=== PATIENT | male | born 1950 | race Caucasian/White ===

== ENCOUNTER → 2016-12-09 | Outpatient (CLI) | payer MEDICARE, BC ==
--- NOTE | 2016-12-09 12:37 | XR ---
EXAMINATION TYPE: XR chest 2V DATE OF EXAM: 12/09/2016 12:22 PM COMPARISON: Prior chest x-ray 29 October 2016 HISTORY: MRI clearance, epicardial lead wire check TECHNIQUE: Frontal and lateral views of the chest are obtained. FINDINGS: There is no focal air space opacity, pleural effusion, or pneumothorax seen. The cardiac silhouette size is within normal limits. Patient is post median sternotomy. Suspect coronary artery stents present. Surgical clips in the neck. Epicardial pacing leads are not evident. The osseous str uctures are intact. IMPRESSION: No acute cardiopulmonary process. There are coronary artery stents suspected. Additiona l post op changes above.
== END | disposition home or self-care (01) ==
LOC: RADXRMAIN 12:01
PROVIDERS: ATTEND Physical Medicine & Rehabilitation
DX: Z01.810 Encounter for preprocedural cardiovascular examination (principal); M54.2 Cervicalgia; G89.22 Chronic post-thoracotomy pain; M54.6 Pain in thoracic spine; M54.5 Low back pain; R07.9 Chest pain, unspecified; M62.830 Muscle spasm of back; M79.1 Myalgia; Z95.1 Presence of aortocoronary bypass graft
CPT/HCPCS: 71020

== ENCOUNTER → 2016-12-29 | Outpatient (CLI) | payer MEDICARE, BC ==
[2016-12-29 15:31] LABS: Blood Urea Nitrogen 16 mg/dL (9-20); Non-African American GFR(MDRD) >60 (>60 ml/min/1.73 sqM)
== END | disposition home or self-care (01) ==
LOC: LABWHC1 14:35
PROVIDERS: ATTEND Physical Medicine & Rehabilitation
DX: Z01.812 Encounter for preprocedural laboratory examination (principal); N28.9 Disorder of kidney and ureter, unspecified; M54.6 Pain in thoracic spine; M54.5 Low back pain; M47.812 Spondylosis without myelopathy or radiculopathy, cervical region; D48.0 Neoplasm of uncertain behavior of bone and articular cartilage; M47.816 Spondylosis without myelopathy or radiculopathy, lumbar region; G89.22 Chronic post-thoracotomy pain
CPT/HCPCS: 36415; 82565; 84520

== ENCOUNTER → 2017-02-14 | Outpatient (CLI) | payer MEDICARE, BC ==
--- NOTE | 2017-02-16 11:56 | PE ---
Nuclear medicine PET/CT HISTORY: Renal cell carcinoma Patient received 14 curies F-18 FDG intravenously delayed scanning performed from the skull base thro ugh the mid thighs. Localization and attenuation correction CT was also performed. Comparison to CT thoracic spine for radiation planning purposes December, thoracic MRI s ixth every 2016 Neck and chest: There is no evident adenopathy. No lung mass. Emphysematous changes are present withi n the lungs. Coronary artery calcifications are present, patient is post median sternotomy. Heart is enlarged. Abdomen pelvis: No definite renal mass evident on this noncontrast exam. No retroperitoneal adenopath y. Adrenal glands show normal appearance. Atheromatous changes present within the aorta and iliac vas culature. No evident liver mass. Osseous structures: Multiple thoracic vertebral bodies show hypermetabolic uptake, some show associat ed lytic abnormality to include approximately T3-T9 with associated postoperative changes present at T2-T6, SUV 4-5. Relative sclerotic focus also present at T4. Hypermetabolic uptake is also present wi thin the sternum at the lower aspect, anterior rib on the right of the third rib, T10 vertebral body, right ilium and sacrum, posterior acetabulum on the left and proximal left femur at the level of the lesser trochanter where SUV is 9.6 and L4 SUV 7.7, anterior mandible shows SUV 4.2 IMPRESSION: Osseous metastatic disease.
== END | disposition home or self-care (01) ==
LOC: RADPETMAIN 11:23
PROVIDERS: ATTEND Internal Medicine Hematology & Oncology
DX: C79.51 Secondary malignant neoplasm of bone (principal); C64.9 Malignant neoplasm of unspecified kidney, except renal pelvis
CPT/HCPCS: 78815; A9552

== ENCOUNTER 2017-02-19 11:27 | Emergency (ER) | payer MEDICARE, BC ==
[2017-02-19] MEDS ORDERED: SODIUM CHLORIDE 0.9% 1,000 ML IV STA ×2 (11:47)
[2017-02-19] MEDS ORDERED: SODIUM CHLORIDE 0.9% 500 ML IV STA (11:47)
--- NOTE | 2017-02-19 11:53 | ED ---
Arrhythmia/Palpitations HPI - General Chief Complaint: Arrhythmia/Palpitations Stated Complaint: Low blood Time Seen by Provider: 02/19/17 11:35 Source: patient, family, RN notes reviewed Mode of arrival: wheelchair Limitations: no limitations - History of Present Illness Initial Comments: This is a 66-year-old male with a history of suspected renal cell cancer who just had a resection done from his thorax to 3 weeks ago [facility] who is at a radiation oncology appointment today to get set up for radiation therapy was noted to be bradycardic and hypotensive. Patient denies any chest pain fevers chills nausea and sweats lightheadedness he states he has been eating and drinking recently has a large amount of weight loss. He was sent over for evaluation he was noted to be somewhat bradycardic upon arrival. He currently again denies any lightheadedness. - Related Data Home Medications Medication Instructions Recorded Confirmed Lisinopril 40 mg PO BID 10/08/14 02/19/17 Metoprolol Tartrate [Lopressor] 50 mg PO BID 10/08/14 02/19/17 Coconut Oil 1 tab PO DAILY 02/19/17 02/19/17 Dexamethasone 4 mg PO BID 02/19/17 02/19/17 Ferrous Sulfate [Feosol] 325 mg PO DAILY 02/19/17 02/19/17 HYDROcodone/APAP 7.5-325MG [[place] 1 tab PO Q4H PRN 02/19/17 02/19/17 7.5-325] Lyrica (Unk Dose) 1 cap PO HS PRN 02/19/17 02/19/17 Naproxen Sodium [Aleve] 440 mg PO BID 02/19/17 02/19/17 Polyethylene Glycol 3350 [Miralax] 17 gm PO DAILY PRN 02/19/17 02/19/17 Xanax (Unk Dose) 1 tab PO BID PRN 02/19/17 02/19/17 amLODIPine [Norvasc] 2.5 mg PO DAILY 02/19/17 02/19/17 Previous Rx's Medication Instructions Recorded Clopidogrel [Plavix] 75 mg PO DAILY #30 tab 03/05/16 Atorvastatin [Lipitor] 80 mg PO HS #30 tab 10/31/16 Docusate [Colace] 100 mg PO BID PRN #30 capsule 10/31/16 Nitroglycerin Sl Tabs [Nitrostat] 0.4 mg SUBLINGUAL Q5M PRN #50 tab 10/31/16 Allergies Allergy/AdvReac Type Severity Reaction Status Date / Time No Known Allergies Allergy Verified 02/19/17 12:15 Review of Systems ROS Statement: Those systems with pertinent positive or pertinent negative responses have been documented in the HPI. ROS Other: All systems not noted in ROS Statement are negative. Past Medical History Past Medical History: Coronary Artery Disease (CAD), Chest Pain / Angina, Hyperlipidemia, Hypertension, Myocardial Infarction ([place]), Myocardial Infarction (non Q-wave), Osteoarthritis (OA), Prostate Disorder Additional Past Medical History / Comment(s): TIFFANY KNEE ARTHRITIS. [place] 1994; NON- ST ELEV [place] 09/2014. STENTS 2012, 2013. NEUROPATHY, TRIGGER FINGER, LEFT ARM NERVE PAIN, NEUROPATHY Last Myocardial Infarction Date:: 09/2014 History of Any Multi-Drug Resistant Organisms: None Reported Past Surgical History: Coronary Bypass/CABG, Heart Catheterization With Stent, Prostate Surgery Additional Past Surgical History / Comment(s): TRIPLE CABG 1994. RT Carotid Endarectomy 2009 LT in 2014. TESTICLE SURG. AORTIC ARCH ARTERIOGRAM 02/16/15. LASER SX/ PROSTATE."I HAVE 6 OR 7 CARDIAC STENTS". Past Anesthesia/Blood Transfusion Reactions: No Reported Reaction Date of Last Stent Placement:: 2015 Past Psychological History: No Psychological Hx Reported Smoking Status: Former smoker Past Alcohol Use History: Occasional Additional Past Alcohol Use History / Comment(s): 6 DRINKS PER [place] AVG. PT STARTED SMOKING AGE 10, QUIT AT AGE 43 WAS SMOKING 1 PPD Past Drug Use History: None Reported - Past Family History Mother Additional Family Medical History / Comment(s): AT AGE 91-NATURAL [place] Father Family Medical History: Myocardial Infarction ([place]) Additional Family Medical History / Comment(s): AT AGE 64 General Exam - General Exam Comments Initial Comments: This is a well-developed well-nourished awake alert oriented 3 male Limitations: no limitations General appearance: alert, in no apparent distress Head exam: Present: atraumatic, normocephalic, normal inspection Eye exam: Present: normal appearance, PERRL, EOMI. Absent: scleral icterus, conjunctival injection, periorbital swelling ENT exam: Present: mucous membranes dry Neck exam: Present: normal inspection. Absent: tenderness, meningismus, lymphadenopathy Respiratory exam: Present: normal lung sounds bilaterally, decreased breath sounds (Well-healing scar in the upper thoracic back.). Absent: respiratory distress, wheezes, rales, rhonchi, stridor Cardiovascular Exam: Present: regular rate, normal rhythm, normal heart sounds. Absent: systolic murmur, diastolic murmur, rubs, gallop, clicks GI/Abdominal exam: Present: soft, normal bowel sounds. Absent: distended, tenderness, guarding, rebound, rigid Extremities exam: Present: normal inspection, full ROM, normal capillary refill. Absent: tenderness, pedal edema, joint swelling, calf tenderness Back exam: Present: normal inspection Neurological exam: Present: alert, oriented X3, CN II-XII intact Psychiatric exam: Present: normal affect, normal mood Skin exam: Present: warm, dry, intact, normal color. Absent: rash Course Vital Signs 02/19/17 02/19/17 02/19/17 11:30 11:41 12:20 Temperature 96.9 F L Pulse Rate 49 L 50 L Pulse Rate [ 52 L Radial] Respiratory 16 Rate Blood Pressure 81/50 91/50 O2 Sat by Pulse 99 Oximetry 02/19/17 02/19/17 13:02 13:22 Temperature Pulse Rate 53 L 51 L Pulse Rate [ Radial] Respiratory 20 20 Rate Blood Pressure 125/66 117/61 O2 Sat by Pulse Oximetry EKG Findings - EKG Results: EKG: interpreted by ANGELICA, sinus rhythm (Sinus rhythm a rate of 47 RI interval 128 QRS duration 90 QT/QTC of 420/378. Changes no acute ST-T wave changes) Medical Decision Making - Medical Decision Making Patient is feeling much improved at this time after IV hydration he will be discharged we did discuss the need to increase his oral fluid consumption. - Lab Data Result diagrams: 02/19/17 12:00 02/19/17 12:00 Lab Results 02/19/17 02/19/17 02/19/17 Range/Units 12:00 12:00 12:00 WBC 7.0 (3.8-10.6) k/uL RBC 3.89 L (4.30-5.90) m/uL Hgb 12.1 L (13.0-17.5) gm/dL Hct 36.5 L (39.0-53.0) % MCV 93.7 (80.0-100.0) fL MCH 31.2 (25.0-35.0) pg MCHC 33.3 (31.0-37.0) g/dL RDW 16.5 H (11.5-15.5) % Plt Count 164 (150-450) k/uL Neutrophils % 80 % Lymphocytes % 12 % Monocytes % 6 % Eosinophils % 1 % Basophils % 0 % Neutrophils # 5.6 (1.3-7.7) k/uL Lymphocytes # 0.8 L (1.0-4.8) k/uL Monocytes # 0.4 (0-1.0) k/uL Eosinophils # 0.0 (0-0.7) k/uL Basophils # 0.0 (0-0.2) k/uL Anisocytosis Slight PT (9.0-12.0) sec INR (<1.1) APTT (22.0-30.0) sec Sodium 139 (137-145) mmol/L Potassium 4.2 (3.5-5.1) mmol/L Chloride 105 (98-107) mmol/L Carbon Dioxide 25 (22-30) mmol/L Anion Gap 9 mmol/L BUN 28 H (9-20) mg/dL Creatinine 0.90 (0.66-1.25) mg/dL Est GFR (MDRD) Af Amer >60 (>60 ml/min/1.73 sqM) Est GFR (MDRD) Non-Af >60 (>60 ml/min/1.73 sqM) Glucose 100 H (74-99) mg/dL Calcium 8.8 (8.4-10.2) mg/dL Magnesium 1.8 (1.6-2.3) mg/dL Total Bilirubin 0.5 (0.2-1.3) mg/dL AST 15 L (17-59) U/L ALT 29 (21-72) U/L Alkaline Phosphatase 103 (38-126) U/L Total Creatine Kinase 24 L (55-170) U/L CK-MB (CK-2) 1.1 (0.0-2.4) ng/mL CK-MB (CK-2) Rel Index 4.6 Troponin I <0.012 (0.000-0.034) ng/mL Total Protein 5.4 L (6.3-8.2) g/dL Albumin 3.0 L (3.5-5.0) g/dL 02/19/17 Range/Units 12:00 WBC (3.8-10.6) k/uL RBC (4.30-5.90) m/uL Hgb (13.0-17.5) gm/dL Hct (39.0-53.0) % MCV (80.0-100.0) fL MCH (25.0-35.0) pg MCHC (31.0-37.0) g/dL RDW (11.5-15.5) % Plt Count (150-450) k/uL Neutrophils % % Lymphocytes % % Monocytes % % Eosinophils % % Basophils % % Neutrophils # (1.3-7.7) k/uL Lymphocytes # (1.0-4.8) k/uL Monocytes # (0-1.0) k/uL Eosinophils # (0-0.7) k/uL Basophils # (0-0.2) k/uL Anisocytosis PT 10.3 (9.0-12.0) sec INR 1.0 (<1.1) APTT 20.8 L (22.0-30.0) sec Sodium (137-145) mmol/L Potassium (3.5-5.1) mmol/L Chloride (98-107) mmol/L Carbon Dioxide (22-30) mmol/L Anion Gap mmol/L BUN (9-20) mg/dL Creatinine (0.66-1.25) mg/dL Est GFR (MDRD) Af Amer (>60 ml/min/1.73 sqM) Est GFR (MDRD) Non-Af (>60 ml/min/1.73 sqM) Glucose (74-99) mg/dL Calcium (8.4-10.2) mg/dL Magnesium (1.6-2.3) mg/dL Total Bilirubin (0.2-1.3) mg/dL AST (17-59) U/L ALT (21-72) U/L Alkaline Phosphatase (38-126) U/L Total Creatine Kinase (55-170) U/L CK-MB (CK-2) (0.0-2.4) ng/mL CK-MB (CK-2) Rel Index Troponin I (0.000-0.034) ng/mL Total Protein (6.3-8.2) g/dL Albumin (3.5-5.0) g/dL - Radiology Data Radiology results: report reviewed (X-rays were reviewed no acute findings), image reviewed Disposition Clinical Impression: Hypotension, Bradycardia, Dehydration Disposition: HOME SELF-CARE Condition: Good Instructions: Dehydration (ED), Hypotension (ED)
[2017-02-19 12:10] LABS: Anisocytosis Slight; Basophils % (A) 0 %; CH 31.6; CHCM 33.9; Eosinophils % (A) 1 %; HCT 36.5 % (39.0-53.0); HDW 2.91; HGB 12.1 gm/dL (13.0-17.5); Luc # (Auto) 0.13; Luc % (Auto) 2; Lymphocytes # (A) 0.8 k/uL (1.0-4.8); Lymphocytes % (A) 12 %; MCH 31.2 pg (25.0-35.0); MCHC 33.3 g/dL (31.0-37.0); MCV 93.7 fL (80.0-100.0); Mean Platelet Volume 6.8; Monocytes # (A) 0.4 k/uL (0-1.0); Monocytes % (A) 6 %; Neutrophils # (A) 5.6 k/uL (1.3-7.7); Neutrophils % (A) 80 %; RBC 3.89 m/uL (4.30-5.90); RDW 16.5 % (11.5-15.5); WBC (Perox) 7.52
[2017-02-19 12:18] LABS: Prothrombin Time 10.3 sec (9.0-12.0)
[2017-02-19 12:19] LABS: ALT 29 U/L (21-72); AST 15 U/L (17-59); Alkaline Phosphatase 103 U/L (38-126); Anion Gap 9 mmol/L; Blood Urea Nitrogen 28 mg/dL (9-20); Calcium 8.8 mg/dL (8.4-10.2); Carbon Dioxide 25 mmol/L (22-30); Chloride 105 mmol/L (98-107); Glucose 100 mg/dL (74-99); Magnesium 1.8 mg/dL (1.6-2.3); Non-African American GFR(MDRD) >60 (>60 ml/min/1.73 sqM); Potassium 4.2 mmol/L (3.5-5.1); Sodium 139 mmol/L (137-145); Total Bilirubin 0.5 mg/dL (0.2-1.3); Total Protein 5.4 g/dL (6.3-8.2)
[2017-02-19 12:29] LABS: Creatine Kinase 24 U/L (55-170)
[2017-02-19 12:32] LABS: Partial Thromboplastin Time 20.8 sec (22.0-30.0)
[2017-02-19 12:42] LABS: Creatine Kinase MB 1.1 ng/mL (0.0-2.4); Troponin I <0.012 ng/mL (0.000-0.034)
--- NOTE | 2017-02-19 13:08 | XR ---
EXAMINATION TYPE: XR chest 2V DATE OF EXAM: 02/19/2017 12:55 PM COMPARISON: 12/09/2016 TECHNIQUE: PA and lateral views submitted. HISTORY: Dysrhythmia FINDINGS: The lungs are clear and there is no pneumothorax, pleural effusion, or focal pneumonia. Heart is pr ominent in size and there is stopped change involving the sternum. Arthropathy of the AC joints noted . Hypertrophic change of the spine. IMPRESSION: 1. No acute process.
[2017-02-19 14:28] VITALS: BP 142/66; PULSE 56; RESP 18; TEMP 98
== END 2017-02-19 14:28 | disposition home or self-care (01) ==
LOC: EC 11:27
DX: I95.9 Hypotension, unspecified (principal); R00.1 Bradycardia, unspecified; E86.0 Dehydration; I10 Essential (primary) hypertension; I25.10 Atherosclerotic heart disease of native coronary artery without angina pectoris; I25.2 Old myocardial infarction; M17.0 Bilateral primary osteoarthritis of knee; Z95.1 Presence of aortocoronary bypass graft; Z95.5 Presence of coronary angioplasty implant and graft; Z87.891 Personal history of nicotine dependence; Z82.49 Family history of ischemic heart disease and other diseases of the circulatory system; Z79.899 Other long term (current) drug therapy
CPT/HCPCS: 36415; 71020; 80053; 82550; 82553; 83735; 84484; 85025; 85610; 85730; 93005; 96360; 96361; 99285

== ENCOUNTER → 2017-03-05 | Outpatient (CLI) | payer MEDICARE, BC ==
[2017-03-05 11:21] LABS: Anisocytosis Slight; CH 32.2; CHCM 32.9; HCT 34.5 % (39.0-53.0); HDW 3.01; MCH 31.4 pg (25.0-35.0); MCHC 31.8 g/dL (31.0-37.0); MCV 98.5 fL (80.0-100.0); Macrocytosis Slight; Mean Platelet Volume 7.9; RDW 18.3 % (11.5-15.5); WBC 6.2 k/uL (3.8-10.6)
[2017-03-05 11:44] LABS: ALT 52 U/L (21-72); AST 23 U/L (17-59); Alkaline Phosphatase 94 U/L (38-126); Anion Gap 7 mmol/L; Blood Urea Nitrogen 28 mg/dL (9-20); Calcium 8.6 mg/dL (8.4-10.2); Carbon Dioxide 30 mmol/L (22-30); Chloride 104 mmol/L (98-107); Glucose 123 mg/dL (74-99); Non-African American GFR(MDRD) >60 (>60 ml/min/1.73 sqM); Potassium 4.6 mmol/L (3.5-5.1); Sodium 141 mmol/L (137-145); Total Bilirubin 0.6 mg/dL (0.2-1.3); Total Protein 5.3 g/dL (6.3-8.2)
== END | disposition home or self-care (01) ==
LOC: LABWHC1 11:01
PROVIDERS: ATTEND Radiology Radiation Oncology
DX: C64.9 Malignant neoplasm of unspecified kidney, except renal pelvis (principal)
CPT/HCPCS: 36415; 80053; 85027

== ENCOUNTER → 2017-03-18 | Outpatient (CLI) | payer MEDICARE, BC ==
--- NOTE | 2017-03-18 14:03 | MR ---
EXAMINATION TYPE: MR brain wo/w con DATE OF EXAM: 03/18/2017 9:01 AM COMPARISON: 09/02/2010 HISTORY: 66-year-old male secondary malignant neoplasm of bone, mets. Patient with history of renal c ell carcinoma. TECHNIQUE: Multiplanar, multisequence images of the brain and brainstem were acquired before and aft er administration of 16 mL IV MultiHance. Diffusion weighted imaging is performed. FINDINGS: No evidence for acute infarction, hemorrhage, mass, mass effect, midline shift, herniation, effacemen t of basal cisterns, or extra-axial fluid collection. The ventricles and sulci are age-appropriate with mild generalized supratentorial volume loss. Major intracranial flow voids are intact. Dominant left vertebral artery is noted T2/FLAIR weighted sequences show only a few scattered bright signal foci such as in the right subinsu lar white matter (stable) and a couple within the left subcortical white matter anteriorly. Nonspecif ic and probably relating to chronic small vessel ischemic disease. Midline structures demonstrate normal morphology. The craniocervical junction is normal. Post contrast images demonstrate no evidence of pathologic enhancement. Dural venous sinuses are pat ent. Continued mucosal thickening within the frontal sinuses and ethmoid air cells. Mucosal thickening and retention cysts within the maxillary sinuses. The globes are intact. The calvarium appears intact. IMPRESSION: 1. Mild atrophy. No acute intracranial abnormality seen. 2. No findings to suggest brain metastases. 3. Mild chronic paranasal sinus disease.
== END ==
LOC: RADMRIMAIN 08:13
PROVIDERS: ATTEND Radiology Radiation Oncology
DX: G31.9 Degenerative disease of nervous system, unspecified (principal); J32.8 Other chronic sinusitis; Z85.528 Personal history of other malignant neoplasm of kidney; C79.51 Secondary malignant neoplasm of bone
CPT/HCPCS: 70553; A9577

== ENCOUNTER 2017-03-19 11:55 | Inpatient (IN) | payer MEDICARE, BC ==
[2017-03-19] MEDS ORDERED: SODIUM CHLORIDE 0.9% 1,000 ML IV STA (12:11)
[2017-03-19] MEDS ORDERED: SODIUM CHLORIDE 0.9% 500 ML IV STA (12:11)
[2017-03-19] MEDS ORDERED: ACETAMINOPHEN TAB 500 MG TAB PO STA (12:29)
[2017-03-19] MEDS ORDERED: IBUPROFEN 800 MG TAB PO STA (12:29)
--- NOTE | 2017-03-19 12:29 | ED ---
General Adult HPI - General Chief complaint: Altered Mental Status Stated complaint: confusion Time Seen by Provider: 03/19/17 12:06 Source: patient, RN notes reviewed, old records reviewed Mode of arrival: wheelchair Limitations: no limitations - History of Present Illness Initial comments: This is a 58-year-old male who is unable to give accurate history at this time, patient's coming in for evaluation regarding altered mental status, patient sent in from [facility], recently finished steroids, suffer some CA with metastases. Patient also noted the fever. Patient's himself again is a poor historian is unable to give history history obtained from chart and transfer paperwork - Related Data Home Medications Medication Instructions Recorded Confirmed Lisinopril 40 mg PO DAILY 10/08/14 03/19/17 Metoprolol Tartrate [Lopressor] 50 mg PO BID 10/08/14 03/19/17 ALPRAZolam [Xanax] 0.25 mg PO TID PRN 02/19/17 03/19/17 Coconut Oil 1 tab PO DAILY 02/19/17 02/19/17 Dexamethasone 4 mg PO BID 02/19/17 02/19/17 Ferrous Sulfate [Feosol] 325 mg PO DAILY 02/19/17 02/19/17 HYDROcodone/APAP 7.5-325MG [[place] 1 tab PO Q6H PRN 02/19/17 03/19/17 7.5-325] Naproxen Sodium [Aleve] 440 mg PO BID 02/19/17 02/19/17 Polyethylene Glycol 3350 [Miralax] 17 gm PO DAILY PRN 02/19/17 02/19/17 Pregabalin [Lyrica] 50 mg PO BID 02/19/17 02/19/17 amLODIPine [Norvasc] 2.5 mg PO DAILY 02/19/17 02/19/17 Aspirin 162 mg PO BID 03/19/17 03/19/17 Atorvastatin [Lipitor] 40 mg PO HS 03/19/17 03/19/17 Isosorbide Mononitrate ER [Imdur] 30 mg PO DAILY 03/19/17 03/19/17 Mirtazapine [Mirtazapine] 15 mg PO HS 03/19/17 03/19/17 Morphine Sulfate ER [Ms Contin 30 mg PO TID 03/19/17 03/19/17 30Mg] Pazopanib HCl [Votrient] 800 mg PO DAILY 03/19/17 03/19/17 Tamsulosin [Flomax] 0.4 mg PO DAILY 03/19/17 03/19/17 Previous Rx's Medication Instructions Recorded Clopidogrel [Plavix] 75 mg PO DAILY #30 tab 03/05/16 Docusate [Colace] 100 mg PO BID PRN #30 capsule 10/31/16 Nitroglycerin Sl Tabs [Nitrostat] 0.4 mg SUBLINGUAL Q5M PRN #50 tab 10/31/16 Allergies Allergy/AdvReac Type Severity Reaction Status Date / Time No Known Allergies Allergy Verified 03/19/17 12:03 Review of Systems ROS Statement: Those systems with pertinent positive or pertinent negative responses have been documented in the HPI. ROS Other: All systems not noted in ROS Statement are negative. Past Medical History Past Medical History: Coronary Artery Disease (CAD), Chest Pain / Angina, Hyperlipidemia, Hypertension, Myocardial Infarction ([place]), Myocardial Infarction (non Q-wave), Osteoarthritis (OA), Prostate Disorder Additional Past Medical History / Comment(s): TIFFANY KNEE ARTHRITIS. [place] 1994; NON- ST ELEV [place] 09/2014. STENTS 2012, 2013. NEUROPATHY, TRIGGER FINGER, LEFT ARM NERVE PAIN, NEUROPATHY Last Myocardial Infarction Date:: 09/2014 History of Any Multi-Drug Resistant Organisms: None Reported Past Surgical History: Coronary Bypass/CABG, Heart Catheterization With Stent, Prostate Surgery Additional Past Surgical History / Comment(s): TRIPLE CABG 1994. RT Carotid Endarectomy 2008 LT in 2014. TESTICLE SURG. AORTIC ARCH ARTERIOGRAM 02/16/15. LASER SX/ PROSTATE."I HAVE 6 OR 7 CARDIAC STENTS". Past Anesthesia/Blood Transfusion Reactions: No Reported Reaction Date of Last Stent Placement:: 2015 Past Psychological History: No Psychological Hx Reported Smoking Status: Former smoker Past Alcohol Use History: Occasional Additional Past Alcohol Use History / Comment(s): 6 DRINKS PER [place] AVG. PT STARTED SMOKING AGE 10, QUIT AT AGE 43 WAS SMOKING 1 PPD Past Drug Use History: None Reported - Past Family History Mother Additional Family Medical History / Comment(s): AT AGE 91-NATURAL [place] Father Family Medical History: Myocardial Infarction ([place]) Additional Family Medical History / Comment(s): AT AGE 64 General Exam Limitations: altered mental status General appearance: alert, in no apparent distress Head exam: Present: atraumatic, normocephalic, normal inspection Eye exam: Present: normal appearance, PERRL, EOMI. Absent: scleral icterus, conjunctival injection, periorbital swelling ENT exam: Present: mucous membranes dry Neck exam: Present: normal inspection. Absent: tenderness, meningismus, lymphadenopathy Respiratory exam: Present: normal lung sounds bilaterally. Absent: respiratory distress, wheezes, rales, rhonchi, stridor Cardiovascular Exam: Present: normal rhythm, tachycardia, normal heart sounds. Absent: systolic murmur, diastolic murmur, rubs, gallop, clicks GI/Abdominal exam: Present: soft, normal bowel sounds. Absent: distended, tenderness, guarding, rebound, rigid Extremities exam: Present: normal inspection, full ROM, normal capillary refill. Absent: tenderness, pedal edema, joint swelling, calf tenderness Back exam: Present: normal inspection Neurological exam: Present: alert, oriented X3, CN II-XII intact Psychiatric exam: Present: normal affect, normal mood Skin exam: Present: warm, dry, intact, normal color. Absent: rash Course Vital Signs 03/19/17 03/19/17 03/19/17 12:00 12:59 13:40 Temperature 101.8 F H 103.5 F H Pulse Rate 101 H 101 H 82 Respiratory 18 18 18 Rate Blood Pressure 73/47 98/54 109/56 O2 Sat by Pulse 96 98 88 L Oximetry 03/19/17 14:44 Temperature 100.5 F H Pulse Rate 75 Respiratory 18 Rate Blood Pressure 104/58 O2 Sat by Pulse 97 Oximetry - Reevaluation(s) Reevaluation #1: 03/19/17 15:24 Patient is showing mild improvement in mental status with fever control and IV hydration EKG Findings - EKG Comments: EKG Findings:: EKG shows sinus tach rate of 108, ID 140, QRS 90, QTC 544 Medical Decision Making - Medical Decision Making 66 [facility] ER for evaluation of altered mental status. Positive fever. Patient does have history of CA with metastasis. Depressed immune system and just finished steroids. Patient will be admitted for IV antibiotics, weight blood cultures, evaluation by infectious disease possibly, oncologist - Lab Data Result diagrams: 03/19/17 12:16 03/19/17 12:16 Lab Results 0403/19/17 03/19/17 Range/Units 12:16 12:16 12:16 WBC 2.7 L (3.8-10.6) k/uL RBC 2.95 L (4.30-5.90) m/uL Hgb 9.6 L (13.0-17.5) gm/dL Hct 28.2 L (39.0-53.0) % MCV 95.6 (80.0-100.0) fL MCH 32.5 (25.0-35.0) pg MCHC 34.0 (31.0-37.0) g/dL RDW 19.8 H (11.5-15.5) % Plt Count 115 L (150-450) k/uL Neutrophils % 72 % Lymphocytes % 18 % Monocytes % 4 % Eosinophils % 2 % Basophils % 0 % Neutrophils # 2.0 (1.3-7.7) k/uL Lymphocytes # 0.5 L (1.0-4.8) k/uL Monocytes # 0.1 (0-1.0) k/uL Eosinophils # 0.1 (0-0.7) k/uL Basophils # 0.0 (0-0.2) k/uL Poikilocytosis Slight Anisocytosis Slight Macrocytosis Slight PT (9.0-12.0) sec INR (<1.1) APTT (22.0-30.0) sec Sodium (137-145) mmol/L Potassium (3.5-5.1) mmol/L Chloride (98-107) mmol/L Carbon Dioxide (22-30) mmol/L Anion Gap mmol/L BUN (9-20) mg/dL Creatinine (0.66-1.25) mg/dL Est GFR (MDRD) Af Amer (>60 ml/min/1.73 sqM) Est GFR (MDRD) Non-Af (>60 ml/min/1.73 sqM) Glucose (74-99) mg/dL Calcium (8.4-10.2) mg/dL Phosphorus (2.5-4.5) mg/dL Magnesium (1.6-2.3) mg/dL Total Bilirubin (0.2-1.3) mg/dL AST (17-59) U/L ALT (21-72) U/L Alkaline Phosphatase (38-126) U/L Ammonia 16 (<30) umol/L Total Creatine Kinase 810 H (55-170) U/L CK-MB (CK-2) 1.6 (0.0-2.4) ng/mL CK-MB (CK-2) Rel Index 0.2 Troponin I 0.017 (0.000-0.034) ng/mL Total Protein (6.3-8.2) g/dL Albumin (3.5-5.0) g/dL Urine Color Urine Appearance (Clear) Urine pH (5.0-8.0) Ur Specific [place] (1.001-1.035) Urine Protein (Negative) Urine Glucose (UA) (Negative) Urine Ketones (Negative) Urine Blood (Negative) Urine Nitrite (Negative) Urine Bilirubin (Negative) Urine Urobilinogen (<2.0) mg/dL Ur Leukocyte Esterase (Negative) Urine RBC (0-5) /hpf Urine WBC (0-5) /hpf Ur Squamous Epith Cells (0-4) /hpf Amorphous Sediment (None) /hpf Hyaline Casts (0-2) /lpf Urine Mucus (None) /hpf 03/19/17 03/19/17 03/19/17 Range/Units 12:16 12:16 14:53 WBC (3.8-10.6) k/uL RBC (4.30-5.90) m/uL Hgb (13.0-17.5) gm/dL Hct (39.0-53.0) % MCV (80.0-100.0) fL MCH (25.0-35.0) pg MCHC (31.0-37.0) g/dL RDW (11.5-15.5) % Plt Count (150-450) k/uL Neutrophils % % Lymphocytes % % Monocytes % % Eosinophils % % Basophils % % Neutrophils # (1.3-7.7) k/uL Lymphocytes # (1.0-4.8) k/uL Monocytes # (0-1.0) k/uL Eosinophils # (0-0.7) k/uL Basophils # (0-0.2) k/uL Poikilocytosis Anisocytosis Macrocytosis PT 10.9 (9.0-12.0) sec INR 1.1 (<1.1) APTT 22.9 (22.0-30.0) sec Sodium 142 (137-145) mmol/L Potassium 4.3 (3.5-5.1) mmol/L Chloride 109 H (98-107) mmol/L Carbon Dioxide 24 (22-30) mmol/L Anion Gap 9 mmol/L BUN 28 H (9-20) mg/dL Creatinine 0.90 (0.66-1.25) mg/dL Est GFR (MDRD) Af Amer >60 (>60 ml/min/1.73 sqM) Est GFR (MDRD) Non-Af >60 (>60 ml/min/1.73 sqM) Glucose 112 H (74-99) mg/dL Calcium 8.5 (8.4-10.2) mg/dL Phosphorus 1.4 L (2.5-4.5) mg/dL Magnesium 1.6 (1.6-2.3) mg/dL Total Bilirubin 0.9 (0.2-1.3) mg/dL AST 58 (17-59) U/L ALT 35 (21-72) U/L Alkaline Phosphatase 76 (38-126) U/L Ammonia (<30) umol/L Total Creatine Kinase (55-170) U/L CK-MB (CK-2) (0.0-2.4) ng/mL CK-MB (CK-2) Rel Index Troponin I (0.000-0.034) ng/mL Total Protein 5.6 L (6.3-8.2) g/dL Albumin 3.1 L (3.5-5.0) g/dL Urine Color Yellow Urine Appearance Clear (Clear) Urine pH 5.5 (5.0-8.0) Ur Specific [place] 1.024 (1.001-1.035) Urine Protein 1+ H (Negative) Urine Glucose (UA) Negative (Negative) Urine Ketones Negative (Negative) Urine Blood Negative (Negative) Urine Nitrite Negative (Negative) Urine Bilirubin Negative (Negative) Urine Urobilinogen 4.0 (<2.0) mg/dL Ur Leukocyte Esterase Negative (Negative) Urine RBC <1 (0-5) /hpf Urine WBC 5 (0-5) /hpf Ur Squamous Epith Cells <1 (0-4) /hpf Amorphous Sediment Rare H (None) /hpf Hyaline Casts 26 H (0-2) /lpf Urine Mucus Moderate H (None) /hpf Disposition Clinical Impression: Altered mental status, Dehydration, Fever Disposition: ADMITTED IP TO THIS HOSP Condition: Fair Referrals: Luis Schwartz DO [Primary Care Provider] - 1-2 days
[2017-03-19 12:35] LABS: Anisocytosis Slight; Basophils % (A) 0 %; CH 32.7; CHCM 34.5; Eosinophils # (A) 0.1 k/uL (0-0.7); Eosinophils % (A) 2 %; HCT 28.2 % (39.0-53.0); HDW 3.61; HGB 9.6 gm/dL (13.0-17.5); Luc # (Auto) 0.08; Luc % (Auto) 3; Lymphocytes # (A) 0.5 k/uL (1.0-4.8); Lymphocytes % (A) 18 %; MCH 32.5 pg (25.0-35.0); MCV 95.6 fL (80.0-100.0); Macrocytosis Slight; Monocytes # (A) 0.1 k/uL (0-1.0); Monocytes % (A) 4 %; Neutrophils % (A) 72 %; Poikilocytosis Slight; RBC 2.95 m/uL (4.30-5.90); RDW 19.8 % (11.5-15.5); WBC 2.7 k/uL (3.8-10.6); WBC (Perox) 2.84
[2017-03-19 12:48] LABS: ALT 35 U/L (21-72); AST 58 U/L (17-59); Alkaline Phosphatase 76 U/L (38-126); Anion Gap 9 mmol/L; Blood Urea Nitrogen 28 mg/dL (9-20); Calcium 8.5 mg/dL (8.4-10.2); Carbon Dioxide 24 mmol/L (22-30); Chloride 109 mmol/L (98-107); Glucose 112 mg/dL (74-99); Magnesium 1.6 mg/dL (1.6-2.3); Non-African American GFR(MDRD) >60 (>60 ml/min/1.73 sqM); Phosphorous 1.4 mg/dL (2.5-4.5); Potassium 4.3 mmol/L (3.5-5.1); Sodium 142 mmol/L (137-145); Total Bilirubin 0.9 mg/dL (0.2-1.3); Total Protein 5.6 g/dL (6.3-8.2)
[2017-03-19 13:03] LABS: INR 1.1 (<1.1); Partial Thromboplastin Time 22.9 sec (22.0-30.0); Prothrombin Time 10.9 sec (9.0-12.0)
[2017-03-19 13:22] LABS: Creatine Kinase MB 1.6 ng/mL (0.0-2.4); Troponin I 0.017 ng/mL (0.000-0.034)
--- NOTE | 2017-03-19 13:24 | CT ---
EXAMINATION TYPE: CT brain wo con DATE OF EXAM: 03/19/2017 1:18 PM COMPARISON: 05/07/2010 INDICATION: altered mental status DLP: 1153 mGycm, Automated exposure control for dose reduction was used. CONTRAST: None CT of the brain is performed utilizing 3 mm thick sections through the posterior fossa and 3 mm thick sections through the remaining calvarium. Study is performed within 24 hours of arrival to the hosp ital. No abnormal hyperdensity is present to suggest an acute intracranial hemorrhage. No mass lesion is evident. No acute infarcts are evident. Ventricles and sulci are appropriate for the patient age. Mild mucosal thickening is within posterior ethmoid air cells within the sphenoid sinus. Remaining pa ranasal sinuses and mastoid air cells are clear where visualized. IMPRESSIONS: 1. Normal CT Brain 2. Mild mucosal thickening ethmoid and sphenoid sinuses.
--- NOTE | 2017-03-19 13:57 | XR ---
EXAMINATION TYPE: XR chest 2V DATE OF EXAM: 03/19/2017 1:17 PM COMPARISON: 02/19/2017 TECHNIQUE: PA and lateral views submitted. HISTORY: Weakness FINDINGS: The lungs are clear and there is no pneumothorax, pleural effusion, or focal pneumonia. Postsurgica l changes noted. Arthropathy of the shoulders. Mild cardiomegaly. IMPRESSION: 1. No acute process.
[2017-03-19 15:16] LABS: Amorphous Sediment,Urine Rare /hpf; Appearance,Urine Clear (Clear); Bilirubin,Urine Negative (Negative); Glucose,Urine (UA) Negative (Negative); Ketones,Urine Negative (Negative); Leukocyte Esterase,Urine Negative (Negative); Mucus,Urine Moderate /hpf; Nitrite,Urine Negative (Negative); PH, Urine 5.5 (5.0-8.0); Particle Count 7071; Protein,Urine 1+ (Negative); RBC,Urine <1 /hpf (0-5); Specific Gravity,Urine 1.024 (1.001-1.035); Squamous Epithelial Cell,Urine <1 /hpf (0-4); UA Billing (MACRO vs. MICRO) MICRO; WBC,Urine 5 /hpf (0-5)
[2017-03-19] MEDS ORDERED: SODIUM CHLORIDE 0.9% 1,000 ML IV ONE (15:25)
[2017-03-19] MEDS ORDERED: AMPICILLIN-SULBACTAM 3 GM in SODIUM CHLORIDE 0.9% 100 ML IVPB STA (15:25)
[2017-03-19 19:39] LABS: Glucose,Whole Blood 108 mg/dL (75-99)
[2017-03-19] MEDS: AMPICILLIN-SULBACTAM 3 GM in SODIUM CHLORIDE 0.9% 100 ML IVPB SCH (23:53)
[2017-03-20 00:18] LABS: Glucose,Whole Blood 73 mg/dL (75-99)
[2017-03-20] MEDS ORDERED: RX INFO: IV CONTRAST WAS GIVEN 1 EACH MISC MISCELLANE PRN (00:40)
[2017-03-20] MEDS ORDERED: DOCUSATE 100 MG CAP PO PRN (00:41)
[2017-03-20] MEDS ORDERED: METHOCARBAMOL 750 MG TAB PO PRN (00:41)
[2017-03-20] MEDS ORDERED: HYDROcodone/APAP 7.5-325MG 1 EACH TAB PO PRN ×2 (00:41)
[2017-03-20] MEDS ORDERED: NITROGLYCERIN SL TABS 0.4 MG TAB SUBLINGUAL PRN (00:41)
--- NOTE | 2017-03-20 00:45 | XR ---
INDICATION: Respiratory distress. COMPARISON: CXR 03/19/17 FINDINGS: Single portable AP view of the chest is provided. Again demonstrated are post sternotomy changes. There is stable borderline cardiomegaly. There is pulmonary vascular equalization. Increased bilateral groundglass attenuation of the lung teixeira may represent developing mild pulmonary edema. There is no pleural effusion or pneumothorax. There are no acute osseous findings. IMPRESSION: 1. Increased groundglass attenuation of the lungs, possibly representing developing pulmonary edema. Atypical pneumonia is in the differential diagnosis.
[2017-03-20 00:53] LABS: Appearance,Urine Clear (Clear); Bilirubin,Urine Negative (Negative); Glucose,Urine (UA) Negative (Negative); Ketones,Urine Negative (Negative); Leukocyte Esterase,Urine Negative (Negative); Nitrite,Urine Negative (Negative); PH, Urine 5.5 (5.0-8.0); Protein,Urine Trace (Negative); Specific Gravity,Urine 1.027 (1.001-1.035); UA Billing (MACRO vs. MICRO) CHEM
[2017-03-20 01:29] LABS: Glucose,Whole Blood 79 mg/dL (75-99)
[2017-03-20] MEDS ORDERED: LORazepam 2 MG/ML SYRINGE ONE (01:44)
[2017-03-20] MEDS ORDERED: MORPHINE SULFATE 2 MG/ML SYRINGE ONE (01:48)
--- NOTE | 2017-03-20 01:53 | CT ---
INDICATION: Chest pain, evaluate for pulmonary embolism; history of renal cell carcinoma with osseous metastases. TECHNIQUE: Volumetric CT acquisition was performed through the chest per institutional CT angiogram protocol following the administration of IV contrast. Coronal and sagittal reformatted images and coronal and sagittal MIP reconstructed images were provided. This CT exam was performed using one or more of the following dose reduction techniques: automated exposure control, adjustment of the mA and/or kV according to patient size, and/or use of iterative reconstruction technique. DOSIMETRY: CTDIvol 78.70 mGy; DLP 378 mGy-cm COMPARISON: CXR 03/20/17, PET/CT 02/14/17 FINDINGS: There are acute pulmonary emboli involving the segmental and subsegmental branch vessels of both lower lobes. There is no evidence of saddle embolus. There is no right heart strain. There is a pleural-based consolidation in the posterior aspect of the right lower lobe superior segment suggesting a pulmonary infarct. There is a smaller juxtapleural consolidation along the posterior aspect of the left lower lobe superior segment which may also represent a pulmonary infarct. There are dependent groundglass opacities with septal thickening likely reflecting gravitational distribution of pulmonary edema. There is no significant pleural effusion. There is no pneumothorax. Visualized upper abdomen is unremarkable. There are lytic and mixed lytic sclerotic lesions in the thoracic spine at T3, T5, T6, T7, T8, and T11 and in the lower sternum compatible with known osseous metastatic disease. There is no evidence of acute or pathologic fracture. There has been prior posterior decompression from T2-T6. Prior midline sternotomy and CABG with mild cardiomegaly. No significant pericardial effusion. Thoracic aortic atherosclerosis without aneurysm. No adenopathy by size criteria. IMPRESSION: 1. Acute bilateral segmental and subsegmental lower lobe pulmonary emboli. No right heart strain. 2. Small pulmonary infarcts in the superior segments of the right and left lower lobes. 3. Dependent groundglass opacity and septal thickening suggesting dependent distribution of pulmonary edema. 4. Osseous metastatic disease, as detailed above, similar to PET/CT dated 02/14/17. No acute or pathologic fracture identified. [employer] 03/20/17 01:57 Call Doctor Regarding Pulmonary Embolism, called Dr. Henderson on 03/20 01:56 (-04:00)
[2017-03-20] MEDS ORDERED: HEPARIN SODIUM,PORCINE 5,000 UNIT/ML 1 ML VIAL IV PRN (02:05)
[2017-03-20] MEDS ORDERED: HEPARIN SODIUM,PORCINE 10,000 UNIT/ML 1 ML VIAL IV ONE (02:05)
[2017-03-20] MEDS ORDERED: MORPHINE SULFATE 2 MG/ML SYRINGE IVP PRN (02:05)
[2017-03-20] MEDS ORDERED: IV VANCOMYCIN PER PHARMACY 1 EACH MISC MISCELLANE PRN (02:11)
[2017-03-20] MEDS: CEFEPIME 2 GM in SODIUM CHLORIDE 0.9% 50 ML IVPB SCH ×3 (02:14→17:25)
[2017-03-20] MEDS: HEPARIN SODIUM,PORCINE/D5W PMX 25,000 UNIT in DEXTROSE/WATER 1 500ML.BAG IV SCH ×3 (02:15→21:01)
[2017-03-20 02:17] LABS: Creatine Kinase MB 2.2 ng/mL (0.0-2.4); Troponin I <0.012 ng/mL (0.000-0.034)
[2017-03-20 02:18] LABS: Anisocytosis Slight; Basophils % (A) 0 %; CH 32.3; CHCM 33.7; Eosinophils # (A) 0.1 k/uL (0-0.7); Eosinophils % (A) 2 %; HCT 30.4 % (39.0-53.0); HDW 3.81; HGB 10.6 gm/dL (13.0-17.5); Luc # (Auto) 0.06; Luc % (Auto) 2; Lymphocytes # (A) 0.6 k/uL (1.0-4.8); Lymphocytes % (A) 23 %; MCH 33.7 pg (25.0-35.0); MCHC 34.7 g/dL (31.0-37.0); MCV 96.9 fL (80.0-100.0); Macrocytosis Slight; Mean Platelet Volume 7.7; Monocytes # (A) 0.1 k/uL (0-1.0); Monocytes % (A) 4 %; Neutrophils # (A) 1.9 k/uL (1.3-7.7); Neutrophils % (A) 69 %; Poikilocytosis Slight; RBC 3.13 m/uL (4.30-5.90); RDW 19.6 % (11.5-15.5); WBC 2.8 k/uL (3.8-10.6); WBC (Perox) 2.85
[2017-03-20] MEDS ORDERED: SODIUM CHLORIDE 0.9% 1,000 ML IV ONE (02:22)
[2017-03-20 02:26] LABS: INR 1.1 (<1.1); Partial Thromboplastin Time 23.7 sec (22.0-30.0); Prothrombin Time 10.9 sec (9.0-12.0)
[2017-03-20] MEDS ORDERED: VANCOMYCIN 1,500 MG in SODIUM CHLORIDE 0.9% 250 ML IVPB SCH (03:00)
[2017-03-20] MEDS: ALPRAZolam 0.25 MG TAB PO PRN (03:15)
[2017-03-20 03:59] LABS: ALT 42 U/L (21-72); AST 56 U/L (17-59); Alkaline Phosphatase 82 U/L (38-126); Anion Gap 11 mmol/L; Blood Urea Nitrogen 22 mg/dL (9-20); Carbon Dioxide 22 mmol/L (22-30); Chloride 111 mmol/L (98-107); Glucose 98 mg/dL (74-99); Magnesium 1.8 mg/dL (1.6-2.3); Non-African American GFR(MDRD) >60 (>60 ml/min/1.73 sqM); Phosphorous 2.7 mg/dL (2.5-4.5); Potassium 4.1 mmol/L (3.5-5.1); Sodium 144 mmol/L (137-145); Total Bilirubin 0.9 mg/dL (0.2-1.3); Total Protein 5.6 g/dL (6.3-8.2)
[2017-03-20 07:02] LABS: Anisocytosis Slight; CH 32.8; CHCM 34.6; HDW 3.81; MCH 33.1 pg (25.0-35.0); MCHC 34.6 g/dL (31.0-37.0); MCV 95.6 fL (80.0-100.0); Macrocytosis Slight; Mean Platelet Volume 8.7; Poikilocytosis Slight; RDW 19.9 % (11.5-15.5); WBC (Perox) 1.77
[2017-03-20 07:14] LABS: WBC 1.7 k/uL (3.8-10.6)
[2017-03-20 07:36] LABS: HGB 7.6 gm/dL (13.0-17.5)
[2017-03-20] MEDS: AMPICILLIN-SULBACTAM 3 GM in SODIUM CHLORIDE 0.9% 100 ML IVPB SCH (07:43)
[2017-03-20] MEDS ORDERED: Magnesium Replacement Protocol 1 EACH MISC MISCELLANE PRN (07:53)
[2017-03-20 08:00] LABS: Add Differential Manual Differential
[2017-03-20 08:06] LABS: Nucleated Red Blood Cells 0 /100 WBC (0-0); Total Cells Counted 100
[2017-03-20 08:09] LABS: Manual Review Performed; Polychromasia Present
[2017-03-20 08:22] LABS: Anion Gap 5 mmol/L; Blood Urea Nitrogen 18 mg/dL (9-20); Calcium 7.6 mg/dL (8.4-10.2); Carbon Dioxide 22 mmol/L (22-30); Chloride 116 mmol/L (98-107); Glucose 99 mg/dL (74-99); Magnesium 1.7 mg/dL (1.6-2.3); Non-African American GFR(MDRD) >60 (>60 ml/min/1.73 sqM); Phosphorous 2.5 mg/dL (2.5-4.5); Potassium 4.2 mmol/L (3.5-5.1); Sodium 143 mmol/L (137-145)
[2017-03-20] MEDS: MAGNESIUM SULFATE-D5W PMX 1 GM in DEXTROSE/WATER 1 100ML.BAG IVPB SCH ×2 (08:40→10:41)
[2017-03-20] MEDS ORDERED: ENOXAPARIN 40 MG/0.4 ML SYRINGE SQ SCH (09:00)
[2017-03-20] MEDS ORDERED: DEXAMETHASONE 4 MG TAB PO SCH (09:00)
[2017-03-20] MEDS: MORPHINE SULFATE ER 30 MG TABLET PO SCH ×3 (09:40→22:05)
[2017-03-20] MEDS: ASPIRIN 81 MG CHEW PO SCH ×2 (09:41→22:03)
[2017-03-20] MEDS: METOPROLOL TARTRATE 50 MG TAB PO SCH ×2 (09:41→22:03)
[2017-03-20] MEDS: CLOPIDOGREL 75 MG TAB PO SCH (09:41)
[2017-03-20] MEDS: ISOSORBIDE MONONITRATE ER 30 MG TAB.ER.24H PO SCH ×2 (09:41→12:53)
[2017-03-20] MEDS: LISINOPRIL 20 MG TAB PO SCH ×2 (09:41→12:55)
--- NOTE | 2017-03-20 09:49 | ECHOF ---
Referral Reason:pulmonary embolism MEASUREMENTS -------- HEIGHT: 175.3 cm WEIGHT: 91.2 kg BP: 109/63 RVIDd: 4.2 cm (< 3.3) IVSd: 1.9 cm (0.6 - 1.1) LVIDd: 3.3 cm (3.9 - 5.3) LVPWd: 1.5 cm (0.6 - 1.1) IVSs: 2.0 cm LVIDs: 2.6 cm LVPWs: 1.7 cm Ao Diam: 3.5 cm (2.0 - 3.7) AV Cusp: 2.2 cm (1.5 - 2.6) LA Diam: 2.5 cm (2.7 - 3.8) MV EXCURSION: 12.495 mm (> 18.000) MV EF SLOPE: 60 mm/s (70 - 150) EPSS: 0.8 cm MV E Attila: 0.90 m/s MV DecT: 222 ms MV A Attila: 0.77 m/s MV E/A Ratio: 1.16 RAP: 5.00 mmHg RVSP: 35.55 mmHg FINDINGS -------- Sinus rhythm. This was a technically good study. There is moderate concentric left ventricular hypertrophy. Overall left ventricular systolic function is mildly impaired with, an EF between 45 - 50 %. Basal inferolateral hypokinesis. The right ventricle is moderately enlarged. The left atrium is normal in size. The right atrium is normal in size. The aortic valve is trileaflet, and appears structurally normal. No aortic stenosis or regurgitation. The mitral valve leaflets are mildly thickened. Mild mitral regurgitation is present. Mild tricuspid regurgitation present. The right ventricular systolic pressure, as measured by Doppler, is 35.55mmHg. Pulmonic valve appears structurally normal. The aortic root size is normal. The pericardium is normal. CONCLUSIONS -------- 1. Sinus rhythm. 2. The mitral valve leaflets are mildly thickened. 3. Mild mitral regurgitation is present. 4. Mild tricuspid regurgitation present. 5. The right ventricular systolic pressure, as measured by Doppler, is 35.55mmHg. 6. Pulmonic valve appears structurally normal. 7. The aortic root size is normal. 8. The pericardium is normal. 9. This was a technically good study. 10. There is moderate concentric left ventricular hypertrophy. 11. Overall left ventricular systolic function is mildly impaired with, an EF between 45 - 50 %. 12. Basal inferolateral hypokinesis. 13. The right ventricle is moderately enlarged. 14. The left atrium is normal in size. 15. The right atrium is normal in size. 16. The aortic valve is trileaflet, and appears structurally normal. No aortic stenosis or regurgitation. SHIRT BANDER: Zoila Rizvi RDCS
--- NOTE | 2017-03-20 10:04 | US ---
EXAMINATION TYPE: US venous doppler duplex LE BI DATE OF EXAM: 03/20/2017 8:41 AM COMPARISON: NONE CLINICAL HISTORY: possible DVT. Exam done portable in ICU SIDE PERFORMED: Bilateral TECHNIQUE: The lower extremity deep venous system is examined utilizing real time linear array sonog reji with graded compression, doppler sonography and color-flow sonography. VESSELS IMAGED: External Iliac Vein (EIV) Common Femoral Vein Deep Femoral Vein Greater Saphenous Vein * Femoral Vein Popliteal Vein Small Saphenous Vein * Proximal Calf Veins (* superficial vessels) Right Leg: Appears negative for DVT Left Leg: Appears negative for DVT IMPRESSION: 1. No diagnostic evidence of DVT as visualized
--- NOTE | 2017-03-20 12:25 | P.CNPUL ---
History of Present Illness Consult date: 03/20/17 Reason for consult: dyspnea Chief complaint: Dyspnea, altered mental status History of present illness: 58-year-old male patient was hospitalized yesterday because of altered mental status and shortness of breath. 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 The patient had back pain for quite some time and further investigation including a laminectomy that was done on the lumbar spine establish the diagnosis. Laminectomy was done to for ongoing back pain and diagnostic purposes. Following that, the patient was sent to radiation oncology and the patient was receiving palliative radiation therapy to his back. He was also started on Votrient as systemic treatment for his renal cell carcinoma. He has already received his of radiation and he is also on systemic treatment. Over the past 2 weeks, the patient was on and off confused. He was having some changes in his personality. At times he was having aggressive behavior to his family members and his . No headache. No neck stiffness. No chills. No fever. Over the past 24 hours, the patient's condition got worse and he started having increased shortness of breath. I was asked to evaluate this patient last night around 2 or 3 AM. At that time the patient was quite hypoxic , tachycardic and he was in the 100% on a beta facemask saturating around 88-89% . He was hospitalized with a low white count of 1.7. He was also febrile and he presented with a temperature of 11.8 and he had a T-max of 103.5. . Based on this, the patient was immediately moved to the intensive care unit. A stat computed tomography scan of the chest was done and showed subsegmental pulmonary emboli in the lung bases bilaterally. The patient also had a lateral upper lobe pulmonary infiltrates typical of an underlying pneumonia. The patient was started on IV heparin. The patient was started on a combination of cefepime and vancomycin. He was also given a total of 3 days of IV fluid and currently is on a maintenance of 0.9 at the rate of 100 mL an hour. No headache. Neurologically he is lethargic yet arousable and awake. He is following simple commands. On and off still confused. Family is at the bedside. Follow-up hemoglobin today's at 7.6. Platelet have dropped also to 78 ,000. Lactic acid level was elevated at 4.5 and stone to 0.8 Review of Systems 12 point review of system was done and the positive finds almost above in history of present illness Past Medical History Past Medical History: Coronary Artery Disease (CAD), Cancer, Chest Pain / Angina , Hyperlipidemia, Hypertension, Myocardial Infarction ([place]), Myocardial Infarction (non Q-wave), Osteoarthritis (OA), Prostate Disorder Additional Past Medical History / Comment(s): Metastatic renal cell carcinoma, coronary artery disease with previous non-ST segment elevation myocardial infarction in September 2014 and the patient has had coronary stent inserted in 2012 and 2013, 2015 peripheral neuropathy, 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, BPH, hypertension, the patient also has severe peripheral vascular disease Last Myocardial Infarction Date:: 09/2014 History of Any Multi-Drug Resistant Organisms: None Reported Past Surgical History: Coronary Bypass/CABG, Heart Catheterization With Stent, Prostate Surgery Additional Past Surgical History / Comment(s): Coronary artery bypass surgery 1994, artery catheterization and multiple stent insertion, carotid endarterectomy bilateral in 2008 and 2014, testicular surgery, angiogram with arch study Alfonso prostate surgery, left shoulder surgery, laminectomy, bilateral knee surgeries and insertion of femoral stents for severe peripheral vascular disease Past Anesthesia/Blood Transfusion Reactions: No Reported Reaction Date of Last Stent Placement:: 2015 Past Psychological History: No Psychological Hx Reported Smoking Status: Former smoker Past Alcohol Use History: Occasional Additional Past Alcohol Use History / Comment(s): 6 DRINKS PER MO AVG. PT STARTED SMOKING AGE 10, QUIT AT AGE 43 WAS SMOKING 1 PPD Past Drug Use History: None Reported - Past Family History Mother Additional Family Medical History / Comment(s): AT AGE 91-NATURAL [place] Father Family Medical History: Myocardial Infarction ([place]) Additional Family Medical History / Comment(s): AT AGE 64 Medications and Allergies Home Medications Medication Instructions Recorded Confirmed Type Lisinopril 40 mg PO DAILY 10/08/14 03/19/17 History Metoprolol Tartrate [Lopressor] 50 mg PO BID 10/08/14 03/19/17 History ALPRAZolam [Xanax] 0.25 mg PO TID PRN 02/19/17 03/19/17 History Dexamethasone 4 mg PO Q12H 02/19/17 03/19/17 History HYDROcodone/APAP 7.5-325MG [[place] 1 tab PO Q6H PRN 02/19/17 03/19/17 History 7.5-325] Aspirin 162 mg PO BID 03/19/17 03/19/17 History Atorvastatin [Lipitor] 40 mg PO HS 03/19/17 03/19/17 History HYDROcodone/APAP 7.5-325MG [[place] 2 tab PO Q6HR PRN 03/19/17 03/19/17 History 7.5-325] Isosorbide Mononitrate ER [Imdur] 30 mg PO DAILY 03/19/17 03/19/17 History Methocarbamol [Robaxin-750] 750 mg PO Q8H PRN 03/19/17 03/19/17 History Mirtazapine [Mirtazapine] 15 mg PO HS 03/19/17 03/19/17 History Morphine Sulfate ER [Ms Contin 30 mg PO TID 03/19/17 03/19/17 History 30Mg] Pazopanib HCl [Votrient] 800 mg PO DAILY 03/19/17 03/19/17 History Tamsulosin [Flomax] 0.4 mg PO HS 03/19/17 03/19/17 History Allergies Allergy/AdvReac Type Severity Reaction Status Date / Time No Known Allergies Allergy Verified 03/19/17 12:03 Physical Exam Vitals: Vital Signs Temp Pulse Pulse Resp BP BP Pulse Ox 03/20/17 10:30 59 L 15 106/63 98 03/20/17 10:00 60 18 130/70 98 03/20/17 09:30 62 24 114/73 96 03/20/17 09:00 65 25 H 109/63 99 03/20/17 08:30 67 26 H 119/72 98 03/20/17 08:00 98.2 F 62 23 119/63 93 L 03/20/17 07:30 72 10 L 100/60 97 03/20/17 07:00 73 23 110/64 97 03/20/17 06:30 72 18 114/66 95 03/20/17 06:00 75 24 100/62 94 L 03/20/17 05:30 75 31 H 107/55 98 03/20/17 05:00 80 22 110/64 94 L 03/20/17 04:30 84 26 H 117/64 92 L 03/20/17 04:00 101.3 F H 87 30 H 120/65 94 L 03/20/17 03:30 101 H 14 146/61 92 L 03/20/17 03:00 104 H 17 106/62 95 03/20/17 02:30 104 H 36 H 124/64 92 L 03/20/17 02:05 140 H 26 H 03/20/17 02:00 100.3 F H 150 H 48 H 149/78 90 L 03/20/17 01:30 139 H 149/78 86 L 03/20/17 01:20 149/78 92 L 03/20/17 00:25 98.0 F 140 H 131/60 60 L 03/19/17 21:49 94.7 F L 53 L 16 120/62 95 03/19/17 19:25 97.2 F L 53 L 91/51 94 L 03/19/17 16:08 62 22 99/55 92 L Intake and Output 03/19/17 03/20/17 03/20/17 22:59 06:59 14:59 Intake Total 1590 1699 861.677 Output Total 630 385 Balance 1590 1069 476.677 Intake: Amount of Fluid Infused ( 1000 ml) Intake, IV Titration 1699 861.677 Amount Ampicillin-Sulbactam 3 gm 100 In Sodium Chloride 0.9% 100 ml @ 100 mls/hr IVPB ONCE STA Rx#:[id number] Cefepime 2 gm In Sodium 50 50 Chloride 0.9% 50 ml @ 100 mls/hr IVPB Q8H [facility] Rx#: [id number] Heparin Sodium,Porcine/ 99 211.677 D5w Pmx 25,000 unit In Dextrose/Water 1 500ml. bag @ 18 UNITS/KG/HR 30. 37 mls/hr IV .[id number] [facility] Rx#:[id number] Magnesium Sulfate-D5w Pmx 100 1 gm In Dextrose/Water 1 100ml.bag @ 100 mls/hr IVPB Q1H [facility] Rx#: [id number] Sodium Chloride 0.9% 1, 300 400 000 ml @ 100 mls/hr IV . Q10H [facility] Rx#:[id number] Sodium Chloride 0.9% 1, 1000 000 ml @ 999 mls/hr IV . Q1H1M [facility] Rx#:[id number] Vancomycin 1,500 mg In 250 Sodium Chloride 0.9% 250 ml @ 125 mls/hr IVPB Q12H [facility] Rx#:[id number] Oral 590 Output: Urine 630 385 Other: Voiding Method Urinal Indwelling Catheter Indwelling Catheter Weight 84.368 kg 91.6 kg Head exam was generally normal. There was no scleral icterus or corneal arcus. Mucous membranes were moist.Neck was supple and without jugular venous distension, thyromegaly, or carotid bruits. Carotids were easily palpable bilaterally. There was no adenopathy.Lungs were clear to auscultation and percussion, and with normal diaphragmatic excursion. No wheezes or rales were noted. Cardiac exam revealed the PMI to be normally situated and sized. The rhythm was regular and no extrasystoles were noted during several minutes of auscultation. The first and second heart sounds were normal and physiologic splitting of the second heart sound was noted. There were no murmurs, rubs, clicks, or gallops.Abdominal exam revealed normal bowel sounds. The abdomen was soft, non-tender, and without masses, organomegaly, or appreciable enlargement of the abdominal aorta.Examination of the extremities revealed easily palpable radial, femoral and pedal pulses. There was no cyanosis, clubbing or edema. Results - Laboratory Findings CBC and BMP: 03/20/17 06:42 03/20/17 06:42 PT/INR, D-dimer PT 10.9 sec (9.0-12.0) 03/20/17 00:31 INR 1.1 (<1.1) 03/20/17 00:31 Abnormal lab findings: Abnormal Labs 03/19/17 03/20/17 03/20/17 19:37 00:06 00:25 WBC RBC Hgb Hct RDW Plt Count Lymphocytes # Lymphocytes # (Manual) APTT Chloride BUN Creatinine POC Glucose (mg/dL) 108 H 73 L Plasma Lactic Acid John Calcium Total Protein Albumin Urine Protein Trace H 03/20/17 03/20/17 03/20/17 00:31 00:31 00:31 WBC 2.8 L RBC 3.13 L Hgb 10.6 L Hct 30.4 L RDW 19.6 H Plt Count 100 L Lymphocytes # 0.6 L Lymphocytes # (Manual) APTT Chloride 111 H BUN 22 H Creatinine POC Glucose (mg/dL) Plasma Lactic Acid John 4.5 H* Calcium 8.0 L Total Protein 5.6 L Albumin 3.1 L Urine Protein 03/20/17 03/20/17 03/20/17 06:42 06:42 06:42 WBC 1.7 L* RBC 2.30 L Hgb 7.6 L D Hct 22.0 L RDW 19.9 H Plt Count 78 L Lymphocytes # Lymphocytes # (Manual) 0.0 L APTT 141.0 H* Chloride 116 H BUN Creatinine 0.60 L POC Glucose (mg/dL) Plasma Lactic Acid John Calcium 7.6 L Total Protein Albumin Urine Protein - Diagnostic Findings Chest x-ray: image reviewed Assessment and Plan Plan: Assessment 1 acute hypoxic respiratory failure multifactorial, secondary to bilateral pneumonia and bilateral pulmonary embolism. Patient is on a combination of cefepime and vancomycin and the patient is on IV heparin at the time being. He is on 100% nonrebreather facemask. Breathing is improved 2 acute febrile neutropenia, afebrile for now 3 sepsis secondary to bilateral pneumonia, and leukopenia. The patient got resuscitated with a total of 3 L of IV fluids and the patient got treated with broad-spectrum antibiotics. Cultures of been sent and results are still pending for now 4 metastatic renal cell carcinoma with metastases to the back/skeletal system 5 Mental status change, a combination of sepsis, delirium that could've been secondary to systemic steroids on outpatient basis. MRI of the brain is negative. 6 Coronary artery disease with a previous carotid bypass surgery and multiple coronary stent insertion 7 bilateral carotid artery disease 8 peripheral vascular disease 9 hypertension 10 degenerative arthritis 11 prostate enlargement 12 peripheral neuropathy 13 pancytopenia Plan Continued IV fluids and the patient is currently on normal saline at the rate of 100 mL an hour. Continue cefepime and vancomycin and blood cultures of been sent and consult infectious disease. Wean down the FiO2 and switch this patient a high flow oxygen. Continued IV heparin. Monitor the white cell count and consult with oncology regarding the possibility of boosting the white blood count with some stimulating agent such as Neulasta. Monitor the hemoglobin transfused if hemoglobin drops less than 7. Doppler of the lower extremities. Echocardiogram. Monitor mental status. Keep the patient ICU for another 24 hours and will continue to follow.
[2017-03-20] MEDS: VANCOMYCIN 1,750 MG in SODIUM CHLORIDE 0.9% 250 ML IVPB SCH (13:20)
[2017-03-20] MEDS ORDERED: ACETAMINOPHEN IV (For NPO) 1,000 MG in EMPTY BAG 1 BAG IVPB STA (14:44)
--- NOTE | 2017-03-20 16:06 | P.HPIM ---
History of Present Illness H&P Date: 03/20/17 Chief Complaint: Dyspnea, altered mental status Patient is a 66-year-old male, patient of Dr. 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 Patient recently underwent laminectomy for diagnostic and palliative purposes followed by radiation and chemotherapy. Patient recently finished steroids. Per family, patient's personality has been altered over the last couple weeks becoming more aggressive. Yesterday, patient presented to the emergency department with complaints of altered mental status and dyspnea. Patient did have an elevated temperature of 103.5 in the emergency department associated with hypotension with blood pressure of 73/47. Admission lab work with evidence of pancytopenia and dehydration. Patient underwent a CAT scan of the brain that was unremarkable for any mass or lesions. CT angiogram with evidence of acute bilateral segmental and subsegmental lower lobe pulmonary emboli; small pulmonary infarcts in the superior segments of the right and left lower lobe; and pulmonary edema. Echocardiogram with Doppler with evidence of mildly impaired ventricular systolic function with an EF between 45-50%. Venous Doppler study of bilateral lower extremity negative for DVT. Patient was fluid resuscitated with 2 L of normal saline, started on IV antibiotics, IV heparin, and admitted to the intensive care unit with consult to for ICU management, Dr. Trimble for oncology service, and Dr. Leos for neutropenic sepsis. Patient is evaluated in the intensive care unit where he is currently lethargic but responds to minimal tactile stimuli. When asked if in pain, patient states no but otherwise drifts back to sleep when not stimulated. Antibiotics has been changed to cefepime and vancomycin. WBC decreased to 1.7 from 2.7 on admission. Hemoglobin decreased to 7.6 from 9.6 on admission. Platelet count decreased to 78 from 1:15 on admission. BUN has normalized to 18 from 28 on admission. Past Medical History Past Medical History: Coronary Artery Disease (CAD), Cancer, Chest Pain / Angina , Hyperlipidemia, Hypertension, Myocardial Infarction (HI), Myocardial Infarction (non Q-wave), Osteoarthritis (OA), Prostate Disorder Additional Past Medical History / Comment(s): Metastatic renal cell carcinoma, coronary artery disease with previous non-ST segment elevation myocardial infarction in September 2014 and the patient has had coronary stent inserted in 2012 and 2013, 2016 peripheral neuropathy, 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, BPH, hypertension, the patient also has severe peripheral vascular disease Last Myocardial Infarction Date:: 09/2014 History of Any Multi-Drug Resistant Organisms: None Reported Past Surgical History: Coronary Bypass/CABG, Heart Catheterization With Stent, Prostate Surgery Additional Past Surgical History / Comment(s): Coronary artery bypass surgery 1994, artery catheterization and multiple stent insertion, carotid endarterectomy bilateral in 2008 and 2014, testicular surgery, angiogram with arch study Alfonso prostate surgery, left shoulder surgery, laminectomy, bilateral knee surgeries and insertion of femoral stents for severe peripheral vascular disease Past Anesthesia/Blood Transfusion Reactions: No Reported Reaction Date of Last Stent Placement:: 2015 Past Psychological History: No Psychological Hx Reported Smoking Status: Former smoker Past Alcohol Use History: Occasional Additional Past Alcohol Use History / Comment(s): 6 DRINKS PER MO AVG. PT STARTED SMOKING AGE 10, QUIT AT AGE 43 WAS SMOKING 1 PPD Past Drug Use History: None Reported - Past Family History Mother Additional Family Medical History / Comment(s): AT AGE 91-NATURAL [place] Father Family Medical History: Myocardial Infarction (HI) Additional Family Medical History / Comment(s): AT AGE 64 Medications and Allergies Home Medications Medication Instructions Recorded Confirmed Type Lisinopril 40 mg PO DAILY 10/08/14 03/19/17 History Metoprolol Tartrate [Lopressor] 50 mg PO BID 10/08/14 03/19/17 History ALPRAZolam [Xanax] 0.25 mg PO TID PRN 02/19/17 03/19/17 History Dexamethasone 4 mg PO Q12H 02/19/17 03/19/17 History HYDROcodone/APAP 7.5-325MG [[place] 1 tab PO Q6H PRN 02/19/17 03/19/17 History 7.5-325] Aspirin 162 mg PO BID 03/19/17 03/19/17 History Atorvastatin [Lipitor] 40 mg PO HS 03/19/17 03/19/17 History HYDROcodone/APAP 7.5-325MG [[place]ley 2 tab PO Q6HR PRN 03/19/17 03/19/17 History 7.5-325] Isosorbide Mononitrate ER [Imdur] 30 mg PO DAILY 03/19/17 03/19/17 History Methocarbamol [Robaxin-750] 750 mg PO Q8H PRN 03/19/17 03/19/17 History Mirtazapine [Mirtazapine] 15 mg PO HS 03/19/17 03/19/17 History Morphine Sulfate ER [Ms Contin 30 mg PO TID 03/19/17 03/19/17 History 30Mg] Pazopanib HCl [Votrient] 800 mg PO DAILY 03/19/17 03/19/17 History Tamsulosin [Flomax] 0.4 mg PO HS 03/19/17 03/19/17 History Allergies Allergy/AdvReac Type Severity Reaction Status Date / Time No Known Allergies Allergy Verified 03/19/17 12:03 Physical Exam Vitals: Vital Signs Temp Pulse Pulse Resp BP BP Pulse Ox 03/20/17 15:00 103 H 36 H 152/72 91 L 03/20/17 14:30 101.5 F H 121 H 36 H 137/72 85 L 03/20/17 14:00 91 27 H 143/72 92 L 03/20/17 13:30 83 52 H 138/85 94 L 03/20/17 13:00 74 26 H 153/79 92 L 03/20/17 12:30 72 15 158/81 98 03/20/17 12:00 97.9 F 73 18 146/80 92 L 03/20/17 11:30 60 20 130/80 96 03/20/17 11:00 63 18 119/73 97 03/20/17 10:30 59 L 15 106/63 98 03/20/17 10:00 60 18 130/70 98 03/20/17 09:30 62 24 114/73 96 03/20/17 09:00 65 25 H 109/63 99 03/20/17 08:30 67 26 H 119/72 98 03/20/17 08:00 98.2 F 62 23 119/63 93 L 03/20/17 07:30 72 10 L 100/60 97 03/20/17 07:00 73 23 110/64 97 03/20/17 06:30 72 18 114/66 95 03/20/17 06:00 75 24 100/62 94 L 03/20/17 05:30 75 31 H 107/55 98 03/20/17 05:00 80 22 110/64 94 L 03/20/17 04:30 84 26 H 117/64 92 L 03/20/17 04:00 101.3 F H 87 30 H 120/65 94 L 03/20/17 03:30 101 H 14 146/61 92 L 03/20/17 03:00 104 H 17 106/62 95 03/20/17 02:30 104 H 36 H 124/64 92 L 03/20/17 02:05 140 H 26 H 03/20/17 02:00 100.3 F H 150 H 48 H 149/78 90 L 03/20/17 01:30 139 H 149/78 86 L 03/20/17 01:20 149/78 92 L 03/20/17 00:25 98.0 F 140 H 131/60 60 L 03/19/17 21:49 94.7 F L 53 L 16 120/62 95 03/19/17 19:25 97.2 F L 53 L 91/51 94 L 03/19/17 16:08 62 22 99/55 92 L Intake and Output 03/20/17 03/20/17 03/20/17 06:59 14:59 22:59 Intake Total 1699 1461.677 Output Total 630 700 Balance 1069 761.677 Intake: Intake, IV Titration 1699 1461.677 Amount Ampicillin-Sulbactam 3 gm 100 In Sodium Chloride 0.9% 100 ml @ 100 mls/hr IVPB ONCE [facility] Rx#:[id number] Cefepime 2 gm In Sodium 50 50 Chloride 0.9% 50 ml @ 100 mls/hr IVPB Q8H [facility] Rx#: [id number] Heparin Sodium,Porcine/ 99 211.677 D5w Pmx 25,000 unit In Dextrose/Water 1 500ml. bag @ 18 UNITS/KG/HR 30. 37 mls/hr IV .[id number] [facility] Rx#:[id number] Magnesium Sulfate-D5w Pmx 200 1 gm In Dextrose/Water 1 100ml.bag @ 100 mls/hr IVPB Q1H [facility] Rx#: [id number] Sodium Chloride 0.9% 1, 300 450 000 ml @ 100 mls/hr IV . Q10H [facility] Rx#:[id number] Sodium Chloride 0.9% 1, 200 000 ml @ 100 mls/hr IV . Q10H [facility] Rx#:[id number] Sodium Chloride 0.9% 1, 1000 000 ml @ 999 mls/hr IV . Q1H1M [facility] Rx#:[id number] Vancomycin 1,500 mg In 250 125 Sodium Chloride 0.9% 250 ml @ 125 mls/hr IVPB Q12H [facility] Rx#:[id number] Vancomycin 1,750 mg In 125 Sodium Chloride 0.9% 250 ml @ 125 mls/hr IVPB Q12H [facility] Rx#:[id number] Output: Urine 630 700 Other: Voiding Method Indwelling Catheter Indwelling Catheter Weight 91.6 kg GENERAL: Pt lethargic, lying in bed, currently on 100% nonrebreather mask, appears in no acute distress. HEAD: Atraumatic, normocephalic. EYES: Pupils equal, round, and reactive to light, sclera anicteric, conjunctiva are normal. ENT: Moist mucous membranes. NECK:Supple without lymphadenopathy or JVD. LUNGS: Breath sounds diminished to auscultation bilaterally. No wheezes, rales , or rhonchi. HEART: Heart S1, S2, no S3 or S4. Regular rate and rhythm. No murmurs, rubs or gallops. ABDOMEN: Soft, nontender, nondistended, normoactive bowel sounds. No guarding, no rebound. No masses or organomegaly appreciated. EXTREMITIES: Palpable peripheral pulses. No edema, clubbing or cyanosis. No calf tenderness. NEUROLOGICAL: Pt lethargic, opens eyes to tactile stimuli. Follows simple commands. SKIN: Warm, dry, intact. Normal turgor. Results CBC & Chem 7: 03/20/17 06:42 03/20/17 06:42 Labs: Abnormal Lab Results - Last 24 Hours (Table) 03/19/17 03/20/17 03/20/17 Range/Units 19:37 00:06 00:25 WBC (3.8-10.6) k/uL RBC (4.30-5.90) m/uL Hgb (13.0-17.5) gm/dL Hct (39.0-53.0) % RDW (11.5-15.5) % Plt Count (150-450) k/uL Lymphocytes # (1.0-4.8) k/uL Lymphocytes # (Manual) (1.0-4.8) k/uL APTT (22.0-30.0) sec Chloride (98-107) mmol/L BUN (9-20) mg/dL Creatinine (0.66-1.25) mg/dL POC Glucose (mg/dL) 108 H 73 L (75-99) mg/dL Plasma Lactic Acid John (0.7-2.0) mmol/L Calcium (8.4-10.2) mg/dL Total Protein (6.3-8.2) g/dL Albumin (3.5-5.0) g/dL Urine Protein Trace H (Negative) 03/20/17 03/20/17 03/20/17 Range/Units 00:31 00:31 00:31 WBC 2.8 L (3.8-10.6) k/uL RBC 3.13 L (4.30-5.90) m/uL Hgb 10.6 L (13.0-17.5) gm/dL Hct 30.4 L (39.0-53.0) % RDW 19.6 H (11.5-15.5) % Plt Count 100 L (150-450) k/uL Lymphocytes # 0.6 L (1.0-4.8) k/uL Lymphocytes # (Manual) (1.0-4.8) k/uL APTT (22.0-30.0) sec Chloride 111 H (98-107) mmol/L BUN 22 H (9-20) mg/dL Creatinine (0.66-1.25) mg/dL POC Glucose (mg/dL) (75-99) mg/dL Plasma Lactic Acid John 4.5 H* (0.7-2.0) mmol/L Calcium 8.0 L (8.4-10.2) mg/dL Total Protein 5.6 L (6.3-8.2) g/dL Albumin 3.1 L (3.5-5.0) g/dL Urine Protein (Negative) 03/20/17 03/20/17 03/20/17 Range/Units 06:42 06:42 06:42 WBC 1.7 L* (3.8-10.6) k/uL RBC 2.30 L (4.30-5.90) m/uL Hgb 7.6 L D (13.0-17.5) gm/dL Hct 22.0 L (39.0-53.0) % RDW 19.9 H (11.5-15.5) % Plt Count 78 L (150-450) k/uL Lymphocytes # (1.0-4.8) k/uL Lymphocytes # (Manual) 0.0 L (1.0-4.8) k/uL APTT 141.0 H* (22.0-30.0) sec Chloride 116 H (98-107) mmol/L BUN (9-20) mg/dL Creatinine 0.60 L (0.66-1.25) mg/dL POC Glucose (mg/dL) (75-99) mg/dL Plasma Lactic Acid John (0.7-2.0) mmol/L Calcium 7.6 L (8.4-10.2) mg/dL Total Protein (6.3-8.2) g/dL Albumin (3.5-5.0) g/dL Urine Protein (Negative) Microbiology - Last 24 Hours (Table) 03/20/17 00:25 Urine Culture - Preliminary Urine,Catheterized Chest x-ray: report reviewed CT scan - chest: report reviewed CT Scan - head: report reviewed Thrombosis Risk Factor Assmnt - DVT/VTE Prophylaxis DVT/VTE Prophylaxis: Pharmacologic Prophylaxis ordered - Choose All That Apply Any of the Below Risk Factors Present?: Yes Other Risk Factors: Yes Each Risk Factor Represents 2 Points: Age 61-74 years, Malignancy Other congenital or acquired thrombophilia - If yes, enter type in comment: No Thrombosis Risk Factor Assessment Total Risk Factor Score: 4 Thrombosis Risk Factor Assessment Level: Moderate Risk Assessment and Plan Plan: Impression and plan: 1. Acute hypoxic respiratory failure, multifactorial secondary to bilateral pneumonia and bilateral pulmonary embolism. Patient is maintained on since that time and vancomycin and IV heparin. Patient is currently on 100% nonrebreather mask. Pulmonary service and infectious disease service following , recommendations noted. 2. Neutropenic sepsis suspect secondary to bilateral pneumonia. Continue IV antibiotics per infectious disease service. Blood and urine cultures pending. 3. Dehydration, present on admission, resolved. BUN to creatinine ratio greater than 20. 4. Acute metabolic encephalopathy, suspect secondary to underlying infectious disease process. CT brain negative for mass or bleed. 5. Pancytopenia. 7. 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 8. Coronary artery disease with multiple stent placements and previous CABG. 9. Bilateral carotid artery disease. 10. Peripheral vascular disease. 11. Hypertension. 12. Degenerative disc disease. 13. BPH. 14. Peripheral neuropathy. Continue to monitor patient. Continue IV hydration. Continue IV antibiotics. Continue to follow blood and cultures. Continue to follow with funder, oncologist, infectious disease service. Continue supportive treatment and pain management. Continue GI and DVT prophylaxis. Repeat labs in a.m. The above impression and plan have been discussed and directed by Dr. Schwartz. Camron CALDERA acting as scribe for Dr. Schwartz.
[2017-03-20] MEDS ORDERED: ACETAMINOPHEN IV (For NPO) 1,000 MG in EMPTY BAG 1 BAG IVPB PRN (16:15)
[2017-03-20] MEDS ORDERED: IBUPROFEN IV 800 MG in SODIUM CHLORIDE 0.9% 250 ML IV ONE (16:30)
[2017-03-20 18:46] LABS: INR 1.3 (<1.1); Prothrombin Time 12.7 sec (9.0-12.0)
[2017-03-20] MEDS: FILGRASTIM-SNDZ 480 MCG/0.8 ML SYRINGE SQ SCH (19:00)
--- NOTE | 2017-03-20 19:17 | P.CONS ---
History of Present Illness - Reason for Consult Consult date: 03/20/17 metastatic Renal cell carcinoma Requesting physician: Jose Rao - Chief Complaint AMS, hypoxia - History of Present Illness Patient is a 66-year-old male patient of our practice who presented with progressive mid thoracic spine pain on July 2016. Patient had an MRI done on 12/29/2016 revealing diffuse osseous metastasis with epidural extension of his disease. MRI of the lumbar spine revealed osseous metastases more pronounced at L4. Patient's CBC at that time revealed mild anemia with a hemoglobin of 11.5, CMP was normal, PSA was normal at 0.79. CT of the chest abdomen and pelvis was performed on January 05, this was negative, bone scan revealed nonspecific uptake. He did end up having a biopsy of an iliac lesion, this was negative. He had a CT-guided biopsy of T7, pathology consistent with metastatic carcinoma, renal primary January 26 patient had decompression laminectomy and Mary [facility], pathology positive for metastatic carcinoma consistent with renal primary. Patient's staging PET on 02/14 revealed osseous metastases. Patient was placed on tapering steroids while he completed radiation to the spine. Patient was started pazopanib after completing radiation on 03/13/2017. He completed his prednisone taper on 03/18. Patient was seen in the office yesterday for follow up, his oxygen saturation was 81% on room air, his temperature was 99.4 F, blood pressure was 90/56. Patient was sent to the emergency department. Patient's temperature spiked at that time, he became hypotensive. He was admitted to the intensive care unit for close monitoring. CT of the chest revealed bilateral lower lobe pulmonary emboli, bilateral lower extremity Dopplers were negative for DVT, he was placed on heparin drip. CT of the head was negative for malignant process. Pancultures were completed and pending. Patient is on empiric antibiotics. When seen today the patient continues to be confused and agitated at he is actually more orientated and less agitated than yesterday, his blood pressure has improved, he continues to spike temperatures. Review of Systems ROS unobtainable: due to mental status All systems: negative Past Medical History Past Medical History: Coronary Artery Disease (CAD), Cancer, Chest Pain / Angina , Hyperlipidemia, Hypertension, Myocardial Infarction (RI), Myocardial Infarction (non Q-wave), Osteoarthritis (OA), Prostate Disorder Additional Past Medical History / Comment(s): Metastatic renal cell carcinoma, coronary artery disease with previous non-ST segment elevation myocardial infarction in September 2014 and the patient has had coronary stent inserted in 2012 and 2013, 2015 peripheral neuropathy, 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, BPH, hypertension, the patient also has severe peripheral vascular disease Last Myocardial Infarction Date:: 09/2014 History of Any Multi-Drug Resistant Organisms: None Reported Past Surgical History: Coronary Bypass/CABG, Heart Catheterization With Stent, Prostate Surgery Additional Past Surgical History / Comment(s): Coronary artery bypass surgery 1994, artery catheterization and multiple stent insertion, carotid endarterectomy bilateral in 2008 and 2014, testicular surgery, angiogram with arch study Alfonso prostate surgery, left shoulder surgery, laminectomy, bilateral knee surgeries and insertion of femoral stents for severe peripheral vascular disease Past Anesthesia/Blood Transfusion Reactions: No Reported Reaction Date of Last Stent Placement:: 2015 Past Psychological History: No Psychological Hx Reported Smoking Status: Former smoker Past Alcohol Use History: Occasional Additional Past Alcohol Use History / Comment(s): 6 DRINKS PER MO AVG. PT STARTED SMOKING AGE 10, QUIT AT AGE 43 WAS SMOKING 1 PPD Past Drug Use History: None Reported - Past Family History Mother Additional Family Medical History / Comment(s): AT AGE 91-NATURAL [place] Father Family Medical History: Myocardial Infarction (RI) Additional Family Medical History / Comment(s): AT AGE 64 Medications and Allergies Home Medications Medication Instructions Recorded Confirmed Type Lisinopril 20 mg PO BID 10/08/14 03/20/17 History Metoprolol Tartrate [Lopressor] 12.5 mg PO BID 10/08/14 03/20/17 History ALPRAZolam [Xanax] 0.25 mg PO TID PRN 02/19/17 03/19/17 History Dexamethasone 4 mg PO Q12H 02/19/17 03/19/17 History HYDROcodone/APAP 7.5-325MG [[place] 1 tab PO Q6H PRN 02/19/17 03/19/17 History 7.5-325] Aspirin 162 mg PO BID 03/19/17 03/19/17 History Atorvastatin [Lipitor] 80 mg PO HS 03/19/17 03/20/17 History HYDROcodone/APAP 7.5-325MG [[place] 2 tab PO Q6HR PRN 03/19/17 03/19/17 History 7.5-325] Isosorbide Mononitrate ER [Imdur] 30 mg PO DAILY 03/19/17 03/19/17 History Methocarbamol [Robaxin-750] 750 mg PO Q8H PRN 03/19/17 03/19/17 History Mirtazapine [Mirtazapine] 15 mg PO HS 03/19/17 03/19/17 History Morphine Sulfate ER [Ms Contin 30 mg PO TID 03/19/17 03/19/17 History 30Mg] Pazopanib HCl [Votrient] 800 mg PO DAILY 03/19/17 03/19/17 History Tamsulosin [Flomax] 0.4 mg PO HS 03/19/17 03/19/17 History amLODIPine [Norvasc] 10 mg PO DAILY 03/20/17 03/20/17 History Allergies Allergy/AdvReac Type Severity Reaction Status Date / Time No Known Allergies Allergy Verified 03/19/17 12:03 Physical Exam Vitals: Vital Signs Temp Pulse Pulse Resp BP BP Pulse Ox 03/20/17 18:00 99.4 F 79 21 108/58 92 L 03/20/17 17:30 75 25 H 97/60 98 03/20/17 17:00 100.3 F H 80 27 H 104/60 98 03/20/17 16:30 101.3 F H 84 17 97/57 98 03/20/17 16:00 90 28 H 104/60 97 03/20/17 15:30 85 32 H 114/60 96 03/20/17 15:00 103 H 36 H 152/72 91 L 03/20/17 14:30 101.5 F H 121 H 36 H 137/72 85 L 03/20/17 14:00 91 27 H 143/72 92 L 03/20/17 13:30 83 52 H 138/85 94 L 03/20/17 13:00 74 26 H 153/79 92 L 03/20/17 12:30 72 15 158/81 98 03/20/17 12:00 97.9 F 73 18 146/80 92 L 03/20/17 11:30 60 20 130/80 96 03/20/17 11:00 63 18 119/73 97 03/20/17 10:30 59 L 15 106/63 98 03/20/17 10:00 60 18 130/70 98 03/20/17 09:30 62 24 114/73 96 03/20/17 09:00 65 25 H 109/63 99 03/20/17 08:30 67 26 H 119/72 98 03/20/17 08:00 98.2 F 62 23 119/63 93 L 03/20/17 07:30 72 10 L 100/60 97 03/20/17 07:00 73 23 110/64 97 03/20/17 06:30 72 18 114/66 95 03/20/17 06:00 75 24 100/62 94 L 03/20/17 05:30 75 31 H 107/55 98 03/20/17 05:00 80 22 110/64 94 L 03/20/17 04:30 84 26 H 117/64 92 L 03/20/17 04:00 101.3 F H 87 30 H 120/65 94 L 03/20/17 03:30 101 H 14 146/61 92 L 03/20/17 03:00 104 H 17 106/62 95 03/20/17 02:30 104 H 36 H 124/64 92 L 03/20/17 02:05 140 H 26 H 03/20/17 02:00 100.3 F H 150 H 48 H 149/78 90 L 03/20/17 01:30 139 H 149/78 86 L 03/20/17 01:20 149/78 92 L 03/20/17 00:25 98.0 F 140 H 131/60 60 L 03/19/17 21:49 94.7 F L 53 L 16 120/62 95 03/19/17 19:25 97.2 F L 53 L 91/51 94 L Intake and Output 03/20/17 03/20/17 03/20/17 06:59 14:59 22:59 Intake Total 1699 1656.551 5600.852 Output Total 630 700 200 Balance 1069 761.677 882.852 Intake: Intake, IV Titration 1699 9214.549 8160.852 Amount ACETAMINOPHEN IV (For NPO 100 ) 1,000 mg In Empty Bag 1 bag @ 400 mls/hr IVPB ONCE STA Rx#:[id number] Ampicillin-Sulbactam 3 gm 100 In Sodium Chloride 0.9% 100 ml @ 100 mls/hr IVPB ONCE STA Rx#:[id number] Cefepime 2 gm In Sodium 50 50 100 Chloride 0.9% 50 ml @ 100 mls/hr IVPB Q8H [facility] Rx#: [id number] Heparin Sodium,Porcine/ 99 211.677 232.852 D5w Pmx 25,000 unit In Dextrose/Water 1 500ml. bag @ 18 UNITS/KG/HR 30. 37 mls/hr IV .[id number] [facility] Rx#:[id number] Ibuprofen IV 800 mg In 250 Sodium Chloride 0.9% 250 ml @ 500 mls/hr IV ONCE ONE Rx#:[id number] Ibuprofen IV 800 mg In 0 Sodium Chloride 0.9% 250 ml @ 500 mls/hr IV Q6HR PRN Rx#:[id number] Magnesium Sulfate-D5w Pmx 200 1 gm In Dextrose/Water 1 100ml.bag @ 100 mls/hr IVPB Q1H [facility] Rx#: [id number] Sodium Chloride 0.9% 1, 300 450 400 000 ml @ 100 mls/hr IV . Q10H ONE Rx#:[id number] Sodium Chloride 0.9% 1, 200 000 ml @ 100 mls/hr IV . Q10H [facility] Rx#:[id number] Sodium Chloride 0.9% 1, 1000 000 ml @ 999 mls/hr IV . Q1H1M ONE Rx#:[id number] Vancomycin 1,500 mg In 250 125 Sodium Chloride 0.9% 250 ml @ 125 mls/hr IVPB Q12H [facility] Rx#:[id number] Vancomycin 1,750 mg In 125 Sodium Chloride 0.9% 250 ml @ 125 mls/hr IVPB Q12H [facility] Rx#:[id number] Output: Urine 630 700 200 Other: Voiding Method Indwelling Catheter Indwelling Catheter Indwelling Catheter Weight 91.6 kg - Constitutional General appearance: cooperative, mild distress, obese - EENT Eyes: normal appearance - Neck Neck: no lymphadenopathy - Respiratory Respiratory: bilateral: diminished - Cardiovascular Rhythm: regular Heart sounds: normal: S1, S2 Abnormal Heart Sounds: systolic murmur leg Peripheral Edema: bilateral: Trace - Gastrointestinal General gastrointestinal: no absent bowel sounds, no decreased bowel sounds, no distended, no hepatomegaly, no hyperactive bowel sounds, normal bowel sounds, no organomegaly, no rigid, no scaphoid, soft, no splenomegaly, no tenderness, no umbilical hernia, no ventral hernia - Integumentary Integumentary: pale - Neurologic Neurologic: CNII-XII intact - Musculoskeletal Musculoskeletal: generalized weakness - Psychiatric Oriented to self Psychiatric: no appropriate affect, no intact judgment & insight Results CBC & Chem 7: 03/20/17 06:42 03/20/17 06:42 Labs: Abnormal Lab Results - Last 24 Hours (Table) 03/19/17 03/20/17 03/20/17 Range/Units 19:37 00:06 00:25 WBC (3.8-10.6) k/uL RBC (4.30-5.90) m/uL Hgb (13.0-17.5) gm/dL Hct (39.0-53.0) % RDW (11.5-15.5) % Plt Count (150-450) k/uL Lymphocytes # (1.0-4.8) k/uL Lymphocytes # (Manual) (1.0-4.8) k/uL PT (9.0-12.0) sec APTT (22.0-30.0) sec Chloride (98-107) mmol/L BUN (9-20) mg/dL Creatinine (0.66-1.25) mg/dL POC Glucose (mg/dL) 108 H 73 L (75-99) mg/dL Plasma Lactic Acid John (0.7-2.0) mmol/L Calcium (8.4-10.2) mg/dL Total Protein (6.3-8.2) g/dL Albumin (3.5-5.0) g/dL Urine Protein Trace H (Negative) 03/20/17 03/20/17 03/20/17 Range/Units 00:31 00:31 00:31 WBC 2.8 L (3.8-10.6) k/uL RBC 3.13 L (4.30-5.90) m/uL Hgb 10.6 L (13.0-17.5) gm/dL Hct 30.4 L (39.0-53.0) % RDW 19.6 H (11.5-15.5) % Plt Count 100 L (150-450) k/uL Lymphocytes # 0.6 L (1.0-4.8) k/uL Lymphocytes # (Manual) (1.0-4.8) k/uL PT (9.0-12.0) sec APTT (22.0-30.0) sec Chloride 111 H (98-107) mmol/L BUN 22 H (9-20) mg/dL Creatinine (0.66-1.25) mg/dL POC Glucose (mg/dL) (75-99) mg/dL Plasma Lactic Acid John 4.5 H* (0.7-2.0) mmol/L Calcium 8.0 L (8.4-10.2) mg/dL Total Protein 5.6 L (6.3-8.2) g/dL Albumin 3.1 L (3.5-5.0) g/dL Urine Protein (Negative) 03/20/17 03/20/17 03/20/17 Range/Units 06:42 06:42 06:42 WBC 1.7 L* (3.8-10.6) k/uL RBC 2.30 L (4.30-5.90) m/uL Hgb 7.6 L D (13.0-17.5) gm/dL Hct 22.0 L (39.0-53.0) % RDW 19.9 H (11.5-15.5) % Plt Count 78 L (150-450) k/uL Lymphocytes # (1.0-4.8) k/uL Lymphocytes # (Manual) 0.0 L (1.0-4.8) k/uL PT (9.0-12.0) sec APTT 141.0 H* (22.0-30.0) sec Chloride 116 H (98-107) mmol/L BUN (9-20) mg/dL Creatinine 0.60 L (0.66-1.25) mg/dL POC Glucose (mg/dL) (75-99) mg/dL Plasma Lactic Acid John (0.7-2.0) mmol/L Calcium 7.6 L (8.4-10.2) mg/dL Total Protein (6.3-8.2) g/dL Albumin (3.5-5.0) g/dL Urine Protein (Negative) 03/20/17 03/20/17 Range/Units 17:18 17:18 WBC (3.8-10.6) k/uL RBC (4.30-5.90) m/uL Hgb (13.0-17.5) gm/dL Hct (39.0-53.0) % RDW (11.5-15.5) % Plt Count (150-450) k/uL Lymphocytes # (1.0-4.8) k/uL Lymphocytes # (Manual) (1.0-4.8) k/uL PT 12.7 H (9.0-12.0) sec APTT 64.7 H (22.0-30.0) sec Chloride (98-107) mmol/L BUN (9-20) mg/dL Creatinine (0.66-1.25) mg/dL POC Glucose (mg/dL) (75-99) mg/dL Plasma Lactic Acid John (0.7-2.0) mmol/L Calcium (8.4-10.2) mg/dL Total Protein (6.3-8.2) g/dL Albumin (3.5-5.0) g/dL Urine Protein (Negative) Microbiology - Last 24 Hours (Table) 03/20/17 00:25 Urine Culture - Preliminary Urine,Catheterized Chest x-ray: report reviewed CT scan - chest: report reviewed CT Scan - head: report reviewed Venous US: report reviewed Assessment and Plan (1) Febrile neutropenia Narrative/Plan: Patient has been placed on GCSF. Empiric antibiotics are ordered. Escobar cultures are pending. Infectious disease consult already placed. Status: Acute (2) Renal cell carcinoma Narrative/Plan: Patient has completed radiation to spinal metastases. Patient was on pazopanib for about 6 days. A rare but potential side effect of pazopanib is DVT/PE. Patient will be discontinued off this medication. Further options in regards to treatment for his metastatic renal cell carcinoma be discussed with his primary oncologist once his current condition has been treated and his mental status improved. Status: Acute (3) Pancytopenia due to antineoplastic chemotherapy Narrative/Plan: As stated above patient is on G-CSF for neutropenia. Hemoglobin of 7, no transfusion at this time. Platelet count of 70,000, adequate for anticoagulation. CBC daily with close monitoring. Close monitoring for bleeding. Hemolysis labs as well as DIC labs have been ordered for evaluation. Status: Acute
--- NOTE | 2017-03-20 21:19 | P.CONS ---
History of Present Illness - Reason for Consult Consult date: 03/20/17 - Chief Complaint Fever - History of Present Illness 66-year-old male with a known history of progressive back pain. Follow 2016. MRI revealed evidence of what appeared to be metastasis. He was taken the operating room and had stabilization and biopsy. Without evidence of metastatic carcinoma of renal primary. PET scan revealed evidence of the osseous metastasis. He's been treated with high doses of steroids which have caused some difficulties with his mentation. He is now completed his course of radiation therapy and is receiving pazopanib therapy for his metastatic renal cell carcinoma. Patient presents the emergency center with altered mental status. Fever, hypotension and shortness of breath. Evaluation revealed evidence of bilateral pulmonary emboli which is now being treated. Cultures are in process because of his fever and the infectious diseases consultation was requested. The patient is now much improved from prior. As his fever improved his mentation improves. Review of Systems View of systems is a bit limited due to his mental status with the family present HEENT:Denies headache or acute visual change. Denies sinus or mouth discomforts. Denies neck stiffness or pain. Denies significant oral cavity pain. Denies difficulty on swallowing. Lungs: Severe shortness of breath without hemoptysis before admission Cardiovascular: Was having shortness of breath and some indistinct chest discomforts before admission No orthopnea or syncope Gastrointestinal:Denies nausea, vomiting, diarrhea, constipation, hematemesis, melena, hematochezia. No no significant change of bowel habit noticed. Musculoskeletal: denies significant myalgias or arthralgias. No new joint swelling. Denies new back pain. Skin: Denies new rash or lesions. No new ulcers or wounds are related.. Neuro: Denies headache or visual change. Denies any new onset weakness or difficulty with ambulation. Denies falls or seizures. 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 with steroid therapy and his illness is very difficult for his family to deal with his behavior Endocrine: Significant fatigue and weight loss have occurred Past Medical History Past Medical History: Coronary Artery Disease (CAD), Cancer, Chest Pain / Angina , Hyperlipidemia, Hypertension, Myocardial Infarction (NC), Myocardial Infarction (non Q-wave), Osteoarthritis (OA), Prostate Disorder Additional Past Medical History / Comment(s): Metastatic renal cell carcinoma, coronary artery disease with previous non-ST segment elevation myocardial infarction in September 2014 and the patient has had coronary stent inserted in 2012 and 2013, 2016 peripheral neuropathy, 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, BPH, hypertension, the patient also has severe peripheral vascular disease Last Myocardial Infarction Date:: 09/2014 History of Any Multi-Drug Resistant Organisms: None Reported Past Surgical History: Coronary Bypass/CABG, Heart Catheterization With Stent, Prostate Surgery Additional Past Surgical History / Comment(s): Coronary artery bypass surgery 1994, artery catheterization and multiple stent insertion, carotid endarterectomy bilateral in 2008 and 2014, testicular surgery, angiogram with arch study Alfonso prostate surgery, left shoulder surgery, laminectomy, bilateral knee surgeries and insertion of femoral stents for severe peripheral vascular disease Past Anesthesia/Blood Transfusion Reactions: No Reported Reaction Date of Last Stent Placement:: 2015 Past Psychological History: No Psychological Hx Reported Smoking Status: Former smoker Past Alcohol Use History: Occasional Additional Past Alcohol Use History / Comment(s): 6 DRINKS PER MO AVG. PT STARTED SMOKING AGE 10, QUIT AT AGE 43 WAS SMOKING 1 PPD Past Drug Use History: None Reported - Past Family History Mother Additional Family Medical History / Comment(s): AT AGE 91-NATURAL [place]US[place] Father Family Medical History: Myocardial Infarction (NC) Additional Family Medical History / Comment(s): AT AGE 64 Medications and Allergies Home Medications and Allergies Comment(s): Current Medications Hydrocodone Bitart/Acetaminophen ([place] 7.5-325) 1 each PO Q6H PRN PRN Reason: Moderate Pain Hydrocodone Bitart/Acetaminophen ([place] 7.5-325) 2 each PO Q6HR PRN PRN Reason: Severe Pain Last Admin: 03/20/17 02:23 Dose: 2 each Alprazolam (Xanax) 0.5 mg PO TID PRN PRN Reason: Anxiety Last Admin: 03/20/17 03:15 Dose: 0.5 mg Aspirin (Aspirin) 162 mg PO BID [facility] Last Admin: 03/20/17 09:41 Dose: Not Given Atorvastatin Calcium (Lipitor) 40 mg PO HS [facility] Clopidogrel Bisulfate (Plavix) 75 mg PO DAILY [facility] Last Admin: 03/20/17 09:41 Dose: Not Given Docusate Sodium (Colace) 100 mg PO BID PRN PRN Reason: Constipation Filgrastim (Zarxio) 480 mcg SQ Q24H [facility] Last Admin: 03/20/17 19:00 Dose: 480 mcg Heparin Sodium (Porcine) (Heparin) 0 unit IV PER PROTOCOL PRN; Protocol PRN Reason: Low PTT Cefepime HCl 2 gm/ Sodium (Chloride) 50 mls @ 100 mls/hr IVPB Q8H [facility] Last Admin: 03/20/17 17:25 Dose: 100 mls/hr Heparin Sodium/Dextrose 25,000 (unit/ IV Solution) 500 mls @ 30.37 mls/hr IV .[id number] [facility]; 18 UNITS/KG/HR PRN Reason: Protocol Last Admin: 03/20/17 21:01 Dose: 15 units/kg/hr, 25.31 mls/hr Vancomycin HCl 1,750 mg/ (Sodium Chloride) 250 mls @ 125 mls/hr IVPB Q12H [facility] Last Admin: 03/20/17 13:20 Dose: 125 mls/hr Acetaminophen 1,000 mg/ IV (Solution) 100 mls @ 400 mls/hr IVPB Q6HR PRN PRN Reason: Fever Stop: 03/21/17 16:16 Ibuprofen 800 mg/ Sodium (Chloride) 258 mls @ 500 mls/hr IV Q6HR PRN PRN Reason: Fever>101 Isosorbide Mononitrate (Imdur) 30 mg PO DAILY [facility] Last Admin: 03/20/17 12:53 Dose: 30 mg Lisinopril (Zestril) 40 mg PO DAILY [facility] Last Admin: 03/20/17 12:55 Dose: 40 mg Methocarbamol (Robaxin) 750 mg PO Q8H PRN PRN Reason: Muscle Spasm Metoprolol Tartrate (Lopressor) 50 mg PO BID [facility] Last Admin: 03/20/17 09:41 Dose: Not Given Mirtazapine (Remeron) 15 mg PO [facility] Miscellaneous Information (Rx Info: Iv Contrast Was Given) 1 each MISCELLANE DAILY PRN PRN Reason: Per Protocol Stop: 03/22/17 00:40 Miscellaneous Information (Magnesium Per Protocol) 1 each MISCELLANE DAILY PRN ; Protocol PRN Reason: Per Protocol Morphine Sulfate (Ms Contin) 30 mg PO TID [facility] Last Admin: 03/20/17 16:15 Dose: Not Given Morphine Sulfate (Morphine Sulfate (Inj)) 2 mg IVP Q4H PRN PRN Reason: Pain/Discomfort Last Admin: 03/20/17 14:45 Dose: 2 mg Nitroglycerin (Nitrostat) 0.4 mg SUBLINGUAL Q5M PRN PRN Reason: Chest Pain Tamsulosin HCl (Flomax) 0.4 mg PO HS [facility] Home Medications Medication Instructions Recorded Confirmed Type Lisinopril 20 mg PO BID 10/08/14 03/20/17 History Metoprolol Tartrate [Lopressor] 12.5 mg PO BID 10/08/14 03/20/17 History ALPRAZolam [Xanax] 0.25 mg PO TID PRN 02/19/17 03/19/17 History Dexamethasone 4 mg PO Q12H 02/19/17 03/19/17 History HYDROcodone/APAP 7.5-325MG [[place] 1 tab PO Q6H PRN 02/19/17 03/19/17 History 7.5-325] Aspirin 162 mg PO BID 03/19/17 03/19/17 History Atorvastatin [Lipitor] 80 mg PO HS 03/19/17 03/20/17 History HYDROcodone/APAP 7.5-325MG [[place] 2 tab PO Q6HR PRN 03/19/17 03/19/17 History 7.5-325] Isosorbide Mononitrate ER [Imdur] 30 mg PO DAILY 03/19/17 03/19/17 History Methocarbamol [Robaxin-750] 750 mg PO Q8H PRN 03/19/17 03/19/17 History Mirtazapine [Mirtazapine] 15 mg PO HS 03/19/17 03/19/17 History Morphine Sulfate ER [Ms Contin 30 mg PO TID 03/19/17 03/19/17 History 30Mg] Pazopanib HCl [Votrient] 800 mg PO DAILY 03/19/17 03/19/17 History Tamsulosin [Flomax] 0.4 mg PO HS 03/19/17 03/19/17 History amLODIPine [Norvasc] 10 mg PO DAILY 03/20/17 03/20/17 History Allergies Allergy/AdvReac Type Severity Reaction Status Date / Time No Known Allergies Allergy Verified 03/19/17 12:03 Physical Exam Vitals: Vital Signs Temp Pulse Pulse Resp BP BP Pulse Ox 03/20/17 19:00 97.5 F L 77 31 H 110/59 93 L 03/20/17 18:30 76 19 113/61 92 L 03/20/17 18:00 99.4 F 79 21 108/58 92 L 03/20/17 17:30 75 25 H 97/60 98 03/20/17 17:00 100.3 F H 80 27 H 104/60 98 03/20/17 16:30 101.3 F H 84 17 97/57 98 03/20/17 16:00 90 28 H 104/60 97 03/20/17 15:30 85 32 H 114/60 96 03/20/17 15:00 103 H 36 H 152/72 91 L 03/20/17 14:30 101.5 F H 121 H 36 H 137/72 85 L 03/20/17 14:00 91 27 H 143/72 92 L 03/20/17 13:30 83 52 H 138/85 94 L 03/20/17 13:00 74 26 H 153/79 92 L 03/20/17 12:30 72 15 158/81 98 03/20/17 12:00 97.9 F 73 18 146/80 92 L 03/20/17 11:30 60 20 130/80 96 03/20/17 11:00 63 18 119/73 97 03/20/17 10:30 59 L 15 106/63 98 03/20/17 10:00 60 18 130/70 98 03/20/17 09:30 62 24 114/73 96 03/20/17 09:00 65 25 H 109/63 99 03/20/17 08:30 67 26 H 119/72 98 03/20/17 08:00 98.2 F 62 23 119/63 93 L 03/20/17 07:30 72 10 L 100/60 97 03/20/17 07:00 73 23 110/64 97 03/20/17 06:30 72 18 114/66 95 03/20/17 06:00 75 24 100/62 94 L 03/20/17 05:30 75 31 H 107/55 98 03/20/17 05:00 80 22 110/64 94 L 03/20/17 04:30 84 26 H 117/64 92 L 03/20/17 04:00 101.3 F H 87 30 H 120/65 94 L 03/20/17 03:30 101 H 14 146/61 92 L 03/20/17 03:00 104 H 17 106/62 95 03/20/17 02:30 104 H 36 H 124/64 92 L 03/20/17 02:05 140 H 26 H 03/20/17 02:00 100.3 F H 150 H 48 H 149/78 90 L 03/20/17 01:30 139 H 149/78 86 L 03/20/17 01:20 149/78 92 L 03/20/17 00:25 98.0 F 140 H 131/60 60 L 03/19/17 21:49 94.7 F L 53 L 16 120/62 95 Intake and Output 03/20/17 03/20/17 03/20/17 06:59 14:59 22:59 Intake Total 1699 2790.559 1804.204 Output Total 630 700 240 Balance 1069 761.677 919.204 Intake: Intake, IV Titration 1699 7461.868 5580.204 Amount ACETAMINOPHEN IV (For NPO 100 ) 1,000 mg In Empty Bag 1 bag @ 400 mls/hr IVPB ONCE STA Rx#:[id number] Ampicillin-Sulbactam 3 gm 100 In Sodium Chloride 0.9% 100 ml @ 100 mls/hr IVPB ONCE STA Rx#:[id number] Cefepime 2 gm In Sodium 50 50 100 Chloride 0.9% 50 ml @ 100 mls/hr IVPB Q8H [facility] Rx#: [id number] Heparin Sodium,Porcine/ 99 211.677 309.204 D5w Pmx 25,000 unit In Dextrose/Water 1 500ml. bag @ 18 UNITS/KG/HR 30. 37 mls/hr IV .[id number] [facility] Rx#:[id number] Ibuprofen IV 800 mg In 250 Sodium Chloride 0.9% 250 ml @ 500 mls/hr IV ONCE ONE Rx#:[id number] Ibuprofen IV 800 mg In 0 Sodium Chloride 0.9% 250 ml @ 500 mls/hr IV Q6HR PRN Rx#:[id number] Magnesium Sulfate-D5w Pmx 200 1 gm In Dextrose/Water 1 100ml.bag @ 100 mls/hr IVPB Q1H [facility] Rx#: [id number] Sodium Chloride 0.9% 1, 300 450 400 000 ml @ 100 mls/hr IV . Q10H ONE Rx#:[id number] Sodium Chloride 0.9% 1, 200 000 ml @ 100 mls/hr IV . Q10H [facility] Rx#:[id number] Sodium Chloride 0.9% 1, 1000 000 ml @ 999 mls/hr IV . Q1H1M ONE Rx#:[id number] Vancomycin 1,500 mg In 250 125 Sodium Chloride 0.9% 250 ml @ 125 mls/hr IVPB Q12H [facility] Rx#:[id number] Vancomycin 1,750 mg In 125 Sodium Chloride 0.9% 250 ml @ 125 mls/hr IVPB Q12H [facility] Rx#:[id number] Output: Urine 630 700 240 Other: Voiding Method Indwelling Catheter Indwelling Catheter Indwelling Catheter Weight 91.6 kg Currently pleasant 58-year-old woman who does have pallor. Is cooperative and pleasant but a poor historian HEENT: Anicteric conjunctiva are pink and moist nasal mucosa grossly intact without significant lesions, there is no thrush. Oral lesions Neck: The neck is supple without significant lymphadenopathy or thyromegaly. Lungs: Symmetrical air entry is noted. Few basilar crackles are heard. No bronchial sounds. Heart: Irregular with an audible S1 and S2 no S3 soft S4 no murmur click or rub Abdomen: Positive bowel sounds soft and nontender without palpable masses or organomegaly. There was no guarding or rebound. Extremities: Extremity have minimal edema but no steady and lesions Neuro: Patient is arousable seems to be appropriate this time. Is a poor historian though. Follows simple commands without difficulty. Results CBC & Chem 7: 03/20/17 06:42 03/20/17 06:42 Labs: Abnormal Lab Results - Last 24 Hours (Table) 03/20/17 03/20/17 03/20/17 Range/Units 00:06 00:25 00:31 WBC (3.8-10.6) k/uL RBC (4.30-5.90) m/uL Hgb (13.0-17.5) gm/dL Hct (39.0-53.0) % RDW (11.5-15.5) % Plt Count (150-450) k/uL Lymphocytes # (1.0-4.8) k/uL Lymphocytes # (Manual) (1.0-4.8) k/uL PT (9.0-12.0) sec APTT (22.0-30.0) sec Chloride (98-107) mmol/L BUN (9-20) mg/dL Creatinine (0.66-1.25) mg/dL POC Glucose (mg/dL) 73 L (75-99) mg/dL Plasma Lactic Acid John 4.5 H* (0.7-2.0) mmol/L Calcium (8.4-10.2) mg/dL Lactate Dehydrogenase (313-618) U/L Total Protein (6.3-8.2) g/dL Albumin (3.5-5.0) g/dL Urine Protein Trace H (Negative) 03/20/17 03/20/17 03/20/17 Range/Units 00:31 00:31 06:42 WBC 2.8 L 1.7 L* (3.8-10.6) k/uL RBC 3.13 L 2.30 L (4.30-5.90) m/uL Hgb 10.6 L 7.6 L D (13.0-17.5) gm/dL Hct 30.4 L 22.0 L (39.0-53.0) % RDW 19.6 H 19.9 H (11.5-15.5) % Plt Count 100 L 78 L (150-450) k/uL Lymphocytes # 0.6 L (1.0-4.8) k/uL Lymphocytes # (Manual) 0.0 L (1.0-4.8) k/uL PT (9.0-12.0) sec APTT (22.0-30.0) sec Chloride 111 H (98-107) mmol/L BUN 22 H (9-20) mg/dL Creatinine (0.66-1.25) mg/dL POC Glucose (mg/dL) (75-99) mg/dL Plasma Lactic Acid John (0.7-2.0) mmol/L Calcium 8.0 L (8.4-10.2) mg/dL Lactate Dehydrogenase (313-618) U/L Total Protein 5.6 L (6.3-8.2) g/dL Albumin 3.1 L (3.5-5.0) g/dL Urine Protein (Negative) 03/20/17 03/20/17 03/20/17 Range/Units 06:42 06:42 06:42 WBC (3.8-10.6) k/uL RBC (4.30-5.90) m/uL Hgb (13.0-17.5) gm/dL Hct (39.0-53.0) % RDW (11.5-15.5) % Plt Count (150-450) k/uL Lymphocytes # (1.0-4.8) k/uL Lymphocytes # (Manual) (1.0-4.8) k/uL PT (9.0-12.0) sec APTT 141.0 H* (22.0-30.0) sec Chloride 116 H (98-107) mmol/L BUN (9-20) mg/dL Creatinine 0.60 L (0.66-1.25) mg/dL POC Glucose (mg/dL) (75-99) mg/dL Plasma Lactic Acid John (0.7-2.0) mmol/L Calcium 7.6 L (8.4-10.2) mg/dL Lactate Dehydrogenase 1143 H (313-618) U/L Total Protein (6.3-8.2) g/dL Albumin (3.5-5.0) g/dL Urine Protein (Negative) 03/20/17 03/20/17 Range/Units 17:18 17:18 WBC (3.8-10.6) k/uL RBC (4.30-5.90) m/uL Hgb (13.0-17.5) gm/dL Hct (39.0-53.0) % RDW (11.5-15.5) % Plt Count (150-450) k/uL Lymphocytes # (1.0-4.8) k/uL Lymphocytes # (Manual) (1.0-4.8) k/uL PT 12.7 H (9.0-12.0) sec APTT 64.7 H (22.0-30.0) sec Chloride (98-107) mmol/L BUN (9-20) mg/dL Creatinine (0.66-1.25) mg/dL POC Glucose (mg/dL) (75-99) mg/dL Plasma Lactic Acid John (0.7-2.0) mmol/L Calcium (8.4-10.2) mg/dL Lactate Dehydrogenase (313-618) U/L Total Protein (6.3-8.2) g/dL Albumin (3.5-5.0) g/dL Urine Protein (Negative) Microbiology - Last 24 Hours (Table) 03/20/17 00:25 Urine Culture - Preliminary Urine,Catheterized Laboratory Results WBC 1.7 k/uL (3.8-10.6) L* 03/20/17 06:42 RBC 2.30 m/uL (4.30-5.90) L 03/20/17 06:42 Hgb 7.6 gm/dL (13.0-17.5) L D 03/20/17 06:42 Hct 22.0 % (39.0-53.0) L 03/20/17 06:42 MCV 95.6 fL (80.0-100.0) 03/20/17 06:42 MCH 33.1 pg (25.0-35.0) 03/20/17 06:42 MCHC 34.6 g/dL (31.0-37.0) 03/20/17 06:42 RDW 19.9 % (11.5-15.5) H 03/20/17 06:42 Plt Count 78 k/uL (150-450) L 03/20/17 06:42 Neutrophils % MOLD PRESS OPERATOR 03/20/17 06:42 Neutrophils % (Manual) 86.0 % 03/20/17 06:42 Band Neutrophils % 6.0 % 03/20/17 06:42 Lymphocytes % MOLD PRESS OPERATOR 03/20/17 06:42 Lymphocytes % (Manual) 2.0 % 03/20/17 06:42 Monocytes % MOLD PRESS OPERATOR 03/20/17 06:42 Monocytes % (Manual) 4.0 % 03/20/17 06:42 Eosinophils % MOLD PRESS OPERATOR 03/20/17 06:42 Eosinophils % (Manual) 2.0 % 03/20/17 06:42 Basophils % MOLD PRESS OPERATOR 03/20/17 06:42 Neutrophils # MOLD PRESS OPERATOR 03/20/17 06:42 Neutrophils # (Manual) 1.6 k/uL (1.3-7.7) 03/20/17 06:42 Lymphocytes # MOLD PRESS OPERATOR 03/20/17 06:42 Lymphocytes # (Manual) 0.0 k/uL (1.0-4.8) L 03/20/17 06:42 Monocytes # MOLD PRESS OPERATOR 03/20/17 06:42 Monocytes # (Manual) 0.1 k/uL (0-1.0) 03/20/17 06:42 Eosinophils # MOLD PRESS OPERATOR 03/20/17 06:42 Eosinophils # (Manual) 0.0 k/uL (0-0.7) 03/20/17 06:42 Basophils # MOLD PRESS OPERATOR 03/20/17 06:42 Nucleated RBCs 0 /100 WBC (0-0) 03/20/17 06:42 Manual Slide Review Performed 03/20/17 06:42 Polychromasia Present 03/20/17 06:42 Poikilocytosis Slight 03/20/17 06:42 Anisocytosis Slight 03/20/17 06:42 Macrocytosis Slight 03/20/17 06:42 PT 12.7 sec (9.0-12.0) H 03/20/17 17:18 INR 1.3 (<1.1) 03/20/17 17:18 APTT 64.7 sec (22.0-30.0) H 03/20/17 17:18 Fibrinogen 460 mg/dL (200-500) 03/20/17 17:18 Sodium 143 mmol/L (137-145) 03/20/17 06:42 Potassium 4.2 mmol/L (3.5-5.1) 03/20/17 06:42 Chloride 116 mmol/L (98-107) H 03/20/17 06:42 Carbon Dioxide 22 mmol/L (22-30) 03/20/17 06:42 Anion Gap 5 mmol/L 03/20/17 06:42 BUN 18 mg/dL (9-20) 03/20/17 06:42 Creatinine 0.60 mg/dL (0.66-1.25) L 03/20/17 06:42 Est GFR (MDRD) Af Amer >60 (>60 ml/min/1.73 sqM) 03/20/17 06:42 Est GFR (MDRD) Non-Af >60 (>60 ml/min/1.73 sqM) 03/20/17 06:42 Glucose 99 mg/dL (74-99) 03/20/17 06:42 POC Glucose (mg/dL) 79 mg/dL (75-99) 03/20/17 01:27 POC Glu [employer] Jia Escoto 03/20/17 01:27 Plasma Lactic Acid John 0.8 mmol/L (0.7-2.0) 03/20/17 06:42 Calcium 7.6 mg/dL (8.4-10.2) L 03/20/17 06:42 Phosphorus 2.5 mg/dL (2.5-4.5) 03/20/17 06:42 Magnesium 1.7 mg/dL (1.6-2.3) 03/20/17 06:42 Total Bilirubin 0.9 mg/dL (0.2-1.3) 03/20/17 00:31 AST 56 U/L (17-59) 03/20/17 00:31 ALT 42 U/L (21-72) 03/20/17 00:31 Alkaline Phosphatase 82 U/L (38-126) 03/20/17 00:31 Ammonia 16 umol/L (<30) 03/19/17 12:16 Lactate Dehydrogenase 1143 U/L (313-618) H 03/20/17 06:42 Total Creatine Kinase 810 U/L (55-170) H 03/19/17 12:16 CK-MB (CK-2) 2.2 ng/mL (0.0-2.4) 03/20/17 00:31 CK-MB (CK-2) Rel Index 0.2 03/19/17 12:16 Troponin I <0.012 ng/mL (0.000-0.034) 03/20/17 00:31 Total Protein 5.6 g/dL (6.3-8.2) L 03/20/17 00:31 Albumin 3.1 g/dL (3.5-5.0) L 03/20/17 00:31 Urine Color Yellow 03/20/17 00:25 Urine Appearance Clear (Clear) 03/20/17 00:25 Urine pH 5.5 (5.0-8.0) 03/20/17 00:25 Ur Specific [place] 1.027 (1.001-1.035) 03/20/17 00:25 Urine Protein Trace (Negative) H 03/20/17 00:25 Urine Glucose (UA) Negative (Negative) 03/20/17 00:25 Urine Ketones Negative (Negative) 03/20/17 00:25 Urine Blood Negative (Negative) 03/20/17 00:25 Urine Nitrite Negative (Negative) 03/20/17 00:25 Urine Bilirubin Negative (Negative) 03/20/17 00:25 Urine Urobilinogen 2.0 mg/dL (<2.0) 03/20/17 00:25 Ur Leukocyte Esterase Negative (Negative) 03/20/17 00:25 Urine RBC <1 /hpf (0-5) 03/19/17 14:53 Urine WBC 5 /hpf (0-5) 03/19/17 14:53 Ur Squamous Epith Cells <1 /hpf (0-4) 03/19/17 14:53 Amorphous Sediment Rare /hpf (None) H 03/19/17 14:53 Hyaline Casts 26 /lpf (0-2) H 03/19/17 14:53 Urine Mucus Moderate /hpf (None) H 03/19/17 14:53 Microbiology 03/19/17 14:53 Urine,Catheterized Urine Culture - Final 03/20/17 00:25 Urine,Catheterized Urine Culture - Preliminary CT scan - chest: report reviewed (Bilateral PE possible pneumonia) Assessment and Plan (1) Pancytopenia due to antineoplastic chemotherapy Narrative/Plan: 66-year-old male who had the sudden onset of back pain that worsened rapidly. Prior to this he was a very active gentleman. 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 He is now status post his radiation therapy and initiation of chemotherapy. He now is presenting with significant fever shortness of breath and altered mental status. His mental status has been quite difficult while he has been on high- dose steroid therapy. The patient presented with some shortness of breath and computed tomography scan did reveal evidence of bilateral pulmonary emboli. Consequently the pulmonary emboli, the febrile neutropenia and the recent chemotherapy are all significant reasons for his current fever. He is requiring several modalities to control his fever. As his PE is treated and underlying febrile neutropenia is treated with expectant his fevers to also improve. Multiple cultures are in process. If he is febrile again blood culture should be repeated. He is developing hematology oncology and growth factors have been started to improve his significant leukopenia. Ongoing supportive care. Pain management appears to be adequate With the febrile neutropenia being treated with cefepime and vancomycin which are adequate choices at this point in time. Especially the cultures are pending. Status: Acute (2) Renal cell carcinoma Status: Acute (3) Fever Status: Acute
[2017-03-20] MEDS: MIRTAZAPINE 15 MG TAB PO SCH (22:03)
[2017-03-20] MEDS: TAMSULOSIN 0.4 MG CAP.ER.24H PO SCH (22:03)
[2017-03-20] MEDS: ATORVASTATIN 40 MG TAB PO SCH (22:03)
[2017-03-21] MEDS: VANCOMYCIN 1,750 MG in SODIUM CHLORIDE 0.9% 250 ML IVPB SCH ×3 (00:12→23:29)
[2017-03-21] MEDS: IPRATROPIUM-ALBUTEROL 3 ML NEB INHALATION PRN ×3 (01:30→19:39)
[2017-03-21] MEDS: CEFEPIME 2 GM in SODIUM CHLORIDE 0.9% 50 ML IVPB SCH ×3 (02:15→17:22)
[2017-03-21 05:38] LABS: Anisocytosis Slight; Basophils % (A) 0 %; CH 32.4; CHCM 34.1; Eosinophils % (A) 1 %; HCT 21.4 % (39.0-53.0); HDW 3.69; HGB 7.1 gm/dL (13.0-17.5); Luc # (Auto) 0.03; Luc % (Auto) 2; Lymphocytes # (A) 0.2 k/uL (1.0-4.8); Lymphocytes % (A) 9 %; MCH 32.1 pg (25.0-35.0); MCHC 33.4 g/dL (31.0-37.0); MCV 95.9 fL (80.0-100.0); Macrocytosis Slight; Mean Platelet Volume 7.5; Monocytes # (A) 0.1 k/uL (0-1.0); Monocytes % (A) 3 %; Neutrophils # (A) 1.6 k/uL (1.3-7.7); Neutrophils % (A) 85 %; Poikilocytosis Slight; RBC 2.23 m/uL (4.30-5.90); RDW 19.9 % (11.5-15.5); WBC (Perox) 2.03
[2017-03-21 05:46] LABS: WBC 1.9 k/uL (3.8-10.6)
[2017-03-21 06:23] LABS: Anion Gap 3 mmol/L; Blood Urea Nitrogen 13 mg/dL (9-20); Calcium 7.1 mg/dL (8.4-10.2); Carbon Dioxide 22 mmol/L (22-30); Chloride 114 mmol/L (98-107); Glucose 95 mg/dL (74-99); Magnesium 1.9 mg/dL (1.6-2.3); Non-African American GFR(MDRD) >60 (>60 ml/min/1.73 sqM); Phosphorous 2.3 mg/dL (2.5-4.5); Potassium 3.4 mmol/L (3.5-5.1); Sodium 139 mmol/L (137-145)
[2017-03-21] MEDS ORDERED: SODIUM PHOSPHATE 10 MMOL in SODIUM CHLORIDE 0.9% 250 ML IVPB ONE (06:40)
[2017-03-21] MEDS: MAGNESIUM SULFATE-D5W PMX 1 GM in DEXTROSE/WATER 1 100ML.BAG IVPB SCH ×2 (08:40→09:57)
[2017-03-21] MEDS: CLOPIDOGREL 75 MG TAB PO SCH (08:41)
[2017-03-21] MEDS: METOPROLOL TARTRATE 50 MG TAB PO SCH ×2 (08:41→22:14)
[2017-03-21] MEDS: ASPIRIN 81 MG CHEW PO SCH ×2 (08:41→22:13)
[2017-03-21] MEDS: POTASSIUM CHLORIDE ER 20 MEQ TAB.ER PO SCH ×2 (08:41→09:57)
[2017-03-21] MEDS: ISOSORBIDE MONONITRATE ER 30 MG TAB.ER.24H PO SCH (08:42)
[2017-03-21] MEDS: MORPHINE SULFATE ER 30 MG TABLET PO SCH ×4 (08:46→22:43)
--- NOTE | 2017-03-21 10:11 | P.PN ---
Subjective The patient continues to be somewhat short of breath on high flow oxygen. He states however that he feels reasonably comfortable subjectively at this time. Per the patient, pain is controlled Objective - Vital Signs Vital signs: Vital Signs Temp 98.7 F 03/21/17 05:00 Pulse 71 03/21/17 06:00 Resp 25 H 03/21/17 06:00 BP 105/63 03/21/17 06:00 Pulse Ox 98 03/21/17 06:00 Intake & Output 03/20/17 03/21/17 03/21/17 18:59 06:59 18:59 Intake Total 2544.529 1696.352 Output Total 940 671 Balance 2951.630 7725.352 Weight 93.3 kg Intake: IV 1500 ACETAMINOPHEN IV (For NPO 100 ) 1,000 mg In Empty Bag 1 bag @ 400 mls/hr IVPB Q6HR PRN Rx#:[id number] Cefepime 2 gm In Sodium 100 Chloride 0.9% 50 ml @ 100 mls/hr IVPB Q8H [facility] Rx#: [id number] NS 500 Sodium Chloride 0.9% 1, 350 000 ml @ 100 mls/hr IV . Q10H [facility] Rx#:[id number] Sodium Chloride 0.9% 1, 200 000 ml @ 100 mls/hr IV . Q10H [facility] Rx#:[id number] Vancomycin 1,750 mg In 250 Sodium Chloride 0.9% 250 ml @ 125 mls/hr IVPB Q12H [facility] Rx#:[id number] Intake, IV Titration 2544.529 76.352 Amount ACETAMINOPHEN IV (For NPO 100 ) 1,000 mg In Empty Bag 1 bag @ 400 mls/hr IVPB ONCE [facility] Rx#:[id number] Ampicillin-Sulbactam 3 gm 100 In Sodium Chloride 0.9% 100 ml @ 100 mls/hr IVPB ONCE [facility] Rx#:[id number] Cefepime 2 gm In Sodium 150 Chloride 0.9% 50 ml @ 100 mls/hr IVPB Q8H [facility] Rx#: [id number] Heparin Sodium,Porcine/ 444.529 76.352 D5w Pmx 25,000 unit In Dextrose/Water 1 500ml. bag @ 18 UNITS/KG/HR 30. 37 mls/hr IV .[id number] [facility] Rx#:[id number] Ibuprofen IV 800 mg In 250 Sodium Chloride 0.9% 250 ml @ 500 mls/hr IV ONCE [facility] Rx#:[id number] Ibuprofen IV 800 mg In 0 Sodium Chloride 0.9% 250 ml @ 500 mls/hr IV Q6HR PRN Rx#:[id number] Magnesium Sulfate-D5w Pmx 200 1 gm In Dextrose/Water 1 100ml.bag @ 100 mls/hr IVPB Q1H COUNT INCLUDES THE [facility] Rx#: [id number] Sodium Chloride 0.9% 1, 850 000 ml @ 100 mls/hr IV . Q10H [facility] Rx#:[id number] Sodium Chloride 0.9% 1, 200 000 ml @ 100 mls/hr IV . Q10H [facility] Rx#:[id number] Vancomycin 1,500 mg In 125 Sodium Chloride 0.9% 250 ml @ 125 mls/hr IVPB Q12H COUNT INCLUDES THE [facility] Rx#:[id number] Vancomycin 1,750 mg In 125 Sodium Chloride 0.9% 250 ml @ 125 mls/hr IVPB Q12H COUNT INCLUDES THE [facility] Rx#:[id number] Oral 60 Other 60 Output: Urine 940 671 Other: Voiding Method Indwelling Catheter Indwelling Catheter - Constitutional General appearance: Present: mild distress - EENT Eyes: Present: EOMI, PERRLA ENT: Present: hearing grossly normal, normal oropharynx - Respiratory Respiratory: bilateral: CTA - Cardiovascular Rhythm: regular Heart sounds: normal: S1, S2 - Gastrointestinal General gastrointestinal: Present: normal bowel sounds, soft - Integumentary Integumentary: Present: normal - Neurologic Neurologic: Present: CNII-XII intact - Musculoskeletal Musculoskeletal: Present: generalized weakness, strength equal bilaterally - Psychiatric Psychiatric Comment(s): Intermittent, mild confusion - Labs CBC & Chem 7: 03/21/17 04:56 03/21/17 04:56 Labs: Abnormal Lab Results - Last 24 Hours (Table) 03/20/17 03/20/17 03/20/17 Range/Units 06:42 17:18 17:18 WBC (3.8-10.6) k/uL RBC (4.30-5.90) m/uL Hgb (13.0-17.5) gm/dL Hct (39.0-53.0) % RDW (11.5-15.5) % Plt Count (150-450) k/uL Lymphocytes # (1.0-4.8) k/uL PT 12.7 H (9.0-12.0) sec APTT 64.7 H (22.0-30.0) sec Potassium (3.5-5.1) mmol/L Chloride (98-107) mmol/L Creatinine (0.66-1.25) mg/dL Calcium (8.4-10.2) mg/dL Phosphorus (2.5-4.5) mg/dL Lactate Dehydrogenase 1143 H (313-618) U/L 03/21/17 03/21/17 03/21/17 Range/Units 04:56 04:56 04:56 WBC 1.9 L* (3.8-10.6) k/uL RBC 2.23 L (4.30-5.90) m/uL Hgb 7.1 L (13.0-17.5) gm/dL Hct 21.4 L (39.0-53.0) % RDW 19.9 H (11.5-15.5) % Plt Count 80 L (150-450) k/uL Lymphocytes # 0.2 L (1.0-4.8) k/uL PT (9.0-12.0) sec APTT 71.2 H (22.0-30.0) sec Potassium 3.4 L (3.5-5.1) mmol/L Chloride 114 H (98-107) mmol/L Creatinine 0.51 L (0.66-1.25) mg/dL Calcium 7.1 L (8.4-10.2) mg/dL Phosphorus 2.3 L (2.5-4.5) mg/dL Lactate Dehydrogenase (313-618) U/L Microbiology - Last 24 Hours (Table) 03/20/17 00:31 Blood Culture - Preliminary Blood No Growth after 24 hours 03/20/17 00:25 Urine Culture - Preliminary Urine,Catheterized Assessment and Plan (1) Pulmonary embolism Narrative/Plan: The patient's hypoxia is somewhat improved. Heart rate is mostly in the normal range. He is continuing on IV heparin. There was some concern yesterday , as his PTT had increased markedly after initiation of heparin. Baseline coags were normal. Workup for DIC is negative. Therefore it was recommended that heparin be continued, but dose adjustment per protocol. More recent PTTs have been in the therapeutic range Status: Acute (2) Febrile neutropenia Narrative/Plan: The patient's fever pattern, and hemodynamics are improved. Cultures are negative so far. He is being covered with antibiotics and ID is following. It is possible, as noted by ID, that his presenting symptoms could be due to the venous thrombus embolism. Though the patient's white count is reduced, he does not have absolute neutropenia, with the ANC persistently greater than 1000 Status: Acute (3) Pancytopenia due to antineoplastic chemotherapy Narrative/Plan: The patient's current regimen is not chemotherapy. He is actually on our targeted kinase inhibitor. This can cause cytopenias, though that is not very common. A platelet counts are stable in a safe range, at above 50,000. WBC is reduced, but ANC has been greater than 1000, which is also safe period. Did drop by about 2 g, without any evidence of bleeding. The patient did receive a significant amount of fluids at the time of admission. Hemolysis workup was ordered to rule that out, and is pending. Hemoglobin is stable in the 7-8 range. Continue to monitor, and transfuse if it drops below 7, or if the patient develops any signs of bleeding. Status: Acute
--- NOTE | 2017-03-21 10:29 | P.PN ---
Subjective 58-year-old male patient was hospitalized yesterday because of altered mental status and shortness of breath. 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 The patient had back pain for quite some time and further investigation including a laminectomy that was done on the lumbar spine establish the diagnosis. Laminectomy was done to for ongoing back pain and diagnostic purposes. Following that, the patient was sent to radiation oncology and the patient was receiving palliative radiation therapy to his back. He was also started on Votrient as systemic treatment for his renal cell carcinoma. He has already received his of radiation and he is also on systemic treatment. Over the past 2 weeks, the patient was on and off confused. He was having some changes in his personality. At times he was having aggressive behavior to his family members and his . No headache. No neck stiffness. No chills. No fever. Over the past 24 hours, the patient's condition got worse and he started having increased shortness of breath. I was asked to evaluate this patient last night around 2 or 3 AM. At that time the patient was quite hypoxic , tachycardic and he was in the 100% on a beta facemask saturating around 88-89% . He was hospitalized with a low white count of 1.7. He was also febrile and he presented with a temperature of 11.8 and he had a T-max of 103.5. . Based on this, the patient was immediately moved to the intensive care unit. A stat computed tomography scan of the chest was done and showed subsegmental pulmonary emboli in the lung bases bilaterally. The patient also had a lateral upper lobe pulmonary infiltrates typical of an underlying pneumonia. The patient was started on IV heparin. The patient was started on a combination of cefepime and vancomycin. He was also given a total of 3 days of IV fluid and currently is on a maintenance of 0.9 at the rate of 100 mL an hour. No headache. Neurologically he is lethargic yet arousable and awake. He is following simple commands. On and off still confused. Family is at the bedside. Follow-up hemoglobin today's at 7.6. Platelet have dropped also to 78 ,000. Lactic acid level was elevated at 4.5 and stone to 0.8 On 03/21/2017 the patient is being seen in follow-up. Still on 100% nonrebreather facemask. On IV heparin regarding pulmonary embolism. Still on broad-spectrum antibiotics regarding pneumonia and neutropenic fever/sepsis. The patient is more comfortable compared to yesterday. He is less short of breath. He remains leukopenic and he was given Zarxio in that regard. Oncology is on the case. He is hemodynamically stable. ID evaluated the patient. No further adjustment of antibiotic coverage for now. All of the cultures of been negative. The hemoglobin is also low at 7.1 he had stable compared to yesterday. No signs of any GI bleeding. Platelet counts while on IV heparin is at 80. No signs of DIC at this point. Objective - Vital Signs Vital signs: Vital Signs Temp 98.7 F 03/21/17 05:00 Pulse 71 03/21/17 06:00 Resp 25 H 03/21/17 06:00 BP 105/63 03/21/17 06:00 Pulse Ox 97 03/21/17 10:07 Intake & Output 03/20/17 03/21/17 03/21/17 18:59 06:59 18:59 Intake Total 2544.529 1696.352 Output Total 940 671 Balance 5773.254 5553.352 Weight 93.3 kg Intake: IV 1500 ACETAMINOPHEN IV (For NPO 100 ) 1,000 mg In Empty Bag 1 bag @ 400 mls/hr IVPB Q6HR PRN Rx#:[id number] Cefepime 2 gm In Sodium 100 Chloride 0.9% 50 ml @ 100 mls/hr IVPB Q8H [facility] Rx#: [id number] NS 500 Sodium Chloride 0.9% 1, 350 000 ml @ 100 mls/hr IV . Q10H [facility] Rx#:[id number] Sodium Chloride 0.9% 1, 200 000 ml @ 100 mls/hr IV . Q10H [facility] Rx#:[id number] Vancomycin 1,750 mg In 250 Sodium Chloride 0.9% 250 ml @ 125 mls/hr IVPB Q12H [facility] Rx#:[id number] Intake, IV Titration 2544.529 76.352 Amount ACETAMINOPHEN IV (For NPO 100 ) 1,000 mg In Empty Bag 1 bag @ 400 mls/hr IVPB ONCE [facility] Rx#:[id number] Ampicillin-Sulbactam 3 gm 100 In Sodium Chloride 0.9% 100 ml @ 100 mls/hr IVPB ONCE [facility] Rx#:[id number] Cefepime 2 gm In Sodium 150 Chloride 0.9% 50 ml @ 100 mls/hr IVPB Q8H [facility] Rx#: [id number] Heparin Sodium,Porcine/ 444.529 76.352 D5w Pmx 25,000 unit In Dextrose/Water 1 500ml. bag @ 18 UNITS/KG/HR 30. 37 mls/hr IV .[id number] [facility] Rx#:[id number] Ibuprofen IV 800 mg In 250 Sodium Chloride 0.9% 250 ml @ 500 mls/hr IV ONCE [facility] Rx#:[id number] Ibuprofen IV 800 mg In 0 Sodium Chloride 0.9% 250 ml @ 500 mls/hr IV Q6HR PRN Rx#:[id number] Magnesium Sulfate-D5w Pmx 200 1 gm In Dextrose/Water 1 100ml.bag @ 100 mls/hr IVPB Q1H [facility] Rx#: [id number] Sodium Chloride 0.9% 1, 850 000 ml @ 100 mls/hr IV . Q10H [facility] Rx#:[id number] Sodium Chloride 0.9% 1, 200 000 ml @ 100 mls/hr IV . Q10H [facility] Rx#:[id number] Vancomycin 1,500 mg In 125 Sodium Chloride 0.9% 250 ml @ 125 mls/hr IVPB Q12H [facility] Rx#:[id number] Vancomycin 1,750 mg In 125 Sodium Chloride 0.9% 250 ml @ 125 mls/hr IVPB Q12H [facility] Rx#:[id number] Oral 60 Other 60 Output: Urine 940 671 Other: Voiding Method Indwelling Catheter Indwelling Catheter - Exam Head exam was generally normal. There was no scleral icterus or corneal arcus. Mucous membranes were moist.Neck was supple and without jugular venous distension, thyromegaly, or carotid bruits. Carotids were easily palpable bilaterally. There was no adenopathy.Lungs were clear to auscultation and percussion, and with normal diaphragmatic excursion. No wheezes or rales were noted. Cardiac exam revealed the PMI to be normally situated and sized. The rhythm was regular and no extrasystoles were noted during several minutes of auscultation. The first and second heart sounds were normal and physiologic splitting of the second heart sound was noted. There were no murmurs, rubs, clicks, or gallops.Abdominal exam revealed normal bowel sounds. The abdomen was soft, non-tender, and without masses, organomegaly, or appreciable enlargement of the abdominal aorta.Examination of the extremities revealed easily palpable radial, femoral and pedal pulses. There was no cyanosis, clubbing or edema. - Labs CBC & Chem 7: 03/21/17 04:56 03/21/17 04:56 Labs: Abnormal Lab Results - Last 24 Hours (Table) 03/20/17 03/20/17 03/20/17 Range/Units 06:42 17:18 17:18 WBC (3.8-10.6) k/uL RBC (4.30-5.90) m/uL Hgb (13.0-17.5) gm/dL Hct (39.0-53.0) % RDW (11.5-15.5) % Plt Count (150-450) k/uL Lymphocytes # (1.0-4.8) k/uL PT 12.7 H (9.0-12.0) sec APTT 64.7 H (22.0-30.0) sec Potassium (3.5-5.1) mmol/L Chloride (98-107) mmol/L Creatinine (0.66-1.25) mg/dL Calcium (8.4-10.2) mg/dL Phosphorus (2.5-4.5) mg/dL Lactate Dehydrogenase 1143 H (313-618) U/L 03/21/17 03/21/17 03/21/17 Range/Units 04:56 04:56 04:56 WBC 1.9 L* (3.8-10.6) k/uL RBC 2.23 L (4.30-5.90) m/uL Hgb 7.1 L (13.0-17.5) gm/dL Hct 21.4 L (39.0-53.0) % RDW 19.9 H (11.5-15.5) % Plt Count 80 L (150-450) k/uL Lymphocytes # 0.2 L (1.0-4.8) k/uL PT (9.0-12.0) sec APTT 71.2 H (22.0-30.0) sec Potassium 3.4 L (3.5-5.1) mmol/L Chloride 114 H (98-107) mmol/L Creatinine 0.51 L (0.66-1.25) mg/dL Calcium 7.1 L (8.4-10.2) mg/dL Phosphorus 2.3 L (2.5-4.5) mg/dL Lactate Dehydrogenase (313-618) U/L Microbiology - Last 24 Hours (Table) 03/20/17 00:31 Blood Culture - Preliminary Blood No Growth after 24 hours 03/20/17 00:25 Urine Culture - Preliminary Urine,Catheterized Assessment and Plan Plan: Assessment 1 acute hypoxic respiratory failure multifactorial, secondary to bilateral pneumonia and bilateral pulmonary embolism. Patient is on a combination of cefepime and vancomycin and the patient is on IV heparin at the time being. He is on 100% nonrebreather facemask. Breathing is improved On , the patient remains in 100% on a beta facemask and I think should be able to gradually wean him down on his FiO2 if his saturation remains above 90%. He remains on the same antibiotic coverage. He remains on IV heparin regarding the pulmonary embolism. Cultures are being monitored. PTT is being monitored while on IV heparin. No chest pain. 2 acute febrile neutropenia, afebrile for now 3 sepsis secondary to bilateral pneumonia, and leukopenia. The cultures remain negative and the patient was started on Zarxio 4 metastatic renal cell carcinoma with metastases to the back/skeletal system 5 Mental status change, a combination of sepsis, delirium that could've been secondary to systemic steroids on outpatient basis. MRI of the brain is negative. 6 Coronary artery disease with a previous carotid bypass surgery and multiple coronary stent insertion 7 bilateral carotid artery disease 8 peripheral vascular disease 9 hypertension 10 degenerative arthritis 11 prostate enlargement 12 peripheral neuropathy 13 pancytopenia Plan Continue with IV fluids. Continue the same antibiotic coverage. Monitor the white cell count. Monitor the hemoglobin. Wean off FiO2. Chest x-ray is stable for now. Keep the patient ICU for now. We'll continue to follow.
--- NOTE | 2017-03-21 10:58 | XR ---
EXAMINATION TYPE: XR chest 1V DATE OF EXAM: 03/21/2017 10:31 AM CLINICAL HISTORY: Difficulty breathing and pneumonia progress study. TECHNIQUE: Single AP portable upright view of the chest is obtained. COMPARISON: Chest x-ray and CTA chest from one day earlier FINDINGS: Sternal wires are redemonstrated. There is increasing central vascular congestion and matthew hilar opacities felt present. There is slightly more prominent cardiomegaly. No large pleural effusio n or pneumothorax is seen. Osseous structures are intact. IMPRESSION: Suspect CHF exacerbation as there is increasing cardiomegaly as well as central vascular congestion and developing perihilar edema felt present. Clinical correlation advised.
[2017-03-21] MEDS: HEPARIN SODIUM,PORCINE/D5W PMX 25,000 UNIT in DEXTROSE/WATER 1 500ML.BAG IV SCH (17:22)
[2017-03-21] MEDS: LISINOPRIL 20 MG TAB PO SCH (17:23)
[2017-03-21] MEDS: FILGRASTIM-SNDZ 480 MCG/0.8 ML SYRINGE SQ SCH (17:43)
[2017-03-21] MEDS: POTASSIUM CHLORIDE 10 MEQ, LIDOCAINE 2% INJ 10 MG in SODIUM CHLORIDE 0.9% 100 ML IV SCH ×2 (17:43→19:58)
[2017-03-21 20:23] LABS: Reticulocyte % 3.2 % (0.5-2.0)
--- NOTE | 2017-03-21 21:26 | PN ---
SUBJECTIVE DATA/INTERVAL HISTORY: This is a 66-year-old that was admitted to the hospital with change in mental status. Patient was recently diagnosed with metastatic renal cell cancer. Patient underwent a laminectomy and radiation therapy to the spine which was the area of the metastases due to severe pain. The patient was brought into the hospital with change in mental status appeared to have sepsis initially with a temperature of 103.5 and leukopenia. This was after patient received chemotherapy. Patient also underwent a CT angiogram, which showed bilateral subsegmental pulmonary embolism. The patient was started on empiric antibiotic therapy, was appropriately managed in regards to fluids. Patient was seen in cross coverage to Dr. Schwartz. Patient was started on ( ) for the bicytopenia. Today patient is awake, Currently on ( ) liters supplemental oxygen. Denies having any headaches, blurry vision. Answers questions appropriately and is having chest pain, nausea, vomiting, diarrhea. PHYSICAL EXAM: VITALS: Temperature is 98.7, heart rate 71, respiratory rate 25, blood pressure 105/63, saturating 97% on ( ) liters supplemental oxygen. GENERAL APPEARANCE: Alert, oriented x3 in no distress is atraumatic, normocephalic pupils, normocephalic. Pupils are round, and react to light and accommodation. Extraocular movements intact. Neck is supple. LUNGS: Good air movement. Clear to auscultation bilaterally. No significant rhonchi, wheezing. No crackles appreciated. HEART: S1, S2 are regular rate and no murmurs appreciated. ABDOMEN: Soft, nontender, no organomegaly. NEUROLOGIC EXAM: No focal motor or sensory deficits noted. LOWER EXTREMITIES: No significant edema appreciated. LABORATORY DATA: Values include hemoglobin 12.1, hematocrit 21.4, white count 1.9, platelets of 80, sodium 139, potassium 3.4, chloride 114, bicarb 22. BUN 13, creatinine 0.51. ASSESSMENT AND PLAN: 1. Acute hypoxic respiratory failure saccular secondary to suspected pneumonic infiltrate and pulmonary embolism. 2. Neutropenic fever neutropenia-induced with chemotherapy. 3. Metastatic renal cell cancer currently on ( ). 4. Sepsis secondary to bilateral pneumonia. 5. Acute metabolic encephalopathy. 6. Peripheral arterial disease. 7. Hypertension. 8. Benign prostate hyperplasia. 9. Peripheral neuropathy. 10. Chemotherapy-induced pancytopenia. PLAN: Continue Zaroxolyn. Continue empiric antibiotic therapy. Patient is currently on 100% FiO2. We will need to be titrated as tolerated. The patient's mental status appears to be improved from the previous documentation. Continue flow ICU support. Dr. Hoskins's recommendation were reviewed. Will follow.
[2017-03-21] MEDS: IBUPROFEN IV 800 MG in SODIUM CHLORIDE 0.9% 250 ML IV PRN (22:13)
[2017-03-21] MEDS: TAMSULOSIN 0.4 MG CAP.ER.24H PO SCH (22:14)
[2017-03-21] MEDS: ATORVASTATIN 40 MG TAB PO SCH (22:14)
[2017-03-21] MEDS: MIRTAZAPINE 15 MG TAB PO SCH (22:14)
[2017-03-21] MEDS ORDERED: VANCOMYCIN TROUGH DUE 1 EACH MISC MISCELLANE ONE (23:00)
[2017-03-22] MEDS: IPRATROPIUM-ALBUTEROL 3 ML NEB INHALATION PRN ×4 (01:07→19:47)
[2017-03-22] MEDS: CEFEPIME 2 GM in SODIUM CHLORIDE 0.9% 50 ML IVPB SCH ×3 (02:35→19:06)
[2017-03-22 04:54] LABS: Anisocytosis Moderate; Basophils % (A) 0 %; CH 32.6; CHCM 33.9; Eosinophils % (A) 1 %; HCT 21.4 % (39.0-53.0); HDW 3.81; HGB 7.4 gm/dL (13.0-17.5); Luc # (Auto) 0.05; Luc % (Auto) 2; Lymphocytes # (A) 0.2 k/uL (1.0-4.8); Lymphocytes % (A) 11 %; MCH 33.5 pg (25.0-35.0); MCHC 34.5 g/dL (31.0-37.0); MCV 97.2 fL (80.0-100.0); Macrocytosis Slight; Mean Platelet Volume 7.5; Monocytes # (A) 0.1 k/uL (0-1.0); Monocytes % (A) 3 %; Neutrophils # (A) 1.6 k/uL (1.3-7.7); Neutrophils % (A) 82 %; Poikilocytosis Slight; WBC (Perox) 2.06
[2017-03-22 05:38] LABS: Anion Gap 4 mmol/L; Blood Urea Nitrogen 14 mg/dL (9-20); Calcium 7.5 mg/dL (8.4-10.2); Carbon Dioxide 23 mmol/L (22-30); Chloride 115 mmol/L (98-107); Glucose 97 mg/dL (74-99); Non-African American GFR(MDRD) >60 (>60 ml/min/1.73 sqM); Potassium 3.9 mmol/L (3.5-5.1); Sodium 142 mmol/L (137-145)
[2017-03-22] MEDS: POTASSIUM CHLORIDE 10 MEQ, LIDOCAINE 2% INJ 10 MG in SODIUM CHLORIDE 0.9% 100 ML IV SCH ×2 (07:07→08:36)
[2017-03-22] MEDS: ISOSORBIDE MONONITRATE ER 30 MG TAB.ER.24H PO SCH (08:01)
[2017-03-22] MEDS: ASPIRIN 81 MG CHEW PO SCH ×2 (08:01→21:43)
[2017-03-22] MEDS: CLOPIDOGREL 75 MG TAB PO SCH (08:01)
[2017-03-22] MEDS: METOPROLOL TARTRATE 50 MG TAB PO SCH ×2 (08:01→21:44)
[2017-03-22] MEDS: MORPHINE SULFATE ER 30 MG TABLET PO SCH ×3 (09:18→21:43)
[2017-03-22] MEDS ORDERED: FUROSEMIDE 10 MG/ML 4 ML VIAL IV STA (09:55)
--- NOTE | 2017-03-22 10:00 | P.PN ---
Subjective 58-year-old male patient was hospitalized yesterday because of altered mental status and shortness of breath. 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 The patient had back pain for quite some time and further investigation including a laminectomy that was done on the lumbar spine establish the diagnosis. Laminectomy was done to for ongoing back pain and diagnostic purposes. Following that, the patient was sent to radiation oncology and the patient was receiving palliative radiation therapy to his back. He was also started on Votrient as systemic treatment for his renal cell carcinoma. He has already received his of radiation and he is also on systemic treatment. Over the past 2 weeks, the patient was on and off confused. He was having some changes in his personality. At times he was having aggressive behavior to his family members and his . No headache. No neck stiffness. No chills. No fever. Over the past 24 hours, the patient's condition got worse and he started having increased shortness of breath. I was asked to evaluate this patient last night around 2 or 3 AM. At that time the patient was quite hypoxic , tachycardic and he was in the 100% on a beta facemask saturating around 88-89% . He was hospitalized with a low white count of 1.7. He was also febrile and he presented with a temperature of 11.8 and he had a T-max of 103.5. . Based on this, the patient was immediately moved to the intensive care unit. A stat computed tomography scan of the chest was done and showed subsegmental pulmonary emboli in the lung bases bilaterally. The patient also had a lateral upper lobe pulmonary infiltrates typical of an underlying pneumonia. The patient was started on IV heparin. The patient was started on a combination of cefepime and vancomycin. He was also given a total of 3 days of IV fluid and currently is on a maintenance of 0.9 at the rate of 100 mL an hour. No headache. Neurologically he is lethargic yet arousable and awake. He is following simple commands. On and off still confused. Family is at the bedside. Follow-up hemoglobin today's at 7.6. Platelet have dropped also to 78 ,000. Lactic acid level was elevated at 4.5 and stone to 0.8 On 03/21/2017 the patient is being seen in follow-up. Still on 100% nonrebreather facemask. On IV heparin regarding pulmonary embolism. Still on broad-spectrum antibiotics regarding pneumonia and neutropenic fever/sepsis. The patient is more comfortable compared to yesterday. He is less short of breath. He remains leukopenic and he was given Zarxio in that regard. Oncology is on the case. He is hemodynamically stable. ID evaluated the patient. No further adjustment of antibiotic coverage for now. All of the cultures of been negative. The hemoglobin is also low at 7.1 he had stable compared to yesterday. No signs of any GI bleeding. Platelet counts while on IV heparin is at 80. No signs of DIC at this point. On 03/22/2017 I'm seeing this patient in follow-up. Clinically is improved. Oxygenation is still an issue as the patient is still desaturating once taken off the 100% nonrebreather facemask. I think there may be a component of fluid overload as the patient was aggressively resuscitated IV fluids. White cell count remains low at 2.0. The patient remains on IV heparin. The patient is on broad-spectrum antibiotics and he is currently on a combination of cefepime and vancomycin. The patient is afebrile. The patient is hemodynamically stable. The patient is tolerating diet and had breakfast this morning. No change in mental status. He seems to be much more pleasant at this point. Family is at the bedside. Objective - Vital Signs Vital signs: Vital Signs Temp 97.8 F 03/22/17 08:00 Pulse 69 03/22/17 09:30 Resp 17 03/22/17 09:30 BP 133/56 03/22/17 09:30 Pulse Ox 96 03/22/17 09:30 Intake & Output 03/21/17 03/22/17 03/22/17 18:59 06:59 18:59 Intake Total 2550 1887.072 600 Output Total 830 975 390 Balance 1720 912.072 210 Weight 92.9 kg Intake: IV 1500 1700 600 Cefepime 2 gm In Sodium 50 50 Chloride 0.9% 50 ml @ 100 mls/hr IVPB Q8H [facility] Rx#: [id number] Ibuprofen IV 800 mg In 250 Sodium Chloride 0.9% 250 ml @ 500 mls/hr IV Q6HR PRN Rx#:[id number] NS 1200 1050 400 Potassium Chloride 10 meq 100 Lidocaine 2% Inj 10 mg In Sodium Chloride 0.9% 100 ml @ 100 mls/hr IV Q1HR [facility] Rx#:[id number] Potassium Chloride 10 meq 200 Lidocaine 2% Inj 10 mg In Sodium Chloride 0.9% 100 ml @ 100 mls/hr IV Q1HR [facility] Rx#:[id number] Vancomycin 1,750 mg In 250 250 Sodium Chloride 0.9% 250 ml @ 125 mls/hr IVPB Q12H [facility] Rx#:[id number] Intake, IV Titration 1050 67.072 Amount Heparin Sodium,Porcine/ 500 67.072 D5w Pmx 25,000 unit In Dextrose/Water 1 500ml. bag @ 18 UNITS/KG/HR 30. 37 mls/hr IV .[id number] [facility] Rx#:[id number] Magnesium Sulfate-D5w Pmx 200 1 gm In Dextrose/Water 1 100ml.bag @ 100 mls/hr IVPB Q1H [facility] Rx#: [id number] Potassium Chloride 10 meq 100 Lidocaine 2% Inj 10 mg In Sodium Chloride 0.9% 100 ml @ 100 mls/hr IV Q1HR [facility] Rx#:[id number] Sodium Phosphate 10 mmol 250 In Sodium Chloride 0.9% 250 ml @ 125 mls/hr IVPB ONCE [facility] Rx#:[id number] Oral 120 Output: Urine 830 975 390 Other: Voiding Method Indwelling Catheter Indwelling Catheter - Exam Head exam was generally normal. There was no scleral icterus or corneal arcus. Mucous membranes were moist.Neck was supple and without jugular venous distension, thyromegaly, or carotid bruits. Carotids were easily palpable bilaterally. There was no adenopathy.Lungs diminished and shows crackles at lung bases bilaterally. No wheezes. No rhonchi.. Cardiac exam revealed the PMI to be normally situated and sized. The rhythm was regular and no extrasystoles were noted during several minutes of auscultation. The first and second heart sounds were normal and physiologic splitting of the second heart sound was noted. There were no murmurs, rubs, clicks, or gallops.Abdominal exam revealed normal bowel sounds. The abdomen was soft, non-tender, and without masses, organomegaly, or appreciable enlargement of the abdominal aorta.Examination of the extremities revealed easily palpable radial, femoral and pedal pulses. There was no cyanosis, clubbing or edema. - Labs CBC & Chem 7: 03/22/17 04:16 03/22/17 04:16 Labs: Abnormal Lab Results - Last 24 Hours (Table) 03/21/17 03/22/17 03/22/17 Range/Units 04:56 04:16 04:16 WBC 2.0 L* (3.8-10.6) k/uL RBC 2.20 L (4.30-5.90) m/uL Hgb 7.4 L (13.0-17.5) gm/dL Hct 21.4 L (39.0-53.0) % RDW 20.0 H (11.5-15.5) % Plt Count 98 L (150-450) k/uL Lymphocytes # 0.2 L (1.0-4.8) k/uL Retic Count 3.2 H (0.5-2.0) % APTT (22.0-30.0) sec Chloride 115 H (98-107) mmol/L Calcium 7.5 L (8.4-10.2) mg/dL 03/22/17 Range/Units 04:16 WBC (3.8-10.6) k/uL RBC (4.30-5.90) m/uL Hgb (13.0-17.5) gm/dL Hct (39.0-53.0) % RDW (11.5-15.5) % Plt Count (150-450) k/uL Lymphocytes # (1.0-4.8) k/uL Retic Count (0.5-2.0) % APTT 65.0 H (22.0-30.0) sec Chloride (98-107) mmol/L Calcium (8.4-10.2) mg/dL Microbiology - Last 24 Hours (Table) 03/20/17 00:31 Blood Culture - Preliminary Blood No Growth after 48 hours 03/20/17 00:25 Urine Culture - Final Urine,Catheterized Assessment and Plan Plan: Assessment 1 acute hypoxic respiratory failure multifactorial, secondary to bilateral pneumonia and bilateral pulmonary embolism. Patient is on a combination of cefepime and vancomycin and the patient is on IV heparin at the time being. He is on 100% nonrebreather facemask. Breathing is improved On , the patient remains in 100% on a beta facemask and I think should be able to gradually wean him down on his FiO2 if his saturation remains above 90%. He remains on the same antibiotic coverage. He remains on IV heparin regarding the pulmonary embolism. Cultures are being monitored. PTT is being monitored while on IV heparin. No chest pain. On 03/22/2017 the patient is still having difficulties with oxygenation. Clinically however is improved. We'll going to try high flow oxygen discontinued the 100% nonrebreather facemask. We will also going to start some gentle diuresis on this patient cut down his IV fluids. 2 acute febrile neutropenia, afebrile for now, white cell count is still low at 2.0 3 sepsis secondary to bilateral pneumonia, and leukopenia. The cultures remain negative and the patient was started on Zarxio 4 metastatic renal cell carcinoma with metastases to the back/skeletal system 5 Mental status change, a combination of sepsis, delirium that could've been secondary to systemic steroids on outpatient basis. MRI of the brain is negative. 6 Coronary artery disease with a previous carotid bypass surgery and multiple coronary stent insertion 7 bilateral carotid artery disease 8 peripheral vascular disease 9 hypertension 10 degenerative arthritis 11 prostate enlargement 12 peripheral neuropathy 13 pancytopenia Plan Down the IV fluids to 20 mL an hour. Give 40 mg IV Lasix. May repeat the Lasix in the evening of the patient shows adequate diuresis. Continue the antibiotics. Continued IV heparin. Change this patient to high flow oxygen. Discontinue the 100% nonrebreather facemask. We'll keep the patient here in ICU for further monitoring. Monitor the hematologic profile. We'll follow.
[2017-03-22] MEDS: LISINOPRIL 20 MG TAB PO SCH (12:33)
[2017-03-22] MEDS: VANCOMYCIN 2,000 MG in SODIUM CHLORIDE 0.9% 500 ML IVPB SCH ×2 (12:34→21:50)
[2017-03-22] MEDS: IBUPROFEN IV 800 MG in SODIUM CHLORIDE 0.9% 250 ML IV PRN (13:10)
--- NOTE | 2017-03-22 13:16 | XR ---
EXAMINATION TYPE: XR chest 1V portable DATE OF EXAM: 03/22/2017 1:00 PM Comparison: 03/21/2017 Clinical History: 66-year-old male with pneumonia Findings: Median sternotomy wires are present. Heart is mildly enlarged. Increasing perihilar and interstitial and patchy airspace opacities, left greater than right. No significant pleural effusion. Impression: Increasing interstitial and patchy airspace opacities. Correlate for developing pulmonary edema or wo rsening multifocal pneumonia.
[2017-03-22] MEDS ORDERED: FLUCONAZOLE IN NACL,ISO-OSM 400 MG in SALINE 1 200ML.BAG IVPB SCH (16:00)
[2017-03-22] MEDS: HEPARIN SODIUM,PORCINE/D5W PMX 25,000 UNIT in DEXTROSE/WATER 1 500ML.BAG IV SCH (17:48)
[2017-03-22] MEDS: MICAFUNGIN 150 MG in SODIUM CHLORIDE 0.9% 100 ML IVPB SCH (17:48)
[2017-03-22] MEDS: FILGRASTIM-SNDZ 480 MCG/0.8 ML SYRINGE SQ SCH (19:06)
--- NOTE | 2017-03-22 20:04 | PN ---
SUBJECTIVE DATA/INTERVAL HISTORY: This is a 66-year-old gentleman that is admitted to the hospital with change in mental status. Patient received chemotherapy for metastatic renal cell cancer on renal cell cancer found on his spine. Patient underwent a laminectomy and radiation therapy thereafter. The patient was admitted to the hospital with change in mental status and was noted to be in sepsis with a fever of 103.5. Patient was started on appropriate antibiotic therapy to cover for Pseudomonas and MRSA with cefepime and vancomycin in light of the neutropenic fever. Patient was also started on ( ). The patient today was evaluated at bedside. Was currently on 50% of FiO2 on BiPAP. Patient received a dose of Lasix this morning and diuresed well, appears to be doing well, states that he significantly improved since his admission to the hospital. However, patient did have a fever of 102.8 earlier today on cefepime and vancomycin. PHYSICAL EXAMINATION: VITAL SIGNS: Saturating greater than 90% on 50% FiO2, blood pressure appears to be 107/52. Respiratory rate 18 to 27 and heart rate 88. GENERAL: Appears alert, oriented x3. Does not appear to be in significant respiratory distress. NECK: Supple. No JVD. Oral cavity no thrush appreciated. LUNGS: Good air movement. Trace crackles at the bases. No significant rhonchi appreciated. ABDOMEN: Soft, nontender, no organomegaly. LOWER EXTREMITIES: Previous surgical scar is noted. No significant edema appreciated. Laboratory data includes: White count of 2, hemoglobin 7.4, hematocrit 21.4, platelets of 98. Sodium 142, potassium 3.9, chloride 115, bicarb 20, BUN 14, creatinine 0.70. Chest x-ray was reviewed and does show some significant interstitial edema. ASSESSMENT AND PLAN: 1. Acute hypoxic respiratory failure is multifactorial secondary to bilateral pulmonary embolism and bilateral healthcare acquired pneumonia as well. 2. Neutropenic fever. 3. Metastatic renal cell cancer. 4. Sepsis in a patient with neutropenia secondary to health care acquired pneumonia. 5. Acute metabolic encephalopathy, which is improved. 6. Peripheral arterial disease. 7. Hypertension. 8. Benign prostatic hypertrophy. 9. Peripheral neuropathy. 10. Pancytopenia, which is chemotherapy induced. PLAN: Continue titrating down oxygen. Dose of diuretic was given today. Likely benefit from follow up doses depending on the chest x-ray in the a.m. Patient will be started on Micafungin as patient spiked a fever on empiric therapy covering for Pseudomonas and MRSA to cover for alia as well in a patient with neutropenic fever. Continue ICU supportive care. Currently on BiPAP. Will defer management to pulmonology. Patient's care will be taken over by Dr. Luis Schwartz tomorrow in the a.m.
[2017-03-22] MEDS ORDERED: FUROSEMIDE 10 MG/ML 2 ML VIAL IV ONE (21:00)
[2017-03-22] MEDS ORDERED: FLUCONAZOLE IN NACL,ISO-OSM 200 MG in SALINE 1 100ML.BAG IVPB SCH (21:00)
[2017-03-22] MEDS: MIRTAZAPINE 15 MG TAB PO SCH (21:44)
[2017-03-22] MEDS: ATORVASTATIN 40 MG TAB PO SCH (21:44)
[2017-03-22] MEDS: TAMSULOSIN 0.4 MG CAP.ER.24H PO SCH (21:44)
[2017-03-22] MEDS: ALPRAZolam 0.25 MG TAB PO PRN (21:50)
[2017-03-23] MEDS: CEFEPIME 2 GM in SODIUM CHLORIDE 0.9% 50 ML IVPB SCH ×3 (02:26→17:55)
[2017-03-23 05:26] LABS: Anisocytosis Moderate; Basophils % (A) 0 %; CH 32.5; Eosinophils % (A) 2 %; HCT 21.5 % (39.0-53.0); HDW 3.71; Hypochromasia Slight; Luc # (Auto) 0.04; Luc % (Auto) 2; Lymphocytes # (A) 0.3 k/uL (1.0-4.8); Lymphocytes % (A) 15 %; MCH 32.3 pg (25.0-35.0); MCHC 32.4 g/dL (31.0-37.0); MCV 99.6 fL (80.0-100.0); Macrocytosis Moderate; Mean Platelet Volume 8.6; Monocytes # (A) 0.1 k/uL (0-1.0); Monocytes % (A) 7 %; Neutrophils # (A) 1.4 k/uL (1.3-7.7); Neutrophils % (A) 74 %; Poikilocytosis Slight; RBC 2.15 m/uL (4.30-5.90); RDW 20.3 % (11.5-15.5); WBC (Perox) 1.89
[2017-03-23 05:33] LABS: WBC 1.9 k/uL (3.8-10.6)
[2017-03-23 06:11] LABS: Anion Gap 5 mmol/L; Blood Urea Nitrogen 15 mg/dL (9-20); Calcium 7.9 mg/dL (8.4-10.2); Carbon Dioxide 24 mmol/L (22-30); Chloride 115 mmol/L (98-107); Glucose 92 mg/dL (74-99); Non-African American GFR(MDRD) >60 (>60 ml/min/1.73 sqM); Potassium 3.9 mmol/L (3.5-5.1); Sodium 144 mmol/L (137-145)
[2017-03-23] MEDS: HEPARIN SODIUM,PORCINE/D5W PMX 25,000 UNIT in DEXTROSE/WATER 1 500ML.BAG IV SCH (06:40)
[2017-03-23] MEDS: IPRATROPIUM-ALBUTEROL 3 ML NEB INHALATION PRN ×2 (07:56→20:12)
[2017-03-23] MEDS: ASPIRIN 81 MG CHEW PO SCH ×2 (08:07→20:32)
[2017-03-23] MEDS: CLOPIDOGREL 75 MG TAB PO SCH (08:07)
[2017-03-23] MEDS: ISOSORBIDE MONONITRATE ER 30 MG TAB.ER.24H PO SCH (08:07)
[2017-03-23] MEDS: METOPROLOL TARTRATE 50 MG TAB PO SCH ×2 (08:07→20:32)
[2017-03-23] MEDS: POTASSIUM CHLORIDE 10 MEQ, LIDOCAINE 2% INJ 10 MG in SODIUM CHLORIDE 0.9% 100 ML IV SCH ×2 (08:07→10:30)
[2017-03-23] MEDS: MORPHINE SULFATE ER 30 MG TABLET PO SCH ×3 (08:08→22:48)
--- NOTE | 2017-03-23 08:09 | XR ---
EXAMINATION TYPE: XR chest 1V portable DATE OF EXAM: 03/23/2017 7:34 AM CLINICAL HISTORY: Difficulty breathing and pneumonia progress study. TECHNIQUE: Single AP portable upright view of the chest is obtained. COMPARISON: Chest x-ray from one day earlier and older studies. FINDINGS: Sternal wires are redemonstrated. Heart remains mildly enlarged. Persistent central perihi lar interstitial and patchy airspace opacities, left greater than right. Suspect small right pleural effusion. No pneumothorax is evident. Underlying emphysematous change is not excluded. Osseous struc tures are intact. Surgical clips right neck are redemonstrated. IMPRESSION: Favor CHF exacerbation as there is mild cardiomegaly with central alveolar and interstiti al edema felt present, underlying infiltrates are not excluded. Suspect small right pleural effusion. No significant change from one day earlier. Significant interval progression from March 19 noted.
[2017-03-23] MEDS: VANCOMYCIN 2,000 MG in SODIUM CHLORIDE 0.9% 500 ML IVPB SCH ×2 (09:10→20:56)
[2017-03-23] MEDS ORDERED: FUROSEMIDE 10 MG/ML 4 ML VIAL IV STA (09:57)
--- NOTE | 2017-03-23 14:56 | P.PN ---
Subjective Patient is a 66-year-old male, patient of Dr. 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 Patient presented to the emergency department with complaints of altered mental status and dyspnea. Patient was found to have evidence of neutropenic sepsis and acute bilateral pulmonary emboli, acute hypoxic respiratory failure, and pneumonia, health care acquired. Patient is currently being followed by infectious disease service, oncology service, and pulmonary service. Upon examination, patient states he is breathing a little better. Patient is currently on 15 L high flow nasal cannula with oxygen saturation around 93%. Denies chills, fevers, nausea, vomiting, chest pain, or abdominal pain. Patient hasn't been out of bed yet. Patient reports he ate about 75% of his breakfast. Patient did have a temperature of 102.3 at 1 PM yesterday. Patient continues on IV antibiotics in the form of cephapirin, vancomycin, and micafungin. Urine output adequate. Patient is a possible transfer out of the intensive care unit this afternoon. Objective - Vital Signs Vital signs: Vital Signs Temp 98.9 F 03/23/17 05:00 Pulse 66 03/23/17 11:30 Resp 27 H 03/23/17 11:30 BP 126/66 03/23/17 11:30 Pulse Ox 94 L 03/23/17 11:30 Intake & Output 03/22/17 03/23/17 03/23/17 18:59 06:59 18:59 Intake Total 1692.928 895.656 100 Output Total 1590 1390 935 Balance 102.928 -494.344 -835 Weight 95.1 kg Intake: IV 1260 540 100 Cefepime 2 gm In Sodium 50 Chloride 0.9% 50 ml @ 100 mls/hr IVPB Q8H [facility] Rx#: [id number] NS 560 240 100 Potassium Chloride 10 meq 200 Lidocaine 2% Inj 10 mg In Sodium Chloride 0.9% 100 ml @ 100 mls/hr IV Q1HR [facility] Rx#:[id number] Vancomycin 1,750 mg In 500 250 Sodium Chloride 0.9% 250 ml @ 125 mls/hr IVPB Q12H [facility] Rx#:[id number] Intake, IV Titration 432.928 325.656 Amount Heparin Sodium,Porcine/ 432.928 325.656 D5w Pmx 25,000 unit In Dextrose/Water 1 500ml. bag @ 18 UNITS/KG/HR 30. 37 mls/hr IV .[id number] [facility] Rx#:[id number] Oral 30 Output: Urine 1590 1390 935 Other: Voiding Method Indwelling Catheter Indwelling Catheter Indwelling Catheter - Exam GENERAL: Pt awake and alert, appears in no acute distress. HEAD: Atraumatic, normocephalic. EYES: Pupils equal, round, and reactive to light, sclera anicteric, conjunctiva are normal. ENT: Moist mucous membranes. NECK:Supple without lymphadenopathy or JVD. LUNGS: Breath sounds diminished to auscultation bilaterally. No wheezes, rales , or rhonchi. HEART: Heart S1, S2, no S3 or S4. Regular rate and rhythm. No murmurs, rubs or gallops. ABDOMEN: Soft, nontender, nondistended, normoactive bowel sounds. No guarding, no rebound. No masses or organomegaly appreciated. EXTREMITIES: Palpable peripheral pulses. No edema. No calf tenderness. NEUROLOGICAL: Pt alert and oriented 3. Speech is coherent. Follows commands. SKIN: Warm, dry, intact. Normal turgor. - Labs CBC & Chem 7: 03/23/17 04:55 03/23/17 04:55 Labs: Abnormal Lab Results - Last 24 Hours (Table) 03/20/17 03/23/17 03/23/17 Range/Units 06:42 04:55 04:55 WBC 1.9 L* (3.8-10.6) k/uL RBC 2.15 L (4.30-5.90) m/uL Hgb 7.0 L* (13.0-17.5) gm/dL Hct 21.5 L (39.0-53.0) % RDW 20.3 H (11.5-15.5) % Plt Count 111 L (150-450) k/uL Lymphocytes # 0.3 L (1.0-4.8) k/uL Haptoglobin 254.0 H (31.2-198.0) mg/dL APTT (22.0-30.0) sec Chloride 115 H (98-107) mmol/L Calcium 7.9 L (8.4-10.2) mg/dL 03/23/17 Range/Units 04:55 WBC (3.8-10.6) k/uL RBC (4.30-5.90) m/uL Hgb (13.0-17.5) gm/dL Hct (39.0-53.0) % RDW (11.5-15.5) % Plt Count (150-450) k/uL Lymphocytes # (1.0-4.8) k/uL Haptoglobin (31.2-198.0) mg/dL APTT 53.6 H (22.0-30.0) sec Chloride (98-107) mmol/L Calcium (8.4-10.2) mg/dL Microbiology - Last 24 Hours (Table) 03/20/17 00:31 Blood Culture - Preliminary Blood No Growth after 72 hours Assessment and Plan Plan: Impression and plan: 1. Acute hypoxic respiratory failure, multifactorial secondary to bilateral pneumonia, health care acquired and bilateral pulmonary embolism. Continue titrating down oxygen. Continue IV antibiotics in the form of vancomycin, cephapirin, and micafungin to cover for Pseudomonas, MRSA, and Mandi inpatient with neutropenic fever. Pulmonary service and infectious disease service following, recommendations noted. 2. Neutropenic sepsis suspect secondary to bilateral pneumonia. Continue IV antibiotics per infectious disease service. 3. Acute metabolic encephalopathy, suspect secondary to underlying infectious disease process, improved. 5. Pancytopenia, which is chemotherapy induced. 7. 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 8. Coronary artery disease with multiple stent placements and previous CABG. 9. Bilateral carotid artery disease. 10. Peripheral arterial disease. 11. Hypertension. 12. Degenerative disc disease. 13. BPH. 14. Peripheral neuropathy. Continue to monitor patient. Continue IV antibiotics. Continue to follow with consultants. Continue supportive treatment and pain management. Continue GI and DVT prophylaxis. We'll consult PT OT. Consider transfer out of the unit this afternoon. Repeat labs in a.m. The above impression and plan have been discussed and directed by Dr. Schwartz. Camron CALEDRA acting as scribe for Dr. Schwartz.
[2017-03-23] MEDS: LISINOPRIL 20 MG TAB PO SCH (15:54)
[2017-03-23] MEDS: MICAFUNGIN 150 MG in SODIUM CHLORIDE 0.9% 100 ML IVPB SCH (16:03)
--- NOTE | 2017-03-23 16:06 | P.PN ---
Subjective Principal diagnosis: Acute hypoxic respiratory failure secondary to bilateral pneumonia and pulmonary embolism 58-year-old male patient was hospitalized yesterday because of altered mental status and shortness of breath. 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 The patient had back pain for quite some time and further investigation including a laminectomy that was done on the lumbar spine establish the diagnosis. Laminectomy was done to for ongoing back pain and diagnostic purposes. Following that, the patient was sent to radiation oncology and the patient was receiving palliative radiation therapy to his back. He was also started on Votrient as systemic treatment for his renal cell carcinoma. He has already received his of radiation and he is also on systemic treatment. Over the past 2 weeks, the patient was on and off confused. He was having some changes in his personality. At times he was having aggressive behavior to his family members and his . No headache. No neck stiffness. No chills. No fever. Over the past 24 hours, the patient's condition got worse and he started having increased shortness of breath. I was asked to evaluate this patient last night around 2 or 3 AM. At that time the patient was quite hypoxic , tachycardic and he was in the 100% on a beta facemask saturating around 88-89% . He was hospitalized with a low white count of 1.7. He was also febrile and he presented with a temperature of 11.8 and he had a T-max of 103.5. . Based on this, the patient was immediately moved to the intensive care unit. A stat computed tomography scan of the chest was done and showed subsegmental pulmonary emboli in the lung bases bilaterally. The patient also had a lateral upper lobe pulmonary infiltrates typical of an underlying pneumonia. The patient was started on IV heparin. The patient was started on a combination of cefepime and vancomycin. He was also given a total of 3 days of IV fluid and currently is on a maintenance of 0.9 at the rate of 100 mL an hour. No headache. Neurologically he is lethargic yet arousable and awake. He is following simple commands. On and off still confused. Family is at the bedside. Follow-up hemoglobin today's at 7.6. Platelet have dropped also to 78 ,000. Lactic acid level was elevated at 4.5 and stone to 0.8 On 03/21/2017 the patient is being seen in follow-up. Still on 100% nonrebreather facemask. On IV heparin regarding pulmonary embolism. Still on broad-spectrum antibiotics regarding pneumonia and neutropenic fever/sepsis. The patient is more comfortable compared to yesterday. He is less short of breath. He remains leukopenic and he was given Zarxio in that regard. Oncology is on the case. He is hemodynamically stable. ID evaluated the patient. No further adjustment of antibiotic coverage for now. All of the cultures of been negative. The hemoglobin is also low at 7.1 he had stable compared to yesterday. No signs of any GI bleeding. Platelet counts while on IV heparin is at 80. No signs of DIC at this point. On 03/22/2017 I'm seeing this patient in follow-up. Clinically is improved. Oxygenation is still an issue as the patient is still desaturating once taken off the 100% nonrebreather facemask. I think there may be a component of fluid overload as the patient was aggressively resuscitated IV fluids. White cell count remains low at 2.0. The patient remains on IV heparin. The patient is on broad-spectrum antibiotics and he is currently on a combination of cefepime and vancomycin. The patient is afebrile. The patient is hemodynamically stable. The patient is tolerating diet and had breakfast this morning. No change in mental status. He seems to be much more pleasant at this point. Family is at the bedside. On 03/23/2017, patient seems to be doing a bit better, breathing easier, saturating well on a high flow nasal cannula, patient will receive more Lasix a day because the chest x-ray is still suggestive of fluid overload and pulmonary edema. Labs continued to show pancytopenia with low WBC count, low hemoglobin of 7.0, and platelets are also low. PTT is 53.6. Basic metabolic profile is normal. I reviewed the chest x-ray, and I felt the patient will likely benefit from more diuretics, and Lasix 40 mg IV push was ordered. Objective - Vital Signs Vital signs: Vital Signs Temp 100 F H 03/23/17 12:00 Pulse 74 03/23/17 15:30 Resp 30 H 03/23/17 15:30 BP 125/57 03/23/17 15:30 Pulse Ox 93 L 03/23/17 15:30 Intake & Output 03/22/17 03/23/17 03/23/17 18:59 06:59 18:59 Intake Total 1692.928 895.656 180 Output Total 1590 1390 1235 Balance 102.928 -494.344 -1055 Weight 95.1 kg Intake: IV 1260 540 180 Cefepime 2 gm In Sodium 50 Chloride 0.9% 50 ml @ 100 mls/hr IVPB Q8H [facility] Rx#: [id number] NS 560 240 180 Potassium Chloride 10 meq 200 Lidocaine 2% Inj 10 mg In Sodium Chloride 0.9% 100 ml @ 100 mls/hr IV Q1HR [facility] Rx#:[id number] Vancomycin 1,750 mg In 500 250 Sodium Chloride 0.9% 250 ml @ 125 mls/hr IVPB Q12H [facility] Rx#:[id number] Intake, IV Titration 432.928 325.656 Amount Heparin Sodium,Porcine/ 432.928 325.656 D5w Pmx 25,000 unit In Dextrose/Water 1 500ml. bag @ 18 UNITS/KG/HR 30. 37 mls/hr IV .[id number] [facility] Rx#:[id number] Oral 30 Output: Urine 1590 1390 1235 Other: Voiding Method Indwelling Catheter Indwelling Catheter Indwelling Catheter # Voids 200 - Exam Head exam was generally normal. There was no scleral icterus or corneal arcus. Mucous membranes were moist.Neck was supple and without jugular venous distension, thyromegaly, or carotid bruits. Carotids were easily palpable bilaterally. There was no adenopathy.Lungs diminished and shows crackles at lung bases bilaterally. No wheezes. No rhonchi.. Cardiac exam revealed the PMI to be normally situated and sized. The rhythm was regular and no extrasystoles were noted during several minutes of auscultation. The first and second heart sounds were normal and physiologic splitting of the second heart sound was noted. There were no murmurs, rubs, clicks, or gallops.Abdominal exam revealed normal bowel sounds. The abdomen was soft, non-tender, and without masses, organomegaly, or appreciable enlargement of the abdominal aorta.Examination of the extremities revealed easily palpable radial, femoral and pedal pulses. There was no cyanosis, clubbing or edema. - Labs CBC & Chem 7: 03/23/17 04:55 03/23/17 14:23 Labs: Abnormal Lab Results - Last 24 Hours (Table) 03/20/17 03/23/17 03/23/17 Range/Units 06:42 04:55 04:55 WBC 1.9 L* (3.8-10.6) k/uL RBC 2.15 L (4.30-5.90) m/uL Hgb 7.0 L* (13.0-17.5) gm/dL Hct 21.5 L (39.0-53.0) % RDW 20.3 H (11.5-15.5) % Plt Count 111 L (150-450) k/uL Lymphocytes # 0.3 L (1.0-4.8) k/uL Haptoglobin 254.0 H (31.2-198.0) mg/dL APTT (22.0-30.0) sec Chloride 115 H (98-107) mmol/L Calcium 7.9 L (8.4-10.2) mg/dL 03/23/17 Range/Units 04:55 WBC (3.8-10.6) k/uL RBC (4.30-5.90) m/uL Hgb (13.0-17.5) gm/dL Hct (39.0-53.0) % RDW (11.5-15.5) % Plt Count (150-450) k/uL Lymphocytes # (1.0-4.8) k/uL Haptoglobin (31.2-198.0) mg/dL APTT 53.6 H (22.0-30.0) sec Chloride (98-107) mmol/L Calcium (8.4-10.2) mg/dL Microbiology - Last 24 Hours (Table) 03/22/17 13:05 Blood Culture - Preliminary Blood No Growth after 24 hours 03/20/17 00:31 Blood Culture - Preliminary Blood No Growth after 72 hours Assessment and Plan Plan: 1 acute hypoxic respiratory failure multifactorial, secondary to bilateral pneumonia and bilateral pulmonary embolism. Patient is on a combination of cefepime and vancomycin and the patient is on IV heparin at the time being. He is on nasal cannula, breathing is improved. On , the patient remains on high flow nasal cannula and I think should be able to gradually wean him down on his FiO2 if his saturation remains above 90%. He remains on the same antibiotic coverage. He remains on IV heparin regarding the pulmonary embolism. Cultures are being monitored. PTT is being monitored while on IV heparin. No chest pain. On 03/22/2017 the patient is still having difficulties with oxygenation. Clinically however is improved. We'll going to try high flow oxygen discontinued the 100% nonrebreather facemask. We will also going to start some gentle diuresis on this patient cut down his IV fluids. On 03/23/2017, patient is marginal, but seems to be improved compared to the last few days, hence I will plan to transfer the patient to a monitored bed on selective today. 2 acute febrile neutropenia, afebrile for now, white cell count is still low at 2.0 3 sepsis secondary to bilateral pneumonia, and leukopenia. The cultures remain negative and the patient was started on Zarxio 4 metastatic renal cell carcinoma with metastases to the back/skeletal system 5 Mental status change, a combination of sepsis, delirium that could've been secondary to systemic steroids on outpatient basis. MRI of the brain is negative. 6 Coronary artery disease with a previous carotid bypass surgery and multiple coronary stent insertion 7 bilateral carotid artery disease 8 peripheral vascular disease 9 hypertension 10 degenerative arthritis 11 prostate enlargement 12 peripheral neuropathy 13 pancytopenia Recommendation: Continue antibiotics, diuretics, bronchodilators, oxygen, close monitoring, but the patient could be transferred out of the ICU to a monitored bed on selective. We'll continue to follow. Time with Patient: Less than 30
[2017-03-23] MEDS ORDERED: Potassium Replacement Protocol 1 EACH MISC MISCELLANE PRN (16:14)
[2017-03-23] MEDS ORDERED: POTASSIUM CHLORIDE ER 20 MEQ TAB.ER PO SCH (17:00)
[2017-03-23] MEDS ORDERED: ACETAMINOPHEN IV (For NPO) 1,000 MG in EMPTY BAG 1 BAG IVPB PRN (17:18)
[2017-03-23] MEDS: FILGRASTIM-SNDZ 480 MCG/0.8 ML SYRINGE SQ SCH (18:36)
--- NOTE | 2017-03-23 20:20 | P.PN ---
Subjective Principal diagnosis: Fever 66-year-old male with a known history of progressive back pain. Follow 2016. MRI revealed evidence of what appeared to be metastasis. He was taken the operating room and had stabilization and biopsy. Without evidence of metastatic carcinoma of renal primary. PET scan revealed evidence of the osseous metastasis. He's been treated with high doses of steroids which have caused some difficulties with his mentation. He is now completed his course of radiation therapy and is receiving pazopanib therapy for his metastatic renal cell carcinoma. Patient presents the emergency center with altered mental status. Fever, hypotension and shortness of breath. Evaluation revealed evidence of bilateral pulmonary emboli which is now being treated. Cultures are in process because of his fever and the infectious diseases consultation was requested. The patient is now much improved from prior. As his fever improved his mentation improves. Temperature 100.1 today. Overall improved. Objective - Vital Signs Vital signs: Vital Signs Temp 100.4 F H 03/23/17 19:00 Pulse 93 03/23/17 20:12 Resp 33 H 03/23/17 19:00 BP 129/65 03/23/17 19:00 Pulse Ox 94 L 03/23/17 19:00 Intake & Output 03/23/17 03/23/17 03/24/17 06:59 18:59 06:59 Intake Total 895.656 290 20 Output Total 1390 1455 Balance -494.344 -1165 20 Weight 95.1 kg Intake: IV 540 290 20 Cefepime 2 gm In Sodium 50 50 Chloride 0.9% 50 ml @ 100 mls/hr IVPB Q8H [facility] Rx#: [id number] NS 240 240 20 Vancomycin 1,750 mg In 250 Sodium Chloride 0.9% 250 ml @ 125 mls/hr IVPB Q12H [facility] Rx#:[id number] Intake, IV Titration 325.656 Amount Heparin Sodium,Porcine/ 325.656 D5w Pmx 25,000 unit In Dextrose/Water 1 500ml. bag @ 18 UNITS/KG/HR 30. 37 mls/hr IV .[id number] [facility] Rx#:[id number] Oral 30 Output: Urine 1390 1455 Other: Voiding Method Indwelling Catheter Indwelling Catheter # Voids 200 - Exam 66-year-old male who does have pallor. Is cooperative and pleasant but a poor historian HEENT: Anicteric conjunctiva are pink and moist nasal mucosa grossly intact without significant lesions, there is no thrush. Oral lesions Neck: The neck is supple without significant lymphadenopathy or thyromegaly. Lungs: Symmetrical air entry is noted. Few basilar crackles are heard. No bronchial sounds. Heart: Irregular with an audible S1 and S2 no S3 soft S4 no murmur click or rub Abdomen: Positive bowel sounds soft and nontender without palpable masses or organomegaly. There was no guarding or rebound. Extremities: Extremity have minimal edema but no steady and lesions Neuro: Patient is arousable seems to be appropriate this time. Is a poor historian though. Follows simple commands without difficulty. - Labs CBC & Chem 7: 03/23/17 04:55 03/23/17 14:23 Labs: Abnormal Lab Results - Last 24 Hours (Table) 03/23/17 03/23/17 03/23/17 Range/Units 04:55 04:55 04:55 WBC 1.9 L* (3.8-10.6) k/uL RBC 2.15 L (4.30-5.90) m/uL Hgb 7.0 L* (13.0-17.5) gm/dL Hct 21.5 L (39.0-53.0) % RDW 20.3 H (11.5-15.5) % Plt Count 111 L (150-450) k/uL Lymphocytes # 0.3 L (1.0-4.8) k/uL APTT 53.6 H (22.0-30.0) sec Chloride 115 H (98-107) mmol/L Calcium 7.9 L (8.4-10.2) mg/dL Microbiology - Last 24 Hours (Table) 03/22/17 13:05 Blood Culture - Preliminary Blood No Growth after 24 hours 03/20/17 00:31 Blood Culture - Preliminary Blood No Growth after 72 hours Laboratory Results WBC 1.9 k/uL (3.8-10.6) L* 03/23/17 04:55 RBC 2.15 m/uL (4.30-5.90) L 03/23/17 04:55 Hgb 7.0 gm/dL (13.0-17.5) L* 03/23/17 04:55 Hct 21.5 % (39.0-53.0) L 03/23/17 04:55 MCV 99.6 fL (80.0-100.0) 03/23/17 04:55 MCH 32.3 pg (25.0-35.0) 03/23/17 04:55 MCHC 32.4 g/dL (31.0-37.0) 03/23/17 04:55 RDW 20.3 % (11.5-15.5) H 03/23/17 04:55 Plt Count 111 k/uL (150-450) L 03/23/17 04:55 Neutrophils % 74 % 03/23/17 04:55 Neutrophils % (Manual) 86.0 % 03/20/17 06:42 Band Neutrophils % 6.0 % 03/20/17 06:42 Lymphocytes % 15 % 03/23/17 04:55 Lymphocytes % (Manual) 2.0 % 03/20/17 06:42 Monocytes % 7 % 03/23/17 04:55 Monocytes % (Manual) 4.0 % 03/20/17 06:42 Eosinophils % 2 % 03/23/17 04:55 Eosinophils % (Manual) 2.0 % 03/20/17 06:42 Basophils % 0 % 03/23/17 04:55 Neutrophils # 1.4 k/uL (1.3-7.7) 03/23/17 04:55 Neutrophils # (Manual) 1.6 k/uL (1.3-7.7) 03/20/17 06:42 Lymphocytes # 0.3 k/uL (1.0-4.8) L 03/23/17 04:55 Lymphocytes # (Manual) 0.0 k/uL (1.0-4.8) L 03/20/17 06:42 Monocytes # 0.1 k/uL (0-1.0) 03/23/17 04:55 Monocytes # (Manual) 0.1 k/uL (0-1.0) 03/20/17 06:42 Eosinophils # 0.0 k/uL (0-0.7) 03/23/17 04:55 Eosinophils # (Manual) 0.0 k/uL (0-0.7) 03/20/17 06:42 Basophils # 0.0 k/uL (0-0.2) 03/23/17 04:55 Nucleated RBCs 0 /100 WBC (0-0) 03/20/17 06:42 Manual Slide Review Performed 03/20/17 06:42 Polychromasia Present 03/20/17 06:42 Hypochromasia Slight 03/23/17 04:55 Poikilocytosis Slight 03/23/17 04:55 Anisocytosis Moderate 03/23/17 04:55 Macrocytosis Moderate 03/23/17 04:55 Retic Count 3.2 % (0.5-2.0) H 03/21/17 04:56 Haptoglobin 254.0 mg/dL (31.2-198.0) H 03/20/17 06:42 PT 12.7 sec (9.0-12.0) H 03/20/17 17:18 INR 1.3 (<1.1) 03/20/17 17:18 APTT 53.6 sec (22.0-30.0) H 03/23/17 04:55 Fibrinogen 460 mg/dL (200-500) 03/20/17 17:18 Sodium 144 mmol/L (137-145) 03/23/17 04:55 Potassium 3.9 mmol/L (3.5-5.1) 03/23/17 14:23 Chloride 115 mmol/L (98-107) H 03/23/17 04:55 Carbon Dioxide 24 mmol/L (22-30) 03/23/17 04:55 Anion Gap 5 mmol/L 03/23/17 04:55 BUN 15 mg/dL (9-20) 03/23/17 04:55 Creatinine 0.75 mg/dL (0.66-1.25) 03/23/17 04:55 Est GFR (MDRD) Af Amer >60 (>60 ml/min/1.73 sqM) 03/23/17 04:55 Est GFR (MDRD) Non-Af >60 (>60 ml/min/1.73 sqM) 03/23/17 04:55 Glucose 92 mg/dL (74-99) 03/23/17 04:55 POC Glucose (mg/dL) 79 mg/dL (75-99) 03/20/17 01:27 POC Glu Structural Ironworker Jia Escoto 03/20/17 01:27 Plasma Lactic Acid John 0.8 mmol/L (0.7-2.0) 03/20/17 06:42 Calcium 7.9 mg/dL (8.4-10.2) L 03/23/17 04:55 Phosphorus 3.0 mg/dL (2.5-4.5) 03/23/17 04:55 Magnesium 2.0 mg/dL (1.6-2.3) 03/22/17 04:16 Total Bilirubin 0.9 mg/dL (0.2-1.3) 03/20/17 00:31 AST 56 U/L (17-59) 03/20/17 00:31 ALT 42 U/L (21-72) 03/20/17 00:31 Alkaline Phosphatase 82 U/L (38-126) 03/20/17 00:31 Ammonia 16 umol/L (<30) 03/19/17 12:16 Lactate Dehydrogenase 1143 U/L (313-618) H 03/20/17 06:42 Total Creatine Kinase 810 U/L (55-170) H 03/19/17 12:16 CK-MB (CK-2) 2.2 ng/mL (0.0-2.4) 03/20/17 00:31 CK-MB (CK-2) Rel Index 0.2 03/19/17 12:16 Troponin I <0.012 ng/mL (0.000-0.034) 03/20/17 00:31 Total Protein 5.6 g/dL (6.3-8.2) L 03/20/17 00:31 Albumin 3.1 g/dL (3.5-5.0) L 03/20/17 00:31 Urine Color Yellow 03/20/17 00:25 Urine Appearance Clear (Clear) 03/20/17 00:25 Urine pH 5.5 (5.0-8.0) 03/20/17 00:25 Ur Specific [place] 1.027 (1.001-1.035) 03/20/17 00:25 Urine Protein Trace (Negative) H 03/20/17 00:25 Urine Glucose (UA) Negative (Negative) 03/20/17 00:25 Urine Ketones Negative (Negative) 03/20/17 00:25 Urine Blood Negative (Negative) 03/20/17 00:25 Urine Nitrite Negative (Negative) 03/20/17 00:25 Urine Bilirubin Negative (Negative) 03/20/17 00:25 Urine Urobilinogen 2.0 mg/dL (<2.0) 03/20/17 00:25 Ur Leukocyte Esterase Negative (Negative) 03/20/17 00:25 Urine RBC <1 /hpf (0-5) 03/19/17 14:53 Urine WBC 5 /hpf (0-5) 03/19/17 14:53 Ur Squamous Epith Cells <1 /hpf (0-4) 03/19/17 14:53 Amorphous Sediment Rare /hpf (None) H 03/19/17 14:53 Hyaline Casts 26 /lpf (0-2) H 03/19/17 14:53 Urine Mucus Moderate /hpf (None) H 03/19/17 14:53 Vancomycin Trough 11.5 ug/mL 03/21/17 23:20 Blood Type O Negative 03/23/17 14:23 Blood Type Recheck No 03/23/17 14:23 Antibody Screen NEGATIVE 03/23/17 14:23 Spec Expiration Date 03/26/2017 - 2323 03/23/17 14:23 Microbiology 03/22/17 13:05 Blood Blood Culture - Preliminary No Growth after 24 hours 03/20/17 00:31 Blood Blood Culture - Preliminary No Growth after 72 hours 03/20/17 00:25 Urine,Catheterized Urine Culture - Final 03/19/17 14:53 Urine,Catheterized Urine Culture - Final Assessment and Plan (1) Pancytopenia due to antineoplastic chemotherapy Narrative/Plan: 66-year-old male who had the sudden onset of back pain that worsened rapidly. Prior to this he was a very active gentleman. 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 He is now status post his radiation therapy and initiation of chemotherapy. He now is presenting with significant fever shortness of breath and altered mental status. His mental status has been quite difficult while he has been on high- dose steroid therapy. The patient presented with some shortness of breath and computed tomography scan did reveal evidence of bilateral pulmonary emboli. Consequently the pulmonary emboli, the febrile neutropenia and the recent chemotherapy are all significant reasons for his current fever. He is requiring several modalities to control his fever. As his PE is treated and underlying febrile neutropenia is treated with expectant his fevers to also improve. Multiple cultures are in process. If he is febrile again blood culture should be repeated. He is developing hematology oncology and growth factors have been started to improve his significant leukopenia. Ongoing supportive care. Pain management appears to be adequate With the febrile neutropenia being treated with cefepime and vancomycin which are adequate choices at this point in time. Cultures do remain negative but continues some low-grade fevers constantly continue antibiotic therapy Status: Acute (2) Renal cell carcinoma Status: Acute (3) Fever Status: Acute
[2017-03-23] MEDS: TAMSULOSIN 0.4 MG CAP.ER.24H PO SCH (20:32)
[2017-03-23] MEDS: MIRTAZAPINE 15 MG TAB PO SCH (20:32)
[2017-03-23] MEDS: ATORVASTATIN 40 MG TAB PO SCH (20:32)
[2017-03-24] MEDS: CEFEPIME 2 GM in SODIUM CHLORIDE 0.9% 50 ML IVPB SCH ×3 (01:48→18:06)
[2017-03-24] MEDS: ALPRAZolam 0.25 MG TAB PO PRN (03:50)
[2017-03-24] MEDS ORDERED: VANCOMYCIN TROUGH DUE 1 EACH MISC MISCELLANE ONE (08:00)
[2017-03-24] MEDS: HEPARIN SODIUM,PORCINE/D5W PMX 25,000 UNIT in DEXTROSE/WATER 1 500ML.BAG IV SCH ×2 (08:28→22:29)
[2017-03-24 08:29] LABS: Anisocytosis Slight; Basophils % (A) 0 %; CH 32.2; CHCM 33.9; Eosinophils % (A) 2 %; HCT 23.7 % (39.0-53.0); HGB 7.9 gm/dL (13.0-17.5); Luc # (Auto) 0.06; Luc % (Auto) 3; Lymphocytes # (A) 0.3 k/uL (1.0-4.8); Lymphocytes % (A) 14 %; MCH 31.9 pg (25.0-35.0); MCHC 33.2 g/dL (31.0-37.0); Macrocytosis Slight; Mean Platelet Volume 8.5; Monocytes # (A) 0.2 k/uL (0-1.0); Monocytes % (A) 7 %; Neutrophils # (A) 1.6 k/uL (1.3-7.7); Neutrophils % (A) 74 %; Poikilocytosis Slight; RBC 2.47 m/uL (4.30-5.90); RDW 19.7 % (11.5-15.5); WBC 2.2 k/uL (3.8-10.6); WBC (Perox) 2.29
[2017-03-24] MEDS: ISOSORBIDE MONONITRATE ER 30 MG TAB.ER.24H PO SCH (09:05)
[2017-03-24] MEDS: LISINOPRIL 20 MG TAB PO SCH (09:05)
[2017-03-24] MEDS: ASPIRIN 81 MG CHEW PO SCH ×2 (09:05→21:30)
[2017-03-24] MEDS: CLOPIDOGREL 75 MG TAB PO SCH (09:06)
[2017-03-24] MEDS: METOPROLOL TARTRATE 50 MG TAB PO SCH ×2 (09:06→21:31)
[2017-03-24] MEDS: MORPHINE SULFATE ER 30 MG TABLET PO SCH ×3 (09:07→16:13)
[2017-03-24] MEDS: VANCOMYCIN 2,000 MG in SODIUM CHLORIDE 0.9% 500 ML IVPB SCH ×2 (09:12→21:40)
[2017-03-24 09:22] LABS: Anion Gap 5 mmol/L; Blood Urea Nitrogen 11 mg/dL (9-20); Calcium 8.2 mg/dL (8.4-10.2); Carbon Dioxide 23 mmol/L (22-30); Chloride 115 mmol/L (98-107); Glucose 95 mg/dL (74-99); Non-African American GFR(MDRD) >60 (>60 ml/min/1.73 sqM); Potassium 3.7 mmol/L (3.5-5.1); Sodium 143 mmol/L (137-145)
--- NOTE | 2017-03-24 14:59 | P.PN ---
Subjective Principal diagnosis: Acute hypoxic respiratory failure secondary to bilateral pneumonia and pulmonary embolism 58-year-old male patient was hospitalized yesterday because of altered mental status and shortness of breath. 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 The patient had back pain for quite some time and further investigation including a laminectomy that was done on the lumbar spine establish the diagnosis. Laminectomy was done to for ongoing back pain and diagnostic purposes. Following that, the patient was sent to radiation oncology and the patient was receiving palliative radiation therapy to his back. He was also started on Votrient as systemic treatment for his renal cell carcinoma. He has already received his of radiation and he is also on systemic treatment. Over the past 2 weeks, the patient was on and off confused. He was having some changes in his personality. At times he was having aggressive behavior to his family members and his . No headache. No neck stiffness. No chills. No fever. Over the past 24 hours, the patient's condition got worse and he started having increased shortness of breath. I was asked to evaluate this patient last night around 2 or 3 AM. At that time the patient was quite hypoxic , tachycardic and he was in the 100% on a beta facemask saturating around 88-89% . He was hospitalized with a low white count of 1.7. He was also febrile and he presented with a temperature of 11.8 and he had a T-max of 103.5. . Based on this, the patient was immediately moved to the intensive care unit. A stat computed tomography scan of the chest was done and showed subsegmental pulmonary emboli in the lung bases bilaterally. The patient also had a lateral upper lobe pulmonary infiltrates typical of an underlying pneumonia. The patient was started on IV heparin. The patient was started on a combination of cefepime and vancomycin. He was also given a total of 3 days of IV fluid and currently is on a maintenance of 0.9 at the rate of 100 mL an hour. No headache. Neurologically he is lethargic yet arousable and awake. He is following simple commands. On and off still confused. Family is at the bedside. Follow-up hemoglobin today's at 7.6. Platelet have dropped also to 78 ,000. Lactic acid level was elevated at 4.5 and stone to 0.8 On 03/21/2017 the patient is being seen in follow-up. Still on 100% nonrebreather facemask. On IV heparin regarding pulmonary embolism. Still on broad-spectrum antibiotics regarding pneumonia and neutropenic fever/sepsis. The patient is more comfortable compared to yesterday. He is less short of breath. He remains leukopenic and he was given Zarxio in that regard. Oncology is on the case. He is hemodynamically stable. ID evaluated the patient. No further adjustment of antibiotic coverage for now. All of the cultures of been negative. The hemoglobin is also low at 7.1 he had stable compared to yesterday. No signs of any GI bleeding. Platelet counts while on IV heparin is at 80. No signs of DIC at this point. On 03/22/2017 I'm seeing this patient in follow-up. Clinically is improved. Oxygenation is still an issue as the patient is still desaturating once taken off the 100% nonrebreather facemask. I think there may be a component of fluid overload as the patient was aggressively resuscitated IV fluids. White cell count remains low at 2.0. The patient remains on IV heparin. The patient is on broad-spectrum antibiotics and he is currently on a combination of cefepime and vancomycin. The patient is afebrile. The patient is hemodynamically stable. The patient is tolerating diet and had breakfast this morning. No change in mental status. He seems to be much more pleasant at this point. Family is at the bedside. On 03/23/2017, patient seems to be doing a bit better, breathing easier, saturating well on a high flow nasal cannula, patient will receive more Lasix a day because the chest x-ray is still suggestive of fluid overload and pulmonary edema. Labs continued to show pancytopenia with low WBC count, low hemoglobin of 7.0, and platelets are also low. PTT is 53.6. Basic metabolic profile is normal. I reviewed the chest x-ray, and I felt the patient will likely benefit from more diuretics, and Lasix 40 mg IV push was ordered. On 03/24/2017, patient continues to do relatively well. Remains on antegrade ablation therapy for his pulmonary embolism. WBC count is up to 2.2 today, hemoglobin is up to 7.9. PTT is therapeutic at 46. Basic metabolic profile is relatively normal renal profile is normal. Patient is sleepy, apparently did not get much sleep last night. Remains on diuretics for presumptive some component of fluid overload and pulmonary edema. Objective - Vital Signs Vital signs: Vital Signs Temp 98 F 03/24/17 08:00 Pulse 80 03/24/17 11:45 Resp 24 03/24/17 11:45 BP 144/69 03/24/17 11:45 Pulse Ox 100 03/24/17 11:45 Intake & Output 03/23/17 03/24/17 03/24/17 18:59 06:59 18:59 Intake Total 290 880 16.452 Output Total 1455 400 950 Balance -1165 480 -933.548 Weight 95.1 kg 89.5 kg Intake: IV 290 40 Cefepime 2 gm In Sodium 50 Chloride 0.9% 50 ml @ 100 mls/hr IVPB Q8H [facility] Rx#: [id number] NS 240 40 Intake, IV Titration 500 16.452 Amount Heparin Sodium,Porcine/ 500 16.452 D5w Pmx 25,000 unit In Dextrose/Water 1 500ml. bag @ 18 UNITS/KG/HR 30. 37 mls/hr IV .[id number] [facility] Rx#:[id number] Oral 30 Blood Product 310 Rc As-1 Unit 310 [id number] Output: Urine 1455 400 950 Other: Voiding Method Indwelling Catheter Urinal Urinal Incontinent Incontinent # Voids 200 200 # Bowel Movements 0 - Exam Head exam was generally normal. There was no scleral icterus or corneal arcus. Mucous membranes were moist.Neck was supple and without jugular venous distension, thyromegaly, or carotid bruits. Carotids were easily palpable bilaterally. There was no adenopathy.Lungs diminished and shows crackles at lung bases bilaterally. No wheezes. No rhonchi.. Cardiac exam revealed the PMI to be normally situated and sized. The rhythm was regular and no extrasystoles were noted during several minutes of auscultation. The first and second heart sounds were normal and physiologic splitting of the second heart sound was noted. There were no murmurs, rubs, clicks, or gallops.Abdominal exam revealed normal bowel sounds. The abdomen was soft, non-tender, and without masses, organomegaly, or appreciable enlargement of the abdominal aorta.Examination of the extremities revealed easily palpable radial, femoral and pedal pulses. There was no cyanosis, clubbing or edema. - Labs CBC & Chem 7: 03/24/17 08:08 03/24/17 08:08 Labs: Abnormal Lab Results - Last 24 Hours (Table) 03/23/17 03/24/17 03/24/17 Range/Units 14:23 08:08 08:08 WBC 2.2 L (3.8-10.6) k/uL RBC 2.47 L (4.30-5.90) m/uL Hgb 7.9 L (13.0-17.5) gm/dL Hct 23.7 L (39.0-53.0) % RDW 19.7 H (11.5-15.5) % Plt Count 123 L (150-450) k/uL Lymphocytes # 0.3 L (1.0-4.8) k/uL APTT (22.0-30.0) sec Chloride 115 H (98-107) mmol/L Calcium 8.2 L (8.4-10.2) mg/dL Crossmatch See Detail 03/24/17 Range/Units 08:08 WBC (3.8-10.6) k/uL RBC (4.30-5.90) m/uL Hgb (13.0-17.5) gm/dL Hct (39.0-53.0) % RDW (11.5-15.5) % Plt Count (150-450) k/uL Lymphocytes # (1.0-4.8) k/uL APTT 46.1 H (22.0-30.0) sec Chloride (98-107) mmol/L Calcium (8.4-10.2) mg/dL Crossmatch Microbiology - Last 24 Hours (Table) 03/20/17 00:31 Blood Culture - Preliminary Blood No Growth after 96 hours 03/22/17 13:05 Blood Culture - Preliminary Blood No Growth after 24 hours Assessment and Plan Plan: 1 acute hypoxic respiratory failure multifactorial, secondary to bilateral pneumonia and bilateral pulmonary embolism. Patient is on a combination of cefepime and vancomycin and the patient is on IV heparin at the time being. He is on nasal cannula, breathing is improved. On , the patient remains on high flow nasal cannula and I think should be able to gradually wean him down on his FiO2 if his saturation remains above 90%. He remains on the same antibiotic coverage. He remains on IV heparin regarding the pulmonary embolism. Cultures are being monitored. PTT is being monitored while on IV heparin. No chest pain. On 03/22/2017 the patient is still having difficulties with oxygenation. Clinically however is improved. We'll going to try high flow oxygen discontinued the 100% nonrebreather facemask. We will also going to start some gentle diuresis on this patient cut down his IV fluids. On 03/23/2017, patient is marginal, but seems to be improved compared to the last few days, hence I will plan to transfer the patient to a monitored bed on selective today. On 03/24/2017, patient is improving but slowly. His pancytopenia seems to be a bit better. 2 acute febrile neutropenia, afebrile for now, white cell count is still low at 2.2 3 sepsis secondary to bilateral pneumonia, and leukopenia. The cultures remain negative and the patient was started on Zarxio 4 metastatic renal cell carcinoma with metastases to the back/skeletal system 5 Mental status change, a combination of sepsis, delirium that could've been secondary to systemic steroids on outpatient basis. MRI of the brain is negative. 6 Coronary artery disease with a previous carotid bypass surgery and multiple coronary stent insertion 7 bilateral carotid artery disease 8 peripheral vascular disease 9 hypertension 10 degenerative arthritis 11 prostate enlargement 12 peripheral neuropathy 13 pancytopenia Recommendation: Continue antibiotics, diuretics, bronchodilators, oxygen, close monitoring, consider discharge planning in the next few days. Time with Patient: Less than 30
[2017-03-24] MEDS: MICAFUNGIN 150 MG in SODIUM CHLORIDE 0.9% 100 ML IVPB SCH (15:23)
--- NOTE | 2017-03-24 15:29 | P.PN ---
Subjective Patient is a 66-year-old male, patient of Dr. 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 Patient presented to the emergency department with complaints of altered mental status and dyspnea. Patient was found to have evidence of neutropenic sepsis and acute bilateral pulmonary emboli, acute hypoxic respiratory failure, and pneumonia, health care acquired. Patient is currently being followed by infectious disease service, oncology service, and pulmonary service. Patient is evaluated on selective care unit with family at bedside. Upon examination, patient states he is breathing a little better. Patient remains on 15 L high flow nasal cannula with oxygen saturation of 99%. Denies chills, fevers, nausea, vomiting, chest pain, or abdominal pain. Patient states he didn 't sleep well last night and is requesting a sleep aid. Patient did have a temperature of 100.4 at 7 PM last night. Patient continues on IV antibiotics in the form of cefepime, vancomycin, and micafungin. Patient remains on IV heparin for pulmonary embolism. Patient remains on Lasix for fluid overload. Urine output adequate. Patient was able to stand at bedside with physical therapy. Objective - Vital Signs Vital signs: Vital Signs Temp 98 F 03/24/17 08:00 Pulse 80 03/24/17 11:45 Resp 24 03/24/17 11:45 BP 144/69 03/24/17 11:45 Pulse Ox 100 03/24/17 11:45 Intake & Output 03/23/17 03/24/17 03/24/17 18:59 06:59 18:59 Intake Total 290 880 16.452 Output Total 1455 400 950 Balance -1165 480 -933.548 Weight 95.1 kg 89.5 kg Intake: IV 290 40 Cefepime 2 gm In Sodium 50 Chloride 0.9% 50 ml @ 100 mls/hr IVPB Q8H [facility] Rx#: [id number] NS 240 40 Intake, IV Titration 500 16.452 Amount Heparin Sodium,Porcine/ 500 16.452 D5w Pmx 25,000 unit In Dextrose/Water 1 500ml. bag @ 18 UNITS/KG/HR 30. 37 mls/hr IV .[id number] [facility] Rx#:[id number] Oral 30 Blood Product 310 Rc As-1 Unit 310 [id number] Output: Urine 1455 400 950 Other: Voiding Method Indwelling Catheter Urinal Urinal Incontinent Incontinent # Voids 200 200 # Bowel Movements 0 - Exam GENERAL: Pt awake and alert, appears in no acute distress. HEAD: Atraumatic, normocephalic. EYES: Pupils equal, round, and reactive to light, sclera anicteric, conjunctiva are normal. ENT: Moist mucous membranes. NECK:Supple without lymphadenopathy or JVD. LUNGS: Breath sounds diminished to auscultation bilaterally. No wheezes, rales , or rhonchi. HEART: Heart S1, S2, no S3 or S4. Regular rate and rhythm. No murmurs, rubs or gallops. ABDOMEN: Soft, nontender, nondistended, normoactive bowel sounds. No guarding, no rebound. No masses or organomegaly appreciated. EXTREMITIES: Palpable peripheral pulses. No edema. No calf tenderness. NEUROLOGICAL: Pt alert and oriented 3. Speech is coherent. Follows commands. SKIN: Warm, dry, intact. Normal turgor. - Labs CBC & Chem 7: 03/24/17 08:08 03/24/17 08:08 Labs: Abnormal Lab Results - Last 24 Hours (Table) 03/23/17 03/24/17 03/24/17 Range/Units 14:23 08:08 08:08 WBC 2.2 L (3.8-10.6) k/uL RBC 2.47 L (4.30-5.90) m/uL Hgb 7.9 L (13.0-17.5) gm/dL Hct 23.7 L (39.0-53.0) % RDW 19.7 H (11.5-15.5) % Plt Count 123 L (150-450) k/uL Lymphocytes # 0.3 L (1.0-4.8) k/uL APTT (22.0-30.0) sec Chloride 115 H (98-107) mmol/L Calcium 8.2 L (8.4-10.2) mg/dL Crossmatch See Detail 03/24/17 Range/Units 08:08 WBC (3.8-10.6) k/uL RBC (4.30-5.90) m/uL Hgb (13.0-17.5) gm/dL Hct (39.0-53.0) % RDW (11.5-15.5) % Plt Count (150-450) k/uL Lymphocytes # (1.0-4.8) k/uL APTT 46.1 H (22.0-30.0) sec Chloride (98-107) mmol/L Calcium (8.4-10.2) mg/dL Crossmatch Microbiology - Last 24 Hours (Table) 03/22/17 13:05 Blood Culture - Preliminary Blood No Growth after 48 hours 03/20/17 00:31 Blood Culture - Preliminary Blood No Growth after 96 hours Assessment and Plan Plan: Impression and plan: 1. Acute hypoxic respiratory failure, multifactorial secondary to bilateral pneumonia, health care acquired and bilateral pulmonary embolism, improving. Continue titrating down oxygen. Continue IV antibiotics in the form of vancomycin, cephapirin, and micafungin to cover for Pseudomonas, MRSA, and Mandi inpatient with neutropenic fever. Pulmonary service and infectious disease service following, recommendations noted. 2. Neutropenic sepsis suspect secondary to bilateral pneumonia. Continue IV antibiotics per infectious disease service. Preliminary blood cultures negative. 3. Acute metabolic encephalopathy, suspect secondary to underlying infectious disease process, improved. 5. Pancytopenia, which is chemotherapy induced. 7. 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 8. Coronary artery disease with multiple stent placements and previous CABG. 9. Bilateral carotid artery disease. 10. Peripheral arterial disease. 11. Hypertension. 12. Degenerative disc disease. 13. BPH. 14. Peripheral neuropathy. Continue to monitor patient. Continue IV antibiotics. Continue current medications. Continue to follow with consultants. Continue supportive treatment and pain management. Continue GI and DVT prophylaxis. Continue physical therapy. Repeat labs in a.m. The above impression and plan have been discussed and directed by Dr. Schwartz. Camron CALDERA acting as scribe for Dr. Schwartz.
--- NOTE | 2017-03-24 20:56 | P.PN ---
Subjective Principal diagnosis: Fever 66-year-old male with a known history of progressive back pain. Follow 2016. MRI revealed evidence of what appeared to be metastasis. He was taken the operating room and had stabilization and biopsy. Without evidence of metastatic carcinoma of renal primary. PET scan revealed evidence of the osseous metastasis. He's been treated with high doses of steroids which have caused some difficulties with his mentation. He is now completed his course of radiation therapy and is receiving pazopanib therapy for his metastatic renal cell carcinoma. Patient presents the emergency center with altered mental status. Fever, hypotension and shortness of breath. Evaluation revealed evidence of bilateral pulmonary emboli which is now being treated. Cultures are in process because of his fever and the infectious diseases consultation was requested. The patient is now much improved from prior. As his fever improved his mentation improves. Temperature 98 today. Overall improved. Mentation is improved. Objective - Vital Signs Vital signs: Vital Signs Temp 98 F 03/24/17 15:47 Pulse 80 03/24/17 15:47 Resp 24 03/24/17 15:47 BP 158/74 03/24/17 15:47 Pulse Ox 96 03/24/17 15:47 Intake & Output 03/24/17 03/24/17 03/25/17 06:59 18:59 06:59 Intake Total 880 746.452 Output Total 400 1350 Balance 480 -603.548 Weight 89.5 kg Intake: IV 40 130 Cefepime 2 gm In Sodium 50 Chloride 0.9% 50 ml @ 100 mls/hr IVPB Q8H [facility] Rx#: [id number] NS 40 80 Intake, IV Titration 500 616.452 Amount Heparin Sodium,Porcine/ 500 16.452 D5w Pmx 25,000 unit In Dextrose/Water 1 500ml. bag @ 18 UNITS/KG/HR 30. 37 mls/hr IV .[id number] [facility] Rx#:[id number] Micafungin 150 mg In 100 Sodium Chloride 0.9% 100 ml @ 100 mls/hr IVPB DAILY@1600 [facility] Rx#: [id number] Vancomycin 2,000 mg In 500 Sodium Chloride 0.9% 500 ml @ 167 mls/hr IVPB BID [facility] Rx#:[id number] Oral 30 0 Blood Product 310 Rc As-1 Unit 310 [id number] Output: Urine 400 1350 Other: Voiding Method Urinal Urinal Incontinent Incontinent # Voids 200 # Bowel Movements 0 - Exam 66-year-old male who does have pallor. Is cooperative and pleasant but a poor historian HEENT: Anicteric conjunctiva are pink and moist nasal mucosa grossly intact without significant lesions, there is no thrush. Oral lesions Neck: The neck is supple without significant lymphadenopathy or thyromegaly. Lungs: Symmetrical air entry is noted. Few basilar crackles are heard. No bronchial sounds. Heart: Irregular with an audible S1 and S2 no S3 soft S4 no murmur click or rub Abdomen: Positive bowel sounds soft and nontender without palpable masses or organomegaly. There was no guarding or rebound. Extremities: Extremity have minimal edema but no steady and lesions Neuro: Patient is arousable seems to be appropriate this time. Is a poor historian though. Follows simple commands without difficulty. No gross focal sensory motor deficits are noted - Labs CBC & Chem 7: 03/24/17 08:08 03/24/17 08:08 Labs: Abnormal Lab Results - Last 24 Hours (Table) 03/23/17 03/24/17 03/24/17 Range/Units 14:23 08:08 08:08 WBC 2.2 L (3.8-10.6) k/uL RBC 2.47 L (4.30-5.90) m/uL Hgb 7.9 L (13.0-17.5) gm/dL Hct 23.7 L (39.0-53.0) % RDW 19.7 H (11.5-15.5) % Plt Count 123 L (150-450) k/uL Lymphocytes # 0.3 L (1.0-4.8) k/uL APTT (22.0-30.0) sec Chloride 115 H (98-107) mmol/L Calcium 8.2 L (8.4-10.2) mg/dL Crossmatch See Detail 03/24/17 03/24/17 Range/Units 08:08 15:44 WBC (3.8-10.6) k/uL RBC (4.30-5.90) m/uL Hgb (13.0-17.5) gm/dL Hct (39.0-53.0) % RDW (11.5-15.5) % Plt Count (150-450) k/uL Lymphocytes # (1.0-4.8) k/uL APTT 46.1 H 46.5 H (22.0-30.0) sec Chloride (98-107) mmol/L Calcium (8.4-10.2) mg/dL Crossmatch Microbiology - Last 24 Hours (Table) 03/22/17 13:05 Blood Culture - Preliminary Blood No Growth after 48 hours 03/20/17 00:31 Blood Culture - Preliminary Blood No Growth after 96 hours Laboratory Results WBC 2.2 k/uL (3.8-10.6) L 03/24/17 08:08 RBC 2.47 m/uL (4.30-5.90) L 03/24/17 08:08 Hgb 7.9 gm/dL (13.0-17.5) L 03/24/17 08:08 Hct 23.7 % (39.0-53.0) L 03/24/17 08:08 MCV 96.0 fL (80.0-100.0) 03/24/17 08:08 MCH 31.9 pg (25.0-35.0) 03/24/17 08:08 MCHC 33.2 g/dL (31.0-37.0) 03/24/17 08:08 RDW 19.7 % (11.5-15.5) H 03/24/17 08:08 Plt Count 123 k/uL (150-450) L 03/24/17 08:08 Neutrophils % 74 % 03/24/17 08:08 Neutrophils % (Manual) 86.0 % 03/20/17 06:42 Band Neutrophils % 6.0 % 03/20/17 06:42 Lymphocytes % 14 % 03/24/17 08:08 Lymphocytes % (Manual) 2.0 % 03/20/17 06:42 Monocytes % 7 % 03/24/17 08:08 Monocytes % (Manual) 4.0 % 03/20/17 06:42 Eosinophils % 2 % 03/24/17 08:08 Eosinophils % (Manual) 2.0 % 03/20/17 06:42 Basophils % 0 % 03/24/17 08:08 Neutrophils # 1.6 k/uL (1.3-7.7) 03/24/17 08:08 Neutrophils # (Manual) 1.6 k/uL (1.3-7.7) 03/20/17 06:42 Lymphocytes # 0.3 k/uL (1.0-4.8) L 03/24/17 08:08 Lymphocytes # (Manual) 0.0 k/uL (1.0-4.8) L 03/20/17 06:42 Monocytes # 0.2 k/uL (0-1.0) 03/24/17 08:08 Monocytes # (Manual) 0.1 k/uL (0-1.0) 03/20/17 06:42 Eosinophils # 0.0 k/uL (0-0.7) 03/24/17 08:08 Eosinophils # (Manual) 0.0 k/uL (0-0.7) 03/20/17 06:42 Basophils # 0.0 k/uL (0-0.2) 03/24/17 08:08 Nucleated RBCs 0 /100 WBC (0-0) 03/20/17 06:42 Manual Slide Review Performed 03/20/17 06:42 Polychromasia Present 03/20/17 06:42 Hypochromasia Slight 03/23/17 04:55 Poikilocytosis Slight 03/24/17 08:08 Anisocytosis Slight 03/24/17 08:08 Macrocytosis Slight 03/24/17 08:08 Retic Count 3.2 % (0.5-2.0) H 03/21/17 04:56 Haptoglobin 254.0 mg/dL (31.2-198.0) H 03/20/17 06:42 PT 12.7 sec (9.0-12.0) H 03/20/17 17:18 INR 1.3 (<1.1) 03/20/17 17:18 APTT 46.5 sec (22.0-30.0) H 03/24/17 15:44 Fibrinogen 460 mg/dL (200-500) 03/20/17 17:18 Sodium 143 mmol/L (137-145) 03/24/17 08:08 Potassium 3.7 mmol/L (3.5-5.1) 03/24/17 08:08 Chloride 115 mmol/L (98-107) H 03/24/17 08:08 Carbon Dioxide 23 mmol/L (22-30) 03/24/17 08:08 Anion Gap 5 mmol/L 03/24/17 08:08 BUN 11 mg/dL (9-20) 03/24/17 08:08 Creatinine 0.76 mg/dL (0.66-1.25) 03/24/17 08:08 Est GFR (MDRD) Af Amer >60 (>60 ml/min/1.73 sqM) 03/24/17 08:08 Est GFR (MDRD) Non-Af >60 (>60 ml/min/1.73 sqM) 03/24/17 08:08 Glucose 95 mg/dL (74-99) 03/24/17 08:08 POC Glucose (mg/dL) 79 mg/dL (75-99) 03/20/17 01:27 POC Glu [employer] Child[employer] Education Instructor Jia Escoto 03/20/17 01:27 Plasma Lactic Acid John 0.8 mmol/L (0.7-2.0) 03/20/17 06:42 Calcium 8.2 mg/dL (8.4-10.2) L 03/24/17 08:08 Phosphorus 3.0 mg/dL (2.5-4.5) 03/23/17 04:55 Magnesium 2.0 mg/dL (1.6-2.3) 03/22/17 04:16 Total Bilirubin 0.9 mg/dL (0.2-1.3) 03/20/17 00:31 AST 56 U/L (17-59) 03/20/17 00:31 ALT 42 U/L (21-72) 03/20/17 00:31 Alkaline Phosphatase 82 U/L (38-126) 03/20/17 00:31 Ammonia 16 umol/L (<30) 03/19/17 12:16 Lactate Dehydrogenase 1143 U/L (313-618) H 03/20/17 06:42 Total Creatine Kinase 810 U/L (55-170) H 03/19/17 12:16 CK-MB (CK-2) 2.2 ng/mL (0.0-2.4) 03/20/17 00:31 CK-MB (CK-2) Rel Index 0.2 03/19/17 12:16 Troponin I <0.012 ng/mL (0.000-0.034) 03/20/17 00:31 Total Protein 5.6 g/dL (6.3-8.2) L 03/20/17 00:31 Albumin 3.1 g/dL (3.5-5.0) L 03/20/17 00:31 Urine Color Yellow 03/20/17 00:25 Urine Appearance Clear (Clear) 03/20/17 00:25 Urine pH 5.5 (5.0-8.0) 03/20/17 00:25 Ur Specific [place] 1.027 (1.001-1.035) 03/20/17 00:25 Urine Protein Trace (Negative) H 03/20/17 00:25 Urine Glucose (UA) Negative (Negative) 03/20/17 00:25 Urine Ketones Negative (Negative) 03/20/17 00:25 Urine Blood Negative (Negative) 03/20/17 00:25 Urine Nitrite Negative (Negative) 03/20/17 00:25 Urine Bilirubin Negative (Negative) 03/20/17 00:25 Urine Urobilinogen 2.0 mg/dL (<2.0) 03/20/17 00:25 Ur Leukocyte Esterase Negative (Negative) 03/20/17 00:25 Urine RBC <1 /hpf (0-5) 03/19/17 14:53 Urine WBC 5 /hpf (0-5) 03/19/17 14:53 Ur Squamous Epith Cells <1 /hpf (0-4) 03/19/17 14:53 Amorphous Sediment Rare /hpf (None) H 03/19/17 14:53 Hyaline Casts 26 /lpf (0-2) H 03/19/17 14:53 Urine Mucus Moderate /hpf (None) H 03/19/17 14:53 Vancomycin Trough 20.2 ug/mL 03/24/17 08:08 Blood Type O Negative 03/23/17 14:23 Blood Type Recheck No 03/23/17 14:23 Antibody Screen NEGATIVE 03/23/17 14:23 Crossmatch See Detail 03/23/17 14:23 Spec Expiration Date 03/26/2017232203/23/17 14:23 Microbiology 03/22/17 13:05 Blood Blood Culture - Preliminary No Growth after 48 hours 03/20/17 00:31 Blood Blood Culture - Preliminary No Growth after 96 hours 03/20/17 00:25 Urine,Catheterized Urine Culture - Final 03/19/17 14:53 Urine,Catheterized Urine Culture - Final Assessment and Plan (1) Pancytopenia due to antineoplastic chemotherapy Narrative/Plan: 66-year-old male who had the sudden onset of back pain that worsened rapidly. Prior to this he was a very active gentleman. 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 He is now status post his radiation therapy and initiation of chemotherapy. He now is presenting with significant fever shortness of breath and altered mental status. His mental status has been quite difficult while he has been on high- dose steroid therapy. The patient presented with some shortness of breath and computed tomography scan did reveal evidence of bilateral pulmonary emboli. Consequently the pulmonary emboli, the febrile neutropenia and the recent chemotherapy are all significant reasons for his current fever. He is requiring several modalities to control his fever. As his PE is treated and underlying febrile neutropenia is treated with expectant his fevers to also improve. Multiple cultures are in process. If he is febrile again blood culture should be repeated. He is developing hematology oncology and growth factors have been started to improve his significant leukopenia. Ongoing supportive care. Pain management appears to be adequate With the febrile neutropenia being treated with cefepime and vancomycin which are adequate choices at this point in time. To WBC count is increased to 2.2. Hemoglobin and platelets are also improving. Likely showing some bone marrow recovery. Cultures do remain negative but continues some low-grade fevers constantly continue antibiotic therapy Status: Acute (2) Renal cell carcinoma Status: Acute (3) Fever Status: Acute
[2017-03-24] MEDS: TAMSULOSIN 0.4 MG CAP.ER.24H PO SCH (21:31)
[2017-03-24] MEDS: MIRTAZAPINE 15 MG TAB PO SCH (21:31)
[2017-03-24] MEDS: ATORVASTATIN 40 MG TAB PO SCH (21:31)
[2017-03-24] MEDS: FILGRASTIM-SNDZ 480 MCG/0.8 ML SYRINGE SQ SCH (22:29)
[2017-03-25] MEDS: MORPHINE SULFATE ER 30 MG TABLET PO SCH ×3 (01:36→16:53)
[2017-03-25] MEDS: CEFEPIME 2 GM in SODIUM CHLORIDE 0.9% 50 ML IVPB SCH ×3 (02:49→18:26)
[2017-03-25 06:54] LABS: Anisocytosis Slight; Basophils % (A) 0 %; Eosinophils # (A) 0.1 k/uL (0-0.7); Eosinophils % (A) 2 %; HDW 3.68; HGB 7.6 gm/dL (13.0-17.5); Hypochromasia Slight; Luc # (Auto) 0.05; Luc % (Auto) 2; Lymphocytes # (A) 0.3 k/uL (1.0-4.8); Lymphocytes % (A) 11 %; MCH 31.2 pg (25.0-35.0); MCHC 31.9 g/dL (31.0-37.0); MCV 97.8 fL (80.0-100.0); Macrocytosis Slight; Mean Platelet Volume 7.8; Monocytes # (A) 0.2 k/uL (0-1.0); Monocytes % (A) 7 %; Neutrophils # (A) 2.3 k/uL (1.3-7.7); Neutrophils % (A) 79 %; Poikilocytosis Slight; RBC 2.45 m/uL (4.30-5.90); RDW 19.6 % (11.5-15.5); WBC 2.9 k/uL (3.8-10.6); WBC (Perox) 3.11
[2017-03-25 07:21] LABS: Blood Urea Nitrogen 10 mg/dL (9-20); Carbon Dioxide 27 mmol/L (22-30); Chloride 113 mmol/L (98-107); Non-African American GFR(MDRD) >60 (>60 ml/min/1.73 sqM)
[2017-03-25 07:50] LABS: Anion Gap 3 mmol/L; Calcium 8.1 mg/dL (8.4-10.2); Glucose 83 mg/dL (74-99); Potassium 3.7 mmol/L (3.5-5.1); Sodium 143 mmol/L (137-145)
[2017-03-25] MEDS: VANCOMYCIN 2,000 MG in SODIUM CHLORIDE 0.9% 500 ML IVPB SCH ×2 (08:18→19:56)
[2017-03-25] MEDS: ASPIRIN 81 MG CHEW PO SCH ×2 (08:19→19:57)
[2017-03-25] MEDS: METOPROLOL TARTRATE 50 MG TAB PO SCH ×2 (08:19→19:57)
[2017-03-25] MEDS: CLOPIDOGREL 75 MG TAB PO SCH (08:19)
[2017-03-25] MEDS: LISINOPRIL 20 MG TAB PO SCH (08:20)
[2017-03-25] MEDS: ISOSORBIDE MONONITRATE ER 30 MG TAB.ER.24H PO SCH (08:20)
[2017-03-25] MEDS ORDERED: Potassium Replacement Protocol 1 EACH MISC MISCELLANE PRN (08:56)
[2017-03-25] MEDS ORDERED: POTASSIUM CHLORIDE ER 20 MEQ TAB.ER PO SCH (09:30)
[2017-03-25] MEDS: HEPARIN SODIUM,PORCINE/D5W PMX 25,000 UNIT in DEXTROSE/WATER 1 500ML.BAG IV SCH (11:07)
--- NOTE | 2017-03-25 12:45 | P.PN ---
Subjective Principal diagnosis: Acute hypoxic respiratory failure secondary to bilateral pneumonia and pulmonary embolism 58-year-old male patient was hospitalized yesterday because of altered mental status and shortness of breath. 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 The patient had back pain for quite some time and further investigation including a laminectomy that was done on the lumbar spine establish the diagnosis. Laminectomy was done to for ongoing back pain and diagnostic purposes. Following that, the patient was sent to radiation oncology and the patient was receiving palliative radiation therapy to his back. He was also started on Votrient as systemic treatment for his renal cell carcinoma. He has already received his of radiation and he is also on systemic treatment. Over the past 2 weeks, the patient was on and off confused. He was having some changes in his personality. At times he was having aggressive behavior to his family members and his . No headache. No neck stiffness. No chills. No fever. Over the past 24 hours, the patient's condition got worse and he started having increased shortness of breath. I was asked to evaluate this patient last night around 2 or 3 AM. At that time the patient was quite hypoxic , tachycardic and he was in the 100% on a beta facemask saturating around 88-89% . He was hospitalized with a low white count of 1.7. He was also febrile and he presented with a temperature of 11.8 and he had a T-max of 103.5. . Based on this, the patient was immediately moved to the intensive care unit. A stat computed tomography scan of the chest was done and showed subsegmental pulmonary emboli in the lung bases bilaterally. The patient also had a lateral upper lobe pulmonary infiltrates typical of an underlying pneumonia. The patient was started on IV heparin. The patient was started on a combination of cefepime and vancomycin. He was also given a total of 3 days of IV fluid and currently is on a maintenance of 0.9 at the rate of 100 mL an hour. No headache. Neurologically he is lethargic yet arousable and awake. He is following simple commands. On and off still confused. Family is at the bedside. Follow-up hemoglobin today's at 7.6. Platelet have dropped also to 78 ,000. Lactic acid level was elevated at 4.5 and stone to 0.8 On 03/21/2017 the patient is being seen in follow-up. Still on 100% nonrebreather facemask. On IV heparin regarding pulmonary embolism. Still on broad-spectrum antibiotics regarding pneumonia and neutropenic fever/sepsis. The patient is more comfortable compared to yesterday. He is less short of breath. He remains leukopenic and he was given Zarxio in that regard. Oncology is on the case. He is hemodynamically stable. ID evaluated the patient. No further adjustment of antibiotic coverage for now. All of the cultures of been negative. The hemoglobin is also low at 7.1 he had stable compared to yesterday. No signs of any GI bleeding. Platelet counts while on IV heparin is at 80. No signs of DIC at this point. On 03/22/2017 I'm seeing this patient in follow-up. Clinically is improved. Oxygenation is still an issue as the patient is still desaturating once taken off the 100% nonrebreather facemask. I think there may be a component of fluid overload as the patient was aggressively resuscitated IV fluids. White cell count remains low at 2.0. The patient remains on IV heparin. The patient is on broad-spectrum antibiotics and he is currently on a combination of cefepime and vancomycin. The patient is afebrile. The patient is hemodynamically stable. The patient is tolerating diet and had breakfast this morning. No change in mental status. He seems to be much more pleasant at this point. Family is at the bedside. On 03/23/2017, patient seems to be doing a bit better, breathing easier, saturating well on a high flow nasal cannula, patient will receive more Lasix a day because the chest x-ray is still suggestive of fluid overload and pulmonary edema. Labs continued to show pancytopenia with low WBC count, low hemoglobin of 7.0, and platelets are also low. PTT is 53.6. Basic metabolic profile is normal. I reviewed the chest x-ray, and I felt the patient will likely benefit from more diuretics, and Lasix 40 mg IV push was ordered. On 03/24/2017, patient continues to do relatively well. Remains on heparin therapy for his pulmonary embolism. WBC count is up to 2.2 today, hemoglobin is up to 7.9. PTT is therapeutic at 46. Basic metabolic profile is relatively normal renal profile is normal. Patient is sleepy, apparently did not get much sleep last night. Remains on diuretics for presumptive some component of fluid overload and pulmonary edema. On 04/21/2017, patient is feeling better, breathing a lot easier. remains on heparin , hemoglobin is 7.6, WBC count is up to 2.9 PTT is therapeutic at 49.3 basic metabolic profile is relatively normal. renal profile is normal. Objective - Vital Signs Vital signs: Vital Signs Temp 97.0 F L 03/25/17 08:00 Pulse 80 03/25/17 11:58 Resp 18 03/25/17 11:58 BP 167/78 03/25/17 08:00 Pulse Ox 91 L 03/25/17 08:00 Intake & Output 03/24/17 03/25/17 03/25/17 18:59 06:59 18:59 Intake Total 746.452 953.356 362.324 Output Total 1350 300 Balance -603.548 653.356 362.324 Weight 89 kg Intake: IV 130 70 Cefepime 2 gm In Sodium 50 Chloride 0.9% 50 ml @ 100 mls/hr IVPB Q8H [facility] Rx#: [id number] NS 80 70 Intake, IV Titration 616.452 883.356 362.324 Amount Heparin Sodium,Porcine/ 16.452 383.356 362.324 D5w Pmx 25,000 unit In Dextrose/Water 1 500ml. bag @ 18 UNITS/KG/HR 30. 37 mls/hr IV .[id number] [facility] Rx#:[id number] Micafungin 150 mg In 100 Sodium Chloride 0.9% 100 ml @ 100 mls/hr IVPB DAILY@1600 [facility] Rx#: [id number] Vancomycin 2,000 mg In 500 500 Sodium Chloride 0.9% 500 ml @ 167 mls/hr IVPB BID [facility] Rx#:[id number] Oral 0 Output: Urine 1350 300 Other: Voiding Method Urinal Urinal Urinal Incontinent Incontinent Incontinent # Voids 1 # Bowel Movements 0 - Exam Head exam was generally normal. There was no scleral icterus or corneal arcus. Mucous membranes were moist.Neck was supple and without jugular venous distension, thyromegaly, or carotid bruits. Carotids were easily palpable bilaterally. There was no adenopathy.Lungs diminished and shows crackles at lung bases bilaterally. No wheezes. No rhonchi.. Cardiac exam revealed the PMI to be normally situated and sized. The rhythm was regular and no extrasystoles were noted during several minutes of auscultation. The first and second heart sounds were normal and physiologic splitting of the second heart sound was noted. There were no murmurs, rubs, clicks, or gallops.Abdominal exam revealed normal bowel sounds. The abdomen was soft, non-tender, and without masses, organomegaly, or appreciable enlargement of the abdominal aorta.Examination of the extremities revealed easily palpable radial, femoral and pedal pulses. There was no cyanosis, clubbing or edema. - Labs CBC & Chem 7: 03/25/17 06:03 03/25/17 06:03 Labs: Abnormal Lab Results - Last 24 Hours (Table) 03/24/17 03/25/17 03/25/17 Range/Units 15:44 06:03 06:03 WBC 2.9 L (3.8-10.6) k/uL RBC 2.45 L (4.30-5.90) m/uL Hgb 7.6 L (13.0-17.5) gm/dL Hct 24.0 L (39.0-53.0) % RDW 19.6 H (11.5-15.5) % Plt Count 133 L (150-450) k/uL Lymphocytes # 0.3 L (1.0-4.8) k/uL APTT 46.5 H (22.0-30.0) sec Chloride 113 H (98-107) mmol/L Calcium 8.1 L (8.4-10.2) mg/dL 03/25/17 Range/Units 09:32 WBC (3.8-10.6) k/uL RBC (4.30-5.90) m/uL Hgb (13.0-17.5) gm/dL Hct (39.0-53.0) % RDW (11.5-15.5) % Plt Count (150-450) k/uL Lymphocytes # (1.0-4.8) k/uL APTT 49.3 H (22.0-30.0) sec Chloride (98-107) mmol/L Calcium (8.4-10.2) mg/dL Microbiology - Last 24 Hours (Table) 03/20/17 00:31 Blood Culture - Preliminary Blood No Growth after 120 hours 03/22/17 13:05 Blood Culture - Preliminary Blood No Growth after 48 hours Assessment and Plan Plan: 1 acute hypoxic respiratory failure multifactorial, secondary to bilateral pneumonia and bilateral pulmonary embolism. Patient is on a combination of cefepime and vancomycin , micafungin,and the patient is on IV heparin at the time being. He is on nasal cannula, breathing is improved. On , the patient remains on high flow nasal cannula and I think should be able to gradually wean him down on his FiO2 if his saturation remains above 90%. He remains on the same antibiotic coverage. He remains on IV heparin regarding the pulmonary embolism. Cultures are being monitored. PTT is being monitored while on IV heparin. No chest pain. On 03/22/2017 the patient is still having difficulties with oxygenation. Clinically however is improved. We'll going to try high flow oxygen discontinued the 100% nonrebreather facemask. We will also going to start some gentle diuresis on this patient cut down his IV fluids. On 03/23/2017, patient is marginal, but seems to be improved compared to the last few days, hence I will plan to transfer the patient to a monitored bed on selective today. On 03/24/2017, patient is improving but slowly. His pancytopenia seems to be a bit better. 2 acute febrile neutropenia, afebrile for now, white cell count is still low at 2.2 3 sepsis secondary to bilateral pneumonia, and leukopenia. The cultures remain negative and the patient was started on Zarxio 4 metastatic renal cell carcinoma with metastases to the back/skeletal system 5 Mental status change, a combination of sepsis, delirium that could've been secondary to systemic steroids on outpatient basis. MRI of the brain is negative. 6 Coronary artery disease with a previous carotid bypass surgery and multiple coronary stent insertion 7 bilateral carotid artery disease 8 peripheral vascular disease 9 hypertension 10 degenerative arthritis 11 prostate enlargement 12 peripheral neuropathy 13 pancytopenia , improving Recommendation: Continue antibiotics, diuretics, bronchodilators, oxygen, close monitoring, suggest discharging the patient home on subcu Lovenox. consider discharge planning in the next few days. Time with Patient: Less than 30
--- NOTE | 2017-03-25 16:00 | P.PN ---
Subjective Patient is a 66-year-old male, patient of Dr. 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 Patient presented to the emergency department with complaints of altered mental status and dyspnea. Patient was found to have evidence of neutropenic sepsis and acute bilateral pulmonary emboli, acute hypoxic respiratory failure, and pneumonia, health care acquired. Patient is currently being followed by infectious disease service, oncology service, and pulmonary service. Patient is evaluated on selective care unit with family at bedside. Upon examination, patient is sitting up in a chair. Patient states he feel much better than yesterday. Patient complains of mild back pain but states it's tolerable. Patient is currently on 10 L high flow nasal cannula with oxygen saturation of 96 %. Denies chills, fevers, nausea, vomiting, chest pain, or abdominal pain. Afebrile. Patient continues on IV antibiotics in the form of cefepime, vancomycin, and micafungin. Preliminary blood cultures with no growth. Patient remains on IV heparin for bilateral pulmonary embolism. WBC improved to 2.9. Hemoglobin decreased to 7.6. Objective - Vital Signs Vital signs: Vital Signs Temp 97.0 F L 03/25/17 12:00 Pulse 82 03/25/17 12:00 Resp 16 03/25/17 12:00 BP 109/58 03/25/17 12:00 Pulse Ox 96 03/25/17 12:00 Intake & Output 03/24/17 03/25/17 03/25/17 18:59 06:59 18:59 Intake Total 746.452 953.356 362.324 Output Total 1350 300 200 Balance -603.548 653.356 162.324 Weight 89 kg Intake: IV 130 70 Cefepime 2 gm In Sodium 50 Chloride 0.9% 50 ml @ 100 mls/hr IVPB Q8H [facility] Rx#: [id number] NS 80 70 Intake, IV Titration 616.452 883.356 362.324 Amount Heparin Sodium,Porcine/ 16.452 383.356 362.324 D5w Pmx 25,000 unit In Dextrose/Water 1 500ml. bag @ 18 UNITS/KG/HR 30. 37 mls/hr IV .[id number] [facility] Rx#:[id number] Micafungin 150 mg In 100 Sodium Chloride 0.9% 100 ml @ 100 mls/hr IVPB DAILY@1600 [facility] Rx#: [id number] Vancomycin 2,000 mg In 500 500 Sodium Chloride 0.9% 500 ml @ 167 mls/hr IVPB BID [facility] Rx#:[id number] Oral 0 Output: Urine 1350 300 200 Other: Voiding Method Urinal Urinal Urinal Incontinent Incontinent Incontinent # Voids 1 # Bowel Movements 0 - Exam GENERAL: Pt awake and alert, sitting up in a chair, appears in no acute distress. HEAD: Atraumatic, normocephalic. EYES: Pupils equal, round, and reactive to light, sclera anicteric, conjunctiva are normal. ENT: Moist mucous membranes. NECK:Supple without lymphadenopathy or JVD. LUNGS: Breath sounds diminished to auscultation bilaterally. No wheezes, rales , or rhonchi. HEART: Heart S1, S2, no S3 or S4. Regular rate and rhythm. No murmurs, rubs or gallops. ABDOMEN: Soft, nontender, nondistended, normoactive bowel sounds. No guarding, no rebound. No masses or organomegaly appreciated. EXTREMITIES: Palpable peripheral pulses. No edema. No calf tenderness. NEUROLOGICAL: Pt alert and oriented 3. Speech is coherent. Follows commands. SKIN: Warm, dry, intact. Normal turgor. - Labs CBC & Chem 7: 03/25/17 06:03 03/25/17 06:03 Labs: Abnormal Lab Results - Last 24 Hours (Table) 03/24/17 03/25/17 03/25/17 Range/Units 15:44 06:03 06:03 WBC 2.9 L (3.8-10.6) k/uL RBC 2.45 L (4.30-5.90) m/uL Hgb 7.6 L (13.0-17.5) gm/dL Hct 24.0 L (39.0-53.0) % RDW 19.6 H (11.5-15.5) % Plt Count 133 L (150-450) k/uL Lymphocytes # 0.3 L (1.0-4.8) k/uL APTT 46.5 H (22.0-30.0) sec Chloride 113 H (98-107) mmol/L Calcium 8.1 L (8.4-10.2) mg/dL 03/25/17 Range/Units 09:32 WBC (3.8-10.6) k/uL RBC (4.30-5.90) m/uL Hgb (13.0-17.5) gm/dL Hct (39.0-53.0) % RDW (11.5-15.5) % Plt Count (150-450) k/uL Lymphocytes # (1.0-4.8) k/uL APTT 49.3 H (22.0-30.0) sec Chloride (98-107) mmol/L Calcium (8.4-10.2) mg/dL Microbiology - Last 24 Hours (Table) 03/22/17 13:05 Blood Culture - Preliminary Blood No Growth after 72 hours 03/20/17 00:31 Blood Culture - Preliminary Blood No Growth after 120 hours Assessment and Plan Plan: Impression and plan: 1. Acute hypoxic respiratory failure, multifactorial secondary to bilateral pneumonia, health care acquired and bilateral pulmonary embolism, improving. Continue titrating down oxygen. Continue IV antibiotics in the form of vancomycin, cephapirin, and micafungin to cover for Pseudomonas, MRSA, and Mandi in a patient with neutropenic fever. Pulmonary service and infectious disease service following, recommendations noted. 2. Neutropenic sepsis suspect secondary to bilateral pneumonia, improved. Continue IV antibiotics per infectious disease service. Preliminary blood cultures negative. 3. Acute metabolic encephalopathy, suspect secondary to underlying infectious disease process, improved. 5. Pancytopenia, which is chemotherapy induced. 7. 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 8. Coronary artery disease with multiple stent placements and previous CABG. 9. Bilateral carotid artery disease. 10. Peripheral arterial disease. 11. Hypertension. 12. Degenerative disc disease. 13. BPH. 14. Peripheral neuropathy. Continue to monitor patient. Continue IV antibiotics. Continue current medications. Continue to follow with consultants. Continue supportive treatment and pain management. Continue GI and DVT prophylaxis. Continue physical therapy. Repeat labs in a.m. The above impression and plan have been discussed and directed by Dr. Schwartz. Camron CALDERA acting as scribe for Dr. Schwartz.
[2017-03-25] MEDS: MICAFUNGIN 150 MG in SODIUM CHLORIDE 0.9% 100 ML IVPB SCH (16:54)
[2017-03-25] MEDS: FILGRASTIM-SNDZ 480 MCG/0.8 ML SYRINGE SQ SCH (18:26)
[2017-03-25] MEDS: TAMSULOSIN 0.4 MG CAP.ER.24H PO SCH (19:57)
[2017-03-25] MEDS: MIRTAZAPINE 15 MG TAB PO SCH (19:57)
[2017-03-25] MEDS: ATORVASTATIN 40 MG TAB PO SCH (19:57)
--- NOTE | 2017-03-25 20:38 | P.PN ---
Subjective Principal diagnosis: Fever 66-year-old male with a known history of progressive back pain. Follow 2016. MRI revealed evidence of what appeared to be metastasis. He was taken the operating room and had stabilization and biopsy. Without evidence of metastatic carcinoma of renal primary. PET scan revealed evidence of the osseous metastasis. He's been treated with high doses of steroids which have caused some difficulties with his mentation. He is now completed his course of radiation therapy and is receiving pazopanib therapy for his metastatic renal cell carcinoma. Patient presents the emergency center with altered mental status. Fever, hypotension and shortness of breath. Evaluation revealed evidence of bilateral pulmonary emboli which is now being treated. Cultures are in process because of his fever and the infectious diseases consultation was requested. The patient is now much improved from prior. As his fever improved his mentation improves. Temperature 98 today. Overall improved. Mentation is improved. Objective - Vital Signs Vital signs: Vital Signs Temp 99.0 F 03/25/17 20:03 Pulse 72 03/25/17 20:03 Resp 20 03/25/17 20:03 BP 149/71 03/25/17 20:03 Pulse Ox 95 03/25/17 20:03 Intake & Output 03/25/17 03/25/17 03/26/17 06:59 18:59 06:59 Intake Total 050.272 5371.324 Output Total 300 200 Balance 903.966 0821.324 Weight 89 kg Intake: IV 70 NS 70 Intake, IV Titration 883.356 962.324 Amount Cefepime 2 gm In Sodium 100 Chloride 0.9% 50 ml @ 100 mls/hr IVPB Q8H [facility] Rx#: [id number] Heparin Sodium,Porcine/ 383.356 362.324 D5w Pmx 25,000 unit In Dextrose/Water 1 500ml. bag @ 18 UNITS/KG/HR 30. 37 mls/hr IV .[id number] [facility] Rx#:[id number] Vancomycin 2,000 mg In 500 500 Sodium Chloride 0.9% 500 ml @ 167 mls/hr IVPB BID [facility] Rx#:[id number] Oral 680 Output: Urine 300 200 Other: Voiding Method Urinal Urinal Incontinent Incontinent # Voids 1 1 - Exam 66-year-old male who does have pallor. Is cooperative and pleasant but a poor historian HEENT: Anicteric conjunctiva are pink and moist nasal mucosa grossly intact without significant lesions, there is no thrush. Oral lesions Neck: The neck is supple without significant lymphadenopathy or thyromegaly. Lungs: Symmetrical air entry is noted. Few basilar crackles are heard. No bronchial sounds. Heart: Irregular with an audible S1 and S2 no S3 soft S4 no murmur click or rub Abdomen: Positive bowel sounds soft and nontender without palpable masses or organomegaly. There was no guarding or rebound. Extremities: Extremity have minimal edema but no steady and lesions Neuro: Patient is arousable seems to be appropriate this time. Is a poor historian though. Follows simple commands without difficulty. No gross focal sensory motor deficits are noted - Labs CBC & Chem 7: 03/25/17 06:03 03/25/17 06:03 Labs: Abnormal Lab Results - Last 24 Hours (Table) 03/25/17 03/25/17 03/25/17 Range/Units 06: 06:03 09:32 WBC 2.9 L (3.8-10.6) k/uL RBC 2.45 L (4.30-5.90) m/uL Hgb 7.6 L (13.0-17.5) gm/dL Hct 24.0 L (39.0-53.0) % RDW 19.6 H (11.5-15.5) % Plt Count 133 L (150-450) k/uL Lymphocytes # 0.3 L (1.0-4.8) k/uL APTT 49.3 H (22.0-30.0) sec Chloride 113 H (98-107) mmol/L Calcium 8.1 L (8.4-10.2) mg/dL Microbiology - Last 24 Hours (Table) 03/22/17 13:05 Blood Culture - Preliminary Blood No Growth after 72 hours 03/20/17 00:31 Blood Culture - Preliminary Blood No Growth after 120 hours Laboratory Results WBC 2.9 k/uL (3.8-10.6) L 03/25/17 06:03 RBC 2.45 m/uL (4.30-5.90) L 03/25/17 06:03 Hgb 7.6 gm/dL (13.0-17.5) L 03/25/17 06:03 Hct 24.0 % (39.0-53.0) L 03/25/17 06:03 MCV 97.8 fL (80.0-100.0) 03/25/17 06:03 MCH 31.2 pg (25.0-35.0) 03/25/17 06:03 MCHC 31.9 g/dL (31.0-37.0) 03/25/17 06:03 RDW 19.6 % (11.5-15.5) H 03/25/17 06:03 Plt Count 133 k/uL (150-450) L 03/25/17 06:03 Neutrophils % 79 % 03/25/17 06:03 Neutrophils % (Manual) 86.0 % 03/20/17 06:42 Band Neutrophils % 6.0 % 03/20/17 06:42 Lymphocytes % 11 % 03/25/17 06:03 Lymphocytes % (Manual) 2.0 % 03/20/17 06:42 Monocytes % 7 % 03/25/17 06:03 Monocytes % (Manual) 4.0 % 03/20/17 06:42 Eosinophils % 2 % 03/25/17 06:03 Eosinophils % (Manual) 2.0 % 03/20/17 06:42 Basophils % 0 % 03/25/17 06:03 Neutrophils # 2.3 k/uL (1.3-7.7) 03/25/17 06:03 Neutrophils # (Manual) 1.6 k/uL (1.3-7.7) 03/20/17 06:42 Lymphocytes # 0.3 k/uL (1.0-4.8) L 03/25/17 06:03 Lymphocytes # (Manual) 0.0 k/uL (1.0-4.8) L 03/20/17 06:42 Monocytes # 0.2 k/uL (0-1.0) 03/25/17 06:03 Monocytes # (Manual) 0.1 k/uL (0-1.0) 03/20/17 06:42 Eosinophils # 0.1 k/uL (0-0.7) 03/25/17 06:03 Eosinophils # (Manual) 0.0 k/uL (0-0.7) 03/20/17 06:42 Basophils # 0.0 k/uL (0-0.2) 03/25/17 06:03 Nucleated RBCs 0 /100 WBC (0-0) 03/20/17 06:42 Manual Slide Review Performed 03/20/17 06:42 Polychromasia Present 03/20/17 06:42 Hypochromasia Slight 03/25/17 06:03 Poikilocytosis Slight 03/25/17 06:03 Anisocytosis Slight 03/25/17 06:03 Macrocytosis Slight 03/25/17 06:03 Retic Count 3.2 % (0.5-2.0) H 03/21/17 04:56 Haptoglobin 254.0 mg/dL (31.2-198.0) H 03/20/17 06:42 PT 12.7 sec (9.0-12.0) H 03/20/17 17:18 INR 1.3 (<1.1) 03/20/17 17:18 APTT 49.3 sec (22.0-30.0) H 03/25/17 09:32 Fibrinogen 460 mg/dL (200-500) 03/20/17 17:18 Sodium 143 mmol/L (137-145) 03/25/17 06:03 Potassium 3.7 mmol/L (3.5-5.1) 03/25/17 06:03 Chloride 113 mmol/L (98-107) H 03/25/17 06:03 Carbon Dioxide 27 mmol/L (22-30) 03/25/17 06:03 Anion Gap 3 mmol/L 03/25/17 06:03 BUN 10 mg/dL (9-20) 03/25/17 06:03 Creatinine 0.75 mg/dL (0.66-1.25) 03/25/17 06:03 Est GFR (MDRD) Af Amer >60 (>60 ml/min/1.73 sqM) 03/25/17 06:03 Est GFR (MDRD) Non-Af >60 (>60 ml/min/1.73 sqM) 03/25/17 06:03 Glucose 83 mg/dL (74-99) 03/25/17 06:03 POC Glucose (mg/dL) 79 mg/dL (75-99) 03/20/17 01:27 POC Glu Passenger Agent ID Jia Chavarria 03/20/17 01:27 Plasma Lactic Acid John 0.8 mmol/L (0.7-2.0) 03/20/17 06:42 Calcium 8.1 mg/dL (8.4-10.2) L 03/25/17 06:03 Phosphorus 3.0 mg/dL (2.5-4.5) 03/23/17 04:55 Magnesium 2.0 mg/dL (1.6-2.3) 03/22/17 04:16 Total Bilirubin 0.9 mg/dL (0.2-1.3) 03/20/17 00:31 AST 56 U/L (17-59) 03/20/17 00:31 ALT 42 U/L (21-72) 03/20/17 00:31 Alkaline Phosphatase 82 U/L (38-126) 03/20/17 00:31 Ammonia 16 umol/L (<30) 03/19/17 12:16 Lactate Dehydrogenase 1143 U/L (313-618) H 03/20/17 06:42 Total Creatine Kinase 810 U/L (55-170) H 03/19/17 12:16 CK-MB (CK-2) 2.2 ng/mL (0.0-2.4) 03/20/17 00:31 CK-MB (CK-2) Rel Index 0.2 03/19/17 12:16 Troponin I <0.012 ng/mL (0.000-0.034) 03/20/17 00:31 Total Protein 5.6 g/dL (6.3-8.2) L 03/20/17 00:31 Albumin 3.1 g/dL (3.5-5.0) L 03/20/17 00:31 Urine Color Yellow 03/20/17 00:25 Urine Appearance Clear (Clear) 03/20/17 00:25 Urine pH 5.5 (5.0-8.0) 03/20/17 00:25 Ur Specific [place] 1.027 (1.001-1.035) 03/20/17 00:25 Urine Protein Trace (Negative) H 03/20/17 00:25 Urine Glucose (UA) Negative (Negative) 03/20/17 00:25 Urine Ketones Negative (Negative) 03/20/17 00:25 Urine Blood Negative (Negative) 03/20/17 00:25 Urine Nitrite Negative (Negative) 03/20/17 00:25 Urine Bilirubin Negative (Negative) 03/20/17 00:25 Urine Urobilinogen 2.0 mg/dL (<2.0) 03/20/17 00:25 Ur Leukocyte Esterase Negative (Negative) 03/20/17 00:25 Urine RBC <1 /hpf (0-5) 03/19/17 14:53 Urine WBC 5 /hpf (0-5) 03/19/17 14:53 Ur Squamous Epith Cells <1 /hpf (0-4) 03/19/17 14:53 Amorphous Sediment Rare /hpf (None) H 03/19/17 14:53 Hyaline Casts 26 /lpf (0-2) H 03/19/17 14:53 Urine Mucus Moderate /hpf (None) H 03/19/17 14:53 Vancomycin Trough 20.2 ug/mL 03/24/17 08:08 Blood Type O Negative 03/23/17 14:23 Blood Type Recheck No 03/23/17 14:23 Antibody Screen NEGATIVE 03/23/17 14:23 Crossmatch See Detail 03/23/17 14:23 Spec Expiration Date 03/26/2017 - 3 03/23/17 14:23 Microbiology 03/22/17 13:05 Blood Blood Culture - Preliminary No Growth after 72 hours 03/20/17 00:31 Blood Blood Culture - Preliminary No Growth after 120 hours 03/20/17 00:25 Urine,Catheterized Urine Culture - Final 03/19/17 14:53 Urine,Catheterized Urine Culture - Final Assessment and Plan (1) Pancytopenia due to antineoplastic chemotherapy Narrative/Plan: 66-year-old male who had the sudden onset of back pain that worsened rapidly. Prior to this he was a very active gentleman. 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 He is now status post his radiation therapy and initiation of chemotherapy. He now is presenting with significant fever shortness of breath and altered mental status. His mental status has been quite difficult while he has been on high- dose steroid therapy. The patient presented with some shortness of breath and computed tomography scan did reveal evidence of bilateral pulmonary emboli. Consequently the pulmonary emboli, the febrile neutropenia and the recent chemotherapy are all significant reasons for his current fever. He is requiring several modalities to control his fever. As his PE is treated and underlying febrile neutropenia is treated with expectant his fevers to also improve. Multiple cultures are in process. If he is febrile again blood culture should be repeated. He is developing hematology oncology and growth factors have been started to improve his significant leukopenia. Ongoing supportive care. Pain management appears to be adequate With the febrile neutropenia being treated with cefepime and vancomycin which are adequate choices at this point in time. To WBC count is increased to 2.9 Hemoglobin and platelets are also improving. Likely showing some bone marrow recovery. Cultures do remain negative fevers have resolved. Appears to be showing some ongoing improvement. Vancomycin is discontinued. Likely will transition to oral antibiotic therapy Levaquin and fluconazole for 7 days. Status: Acute (2) Renal cell carcinoma Status: Acute (3) Fever Status: Acute
[2017-03-26] MEDS: MORPHINE SULFATE ER 30 MG TABLET PO SCH ×4 (00:24→20:38)
[2017-03-26] MEDS: CEFEPIME 2 GM in SODIUM CHLORIDE 0.9% 50 ML IVPB SCH ×3 (01:43→16:20)
[2017-03-26 08:04] LABS: Anisocytosis Slight; Basophils % (A) 0 %; CH 32.2; CHCM 34.4; Eosinophils # (A) 0.1 k/uL (0-0.7); Eosinophils % (A) 2 %; HDW 3.94; HGB 7.7 gm/dL (13.0-17.5); Luc # (Auto) 0.08; Luc % (Auto) 2; Lymphocytes # (A) 0.4 k/uL (1.0-4.8); Lymphocytes % (A) 9 %; MCH 31.7 pg (25.0-35.0); MCHC 33.5 g/dL (31.0-37.0); MCV 94.4 fL (80.0-100.0); Macrocytosis Slight; Mean Platelet Volume 7.4; Monocytes # (A) 0.2 k/uL (0-1.0); Monocytes % (A) 5 %; Neutrophils # (A) 3.7 k/uL (1.3-7.7); Neutrophils % (A) 83 %; Poikilocytosis Slight; RBC 2.43 m/uL (4.30-5.90); RDW 19.5 % (11.5-15.5); WBC 4.4 k/uL (3.8-10.6); WBC (Perox) 4.63
[2017-03-26] MEDS: ASPIRIN 81 MG CHEW PO SCH ×2 (08:06→20:38)
[2017-03-26] MEDS: METOPROLOL TARTRATE 50 MG TAB PO SCH ×2 (08:06→20:38)
[2017-03-26] MEDS: LISINOPRIL 20 MG TAB PO SCH (08:06)
[2017-03-26] MEDS: ISOSORBIDE MONONITRATE ER 30 MG TAB.ER.24H PO SCH (08:07)
[2017-03-26] MEDS: CLOPIDOGREL 75 MG TAB PO SCH (08:07)
[2017-03-26] MEDS: HEPARIN SODIUM,PORCINE/D5W PMX 25,000 UNIT in DEXTROSE/WATER 1 500ML.BAG IV SCH (08:08)
[2017-03-26 08:45] LABS: Anion Gap 6 mmol/L; Blood Urea Nitrogen 13 mg/dL (9-20); Carbon Dioxide 25 mmol/L (22-30); Chloride 111 mmol/L (98-107); Glucose 89 mg/dL (74-99); Non-African American GFR(MDRD) >60 (>60 ml/min/1.73 sqM); Potassium 3.9 mmol/L (3.5-5.1); Sodium 142 mmol/L (137-145)
[2017-03-26 10:02] VITALS: BMI 29.4
--- NOTE | 2017-03-26 11:57 | P.PN ---
Subjective Principal diagnosis: Acute hypoxic respiratory failure secondary to bilateral pneumonia and pulmonary embolism 58-year-old male patient was hospitalized yesterday because of altered mental status and shortness of breath. 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 The patient had back pain for quite some time and further investigation including a laminectomy that was done on the lumbar spine establish the diagnosis. Laminectomy was done to for ongoing back pain and diagnostic purposes. Following that, the patient was sent to radiation oncology and the patient was receiving palliative radiation therapy to his back. He was also started on Votrient as systemic treatment for his renal cell carcinoma. He has already received his of radiation and he is also on systemic treatment. Over the past 2 weeks, the patient was on and off confused. He was having some changes in his personality. At times he was having aggressive behavior to his family members and his . No headache. No neck stiffness. No chills. No fever. Over the past 24 hours, the patient's condition got worse and he started having increased shortness of breath. I was asked to evaluate this patient last night around 2 or 3 AM. At that time the patient was quite hypoxic , tachycardic and he was in the 100% on a beta facemask saturating around 88-89% . He was hospitalized with a low white count of 1.7. He was also febrile and he presented with a temperature of 11.8 and he had a T-max of 103.5. . Based on this, the patient was immediately moved to the intensive care unit. A stat computed tomography scan of the chest was done and showed subsegmental pulmonary emboli in the lung bases bilaterally. The patient also had a lateral upper lobe pulmonary infiltrates typical of an underlying pneumonia. The patient was started on IV heparin. The patient was started on a combination of cefepime and vancomycin. He was also given a total of 3 days of IV fluid and currently is on a maintenance of 0.9 at the rate of 100 mL an hour. No headache. Neurologically he is lethargic yet arousable and awake. He is following simple commands. On and off still confused. Family is at the bedside. Follow-up hemoglobin today's at 7.6. Platelet have dropped also to 78 ,000. Lactic acid level was elevated at 4.5 and stone to 0.8 On 03/21/2017 the patient is being seen in follow-up. Still on 100% nonrebreather facemask. On IV heparin regarding pulmonary embolism. Still on broad-spectrum antibiotics regarding pneumonia and neutropenic fever/sepsis. The patient is more comfortable compared to yesterday. He is less short of breath. He remains leukopenic and he was given Zarxio in that regard. Oncology is on the case. He is hemodynamically stable. ID evaluated the patient. No further adjustment of antibiotic coverage for now. All of the cultures of been negative. The hemoglobin is also low at 7.1 he had stable compared to yesterday. No signs of any GI bleeding. Platelet counts while on IV heparin is at 80. No signs of DIC at this point. On 03/22/2017 I'm seeing this patient in follow-up. Clinically is improved. Oxygenation is still an issue as the patient is still desaturating once taken off the 100% nonrebreather facemask. I think there may be a component of fluid overload as the patient was aggressively resuscitated IV fluids. White cell count remains low at 2.0. The patient remains on IV heparin. The patient is on broad-spectrum antibiotics and he is currently on a combination of cefepime and vancomycin. The patient is afebrile. The patient is hemodynamically stable. The patient is tolerating diet and had breakfast this morning. No change in mental status. He seems to be much more pleasant at this point. Family is at the bedside. On 03/23/2017, patient seems to be doing a bit better, breathing easier, saturating well on a high flow nasal cannula, patient will receive more Lasix a day because the chest x-ray is still suggestive of fluid overload and pulmonary edema. Labs continued to show pancytopenia with low WBC count, low hemoglobin of 7.0, and platelets are also low. PTT is 53.6. Basic metabolic profile is normal. I reviewed the chest x-ray, and I felt the patient will likely benefit from more diuretics, and Lasix 40 mg IV push was ordered. On 03/24/2017, patient continues to do relatively well. Remains on heparin therapy for his pulmonary embolism. WBC count is up to 2.2 today, hemoglobin is up to 7.9. PTT is therapeutic at 46. Basic metabolic profile is relatively normal renal profile is normal. Patient is sleepy, apparently did not get much sleep last night. Remains on diuretics for presumptive some component of fluid overload and pulmonary edema. On 03/25/2017, patient is feeling better, breathing a lot easier. remains on heparin , hemoglobin is 7.6, WBC count is up to 2.9 PTT is therapeutic at 49.3 basic metabolic profile is relatively normal. renal profile is normal. On 03/26/2017, patient continues to do better, his labs are improving. WBC count is coming up, he is feeling better overall, remains on antibiotics for his pneumonia, remains on heparin however that could be switched to Xarelto if agreeable with the instrumentation engineer on the case. Hemoglobin is holding at 7.7. WBC count is 4.4. Platelets are 145. Basic metabolic profile is normal. Objective - Vital Signs Vital signs: Vital Signs Temp 97.1 F L 03/26/17 08:00 Pulse 82 03/26/17 08:00 Resp 16 03/26/17 08:00 BP 175/81 03/26/17 08:00 Pulse Ox 93 L 03/26/17 08:00 Intake & Output 03/25/17 03/26/17 03/26/17 18:59 06:59 18:59 Intake Total 1642.324 500 720 Output Total 200 450 Balance 1442.324 50 720 Weight 90.3 kg 90.3 kg Intake: Intake, IV Titration 962.324 500 Amount Cefepime 2 gm In Sodium 100 Chloride 0.9% 50 ml @ 100 mls/hr IVPB Q8H [facility] Rx#: [id number] Heparin Sodium,Porcine/ 362.324 500 D5w Pmx 25,000 unit In Dextrose/Water 1 500ml. bag @ 18 UNITS/KG/HR 30. 37 mls/hr IV .[id number] [facility] Rx#:[id number] Vancomycin 2,000 mg In 500 Sodium Chloride 0.9% 500 ml @ 167 mls/hr IVPB BID [facility] Rx#:[id number] Oral 680 720 Output: Urine 200 450 Other: Voiding Method Urinal Incontinent # Voids 1 1 - Exam Physical Exam: Revealed a 66-year-old white male in no distress. HEENT:[Neck is supple.] [No neck masses.] [No thyromegaly.] [No JVD.] Chest: [Diminished breath sounds at the bases no crackles or rhonchi or wheezes] Cardiac Exam: [Normal S1 and S2, no S3 gallop, no murmur.] Abdomen: [Soft, nontender, no megaly, no rebound, no guarding, normal bowel sounds.] Extremities: [No clubbing, 1+ bipedal edema, no cyanosis.] Neurological Exam: [No focal neurologic deficit.] - Labs CBC & Chem 7: 03/26/17 06:15 03/26/17 06:15 Labs: Abnormal Lab Results - Last 24 Hours (Table) 03/26/17 03/26/17 Range/Units 06:15 06:15 RBC 2.43 L (4.30-5.90) m/uL Hgb 7.7 L (13.0-17.5) gm/dL Hct 23.0 L (39.0-53.0) % RDW 19.5 H (11.5-15.5) % Plt Count 145 L (150-450) k/uL Lymphocytes # 0.4 L (1.0-4.8) k/uL Chloride 111 H (98-107) mmol/L Calcium 8.0 L (8.4-10.2) mg/dL Microbiology - Last 24 Hours (Table) 03/20/17 00:31 Blood Culture - Final Blood No Growth after 144 hours 03/22/17 13:05 Blood Culture - Preliminary Blood No Growth after 72 hours Assessment and Plan Plan: 1 acute hypoxic respiratory failure multifactorial, secondary to bilateral pneumonia and bilateral pulmonary embolism. Patient is on a combination of cefepime and vancomycin , micafungin,and the patient is on IV heparin at the time being. He is on nasal cannula, breathing is improved. On , the patient remains on high flow nasal cannula and I think should be able to gradually wean him down on his FiO2 if his saturation remains above 90%. He remains on the same antibiotic coverage. He remains on IV heparin regarding the pulmonary embolism. Cultures are being monitored. PTT is being monitored while on IV heparin. No chest pain. On 03/22/2017 the patient is still having difficulties with oxygenation. Clinically however is improved. We'll going to try high flow oxygen discontinued the 100% nonrebreather facemask. We will also going to start some gentle diuresis on this patient cut down his IV fluids. On 03/23/2017, patient is marginal, but seems to be improved compared to the last few days, hence I will plan to transfer the patient to a monitored bed on selective today. On 03/24/2017, patient is improving but slowly. His pancytopenia seems to be a bit better. 2 acute febrile neutropenia, afebrile for now, white cell count is still low at 2.2 3 sepsis secondary to bilateral pneumonia, and leukopenia. The cultures remain negative and the patient was started on Zarxio 4 metastatic renal cell carcinoma with metastases to the back/skeletal system 5 Mental status change, a combination of sepsis, delirium that could've been secondary to systemic steroids on outpatient basis. MRI of the brain is negative. 6 Coronary artery disease with a previous carotid bypass surgery and multiple coronary stent insertion 7 bilateral carotid artery disease 8 peripheral vascular disease 9 hypertension 10 degenerative arthritis 11 prostate enlargement 12 peripheral neuropathy 13 pancytopenia , improving Recommendation: Continue antibiotics, diuretics, bronchodilators, oxygen, close monitoring, consider switching IV heparin to Xarelto, consider switching her IV antibiotics oral antibiotics, and hopefully consider discharge planning in the next 24 hours. Time with Patient: Less than 30
--- NOTE | 2017-03-26 12:54 | XR ---
EXAMINATION TYPE: XR chest 1V portable DATE OF EXAM: 03/26/2017 12:05 PM COMPARISON: 03/23/2017 HISTORY: Follow-up pneumonia TECHNIQUE: Single frontal view of the chest is obtained. FINDINGS: Bilateral upper lobe infiltrate. Postsurgical change. No pleural effusion effusion on the left. Small right effusion. No pneumothorax. IMPRESSION: 1. Bilateral upper lobe infiltrate stable. There is mild improvement in the perihilar interstitial ch anges suggestive of improving congestion.
--- NOTE | 2017-03-26 15:31 | P.PN ---
Subjective Patient is a 66-year-old male, patient of Dr. 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 Patient presented to the emergency department with complaints of altered mental status and dyspnea. Patient was found to have evidence of neutropenic sepsis and acute bilateral pulmonary emboli, acute hypoxic respiratory failure, and pneumonia, health care acquired. Patient is currently being followed by infectious disease service, oncology service, and pulmonary service. Patient is evaluated on selective care unit with family at bedside. Upon examination, patient is feeling better. Currently denies any back pain. Denies chills, fevers, nausea, vomiting, chest pain, or abdominal pain. Patient is currently on 2 L nasal cannula with oxygen saturation of 96 %. Afebrile. Preliminary blood cultures with no growth. Patient remains on IV heparin for bilateral pulmonary embolism. WBC improved to 4.4. Hemoglobin stable at 7.7. Chest x-ray from this morning with evidence of bilateral upper lobe infiltrates stable; mild improvement in the perihilar interstitial changes suggestive of improving congestion. Objective - Vital Signs Vital signs: Vital Signs Temp 97.4 F L 03/26/17 15:11 Pulse 68 03/26/17 15:11 Resp 18 03/26/17 15:11 BP 125/61 03/26/17 15:11 Pulse Ox 94 L 03/26/17 15:11 Intake & Output 03/25/17 03/26/17 03/26/17 18:59 06:59 18:59 Intake Total 1642.324 500 720 Output Total 200 450 Balance 1442.324 50 720 Weight 90.3 kg 90.3 kg Intake: Intake, IV Titration 962.324 500 Amount Cefepime 2 gm In Sodium 100 Chloride 0.9% 50 ml @ 100 mls/hr IVPB Q8H [facility] Rx#: [id number] Heparin Sodium,Porcine/ 362.324 500 D5w Pmx 25,000 unit In Dextrose/Water 1 500ml. bag @ 18 UNITS/KG/HR 30. 37 mls/hr IV .[id number] [facility] Rx#:[id number] Vancomycin 2,000 mg In 500 Sodium Chloride 0.9% 500 ml @ 167 mls/hr IVPB BID [facility] Rx#:[id number] Oral 680 720 Output: Urine 200 450 Other: Voiding Method Urinal Incontinent # Voids 1 1 - Exam GENERAL: Pt awake and alert, in no acute distress. HEAD: Atraumatic, normocephalic. EYES: Pupils equal, round, and reactive to light, sclera anicteric, conjunctiva are normal. ENT: Moist mucous membranes. NECK:Supple without lymphadenopathy or JVD. LUNGS: Breath sounds diminished to auscultation bilaterally. No wheezes, rales , or rhonchi. HEART: Heart S1, S2, no S3 or S4. Regular rate and rhythm. No murmurs, rubs or gallops. ABDOMEN: Soft, nontender, nondistended, normoactive bowel sounds. No guarding, no rebound. No masses or organomegaly appreciated. EXTREMITIES: Palpable peripheral pulses. No edema. No calf tenderness. NEUROLOGICAL: Pt alert and oriented 3. Speech is coherent. Follows commands. SKIN: Warm, dry, intact. Normal turgor. - Labs CBC & Chem 7: 03/26/17 06:15 03/26/17 06:15 Labs: Abnormal Lab Results - Last 24 Hours (Table) 03/26/17 03/26/17 Range/Units 06:15 06:15 RBC 2.43 L (4.30-5.90) m/uL Hgb 7.7 L (13.0-17.5) gm/dL Hct 23.0 L (39.0-53.0) % RDW 19.5 H (11.5-15.5) % Plt Count 145 L (150-450) k/uL Lymphocytes # 0.4 L (1.0-4.8) k/uL Chloride 111 H (98-107) mmol/L Calcium 8.0 L (8.4-10.2) mg/dL Microbiology - Last 24 Hours (Table) 03/22/17 13:05 Blood Culture - Preliminary Blood No Growth after 96 hours 03/20/17 00:31 Blood Culture - Final Blood No Growth after 144 hours Assessment and Plan Plan: Impression and plan: 1. Acute hypoxic respiratory failure, multifactorial secondary to bilateral pneumonia, health care acquired and bilateral pulmonary embolism, improving. Continue titrating down oxygen. Continue IV antibiotics in the form of cefepime and micafungin to cover for Pseudomonas and Mandi in a patient with neutropenic fever. Pulmonary service and infectious disease service following, recommendations noted. 2. Neutropenic sepsis suspect secondary to bilateral pneumonia, improved. Continue IV antibiotics per infectious disease service. Preliminary blood cultures negative. 3. Acute metabolic encephalopathy, suspect secondary to underlying infectious disease process, resolved. 5. Pancytopenia, which is chemotherapy induced. 7. 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 8. Coronary artery disease with multiple stent placements and previous CABG. 9. Bilateral carotid artery disease. 10. Peripheral arterial disease. 11. Hypertension. 12. Degenerative disc disease. 13. BPH. 14. Peripheral neuropathy. Continue to monitor patient. Continue IV antibiotics, transition to oral per Dr. Leos recommendations. Continue current medications. PTT therapeutic and patient will need oral anticoagulation. Need input from hematology for possible initiation of xaralto. Continue to follow with consultants. Continue supportive treatment and pain management. Continue GI and DVT prophylaxis. Continue physical therapy. Repeat labs in a.m. The above impression and plan have been discussed and directed by Dr. Schwartz. Camron CALDERA acting as scribe for Dr. Schwartz.
[2017-03-26] MEDS: MICAFUNGIN 150 MG in SODIUM CHLORIDE 0.9% 100 ML IVPB SCH (18:06)
[2017-03-26] MEDS: FILGRASTIM-SNDZ 480 MCG/0.8 ML SYRINGE SQ SCH (18:06)
[2017-03-26] MEDS: TAMSULOSIN 0.4 MG CAP.ER.24H PO SCH (20:38)
[2017-03-26] MEDS: ATORVASTATIN 40 MG TAB PO SCH (20:38)
[2017-03-26] MEDS: MIRTAZAPINE 15 MG TAB PO SCH (20:38)
--- NOTE | 2017-03-26 20:57 | P.PN ---
Subjective Principal diagnosis: Fever 66-year-old male with a known history of progressive back pain. Follow 2016. MRI revealed evidence of what appeared to be metastasis. He was taken the operating room and had stabilization and biopsy. Without evidence of metastatic carcinoma of renal primary. PET scan revealed evidence of the osseous metastasis. He's been treated with high doses of steroids which have caused some difficulties with his mentation. He is now completed his course of radiation therapy and is receiving pazopanib therapy for his metastatic renal cell carcinoma. Patient presents the emergency center with altered mental status. Fever, hypotension and shortness of breath. Evaluation revealed evidence of bilateral pulmonary emboli which is now being treated. Cultures are in process because of his fever and the infectious diseases consultation was requested. The patient is now much improved from prior. As his fever improved his mentation improves. Temperature 98 today. Overall improved. Mentation is improved. Still quite confused at times. Is on a heparin drip for the PE and maybe transition to Xarelto if okayed by hematology. Objective - Vital Signs Vital signs: Vital Signs Temp 98.9 F 03/26/17 20:00 Pulse 82 03/26/17 20:00 Resp 18 03/26/17 20:00 BP 128/57 03/26/17 20:00 Pulse Ox 93 L 03/26/17 20:00 Intake & Output 03/26/17 03/26/17 03/27/17 06:59 18:59 06:59 Intake Total 500 720 Output Total 450 Balance 50 720 Weight 90.3 kg 90.3 kg Intake: Intake, IV Titration 500 Amount Heparin Sodium,Porcine/ 500 D5w Pmx 25,000 unit In Dextrose/Water 1 500ml. bag @ 18 UNITS/KG/HR 30. 37 mls/hr IV .[id number] [facility] Rx#:[id number] Oral 720 Output: Urine 450 Other: # Voids 1 - Exam 66-year-old male who does have pallor. Is cooperative and pleasant but a poor historian HEENT: Anicteric conjunctiva are pink and moist nasal mucosa grossly intact without significant lesions, there is no thrush. Oral lesions Neck: The neck is supple without significant lymphadenopathy or thyromegaly. Lungs: Symmetrical air entry is noted. Few basilar crackles are heard. No bronchial sounds. Heart: Irregular with an audible S1 and S2 no S3 soft S4 no murmur click or rub Abdomen: Positive bowel sounds soft and nontender without palpable masses or organomegaly. There was no guarding or rebound. Extremities: Extremity have minimal edema but no steady and lesions Neuro: Patient is arousable seems to be appropriate this time. Is a poor historian though. Follows simple commands without difficulty. No gross focal sensory motor deficits are noted - Labs CBC & Chem 7: 03/26/17 06:15 03/26/17 06:15 Labs: Abnormal Lab Results - Last 24 Hours (Table) 03/26/17 03/26/17 Range/Units 06: 06:15 RBC 2.43 L (4.30-5.90) m/uL Hgb 7.7 L (13.0-17.5) gm/dL Hct 23.0 L (39.0-53.0) % RDW 19.5 H (11.5-15.5) % Plt Count 145 L (150-450) k/uL Lymphocytes # 0.4 L (1.0-4.8) k/uL Chloride 111 H (98-107) mmol/L Calcium 8.0 L (8.4-10.2) mg/dL Microbiology - Last 24 Hours (Table) 03/22/17 13:05 Blood Culture - Preliminary Blood No Growth after 96 hours 03/20/17 00:31 Blood Culture - Final Blood No Growth after 144 hours Laboratory Results WBC 4.4 k/uL (3.8-10.6) 03/26/17 06:15 RBC 2.43 m/uL (4.30-5.90) L 03/26/17 06:15 Hgb 7.7 gm/dL (13.0-17.5) L 03/26/17 06:15 Hct 23.0 % (39.0-53.0) L 03/26/17 06:15 MCV 94.4 fL (80.0-100.0) 03/26/17 06:15 MCH 31.7 pg (25.0-35.0) 03/26/17 06:15 MCHC 33.5 g/dL (31.0-37.0) 03/26/17 06:15 RDW 19.5 % (11.5-15.5) H 03/26/17 06:15 Plt Count 145 k/uL (150-450) L 03/26/17 06:15 Neutrophils % 83 % 03/26/17 06:15 Neutrophils % (Manual) 86.0 % 03/20/17 06:42 Band Neutrophils % 6.0 % 03/20/17 06:42 Lymphocytes % 9 % 03/26/17 06:15 Lymphocytes % (Manual) 2.0 % 03/20/17 06:42 Monocytes % 5 % 03/26/17 06:15 Monocytes % (Manual) 4.0 % 03/20/17 06:42 Eosinophils % 2 % 03/26/17 06:15 Eosinophils % (Manual) 2.0 % 03/20/17 06:42 Basophils % 0 % 03/26/17 06:15 Neutrophils # 3.7 k/uL (1.3-7.7) 03/26/17 06:15 Neutrophils # (Manual) 1.6 k/uL (1.3-7.7) 03/20/17 06:42 Lymphocytes # 0.4 k/uL (1.0-4.8) L 03/26/17 06:15 Lymphocytes # (Manual) 0.0 k/uL (1.0-4.8) L 03/20/17 06:42 Monocytes # 0.2 k/uL (0-1.0) 03/26/17 06:15 Monocytes # (Manual) 0.1 k/uL (0-1.0) 03/20/17 06:42 Eosinophils # 0.1 k/uL (0-0.7) 03/26/17 06:15 Eosinophils # (Manual) 0.0 k/uL (0-0.7) 03/20/17 06:42 Basophils # 0.0 k/uL (0-0.2) 03/26/17 06:15 Nucleated RBCs 0 /100 WBC (0-0) 03/20/17 06:42 Manual Slide Review Performed 03/20/17 06:42 Polychromasia Present 03/20/17 06:42 Hypochromasia Slight 03/25/17 06:03 Poikilocytosis Slight 03/26/17 06:15 Anisocytosis Slight 03/26/17 06:15 Macrocytosis Slight 03/26/17 06:15 Retic Count 3.2 % (0.5-2.0) H 03/21/17 04:56 Haptoglobin 254.0 mg/dL (31.2-198.0) H 03/20/17 06:42 PT 12.7 sec (9.0-12.0) H 03/20/17 17:18 INR 1.3 (<1.1) 03/20/17 17:18 APTT 49.3 sec (22.0-30.0) H 03/25/17 09:32 Fibrinogen 460 mg/dL (200-500) 03/20/17 17:18 Sodium 142 mmol/L (137-145) 03/26/17 06:15 Potassium 3.9 mmol/L (3.5-5.1) 03/26/17 06:15 Chloride 111 mmol/L (98-107) H 03/26/17 06:15 Carbon Dioxide 25 mmol/L (22-30) 03/26/17 06:15 Anion Gap 6 mmol/L 03/26/17 06:15 BUN 13 mg/dL (9-20) 03/26/17 06:15 Creatinine 0.99 mg/dL (0.66-1.25) 03/26/17 06:15 Est GFR (MDRD) Af Amer >60 (>60 ml/min/1.73 sqM) 03/26/17 06:15 Est GFR (MDRD) Non-Af >60 (>60 ml/min/1.73 sqM) 03/26/17 06:15 Glucose 89 mg/dL (74-99) 03/26/17 06:15 POC Glucose (mg/dL) 79 mg/dL (75-99) 03/20/17 01:27 POC Glu [employer] Motor Operator ИРИНА Deon Jia 03/20/17 01:27 Plasma Lactic Acid John 0.8 mmol/L (0.7-2.0) 03/20/17 06:42 Calcium 8.0 mg/dL (8.4-10.2) L 03/26/17 06:15 Phosphorus 3.0 mg/dL (2.5-4.5) 03/23/17 04:55 Magnesium 2.0 mg/dL (1.6-2.3) 03/22/17 04:16 Total Bilirubin 0.9 mg/dL (0.2-1.3) 03/20/17 00:31 AST 56 U/L (17-59) 03/20/17 00:31 ALT 42 U/L (21-72) 03/20/17 00:31 Alkaline Phosphatase 82 U/L (38-126) 03/20/17 00:31 Ammonia 16 umol/L (<30) 03/19/17 12:16 Lactate Dehydrogenase 1143 U/L (313-618) H 03/20/17 06:42 Total Creatine Kinase 810 U/L (55-170) H 03/19/17 12:16 CK-MB (CK-2) 2.2 ng/mL (0.0-2.4) 03/20/17 00:31 CK-MB (CK-2) Rel Index 0.2 03/19/17 12:16 Troponin I <0.012 ng/mL (0.000-0.034) 03/20/17 00:31 Total Protein 5.6 g/dL (6.3-8.2) L 03/20/17 00:31 Albumin 3.1 g/dL (3.5-5.0) L 03/20/17 00:31 Urine Color Yellow 03/20/17 00:25 Urine Appearance Clear (Clear) 03/20/17 00:25 Urine pH 5.5 (5.0-8.0) 03/20/17 00:25 Ur Specific [place] 1.027 (1.001-1.035) 03/20/17 00:25 Urine Protein Trace (Negative) H 03/20/17 00:25 Urine Glucose (UA) Negative (Negative) 03/20/17 00:25 Urine Ketones Negative (Negative) 03/20/17 00:25 Urine Blood Negative (Negative) 03/20/17 00:25 Urine Nitrite Negative (Negative) 03/20/17 00:25 Urine Bilirubin Negative (Negative) 03/20/17 00:25 Urine Urobilinogen 2.0 mg/dL (<2.0) 03/20/17 00:25 Ur Leukocyte Esterase Negative (Negative) 03/20/17 00:25 Urine RBC <1 /hpf (0-5) 03/19/17 14:53 Urine WBC 5 /hpf (0-5) 03/19/17 14:53 Ur Squamous Epith Cells <1 /hpf (0-4) 03/19/17 14:53 Amorphous Sediment Rare /hpf (None) H 03/19/17 14:53 Hyaline Casts 26 /lpf (0-2) H 03/19/17 14:53 Urine Mucus Moderate /hpf (None) H 03/19/17 14:53 Vancomycin Trough 20.2 ug/mL 03/24/17 08:08 Blood Type O Negative 03/23/17 14:23 Blood Type Recheck No 03/23/17 14:23 Antibody Screen NEGATIVE 03/23/17 14:23 Crossmatch See Detail 03/23/17 14:23 Spec Expiration Date 03/26/2017232203/23/17 14:23 Microbiology 03/22/17 13:05 Blood Blood Culture - Preliminary No Growth after 96 hours 03/20/17 00:31 Blood Blood Culture - Final No Growth after 144 hours 03/20/17 00:25 Urine,Catheterized Urine Culture - Final 03/19/17 14:53 Urine,Catheterized Urine Culture - Final Assessment and Plan (1) Pancytopenia due to antineoplastic chemotherapy Narrative/Plan: 66-year-old male who had the sudden onset of back pain that worsened rapidly. Prior to this he was a very active gentleman. 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 He is now status post his radiation therapy and initiation of chemotherapy. He now is presenting with significant fever shortness of breath and altered mental status. His mental status has been quite difficult while he has been on high- dose steroid therapy. The patient presented with some shortness of breath and computed tomography scan did reveal evidence of bilateral pulmonary emboli. Consequently the pulmonary emboli, the febrile neutropenia and the recent chemotherapy are all significant reasons for his current fever. He is requiring several modalities to control his fever. As his PE is treated and underlying febrile neutropenia is treated with expectant his fevers to also improve. Multiple cultures are in process. If he is febrile again blood culture should be repeated. He is developing hematology oncology and growth factors have been started to improve his significant leukopenia. Ongoing supportive care. Pain management appears to be adequate With the febrile neutropenia being treated with cefepime and vancomycin which are adequate choices at this point in time. To WBC count is increased to 2.9 Hemoglobin and platelets are also improving. Likely showing some bone marrow recovery. Cultures do remain negative fevers have resolved. Appears to be showing some ongoing improvement. Vancomycin is discontinued. Can transition to oral antibiotic therapy Levaquin and fluconazole for 7 days. Status: Acute (2) Renal cell carcinoma Status: Acute (3) Fever Status: Acute
[2017-03-27] MEDS: HEPARIN SODIUM,PORCINE/D5W PMX 25,000 UNIT in DEXTROSE/WATER 1 500ML.BAG IV SCH (02:34)
[2017-03-27] MEDS: CEFEPIME 2 GM in SODIUM CHLORIDE 0.9% 50 ML IVPB SCH ×2 (02:34→09:21)
[2017-03-27 07:18] LABS: Anisocytosis Slight; Basophils % (A) 0 %; CH 31.8; CHCM 32.8; Eosinophils # (A) 0.1 k/uL (0-0.7); Eosinophils % (A) 1 %; HCT 24.6 % (39.0-53.0); HDW 3.84; HGB 8.1 gm/dL (13.0-17.5); Hypochromasia Slight; Luc # (Auto) 0.08; Luc % (Auto) 1; Lymphocytes # (A) 0.5 k/uL (1.0-4.8); Lymphocytes % (A) 8 %; MCH 32.1 pg (25.0-35.0); MCHC 32.7 g/dL (31.0-37.0); MCV 97.9 fL (80.0-100.0); Macrocytosis Slight; Mean Platelet Volume 7.8; Monocytes # (A) 0.2 k/uL (0-1.0); Monocytes % (A) 4 %; Neutrophils # (A) 5.6 k/uL (1.3-7.7); Neutrophils % (A) 87 %; Poikilocytosis Slight; RBC 2.51 m/uL (4.30-5.90); RDW 19.8 % (11.5-15.5); WBC 6.4 k/uL (3.8-10.6); WBC (Perox) 6.45
[2017-03-27 07:55] LABS: Anion Gap 9 mmol/L; Blood Urea Nitrogen 14 mg/dL (9-20); Calcium 8.3 mg/dL (8.4-10.2); Carbon Dioxide 25 mmol/L (22-30); Chloride 109 mmol/L (98-107); Glucose 96 mg/dL (74-99); Non-African American GFR(MDRD) >60 (>60 ml/min/1.73 sqM); Potassium 3.6 mmol/L (3.5-5.1); Sodium 143 mmol/L (137-145)
[2017-03-27 08:39] VITALS: BP 147/70; PULSE 63; RESP 18; TEMP 97.8
[2017-03-27] MEDS: MORPHINE SULFATE ER 30 MG TABLET PO SCH (09:19)
[2017-03-27] MEDS: ISOSORBIDE MONONITRATE ER 30 MG TAB.ER.24H PO SCH (09:21)
[2017-03-27] MEDS: METOPROLOL TARTRATE 50 MG TAB PO SCH (09:22)
[2017-03-27] MEDS: ASPIRIN 81 MG CHEW PO SCH (09:22)
[2017-03-27] MEDS: LISINOPRIL 20 MG TAB PO SCH (09:22)
[2017-03-27] MEDS: CLOPIDOGREL 75 MG TAB PO SCH (09:23)
[2017-03-27] MEDS ORDERED: RIVAROXABAN 15 MG TAB PO SCH (09:30)
--- NOTE | 2017-03-27 12:16 | P.PN ---
Subjective Principal diagnosis: Acute hypoxic respiratory failure secondary to bilateral pneumonia and pulmonary embolism 58-year-old male patient was hospitalized yesterday because of altered mental status and shortness of breath. 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 The patient had back pain for quite some time and further investigation including a laminectomy that was done on the lumbar spine establish the diagnosis. Laminectomy was done to for ongoing back pain and diagnostic purposes. Following that, the patient was sent to radiation oncology and the patient was receiving palliative radiation therapy to his back. He was also started on Votrient as systemic treatment for his renal cell carcinoma. He has already received his of radiation and he is also on systemic treatment. Over the past 2 weeks, the patient was on and off confused. He was having some changes in his personality. At times he was having aggressive behavior to his family members and his . No headache. No neck stiffness. No chills. No fever. Over the past 24 hours, the patient's condition got worse and he started having increased shortness of breath. I was asked to evaluate this patient last night around 2 or 3 AM. At that time the patient was quite hypoxic , tachycardic and he was in the 100% on a beta facemask saturating around 88-89% . He was hospitalized with a low white count of 1.7. He was also febrile and he presented with a temperature of 11.8 and he had a T-max of 103.5. . Based on this, the patient was immediately moved to the intensive care unit. A stat computed tomography scan of the chest was done and showed subsegmental pulmonary emboli in the lung bases bilaterally. The patient also had a lateral upper lobe pulmonary infiltrates typical of an underlying pneumonia. The patient was started on IV heparin. The patient was started on a combination of cefepime and vancomycin. He was also given a total of 3 days of IV fluid and currently is on a maintenance of 0.9 at the rate of 100 mL an hour. No headache. Neurologically he is lethargic yet arousable and awake. He is following simple commands. On and off still confused. Family is at the bedside. Follow-up hemoglobin today's at 7.6. Platelet have dropped also to 78 ,000. Lactic acid level was elevated at 4.5 and stone to 0.8 On 03/21/2017 the patient is being seen in follow-up. Still on 100% nonrebreather facemask. On IV heparin regarding pulmonary embolism. Still on broad-spectrum antibiotics regarding pneumonia and neutropenic fever/sepsis. The patient is more comfortable compared to yesterday. He is less short of breath. He remains leukopenic and he was given Zarxio in that regard. Oncology is on the case. He is hemodynamically stable. ID evaluated the patient. No further adjustment of antibiotic coverage for now. All of the cultures of been negative. The hemoglobin is also low at 7.1 he had stable compared to yesterday. No signs of any GI bleeding. Platelet counts while on IV heparin is at 80. No signs of DIC at this point. On 03/22/2017 I'm seeing this patient in follow-up. Clinically is improved. Oxygenation is still an issue as the patient is still desaturating once taken off the 100% nonrebreather facemask. I think there may be a component of fluid overload as the patient was aggressively resuscitated IV fluids. White cell count remains low at 2.0. The patient remains on IV heparin. The patient is on broad-spectrum antibiotics and he is currently on a combination of cefepime and vancomycin. The patient is afebrile. The patient is hemodynamically stable. The patient is tolerating diet and had breakfast this morning. No change in mental status. He seems to be much more pleasant at this point. Family is at the bedside. On 03/23/2017, patient seems to be doing a bit better, breathing easier, saturating well on a high flow nasal cannula, patient will receive more Lasix a day because the chest x-ray is still suggestive of fluid overload and pulmonary edema. Labs continued to show pancytopenia with low WBC count, low hemoglobin of 7.0, and platelets are also low. PTT is 53.6. Basic metabolic profile is normal. I reviewed the chest x-ray, and I felt the patient will likely benefit from more diuretics, and Lasix 40 mg IV push was ordered. On 03/24/2017, patient continues to do relatively well. Remains on heparin therapy for his pulmonary embolism. WBC count is up to 2.2 today, hemoglobin is up to 7.9. PTT is therapeutic at 46. Basic metabolic profile is relatively normal renal profile is normal. Patient is sleepy, apparently did not get much sleep last night. Remains on diuretics for presumptive some component of fluid overload and pulmonary edema. On 03/25/2017, patient is feeling better, breathing a lot easier. remains on heparin , hemoglobin is 7.6, WBC count is up to 2.9 PTT is therapeutic at 49.3 basic metabolic profile is relatively normal. renal profile is normal. On 03/26/2017, patient continues to do better, his labs are improving. WBC count is coming up, he is feeling better overall, remains on antibiotics for his pneumonia, remains on heparin however that could be switched to Xarelto if agreeable with the aviation maintenance technician on the case. Hemoglobin is holding at 7.7. WBC count is 4.4. Platelets are 145. Basic metabolic profile is normal. On 03/27/2017, patient continues to gradually improve, chest x-ray from yesterday also showed significant improvement. Labs are also showing improvement with WBC count of 6.4 today, hemoglobin is 8.1, basic metabolic profile is normal. Hence discussed with the admitting physician's nurse practitioner that the patient could be considered for discharge home. Patient is refusing discharge to [facility]. Objective - Vital Signs Vital signs: Vital Signs Temp 97.8 F 03/27/17 08:00 Pulse 63 03/27/17 08:00 Resp 18 03/27/17 09:54 BP 147/70 03/27/17 08:00 Pulse Ox 95 03/27/17 09:54 Intake & Output 03/26/17 03/27/17 03/27/17 18:59 06:59 18:59 Intake Total 720 540 Output Total 225 Balance 720 315 Weight 90.3 kg 89.1 kg Intake: IV 40 NS 40 Intake, IV Titration 500 Amount Heparin Sodium,Porcine/ 500 D5w Pmx 25,000 unit In Dextrose/Water 1 500ml. bag @ 18 UNITS/KG/HR 30. 37 mls/hr IV .[id number] [facility] Rx#:[id number] Oral 720 Output: Urine 225 - Exam Physical Exam: Revealed a 66-year-old white male in no distress. HEENT:[Neck is supple.] [No neck masses.] [No thyromegaly.] [No JVD.] Chest: [Diminished breath sounds at the bases no crackles or rhonchi or wheezes] Cardiac Exam: [Normal S1 and S2, no S3 gallop, no murmur.] Abdomen: [Soft, nontender, no megaly, no rebound, no guarding, normal bowel sounds.] Extremities: [No clubbing, 1+ bipedal edema, no cyanosis.] Neurological Exam: [No focal neurologic deficit.] - Labs CBC & Chem 7: 03/27/17 06:40 03/27/17 06:40 Labs: Abnormal Lab Results - Last 24 Hours (Table) 03/27/17 03/27/17 03/27/17 Range/Units 06:40 06:40 06:40 RBC 2.51 L (4.30-5.90) m/uL Hgb 8.1 L (13.0-17.5) gm/dL Hct 24.6 L (39.0-53.0) % RDW 19.8 H (11.5-15.5) % Lymphocytes # 0.5 L (1.0-4.8) k/uL APTT 43.0 H (22.0-30.0) sec Chloride 109 H (98-107) mmol/L Calcium 8.3 L (8.4-10.2) mg/dL Microbiology - Last 24 Hours (Table) 03/22/17 13:05 Blood Culture - Preliminary Blood No Growth after 96 hours Assessment and Plan Plan: 1 acute hypoxic respiratory failure multifactorial, secondary to bilateral pneumonia and bilateral pulmonary embolism. Patient is on a combination of cefepime and vancomycin , micafungin,and the patient is on IV heparin at the time being. He is on nasal cannula, breathing is improved. On , the patient remains on high flow nasal cannula and I think should be able to gradually wean him down on his FiO2 if his saturation remains above 90%. He remains on the same antibiotic coverage. He remains on IV heparin regarding the pulmonary embolism. Cultures are being monitored. PTT is being monitored while on IV heparin. No chest pain. On 03/22/2017 the patient is still having difficulties with oxygenation. Clinically however is improved. We'll going to try high flow oxygen discontinued the 100% nonrebreather facemask. We will also going to start some gentle diuresis on this patient cut down his IV fluids. On 03/23/2017, patient is marginal, but seems to be improved compared to the last few days, hence I will plan to transfer the patient to a monitored bed on selective today. On 03/24/2017, patient is improving but slowly. His pancytopenia seems to be a bit better. 2 acute febrile neutropenia, resolved 3 sepsis secondary to bilateral pneumonia, and leukopenia. The cultures remain negative and the patient was started on Zarxio 4 metastatic renal cell carcinoma with metastases to the back/skeletal system 5 Mental status change, a combination of sepsis, delirium that could've been secondary to systemic steroids on outpatient basis. MRI of the brain is negative. 6 Coronary artery disease with a previous carotid bypass surgery and multiple coronary stent insertion 7 bilateral carotid artery disease 8 peripheral vascular disease 9 hypertension 10 degenerative arthritis 11 prostate enlargement 12 peripheral neuropathy 13 pancytopenia , improving Recommendation: Continue present meds, continue antibiotics, few more days of Levaquin, placed on Xarelto, agree with discharge planning home today. Patient will likely need to be on home oxygen at 2 L nasal cannula if he desaturates on room air. Time with Patient: Less than 30
== END 2017-03-27 14:18 | disposition home health service (06) | DRG 871 ==
LOC: EC 11:55 → 5MS5E 15:25 → 6ICU 03-20 00:58 → 6SEL 03-23 21:50
PROVIDERS: ADMIT Family Medicine; ATTEND Family Medicine
DX: A41.9 Sepsis, unspecified organism (principal); D61.810 Antineoplastic chemotherapy induced pancytopenia; I26.99 Other pulmonary embolism without acute cor pulmonale; J96.01 Acute respiratory failure with hypoxia; G93.41 Metabolic encephalopathy; J81.0 Acute pulmonary edema; D70.3 Neutropenia due to infection; E87.70 Fluid overload, unspecified; J18.9 Pneumonia, unspecified organism; C79.51 Secondary malignant neoplasm of bone; C64.9 Malignant neoplasm of unspecified kidney, except renal pelvis; G62.9 Polyneuropathy, unspecified; E86.0 Dehydration; E78.5 Hyperlipidemia, unspecified; I10 Essential (primary) hypertension; I25.10 Atherosclerotic heart disease of native coronary artery without angina pectoris; I25.2 Old myocardial infarction; I73.9 Peripheral vascular disease, unspecified; M17.9 Osteoarthritis of knee, unspecified; N40.0 Benign prostatic hyperplasia without lower urinary tract symptoms; T38.0X5A Adverse effect of glucocorticoids and synthetic analogues, initial encounter; T45.1X5A Adverse effect of antineoplastic and immunosuppressive drugs, initial encounter; Y95 Nosocomial condition; Z79.02 Long term (current) use of antithrombotics/antiplatelets; Z79.82 Long term (current) use of aspirin; Z79.899 Other long term (current) drug therapy; Z82.49 Family history of ischemic heart disease and other diseases of the circulatory system; Z87.891 Personal history of nicotine dependence; Z92.3 Personal history of irradiation; Z95.1 Presence of aortocoronary bypass graft; Z95.5 Presence of coronary angioplasty implant and graft
CPT/HCPCS: 36415; 51702; 70450; 70553; 71010; 71020; 71275; 80048; 80053; 80202; 81001; 81003; 82140; 82550; 82553; 83010; 83605; 83615; 83735; 84100; 84132; 84484; 85025; 85045; 85384; 85610; 85730; 86850; 86900; 86901; 86902; 86920; 87040; 87086; 93005; 93306; 93970; 94640; 94660; 94760; 96360; 96361; 99285

== ENCOUNTER 2017-04-07 00:07 | Observation (INO) | payer MEDICARE, BC ==
[2017-04-07] MEDS ORDERED: ASPIRIN 81 MG CHEW PO STA (01:07)
--- NOTE | 2017-04-07 01:54 | XR ---
EXAM: XR Chest, 2 Views CLINICAL HISTORY: Reason: Pain TECHNIQUE: Frontal and lateral views of the chest. COMPARISON: 04/03/17 two-view chest. FINDINGS: Lungs: Pulmonary vascular markings are slightly prominent, stable to mildly improved as is aeration within the upper lung teixeira. There is no new or enlarging infiltrate seen. Pleural space: No definite pleural effusions seen. No pneumothorax. Heart: Stable enlargement of the cardiomediastinal silhouette. Mediastinum: See above. Bones/joints: Bones stable including prior median sternotomy. Soft tissues: Now seen are right lower neck surgical clips. IMPRESSION: Stable to slight improvement in appearance of the pulmonary vascular markings and upper lobe aeration, as above.
[2017-04-07 02:15] LABS: ALT 21 U/L (21-72); AST 20 U/L (17-59); Alkaline Phosphatase 78 U/L (38-126); Anion Gap 9 mmol/L; Anisocytosis Slight; Basophils % (A) 1 %; Blood Urea Nitrogen 11 mg/dL (9-20); CH 31.9; Calcium 8.5 mg/dL (8.4-10.2); Carbon Dioxide 29 mmol/L (22-30); Chloride 106 mmol/L (98-107); Eosinophils # (A) 0.1 k/uL (0-0.7); Eosinophils % (A) 1 %; Glucose 115 mg/dL (74-99); HCT 21.6 % (39.0-53.0); HDW 4.34; HGB 7.1 gm/dL (13.0-17.5); Hypochromasia Moderate; Luc # (Auto) 0.15; Luc % (Auto) 4; Lymphocytes # (A) 0.4 k/uL (1.0-4.8); Lymphocytes % (A) 10 %; MCH 32.2 pg (25.0-35.0); MCV 97.8 fL (80.0-100.0); Macrocytosis Slight; Magnesium 1.7 mg/dL (1.6-2.3); Mean Platelet Volume 7.8; Monocytes # (A) 0.4 k/uL (0-1.0); Monocytes % (A) 9 %; Neutrophils % (A) 75 %; Non-African American GFR(MDRD) >60 (>60 ml/min/1.73 sqM); Poikilocytosis Moderate; Potassium 4.2 mmol/L (3.5-5.1); RBC 2.21 m/uL (4.30-5.90); RDW 19.5 % (11.5-15.5); Sodium 144 mmol/L (137-145); Total Bilirubin 0.5 mg/dL (0.2-1.3); Total Protein 5.1 g/dL (6.3-8.2); WBC (Perox) 4.07
[2017-04-07 02:22] LABS: Partial Thromboplastin Time 33.1 sec (22.0-30.0)
--- NOTE | 2017-04-07 02:47 | ED ---
Chest Pain HPI - General Chief Complaint: Chest Pain Stated Complaint: chest pain Time Seen by Provider: 04/07/17 00:46 Source: patient Mode of arrival: wheelchair Limitations: no limitations - History of Present Illness Initial Comments: This is a 66-year-old male with a history of renal cell carcinoma, ulnar embolism, and CAD who is on Xarelto and Plavix who presents emergency department for chest pain. He states that he had a sharp chest pain that started tonight. He states that it felt like someone was beating him in the chest. He tried taking some nitro which did relieve the pain for short period of time however then it would return. He was given some morphine by the EMS drivers which completely resolved his pain. He denies any associated shortness of breath. No lightheadedness. No nausea or vomiting. No abdominal pain. No black or bloody stools. He denies any other complaints. 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 - Related Data Home Medications Medication Instructions Recorded Confirmed Lisinopril 20 mg PO BID 10/08/14 04/07/17 Metoprolol Tartrate [Lopressor] 12.5 mg PO BID 10/08/14 04/07/17 ALPRAZolam [Xanax] 0.25 mg PO TID PRN 02/19/17 04/07/17 HYDROcodone/APAP 7.5-325MG [[place] 1 tab PO Q6H PRN 02/19/17 04/07/17 7.5-325] Aspirin 162 mg PO BID 03/19/17 04/07/17 Atorvastatin [Lipitor] 80 mg PO HS 03/19/17 04/07/17 Isosorbide Mononitrate ER [Imdur] 30 mg PO DAILY 03/19/17 04/07/17 Methocarbamol [Robaxin-750] 750 mg PO Q8H PRN 03/19/17 04/07/17 Mirtazapine 15 mg PO HS 03/19/17 04/07/17 Morphine Sulfate ER [Ms Contin] 30 mg PO TID 03/19/17 04/07/17 Tamsulosin [Flomax] 0.4 mg PO HS 03/19/17 04/07/17 Previous Rx's Medication Instructions Recorded Clopidogrel [Plavix] 75 mg PO DAILY #30 tab 03/05/16 Docusate [Colace] 100 mg PO BID PRN #30 capsule 10/31/16 Nitroglycerin Sl Tabs [Nitrostat] 0.4 mg SUBLINGUAL Q5M PRN #50 tab 10/31/16 Fluconazole [Diflucan] 150 mg PO DAILY #7 tab 03/27/17 Levofloxacin [Levaquin] 750 mg PO DAILY #7 tab 03/27/17 Rivaroxaban [Xarelto] 15 mg PO BID #21 tab 03/27/17 Rivaroxaban [Xarelto] 20 mg PO DAILY #30 tab 03/27/17 Allergies Allergy/AdvReac Type Severity Reaction Status Date / Time No Known Allergies Allergy Verified 03/19/17 12:03 Review of Systems ROS Statement: Those systems with pertinent positive or pertinent negative responses have been documented in the HPI. ROS Other: All systems not noted in ROS Statement are negative. 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, BPH, hypertension, the patient also has severe peripheral vascular disease Last Myocardial Infarction Date:: 09/2014 History of Any Multi-Drug Resistant Organisms: None Reported Past Surgical History: Coronary Bypass/CABG, Heart Catheterization With Stent, Prostate Surgery Additional Past Surgical History / Comment(s): Coronary artery bypass surgery 1994, artery catheterization and multiple stent insertion, carotid endarterectomy bilateral in 2008 and 2014, testicular surgery, angiogram with arch study Alfonso prostate surgery, left shoulder surgery, laminectomy, bilateral knee surgeries and insertion of femoral stents for severe peripheral vascular disease Past Anesthesia/Blood Transfusion Reactions: No Reported Reaction Date of Last Stent Placement:: 2015 Past Psychological History: No Psychological Hx Reported Smoking Status: Former smoker Past Alcohol Use History: Occasional Additional Past Alcohol Use History / Comment(s): 6 DRINKS PER MO AVG. PT STARTED SMOKING AGE 10, QUIT AT AGE 43 WAS SMOKING 1 PPD Past Drug Use History: None Reported - Past Family History Mother Additional Family Medical History / Comment(s): AT AGE 91-NATURAL [place] Father Family Medical History: Myocardial Infarction ([place]) Additional Family Medical History / Comment(s): AT AGE 64 General Exam - General Exam Comments Initial Comments: Constitutional: Awake alert Appears comfortable, appears pale Head: Normocephalic atraumatic Eyes: no conjunctival injection No scleral icterus EOMI Neck: No JVD Supple Heart: Regular rate rhythm normal S1-S2 no murmurs Lungs: Clear to auscultation bilaterally No wheezing No rales Abdomen: Soft nondistended nontender Extremities: Non edematous DP pulses intact Radial pulses intact Neuro: A&Ox3 No focal neurologic deficits Psych: Appropriate mood and affect Limitations: no limitations Course Vital Signs 04/07/17 04/07/17 00:08 01:12 Temperature 97.9 F Pulse Rate 82 65 Respiratory 20 18 Rate Blood Pressure 114/68 155/72 O2 Sat by Pulse 90 L 94 L Oximetry - Reevaluation(s) Reevaluation #1: 04/07/17 02:46 EKG showing sinus rhythm with a rate of 74. No abnormal ST segment changes or T -wave inversions. QTC is 503. Other intervals are normal. No ectopy. Chest Pain MDM - MDM Is a 58-year-old male presented for chest pain. Does have a significant history of CAD. Workup appears essentially unremarkable. The patient is noted be anemic however this appears to be chronic in nature. He denies any dark or bloody stools. I like to keep him in the hospital because of his history of CAD for further evaluation by cardiology. Dr. Schwartz except admission. We did discuss starting heparin however since the patient is on Plavix and Xarelto were going to hold off as best she since his hemoglobin is 7.1. Put Dr. Daly on consult. Disposition Clinical Impression: Chest pain Disposition: ADMITTED IP TO THIS HOSP Condition: Stable
[2017-04-07] MEDS ORDERED: NITROGLYCERIN SL TABS 0.4 MG TAB SUBLINGUAL PRN (02:52)
[2017-04-07] MEDS ORDERED: METHOCARBAMOL 750 MG TAB PO PRN (02:54)
[2017-04-07] MEDS ORDERED: DOCUSATE 100 MG CAP PO PRN (02:54)
[2017-04-07 06:50] LABS: Creatine Kinase 35 U/L (55-170)
[2017-04-07 07:01] LABS: Creatine Kinase MB 0.8 ng/mL (0.0-2.4); Troponin I <0.012 ng/mL (0.000-0.034)
[2017-04-07] MEDS ORDERED: ASPIRIN 81 MG CHEW PO SCH (09:00)
[2017-04-07] MEDS: LISINOPRIL 20 MG TAB PO SCH ×2 (09:02→21:06)
[2017-04-07] MEDS: FLUCONAZOLE 150 MG TAB PO SCH (09:03)
[2017-04-07] MEDS: ISOSORBIDE MONONITRATE ER 30 MG TAB.ER.24H PO SCH (09:03)
[2017-04-07] MEDS: RIVAROXABAN 15 MG TAB PO SCH ×2 (09:03→21:06)
[2017-04-07] MEDS: LEVOFLOXACIN 750 MG TAB PO SCH (09:03)
[2017-04-07] MEDS: CLOPIDOGREL 75 MG TAB PO SCH (09:04)
[2017-04-07] MEDS: MORPHINE SULFATE ER 30 MG TABLET PO SCH ×2 (09:17→18:56)
--- NOTE | 2017-04-07 11:35 | P.HPIM ---
History of Present Illness H&P Date: 04/07/17 Chief Complaint: Chest pain Patient is a 66-year-old male, patient of Dr. 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 Patient was recently hospitalized from 03/19/2017-03/27/2017 with evidence of neutropenic sepsis secondary to bilateral pneumonia and patient was also found to have acute bilateral pulmonary emboli. On this admission, patient presented to the emergency department with complaints of chest pain. The patient is a somewhat poor historian and no family is at bedside. Patient reports after he went to bed last night he woke up feeling "wet" and felt like "somebody was hitting his left arm with a whip." Patient states she also had a little bit of pain in his right arm but not as severe as to left arm. No history of nausea, vomiting, or shortness of breath.. Patient states he took 2 nitroglycerins which helped relieve the pain. Chest x-ray in the emergency department show stable to slight improvement in appearance of the pulmonary vascular markings and upper lobe aerations compared to previous x-ray. EKG on admission with evidence of normal sinus rhythm with premature atrial complexes and nonspecific ST abnormalities. Admission labs on admission revealed patient to be anemic with a hemoglobin of 7.1. Troponins 0.013 and 0.012. Patient was admitted to the observation unit with consult to cardiology. Upon exam, patient reports improvement in pain. Patient reports mild discomfort to his chest. Denies chills, fevers, nausea, vomiting, shortness of breath, abdominal pain, diarrhea, constipation, urinary frequency, dysuria, hematuria. Denies melena or hematochezia. Patient reports good appetite. Past Medical History Past Medical History: Coronary Artery Disease (CAD), Cancer, Chest Pain / Angina , Hyperlipidemia, Hypertension, Myocardial Infarction ([place]), Myocardial Infarction (non Q-wave), Osteoarthritis (OA), Prostate Disorder Additional Past Medical History / Comment(s): Metastatic renal cell carcinoma, coronary artery disease with previous non-ST segment elevation myocardial infarction in September 2014 and the patient has had coronary stent inserted in 2012 and 2013, 2016 peripheral neuropathy, 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, BPH, hypertension, the patient also has severe peripheral vascular disease Last Myocardial Infarction Date:: 09/2014 History of Any Multi-Drug Resistant Organisms: None Reported Past Surgical History: Coronary Bypass/CABG, Heart Catheterization With Stent, Prostate Surgery Additional Past Surgical History / Comment(s): Coronary artery bypass surgery 1994, artery catheterization and multiple stent insertion, carotid endarterectomy bilateral in 2008 and 2014, testicular surgery, angiogram with arch study Alfonso prostate surgery, left shoulder surgery, laminectomy, bilateral knee surgeries and insertion of femoral stents for severe peripheral vascular disease Past Anesthesia/Blood Transfusion Reactions: No Reported Reaction Date of Last Stent Placement:: 2015 Past Psychological History: No Psychological Hx Reported Smoking Status: Former smoker Past Alcohol Use History: Occasional Additional Past Alcohol Use History / Comment(s): 6 DRINKS PER [place] AVG. PT STARTED SMOKING AGE 10, QUIT AT AGE 43 WAS SMOKING 1 PPD Past Drug Use History: None Reported - Past Family History Mother Additional Family Medical History / Comment(s): AT AGE 91-NATURAL [place] Father Family Medical History: Myocardial Infarction ([place]) Additional Family Medical History / Comment(s): AT AGE 64 Medications and Allergies Home Medications Medication Instructions Recorded Confirmed Type Lisinopril 20 mg PO BID 10/08/14 04/07/17 History ALPRAZolam [Xanax] 0.25 mg PO TID PRN 02/19/17 04/07/17 History HYDROcodone/APAP 7.5-325MG [[place] 1 tab PO Q6H PRN 02/19/17 04/07/17 History 7.5-325] Aspirin 162 mg PO BID 03/19/17 04/07/17 History Atorvastatin [Lipitor] 80 mg PO HS 03/19/17 04/07/17 History Isosorbide Mononitrate ER [Imdur] 30 mg PO DAILY 03/19/17 04/07/17 History Methocarbamol [Robaxin-750] 750 mg PO Q8H PRN 03/19/17 04/07/17 History Mirtazapine 15 mg PO HS 03/19/17 04/07/17 History Morphine Sulfate ER [Ms Contin] 30 mg PO TID 03/19/17 04/07/17 History Tamsulosin [Flomax] 0.4 mg PO HS 03/19/17 04/07/17 History Metoprolol Tartrate [Lopressor] 12.5 mg PO BID 04/07/17 04/07/17 History Allergies Allergy/AdvReac Type Severity Reaction Status Date / Time No Known Allergies Allergy Verified 04/07/17 07:57 Physical Exam Vitals: Vital Signs Temp Pulse Resp BP Pulse Ox 04/07/17 07:54 97.7 F 60 16 134/56 95 04/07/17 01:12 65 18 155/72 94 L 04/07/17 00:08 97.9 F 82 20 114/68 90 L Intake and Output 04/06/17 04/07/17 04/07/17 22:59 06:59 14:59 Other: Weight 86.183 kg GENERAL: Pt awake and alert, in no acute distress. HEAD: Atraumatic, normocephalic. EYES: Pupils equal, round, and reactive to light, sclera anicteric, conjunctiva are normal. ENT: Moist mucous membranes. NECK:Supple without lymphadenopathy or JVD. LUNGS: Breath sounds diminished to auscultation bilaterally. No wheezes, rales , or rhonchi. HEART: Heart S1, S2, no S3 or S4. Regular rate and rhythm. No murmurs, rubs or gallops. ABDOMEN: Soft, nontender, nondistended, normoactive bowel sounds. No guarding, no rebound. No masses or organomegaly appreciated. EXTREMITIES: Palpable peripheral pulses. No edema. No calf tenderness. NEUROLOGICAL: Pt alert and oriented 3. Speech is coherent. Follows commands. SKIN: Warm, dry, intact. Normal turgor. Results CBC & Chem 7: 04/07/17 01:00 04/07/17 01:00 Labs: Abnormal Lab Results - Last 24 Hours (Table) 04/07/17 04/07/17 04/07/17 Range/Units 01:00 01:00 01:00 RBC 2.21 L (4.30-5.90) m/uL Hgb 7.1 L (13.0-17.5) gm/dL Hct 21.6 L (39.0-53.0) % RDW 19.5 H (11.5-15.5) % Lymphocytes # 0.4 L (1.0-4.8) k/uL APTT 33.1 H (22.0-30.0) sec Glucose 115 H (74-99) mg/dL Total Creatine Kinase (55-170) U/L Total Protein 5.1 L (6.3-8.2) g/dL Albumin 2.6 L (3.5-5.0) g/dL 04/07/17 Range/Units 05:28 RBC (4.30-5.90) m/uL Hgb (13.0-17.5) gm/dL Hct (39.0-53.0) % RDW (11.5-15.5) % Lymphocytes # (1.0-4.8) k/uL APTT (22.0-30.0) sec Glucose (74-99) mg/dL Total Creatine Kinase 35 L (55-170) U/L Total Protein (6.3-8.2) g/dL Albumin (3.5-5.0) g/dL Chest x-ray: report reviewed Thrombosis Risk Factor Assmnt - DVT/VTE Prophylaxis DVT/VTE Prophylaxis: Pharmacologic Prophylaxis ordered Assessment and Plan Plan: Impression: 1. Chest pain. 2. Anemia, suspect chemotherapy induced. 3. Coronary artery disease with multiple stent placements and previous CABG. 4. 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 5. History of bilateral pneumonia, hospital-acquired, present on admission. 6. History of bilateral pulmonary emboli, present on admission. 7. Bilateral carotid artery disease. 8. Peripheral arterial disease. 9. Hypertension. 10. Degenerative disc disease. 11. BPH. 12. Peripheral neuropathy. Plan: Patient has been admitted to the observation unit with cardiology consult, recommendations pending. Troponins negative 2. Home medications have been reviewed and resumed as appropriate. Continue aspirin 325 mg daily. Continue cardiac monitoring. Repeat CBC and BMP in a.m. The above impression and plan have been discussed and directed by Dr. Schwartz. Camron CALDERA acting as scribe for Dr. Schwartz.
[2017-04-07] MEDS ORDERED: HYDROcodone/APAP 7.5-325MG 1 EACH TAB PO PRN (11:36)
[2017-04-07] MEDS ORDERED: ALPRAZolam 0.25 MG TAB PO PRN (11:36)
[2017-04-07 16:14] LABS: Creatine Kinase 38 U/L (55-170)
[2017-04-07 16:29] LABS: Troponin I <0.012 ng/mL (0.000-0.034)
--- NOTE | 2017-04-07 20:50 | CONS ---
DATE OF CONSULTATION: Mr. Raul Neely is a 66-year-old male patient who gives a rather long-drawn history, but ultimately when he started to talk about the pain, he described this discomfort on the left side of the chest which was quite severe and would last for about 10 to 15 seconds at a time. It recurred 3 times and he came to the emergency room for that. No other symptoms. No nausea, sweating. No shortness of breath. REVIEW OF SYSTEMS: No fever, chills or rigors. No cough or expectoration. No nausea, vomiting or diarrhea. No hematuria or dysuria. No strokes or seizures. No skin lesions or musculoskeletal complaints. His medications at home include: 1. Lisinopril. 2. Metoprolol. 3. Aspirin. 4. Atorvastatin. 5. Isosorbide. 6. Morphine. 7. Flomax. ALLERGIES: NO KNOWN DRUG ALLERGIES. PAST MEDICAL HISTORY: 1. Coronary artery disease. 2. Coronary artery bypass grafting. 3. Coronary stenting to the left circumflex, SVG in October. He stated that his pain was very different from what it was in October. 4. Metastatic renal cell carcinoma. 5. [id number]-elevation in 2013. 6. Multiple coronary stenting. On examination, he looks very pale. His vitals are stable. His blood pressure is 158/74 mmHg. He is afebrile, 98.1 degrees Fahrenheit. Respirations are normal. He is lying comfortably in bed. Head and neck examination is normal. Heart sounds are normal. LUNGS: Clear on auscultation. EXTREMITIES: Warm. No edema. Twelve-lead ECG was reviewed and shows sinus rhythm with nonspecific ST-T wave abnormality. The QT is prolonged. IMPRESSION: 1. Atypical chest discomfort with 3 normal cardiac enzymes. 2. Severe anemia. Hemoglobin is 7. 3. Known coronary artery disease, status post coronary artery bypass grafting and coronary stenting on multiple occasions, most recently in October. SUGGEST: From a cardiac standpoint, the pain is quite atypical. He may follow up with Dr. Daly as an outpatient. Management of anemia per Dr. Schwartz.
[2017-04-07] MEDS ORDERED: MIRTAZAPINE 15 MG TAB PO SCH (21:00)
[2017-04-07] MEDS ORDERED: ATORVASTATIN 80 MG TAB PO SCH (21:00)
[2017-04-07] MEDS ORDERED: TAMSULOSIN 0.4 MG CAP.ER.24H PO SCH (21:00)
[2017-04-07 21:47] LABS: INR 1.6 (<1.1); Prothrombin Time 15.7 sec (9.0-12.0)
[2017-04-08] MEDS: LISINOPRIL 20 MG TAB PO SCH ×2 (00:50→09:14)
[2017-04-08] MEDS: MORPHINE SULFATE ER 30 MG TABLET PO SCH ×2 (00:50→09:15)
[2017-04-08 08:34] LABS: Anisocytosis Slight; Basophils % (A) 1 %; CH 31.5; CHCM 32.6; Eosinophils % (A) 1 %; HCT 26.3 % (39.0-53.0); HDW 4.21; HGB 8.5 gm/dL (13.0-17.5); Hypochromasia Moderate; Luc # (Auto) 0.11; Luc % (Auto) 3; Lymphocytes # (A) 0.7 k/uL (1.0-4.8); Lymphocytes % (A) 15 %; MCH 31.5 pg (25.0-35.0); MCHC 32.3 g/dL (31.0-37.0); MCV 97.7 fL (80.0-100.0); Macrocytosis Slight; Mean Platelet Volume 7.9; Monocytes # (A) 0.4 k/uL (0-1.0); Monocytes % (A) 10 %; Neutrophils # (A) 3.3 k/uL (1.3-7.7); Neutrophils % (A) 72 %; Poikilocytosis Moderate; RBC 2.69 m/uL (4.30-5.90); RDW 19.1 % (11.5-15.5); WBC 4.6 k/uL (3.8-10.6); WBC (Perox) 4.26
[2017-04-08] MEDS ORDERED: ASPIRIN 325 MG TAB PO SCH (09:00)
[2017-04-08] MEDS: FLUCONAZOLE 150 MG TAB PO SCH (09:14)
[2017-04-08] MEDS: LEVOFLOXACIN 750 MG TAB PO SCH (09:14)
[2017-04-08] MEDS: ISOSORBIDE MONONITRATE ER 30 MG TAB.ER.24H PO SCH (09:14)
[2017-04-08] MEDS: CLOPIDOGREL 75 MG TAB PO SCH (09:14)
[2017-04-08] MEDS: RIVAROXABAN 15 MG TAB PO SCH (09:15)
--- NOTE | 2017-04-08 09:53 | P.PN ---
Progress Note - Text 3 serial cardiac enzymes are normal. Chest discomfort is atypical. His severe anemia he may go to medical floor for medical workup and follow-up with Dr. Villalobos for an outpatient cardiac evaluation
[2017-04-08 11:02] LABS: Anion Gap 11 mmol/L; Blood Urea Nitrogen 11 mg/dL (9-20); Calcium 8.7 mg/dL (8.4-10.2); Carbon Dioxide 26 mmol/L (22-30); Chloride 105 mmol/L (98-107); Cholesterol 127 mg/dL (<200); Glucose 93 mg/dL (74-99); HDL Cholesterol 26 mg/dL (40-60); Non-African American GFR(MDRD) >60 (>60 ml/min/1.73 sqM); Potassium 4.1 mmol/L (3.5-5.1); Sodium 142 mmol/L (137-145); Triglycerides 121 mg/dL (<150)
--- NOTE | 2017-04-08 12:00 | P.DS ---
Providers Date of admission: 04/07/17 02:56 Expected date of discharge: 04/08/17 Attending physician: Luis Schwartz Consults: 04/07/17 02:52 Consult Physician Urgent Consulting Provider: Juan Carlos Daly Reason/Comments: Chest pain Do you want consulting provider notified?: Yes, Notify in am Primary care physician: Luis Schwartz [facility] Course: Patient is a 66-year-old male, patient of Dr. 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 Patient was recently hospitalized from 03/19/2017-03/27/2017 with evidence of neutropenic sepsis secondary to bilateral pneumonia and patient was also found to have acute bilateral pulmonary emboli. On this admission, patient presented to the emergency department with complaints of chest pain. The patient is a somewhat poor historian and no family is at bedside. Patient reports after he went to bed last night he woke up feeling "wet" and felt like "somebody was hitting his left arm with a whip." Patient states she also had a little bit of pain in his right arm but not as severe as to left arm. No history of nausea, vomiting, or shortness of breath.. Patient states he took 2 nitroglycerins which helped relieve the pain. Chest x-ray in the emergency department show stable to slight improvement in appearance of the pulmonary vascular markings and upper lobe aerations compared to previous x-ray. EKG on admission with evidence of normal sinus rhythm with premature atrial complexes and nonspecific ST abnormalities. Admission labs on admission revealed patient to be anemic with a hemoglobin of 7.1. Troponins 0.013 and 0.012. Patient was admitted to the observation unit with consult to cardiology. Patient was evaluated by cardiology service who felt chest discomfort with atypical for acute coronary artery disease. Patient had 3 sets of cardiac enzymes that were normal. Repeat hemoglobin came back at 8.5 without any transfusion. Patient was deemed stable for discharge to home with close follow- up in the outpatient setting with Dr. Daly and Dr. Schwartz. Discharge diagnoses: 1. Chest pain. 2. Anemia, suspect chemotherapy induced. 3. Coronary artery disease with multiple stent placements and previous CABG. 4. 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 5. History of bilateral pneumonia, hospital-acquired, present on admission. 6. History of bilateral pulmonary emboli, present on admission. 7. Bilateral carotid artery disease. 8. Peripheral arterial disease. 9. Hypertension. 10. Degenerative disc disease. 11. BPH. 12. Peripheral neuropathy. The above impression and plan have been discussed and directed by Dr. Schwartz. Camron CALDERA acting as scribe for Dr. Schwartz. Pertinent Studies: EKG; chest x-ray Patient Condition at Discharge: Good Plan - Discharge Summary Discharge Medication List Lisinopril 20 mg PO BID 10/08/14 [History] Clopidogrel [Plavix] 75 mg PO DAILY #30 tab 03/05/16 [Rx] Docusate [Colace] 100 mg PO BID PRN #30 capsule 10/31/16 [Rx] Nitroglycerin Sl Tabs [Nitrostat] 0.4 mg SUBLINGUAL Q5M PRN #50 tab 10/31/16 [Rx ] ALPRAZolam [Xanax] 0.25 mg PO TID PRN 02/19/17 [History] HYDROcodone/APAP 7.5-325MG [[place] 7.5-325] 1 tab PO Q6H PRN 02/19/17 [History] Aspirin 162 mg PO BID 03/19/17 [History] Atorvastatin [Lipitor] 80 mg PO HS 03/19/17 [History] Isosorbide Mononitrate ER [Imdur] 30 mg PO DAILY 03/19/17 [History] Methocarbamol [Robaxin-750] 750 mg PO Q8H PRN 03/19/17 [History] Mirtazapine 15 mg PO HS 03/19/17 [History] Morphine Sulfate ER [Ms Contin] 30 mg PO TID 03/19/17 [History] Tamsulosin [Flomax] 0.4 mg PO HS 03/19/17 [History] Fluconazole [Diflucan] 150 mg PO DAILY #7 tab 03/27/17 [Rx] Levofloxacin [Levaquin] 750 mg PO DAILY #7 tab 03/27/17 [Rx] Rivaroxaban [Xarelto] 20 mg PO DAILY #30 tab 03/27/17 [Rx] Metoprolol Tartrate [Lopressor] 12.5 mg PO BID 04/07/17 [History] Nitroglycerin Sl Tabs [Nitrostat] 0.4 mg SUBLINGUAL Q5M PRN #20 tab 04/08/17 [Rx ] Rivaroxaban [Xarelto] 15 mg PO BID tab 04/08/17 [Rx] Follow up Appointment(s)/Referral(s): Juan Carlos Daly MD [STAFF PHYSICIAN] - 2 Weeks Luis Schwartz DO [Primary Care Provider] - 1-2 days Discharge Disposition: HOME SELF-CARE
[2017-04-08 13:56] VITALS: BP 167/78; PULSE 73; RESP 16; TEMP 98.9
== END 2017-04-08 13:33 | disposition home or self-care (01) ==
LOC: EC 00:07 → 3OBS 02:56
PROVIDERS: ADMIT Family Medicine; ATTEND Family Medicine
DX: R07.89 Other chest pain (principal); D64.9 Anemia, unspecified; I25.10 Atherosclerotic heart disease of native coronary artery without angina pectoris; Z95.1 Presence of aortocoronary bypass graft; Z95.5 Presence of coronary angioplasty implant and graft; C79.51 Secondary malignant neoplasm of bone; C64.9 Malignant neoplasm of unspecified kidney, except renal pelvis; I25.2 Old myocardial infarction; Z79.02 Long term (current) use of antithrombotics/antiplatelets; Z79.01 Long term (current) use of anticoagulants; Z79.899 Other long term (current) drug therapy; Z79.82 Long term (current) use of aspirin; Z79.891 Long term (current) use of opiate analgesic; Z87.891 Personal history of nicotine dependence; Z92.3 Personal history of irradiation; Z92.21 Personal history of antineoplastic chemotherapy; Z86.711 Personal history of pulmonary embolism; I77.89 Other specified disorders of arteries and arterioles; I73.9 Peripheral vascular disease, unspecified; I10 Essential (primary) hypertension; N40.0 Benign prostatic hyperplasia without lower urinary tract symptoms; G62.9 Polyneuropathy, unspecified; E78.5 Hyperlipidemia, unspecified; M19.90 Unspecified osteoarthritis, unspecified site; M54.9 Dorsalgia, unspecified; G89.3 Neoplasm related pain (acute) (chronic)
CPT/HCPCS: 99285 ×2; 36415; 93005; 80061; 80053; 80048; 82550; 82553; 83735; 84484; 85025 ×2; 85610; 85730; 71020; G0378 ×2

== ENCOUNTER 2017-04-20 19:05 | Emergency (ER) | payer MEDICARE, BC ==
[2017-04-20 19:11] VITALS: RESP 18
--- NOTE | 2017-04-20 19:30 | ED ---
General Adult HPI - General Chief complaint: Chest Pain Stated complaint: pain arms Time Seen by Provider: 04/20/17 19:30 Source: patient, family, RN notes reviewed, old records reviewed Mode of arrival: wheelchair Limitations: no limitations - History of Present Illness Initial comments: This is a 58-year-old male here with chest pain and arm pain. Patient's poor strain, patient has history of heart disease. Patient states that the family left afternoon began to have bilateral upper arm pain. Patient states symptoms are worse with moving, no cough or congestion, no significant shortness of breath no diaphoresis. Patient states he gets similar symptoms like this often has multiple cardiac issues - Related Data Home Medications Medication Instructions Recorded Confirmed ALPRAZolam [Xanax] 0.25 mg PO TID PRN 02/19/17 04/20/17 HYDROcodone/APAP 7.5-325MG [[place] 1 tab PO Q6H PRN 02/19/17 04/20/17 7.5-325] Methocarbamol [Robaxin-750] 750 mg PO Q8H PRN 03/19/17 04/20/17 Morphine Sulfate ER [Ms Contin] 30 mg PO W/BRKFST 03/19/17 04/20/17 Tamsulosin [Flomax] 0.4 mg PO HS 03/19/17 04/20/17 Aspirin EC [Ecotrin Low Dose] 162 mg PO BID 04/20/17 04/20/17 Atorvastatin [Lipitor] 80 mg PO HS 04/20/17 04/20/17 Clopidogrel [Plavix] 75 mg PO QAM 04/20/17 04/20/17 Morphine Sulfate ER [Ms Contin 30 mg PO W/SUPPER 04/20/17 04/20/17 30Mg] Morphine Sulfate ER [Ms Contin] 15 mg PO W/LUNCH 04/20/17 04/20/17 Rivaroxaban [Xarelto] 20 mg PO HS 04/20/17 04/20/17 Previous Rx's Medication Instructions Recorded Docusate [Colace] 100 mg PO BID PRN #30 capsule 10/31/16 Nitroglycerin Sl Tabs [Nitrostat] 0.4 mg SUBLINGUAL Q5M PRN #20 tab 04/08/17 Allergies Allergy/AdvReac Type Severity Reaction Status Date / Time No Known Allergies Allergy Verified 04/20/17 19:34 Review of Systems ROS Statement: Those systems with pertinent positive or pertinent negative responses have been documented in the HPI. ROS Other: All systems not noted in ROS Statement are negative. Past Medical History Past Medical History: Coronary Artery Disease (CAD), Cancer, Chest Pain / Angina , Hyperlipidemia, Hypertension, Myocardial Infarction (NM), Osteoarthritis (OA) , Prostate Disorder, Pulmonary Embolus (PE) Additional Past Medical History / Comment(s): Pt recently admitted to [facility] on with AMS/fever/hypotension, beginning of pneumonia, SOB and bilateral PEs. 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, BPH, the patient also has severe peripheral vascular disease Last Myocardial Infarction Date:: 09/2014 History of Any Multi-Drug Resistant Organisms: None Reported Past Surgical History: Coronary Bypass/CABG, Heart Catheterization With Stent, Orthopedic Surgery, Prostate Surgery Additional Past Surgical History / Comment(s): Coronary artery bypass surgery- 3 vessel in 1994, catheterization and multiple stent insertion, carotid endarterectomy bilateral in 2008 and 2014, laser prostate surgery with testicular surgery, angiogram with arch study, left shoulder surgery-removed bone in shoulder blade d/t metastasis, laminectomy, bilateral knee arthroscopic surgeries and insertion of femoral stents for severe peripheral vascular disease Past Anesthesia/Blood Transfusion Reactions: No Reported Reaction Date of Last Stent Placement:: 2015 Past Psychological History: Anxiety, Depression, PTSD Additional Psychological History / Comment(s): Pt resides with his spouse. He has [facility]. He is on O2 at 2L/NC ATC. He is a [employer] . He served over in [place] and [place]. Smoking Status: Former smoker Past Alcohol Use History: None Reported Additional Past Alcohol Use History / Comment(s): 6 DRINKS PER [place] AVG. PT STARTED SMOKING AGE 10, QUIT AT AGE 43 WAS SMOKING 1 PPD Past Drug Use History: None Reported - Past Family History Mother Additional Family Medical History / Comment(s): AT AGE 91-NATURAL CAUSES Father Family Medical History: Myocardial Infarction (NM) Additional Family Medical History / Comment(s): AT AGE 64 General Exam Limitations: no limitations General appearance: alert, in no apparent distress Head exam: Present: atraumatic, normocephalic, normal inspection Eye exam: Present: normal appearance, PERRL, EOMI. Absent: scleral icterus, conjunctival injection, periorbital swelling ENT exam: Present: normal exam, mucous membranes moist Neck exam: Present: normal inspection. Absent: tenderness, meningismus, lymphadenopathy Respiratory exam: Present: normal lung sounds bilaterally. Absent: respiratory distress, wheezes, rales, rhonchi, stridor Cardiovascular Exam: Present: regular rate, normal rhythm, normal heart sounds. Absent: systolic murmur, diastolic murmur, rubs, gallop, clicks GI/Abdominal exam: Present: soft, normal bowel sounds. Absent: distended, tenderness, guarding, rebound, rigid Extremities exam: Present: normal inspection, full ROM, normal capillary refill. Absent: tenderness, pedal edema, joint swelling, calf tenderness Back exam: Present: normal inspection Neurological exam: Present: alert, oriented X3, CN II-XII intact Psychiatric exam: Present: normal affect, normal mood Skin exam: Present: warm, dry, intact, normal color. 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 Reevaluation #2: 04/20/17 21:45 Patient's no longer having any chest pain EKG Findings - EKG Comments: EKG Findings:: EKG shows normal sinus rhythm rate of 76, IA 120, QRS 100, QTC 472 Medical Decision Making - Medical Decision Making 66 male here with chest pain, history of chest pain heart disease, patient does not want stay in the hospital for further evaluation. Patient understands that he could be having symptoms of heart attack, he was in the hospital 2 weeks ago for similar symptoms. Patient states is pretty sure this is just anxiety at this point. He does suffer from anemia and that is improved at this time. No shortness of breath, patient has no pain at this time and again would like to be discharged home, refusing admission - Lab Data Result diagrams: 04/20/17 19:15 04/20/17 19:15 Lab Results 04/20/17 04/20/17 04/20/17 Range/Units 19:15 19:15 19:15 WBC 6.5 (3.8-10.6) k/uL RBC 3.05 L (4.30-5.90) m/uL Hgb 9.3 L (13.0-17.5) gm/dL Hct 30.0 L (39.0-53.0) % MCV 98.4 (80.0-100.0) fL MCH 30.7 (25.0-35.0) pg MCHC 31.2 (31.0-37.0) g/dL RDW 17.3 H (11.5-15.5) % Plt Count 265 (150-450) k/uL Neutrophils % 69 % Lymphocytes % 18 % Monocytes % 7 % Eosinophils % 3 % Basophils % 1 % Neutrophils # 4.4 (1.3-7.7) k/uL Lymphocytes # 1.2 (1.0-4.8) k/uL Monocytes # 0.5 (0-1.0) k/uL Eosinophils # 0.2 (0-0.7) k/uL Basophils # 0.0 (0-0.2) k/uL Hypochromasia Moderate Poikilocytosis Slight Anisocytosis Slight Macrocytosis Slight PT (9.0-12.0) sec INR (<1.1) D-Dimer (<0.60) mg/L FEU Sodium 139 (137-145) mmol/L Potassium 3.8 (3.5-5.1) mmol/L Chloride 108 H (98-107) mmol/L Carbon Dioxide 23 (22-30) mmol/L Anion Gap 8 mmol/L BUN 11 (9-20) mg/dL Creatinine 0.61 L (0.66-1.25) mg/dL Est GFR (MDRD) Af Amer >60 (>60 ml/min/1.73 sqM) Est GFR (MDRD) Non-Af >60 (>60 ml/min/1.73 sqM) Glucose 140 H (74-99) mg/dL Calcium 8.4 (8.4-10.2) mg/dL Phosphorus 2.9 (2.5-4.5) mg/dL Magnesium 1.4 L (1.6-2.3) mg/dL Total Bilirubin 0.7 (0.2-1.3) mg/dL AST 16 L (17-59) U/L ALT 17 L (21-72) U/L Alkaline Phosphatase 93 (38-126) U/L Total Creatine Kinase 54 L (55-170) U/L CK-MB (CK-2) 0.9 (0.0-2.4) ng/mL CK-MB (CK-2) Rel Index 1.7 Troponin I <0.012 (0.000-0.034) ng/mL Total Protein 5.9 L (6.3-8.2) g/dL Albumin 3.1 L (3.5-5.0) g/dL Lipase 22 L (23-300) U/L 04/20/17 04/20/17 Range/Units 19:15 19:15 WBC (3.8-10.6) k/uL RBC (4.30-5.90) m/uL Hgb (13.0-17.5) gm/dL Hct (39.0-53.0) % MCV (80.0-100.0) fL MCH (25.0-35.0) pg MCHC (31.0-37.0) g/dL RDW (11.5-15.5) % Plt Count (150-450) k/uL Neutrophils % % Lymphocytes % % Monocytes % % Eosinophils % % Basophils % % Neutrophils # (1.3-7.7) k/uL Lymphocytes # (1.0-4.8) k/uL Monocytes # (0-1.0) k/uL Eosinophils # (0-0.7) k/uL Basophils # (0-0.2) k/uL Hypochromasia Poikilocytosis Anisocytosis Macrocytosis PT 12.8 H (9.0-12.0) sec INR 1.3 (<1.1) D-Dimer 0.73 H (<0.60) mg/L FEU Sodium (137-145) mmol/L Potassium (3.5-5.1) mmol/L Chloride (98-107) mmol/L Carbon Dioxide (22-30) mmol/L Anion Gap mmol/L BUN (9-20) mg/dL Creatinine (0.66-1.25) mg/dL Est GFR (MDRD) Af Amer (>60 ml/min/1.73 sqM) Est GFR (MDRD) Non-Af (>60 ml/min/1.73 sqM) Glucose (74-99) mg/dL Calcium (8.4-10.2) mg/dL Phosphorus (2.5-4.5) mg/dL Magnesium (1.6-2.3) mg/dL Total Bilirubin (0.2-1.3) mg/dL AST (17-59) U/L ALT (21-72) U/L Alkaline Phosphatase (38-126) U/L Total Creatine Kinase (55-170) U/L CK-MB (CK-2) (0.0-2.4) ng/mL CK-MB (CK-2) Rel Index Troponin I (0.000-0.034) ng/mL Total Protein (6.3-8.2) g/dL Albumin (3.5-5.0) g/dL Lipase (23-300) U/L - Radiology Data Radiology results: report reviewed (Chest x-ray is negative for acute disease), image reviewed Disposition Clinical Impression: Chest pain, Anxiety Disposition: HOME SELF-CARE Condition: Good Instructions: Chest Pain (ED) Referrals: Luis Schwartz DO [Primary Care Provider] - 1-2 days
[2017-04-20 19:38] LABS: Anisocytosis Slight; Basophils % (A) 1 %; CHCM 31.7; Eosinophils # (A) 0.2 k/uL (0-0.7); Eosinophils % (A) 3 %; HGB 9.3 gm/dL (13.0-17.5); Hypochromasia Moderate; Luc # (Auto) 0.17; Luc % (Auto) 3; Lymphocytes # (A) 1.2 k/uL (1.0-4.8); Lymphocytes % (A) 18 %; MCH 30.7 pg (25.0-35.0); MCHC 31.2 g/dL (31.0-37.0); MCV 98.4 fL (80.0-100.0); Macrocytosis Slight; Mean Platelet Volume 7.6; Monocytes # (A) 0.5 k/uL (0-1.0); Monocytes % (A) 7 %; Neutrophils # (A) 4.4 k/uL (1.3-7.7); Neutrophils % (A) 69 %; Poikilocytosis Slight; RBC 3.05 m/uL (4.30-5.90); RDW 17.3 % (11.5-15.5); WBC 6.5 k/uL (3.8-10.6); WBC (Perox) 6.19
[2017-04-20 19:49] LABS: ALT 17 U/L (21-72); AST 16 U/L (17-59); Alkaline Phosphatase 93 U/L (38-126); Anion Gap 8 mmol/L; Blood Urea Nitrogen 11 mg/dL (9-20); Calcium 8.4 mg/dL (8.4-10.2); Carbon Dioxide 23 mmol/L (22-30); Chloride 108 mmol/L (98-107); Glucose 140 mg/dL (74-99); Magnesium 1.4 mg/dL (1.6-2.3); Non-African American GFR(MDRD) >60 (>60 ml/min/1.73 sqM); Phosphorous 2.9 mg/dL (2.5-4.5); Potassium 3.8 mmol/L (3.5-5.1); Sodium 139 mmol/L (137-145); Total Bilirubin 0.7 mg/dL (0.2-1.3); Total Protein 5.9 g/dL (6.3-8.2)
[2017-04-20 19:59] LABS: Creatine Kinase 54 U/L (55-170)
--- NOTE | 2017-04-20 20:05 | XR ---
EXAMINATION TYPE: XR chest 2V DATE OF EXAM: 04/20/2017 7:51 PM COMPARISON: 04/07/2017 HISTORY: Chest pain TECHNIQUE: Frontal and lateral views of the chest are obtained. FINDINGS: There is no heart failure. Lungs are clear of consolidation. There is no pleural effusion. There are sternal wires. There are chest leads. Bony thorax is intact. IMPRESSION: No active cardiopulmonary disease. No change.
[2017-04-20 20:12] LABS: Creatine Kinase MB 0.9 ng/mL (0.0-2.4); Troponin I <0.012 ng/mL (0.000-0.034)
[2017-04-20 20:24] LABS: INR 1.3 (<1.1); Prothrombin Time 12.8 sec (9.0-12.0)
[2017-04-20 21:31] VITALS: BP 152/82; PULSE 66
[2017-04-20 21:53] VITALS: TEMP 97.5
== END 2017-04-20 21:53 | disposition home or self-care (01) ==
LOC: EC 19:05
DX: R07.9 Chest pain, unspecified (principal); F41.9 Anxiety disorder, unspecified; M79.602 Pain in left arm; M79.601 Pain in right arm; I25.10 Atherosclerotic heart disease of native coronary artery without angina pectoris; E78.5 Hyperlipidemia, unspecified; I10 Essential (primary) hypertension; I25.2 Old myocardial infarction; M19.90 Unspecified osteoarthritis, unspecified site; N40.0 Benign prostatic hyperplasia without lower urinary tract symptoms; F32.9 Major depressive disorder, single episode, unspecified; F43.10 Post-traumatic stress disorder, unspecified; Z85.830 Personal history of malignant neoplasm of bone; Z85.528 Personal history of other malignant neoplasm of kidney; Z86.711 Personal history of pulmonary embolism; Z87.891 Personal history of nicotine dependence; Z79.01 Long term (current) use of anticoagulants; Z79.82 Long term (current) use of aspirin; Z79.891 Long term (current) use of opiate analgesic; Z79.899 Other long term (current) drug therapy; Z95.5 Presence of coronary angioplasty implant and graft; Z95.818 Presence of other cardiac implants and grafts
CPT/HCPCS: 36415; 71020; 80053; 82550; 82553; 83690; 83735; 84100; 84484; 85025; 85379; 85610; 93005; 99285

== ENCOUNTER 2017-05-02 21:07 | Observation (INO) | payer MEDICARE, BC ==
[2017-05-02] MEDS ORDERED: ASPIRIN 81 MG CHEW PO STA (22:16)
[2017-05-02] MEDS ORDERED: NITROGLYCERIN OINT 1 INCH/GM PACKET TOPICAL STA (22:16)
--- NOTE | 2017-05-02 22:20 | ED ---
General Adult HPI - General Chief complaint: Chest Pain Stated complaint: Chest Pain/Back Pain Time Seen by Provider: 05/02/17 21:25 Source: patient, RN notes reviewed Mode of arrival: wheelchair Limitations: no limitations - History of Present Illness Initial comments: This is a 66-year-old male with past medical history significant for renal carcinoma in his back. Patient has had surgery on that area. Patient also has a history of cardiac stents. Patient has a recent diagnosis of pulmonary embolisms. Patient has high blood pressure and high cholesterol. Patient denies any history of diabetes. Patient states she's been having intermittent chest pain over the last few months. Patient states the pain is worse with exertion he also has had some diaphoretic episodes associated with it. Patient states he takes a couple of nitros usually the pain is improved. Patient denies any abdominal pain patient denies nausea or vomiting. Patient denies any fever or chills. Patient denies any lightheadedness dizziness or near syncopal episode. Patient denies headache patient denies numbness weakness - Related Data Home Medications Medication Instructions Recorded Confirmed ALPRAZolam [Xanax] 0.25 mg PO TID PRN 02/19/17 04/20/17 HYDROcodone/APAP 7.5-325MG [[place] 1 tab PO Q6H PRN 02/19/17 04/20/17 7.5-325] Methocarbamol [Robaxin-750] 750 mg PO Q8H PRN 03/19/17 04/20/17 Morphine Sulfate ER [Ms Contin] 30 mg PO W/BRKFST 03/19/17 04/20/17 Tamsulosin [Flomax] 0.4 mg PO HS 03/19/17 04/20/17 Aspirin EC [Ecotrin Low Dose] 162 mg PO BID 04/20/17 04/20/17 Atorvastatin [Lipitor] 80 mg PO HS 04/20/17 04/20/17 Clopidogrel [Plavix] 75 mg PO QAM 04/20/17 04/20/17 Morphine Sulfate ER [Ms Contin 30 mg PO W/SUPPER 04/20/17 04/20/17 30Mg] Morphine Sulfate ER [Ms Contin] 15 mg PO W/LUNCH 04/20/17 04/20/17 Rivaroxaban [Xarelto] 20 mg PO HS 04/20/17 04/20/17 Previous Rx's Medication Instructions Recorded Docusate [Colace] 100 mg PO BID PRN #30 capsule 10/31/16 Nitroglycerin Sl Tabs [Nitrostat] 0.4 mg SUBLINGUAL Q5M PRN #20 tab 04/08/17 Allergies Allergy/AdvReac Type Severity Reaction Status Date / Time No Known Allergies Allergy Verified 05/02/17 21:14 Review of Systems ROS Statement: Those systems with pertinent positive or pertinent negative responses have been documented in the HPI. ROS Other: All systems not noted in ROS Statement are negative. Past Medical History Past Medical History: Coronary Artery Disease (CAD), Cancer, Chest Pain / Angina , Hyperlipidemia, Hypertension, Myocardial Infarction (SC), Osteoarthritis (OA) , Prostate Disorder, Pulmonary Embolus (PE) Additional Past Medical History / Comment(s): Pt recently admitted to [facility] on with AMS/fever/hypotension, beginning of pneumonia, SOB and bilateral PEs. 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, BPH, the patient also has severe peripheral vascular disease Last Myocardial Infarction Date:: 09/2014 History of Any Multi-Drug Resistant Organisms: None Reported Past Surgical History: Coronary Bypass/CABG, Heart Catheterization With Stent, Orthopedic Surgery, Prostate Surgery Additional Past Surgical History / Comment(s): Coronary artery bypass surgery- 3 vessel in 1994, catheterization and multiple stent insertion, carotid endarterectomy bilateral in 2008 and 2014, laser prostate surgery with testicular surgery, angiogram with arch study, left shoulder surgery-removed bone in shoulder blade d/t metastasis, laminectomy, bilateral knee arthroscopic surgeries and insertion of femoral stents for severe peripheral vascular disease Past Anesthesia/Blood Transfusion Reactions: No Reported Reaction Date of Last Stent Placement:: 2015 Past Psychological History: Anxiety, Depression, PTSD Additional Psychological History / Comment(s): Pt resides with his spouse. He has [facility]. He is on O2 at 2L/[place] ATC. He is a [employer] . He served over in [place] and [place]. Smoking Status: Former smoker Past Alcohol Use History: None Reported Additional Past Alcohol Use History / Comment(s): 6 DRINKS PER [place] AVG. PT STARTED SMOKING AGE 10, QUIT AT AGE 43 WAS SMOKING 1 PPD Past Drug Use History: None Reported - Past Family History Mother Additional Family Medical History / Comment(s): AT AGE 91-NATURAL CAUSES Father Family Medical History: Myocardial Infarction ([place]) Additional Family Medical History / Comment(s): AT AGE 64 General Exam - General Exam Comments Initial Comments: GENERAL: Patient is well-developed and well-nourished. Patient is nontoxic and well- hydrated and is in mild distress. ENT: Neck is soft and supple. No significant lymphadenopathy is noted. Oropharynx is clear. Moist mucous membranes. Neck has full range of motion without eliciting any pain. EYES: The sclera were anicteric and conjunctiva were pink and moist. Extraocular movements were intact and pupils were equal round and reactive to light. Eyelids were unremarkable. PULMONARY: Unlabored respirations. Good breath sounds bilaterally. No audible rales rhonchi or wheezing was noted. CARDIOVASCULAR: There is a regular rate and rhythm without any murmurs gallops or rubs. ABDOMEN: Soft and nontender with normal bowel sounds. No palpable organomegaly was noted. There is no palpable pulsatile mass. SKIN: Skin is clear with no lesions or rashes and otherwise unremarkable. NEUROLOGIC: Patient is alert and oriented x3. Cranial nerves II through XII are grossly intact. Motor and sensory are also intact. Normal speech, volume and content. Symmetrical smile. MUSCULOSKELETAL: Normal extremities with adequate strength and full range of motion. No lower extremity swelling or edema. No calf tenderness. LYMPHATICS: No significant lymphadenopathy is noted PSYCHIATRIC: Normal psychiatric evaluation. Normal interpersonal interactions appears functionally intact in deals appropriately with others. No signs of depression. No signs of anxiety. Limitations: no limitations Course Vital Signs 05/02/17 05/02/17 05/02/17 21:11 22:33 23:34 Temperature 98.8 F Pulse Rate 75 71 65 Respiratory 20 18 18 Rate Blood Pressure 148/70 164/77 162/76 O2 Sat by Pulse 92 L 96 94 L Oximetry Medical Decision Making - Medical Decision Making EKG shows sinus rhythm at 85 bpm [place] interval 118 QRS is 86 QT interval 394 QTC is 468. Patient's EKG shows no ST segment elevation or depression. I compared this EKG to an old EKG there are no new changes Patient's chest x-ray shows no acute abnormality. I think the patient is having unstable angina. Patient's pain was relieved after given Nitropaste and oxygen. Patient is already on Xarelto so no heparin will be started. Patient does have chronic back pain and that continues. - Lab Data Result diagrams: 05/02/17 22:30 05/02/17 22:30 Lab Results 05/02/17 05/02/17 05/02/17 Range/Units 22:30 22:30 22:30 WBC 4.8 (3.8-10.6) k/uL RBC 3.30 L (4.30-5.90) m/uL Hgb 9.8 L (13.0-17.5) gm/dL Hct 31.6 L (39.0-53.0) % MCV 95.8 (80.0-100.0) fL MCH 29.6 (25.0-35.0) pg MCHC 30.9 L (31.0-37.0) g/dL RDW 16.1 H (11.5-15.5) % Plt Count 222 (150-450) k/uL Neutrophils % 79 % Lymphocytes % 9 % Monocytes % 8 % Eosinophils % 2 % Basophils % 1 % Neutrophils # 3.8 (1.3-7.7) k/uL Lymphocytes # 0.4 L (1.0-4.8) k/uL Monocytes # 0.4 (0-1.0) k/uL Eosinophils # 0.1 (0-0.7) k/uL Basophils # 0.0 (0-0.2) k/uL Hypochromasia Slight Poikilocytosis Slight Anisocytosis Slight PT (9.0-12.0) sec INR (<1.1) APTT (22.0-30.0) sec Sodium 140 (137-145) mmol/L Potassium 3.7 (3.5-5.1) mmol/L Chloride 106 (98-107) mmol/L Carbon Dioxide 26 (22-30) mmol/L Anion Gap 8 mmol/L BUN 14 (9-20) mg/dL Creatinine 0.63 L (0.66-1.25) mg/dL Est GFR (MDRD) Af Amer >60 (>60 ml/min/1.73 sqM) Est GFR (MDRD) Non-Af >60 (>60 ml/min/1.73 sqM) Glucose 164 H (74-99) mg/dL Calcium 8.7 (8.4-10.2) mg/dL Magnesium 1.5 L (1.6-2.3) mg/dL Total Bilirubin 0.5 (0.2-1.3) mg/dL AST 17 (17-59) U/L ALT 15 L (21-72) U/L Alkaline Phosphatase 97 (38-126) U/L Total Creatine Kinase 34 L (55-170) U/L CK-MB (CK-2) 0.6 (0.0-2.4) ng/mL CK-MB (CK-2) Rel Index 1.8 Troponin I <0.012 (0.000-0.034) ng/mL Total Protein 5.8 L (6.3-8.2) g/dL Albumin 3.0 L (3.5-5.0) g/dL 05/02/17 Range/Units 22:30 WBC (3.8-10.6) k/uL RBC (4.30-5.90) m/uL Hgb (13.0-17.5) gm/dL Hct (39.0-53.0) % MCV (80.0-100.0) fL MCH (25.0-35.0) pg MCHC (31.0-37.0) g/dL RDW (11.5-15.5) % Plt Count (150-450) k/uL Neutrophils % % Lymphocytes % % Monocytes % % Eosinophils % % Basophils % % Neutrophils # (1.3-7.7) k/uL Lymphocytes # (1.0-4.8) k/uL Monocytes # (0-1.0) k/uL Eosinophils # (0-0.7) k/uL Basophils # (0-0.2) k/uL Hypochromasia Poikilocytosis Anisocytosis PT 15.6 H (9.0-12.0) sec INR 1.6 (<1.1) APTT 32.6 H (22.0-30.0) sec Sodium (137-145) mmol/L Potassium (3.5-5.1) mmol/L Chloride (98-107) mmol/L Carbon Dioxide (22-30) mmol/L Anion Gap mmol/L BUN (9-20) mg/dL Creatinine (0.66-1.25) mg/dL Est GFR (MDRD) Af Amer (>60 ml/min/1.73 sqM) Est GFR (MDRD) Non-Af (>60 ml/min/1.73 sqM) Glucose (74-99) mg/dL Calcium (8.4-10.2) mg/dL Magnesium (1.6-2.3) mg/dL Total Bilirubin (0.2-1.3) mg/dL AST (17-59) U/L ALT (21-72) U/L Alkaline Phosphatase (38-126) U/L Total Creatine Kinase (55-170) U/L CK-MB (CK-2) (0.0-2.4) ng/mL CK-MB (CK-2) Rel Index Troponin I (0.000-0.034) ng/mL Total Protein (6.3-8.2) g/dL Albumin (3.5-5.0) g/dL Disposition Clinical Impression: Unstable angina pectoris Disposition: ADMITTED IP TO THIS HOSP Referrals: Luis Schwartz DO [Primary Care Provider] - 1-2 days Time of Disposition: 23:51
[2017-05-02 22:42] LABS: Anisocytosis Slight; Basophils % (A) 1 %; CH 30.6; CHCM 31.9; Eosinophils # (A) 0.1 k/uL (0-0.7); Eosinophils % (A) 2 %; HCT 31.6 % (39.0-53.0); HDW 3.49; HGB 9.8 gm/dL (13.0-17.5); Hypochromasia Slight; Luc # (Auto) 0.09; Luc % (Auto) 2; Lymphocytes # (A) 0.4 k/uL (1.0-4.8); Lymphocytes % (A) 9 %; MCH 29.6 pg (25.0-35.0); MCHC 30.9 g/dL (31.0-37.0); MCV 95.8 fL (80.0-100.0); Mean Platelet Volume 7.9; Monocytes # (A) 0.4 k/uL (0-1.0); Monocytes % (A) 8 %; Neutrophils # (A) 3.8 k/uL (1.3-7.7); Neutrophils % (A) 79 %; Poikilocytosis Slight; RDW 16.1 % (11.5-15.5); WBC 4.8 k/uL (3.8-10.6); WBC (Perox) 4.61
[2017-05-02 22:48] LABS: INR 1.6 (<1.1); Partial Thromboplastin Time 32.6 sec (22.0-30.0); Prothrombin Time 15.6 sec (9.0-12.0)
[2017-05-02 22:55] LABS: ALT 15 U/L (21-72); AST 17 U/L (17-59); Alkaline Phosphatase 97 U/L (38-126); Anion Gap 8 mmol/L; Blood Urea Nitrogen 14 mg/dL (9-20); Calcium 8.7 mg/dL (8.4-10.2); Carbon Dioxide 26 mmol/L (22-30); Chloride 106 mmol/L (98-107); Glucose 164 mg/dL (74-99); Magnesium 1.5 mg/dL (1.6-2.3); Non-African American GFR(MDRD) >60 (>60 ml/min/1.73 sqM); Potassium 3.7 mmol/L (3.5-5.1); Sodium 140 mmol/L (137-145); Total Bilirubin 0.5 mg/dL (0.2-1.3); Total Protein 5.8 g/dL (6.3-8.2)
[2017-05-02 23:04] LABS: Creatine Kinase 34 U/L (55-170)
[2017-05-02 23:17] LABS: Creatine Kinase MB 0.6 ng/mL (0.0-2.4); Troponin I <0.012 ng/mL (0.000-0.034)
--- NOTE | 2017-05-02 23:32 | XR ---
EXAM: XR Chest, 2 Views CLINICAL HISTORY: Reason: Chest Pain TECHNIQUE: Frontal and lateral views of the chest. COMPARISON: 04/20/17 FINDINGS: Lungs: Stable without new focal infiltrate. Pulmonary vascular markings are stable. Pleural space: Stable without effusion or pneumothorax. Heart: The heart size and the mediastinal contours are stable including prior median sternotomy along with coronary artery stent visible on the lateral view. Mediastinum: See above. Bones/joints: One of the sternotomy wires is again discontiguous. Multilevel degenerative changes. No acute displaced fracture. IMPRESSION: No significant change, no new acute intrathoracic abnormality is seen.
[2017-05-02] MEDS ORDERED: HYDROmorphone 1 MG/ML 1 ML SYRINGE IVP STA (23:33)
[2017-05-02] MEDS ORDERED: ONDANSETRON 4 MG/2 ML VIAL IVP STA (23:34)
[2017-05-02] MEDS ORDERED: NITROGLYCERIN SL TABS 0.4 MG TAB SUBLINGUAL PRN (23:52)
[2017-05-02] MEDS ORDERED: METHOCARBAMOL 750 MG TAB PO PRN (23:55)
[2017-05-02] MEDS ORDERED: ALPRAZolam 0.25 MG TAB PO PRN (23:55)
[2017-05-03] MEDS: NITROGLYCERIN OINT 1 INCH/GM PACKET TOPICAL SCH ×4 (00:09→18:22)
[2017-05-03] MEDS: HYDROcodone/APAP 7.5-325MG 1 EACH TAB PO PRN ×2 (04:23→10:10)
[2017-05-03] MEDS: HYDROmorphone 1 MG/ML 1 ML SYRINGE IVP PRN ×2 (04:59→20:12)
[2017-05-03 06:19] LABS: Cholesterol 97 mg/dL (<200); HDL Cholesterol 28 mg/dL (40-60); Triglycerides 89 mg/dL (<150)
[2017-05-03 06:38] LABS: Creatine Kinase 27 U/L (55-170)
[2017-05-03 06:50] LABS: Creatine Kinase MB 0.5 ng/mL (0.0-2.4); Troponin I <0.012 ng/mL (0.000-0.034)
[2017-05-03] MEDS ORDERED: ASPIRIN 325 MG TAB PO SCH (09:00)
[2017-05-03] MEDS: CLOPIDOGREL 75 MG TAB PO SCH (10:10)
[2017-05-03] MEDS: MORPHINE SULFATE ER 30 MG TABLET PO SCH (10:10)
[2017-05-03 11:49] LABS: Creatine Kinase 32 U/L (55-170)
[2017-05-03 12:01] LABS: Creatine Kinase MB 0.6 ng/mL (0.0-2.4); Troponin I <0.012 ng/mL (0.000-0.034)
[2017-05-03] MEDS ORDERED: MORPHINE SULFATE ER 15 MG TABLET PO SCH (12:30)
[2017-05-03] MEDS ORDERED: TEMAZEPAM 15 MG CAP PO PRN (14:19)
[2017-05-03] MEDS ORDERED: GABAPENTIN 100 MG CAP PO STA (14:24)
--- NOTE | 2017-05-03 15:59 | CONS ---
DATE OF CONSULTATION: Mr. Raul Neely is a 66-year-old gentleman with a known history of CAD, previous aortocoronary bypass surgery and stenting of SVG to circumflex in October. He was recently in the hospital on 04/07/2017, with an episode of chest discomfort. The quality of the pain seems very atypical. He is also known to have bone mets from his kidney cancer. Upon arrival, he tells me that his pain is a lot better after they gave him pain medications. He is resting comfortably. Denies any chest discomfort. His troponin levels are normal. EKG does not suggest any acute myocardial ischemia. The patient is resting comfortably. He indicates to me that his pain is better today than it was last night when he came into the hospital. Please refer to recent consult by Dr. Gordillo from 04/07/2017. PAST MEDICAL HISTORY: 1. CAD, previous bypass surgery and PCI. Recent stenting of vein graft to circumflex in October. 2. Metastatic renal CA. 3. History of [id number] myocardial infarction. 4. History of multivessel stenting and bypass surgery. Medications at home include: 1. Flomax. 2. Nitrates. 3. Pain medications in the form of [place], morphine. 4. Plavix 75 mg daily. 5. Lipitor 80 mg daily. 6. Aspirin 162 mg daily. 7. Xarelto 20 mg daily. This patient in October 2016 had a stress test as well and at that time he went on to have stenting of the vein graft of the circumflex. Echocardiogram revealed ejection fraction of 45% with inferolateral hypokinesia. LABORATORY DATA: Revealed that the troponin levels are normal and d-dimer is also within normal limits. Hemoglobin is 9.8. On examination, blood pressure is 140/70, pulse rate is 62 per minute, regular. HEENT: Unremarkable. Fundus was not examined by me. Neck is supple. No JVD. I do not hear a carotid bruit. Heart exam reveals S1 and S2 heard normally without a rub, murmur or gallop. Lungs are clear. ABDOMEN: Soft. Lower extremities reveal diminished pulses. No edema. Central nervous system is normal. EKG revealed sinus mechanism, nonspecific ST-T changes. No acute findings. IMPRESSION: 1. Atypical chest pain. Quality of the pain seems very atypical. Troponins are negative. 2. History of metastatic renal cell carcinoma. 3. History of hypertension. 4. Hyperlipidemia. RECOMMENDATIONS: I am recommending that we optimize his pain medications. Increase activity, and if he has no further symptoms or chest pain he can be discharged. His presentation suggests atypical chest pain and also some bone pain in the spine as well. There is no evidence to suggest acute ongoing myocardial ischemia on this patient. Thank you very much for the consult.
[2017-05-03] MEDS ORDERED: DOCUSATE 100 MG CAP PO PRN (16:36)
[2017-05-03] MEDS ORDERED: METHYL SALICYLATE/MENTHOL CREAM 5 OZ TOPICAL PRN (16:36)
[2017-05-03] MEDS ORDERED: NITROGLYCERIN SL TABS 0.4 MG TAB SUBLINGUAL PRN (16:36)
[2017-05-03] MEDS ORDERED: MORPHINE SULFATE ER 30 MG TABLET PO SCH (17:30)
[2017-05-03] MEDS: PANTOPRAZOLE 40 MG TABLET PO SCH (18:21)
[2017-05-03] MEDS: GABAPENTIN 100 MG CAP PO SCH (19:54)
[2017-05-03] MEDS ORDERED: TAMSULOSIN 0.4 MG CAP.ER.24H PO SCH (21:00)
[2017-05-03] MEDS ORDERED: RIVAROXABAN 10 MG TAB PO SCH (21:00)
[2017-05-03] MEDS ORDERED: ATORVASTATIN 80 MG TAB PO SCH (21:00)
[2017-05-03] MEDS: ASPIRIN 81 MG CHEW PO SCH (21:15)
[2017-05-04] MEDS: NITROGLYCERIN OINT 1 INCH/GM PACKET TOPICAL SCH ×2 (02:07→05:11)
[2017-05-04] MEDS: HYDROmorphone 1 MG/ML 1 ML SYRINGE IVP PRN (05:31)
[2017-05-04 05:51] LABS: Basophils % (A) 0 %; CH 30.2; CHCM 31.1; Eosinophils # (A) 0.2 k/uL (0-0.7); Eosinophils % (A) 3 %; HCT 32.5 % (39.0-53.0); HDW 3.47; HGB 10.1 gm/dL (13.0-17.5); Hypochromasia Marked; Luc # (Auto) 0.17; Luc % (Auto) 3; Lymphocytes # (A) 0.9 k/uL (1.0-4.8); Lymphocytes % (A) 19 %; MCH 30.2 pg (25.0-35.0); MCV 97.3 fL (80.0-100.0); Mean Platelet Volume 8.1; Monocytes # (A) 0.4 k/uL (0-1.0); Monocytes % (A) 8 %; Neutrophils # (A) 3.3 k/uL (1.3-7.7); Neutrophils % (A) 66 %; Poikilocytosis Slight; RBC 3.34 m/uL (4.30-5.90); RDW 15.9 % (11.5-15.5); WBC (Perox) 5.34
[2017-05-04 06:07] LABS: Anion Gap 10 mmol/L; Blood Urea Nitrogen 13 mg/dL (9-20); Calcium 8.3 mg/dL (8.4-10.2); Carbon Dioxide 25 mmol/L (22-30); Chloride 106 mmol/L (98-107); Glucose 89 mg/dL (74-99); Non-African American GFR(MDRD) >60 (>60 ml/min/1.73 sqM); Sodium 141 mmol/L (137-145)
[2017-05-04] MEDS: CLOPIDOGREL 75 MG TAB PO SCH (07:39)
[2017-05-04] MEDS: MORPHINE SULFATE ER 30 MG TABLET PO SCH (07:39)
[2017-05-04] MEDS: ASPIRIN 81 MG CHEW PO SCH (07:39)
[2017-05-04] MEDS: GABAPENTIN 100 MG CAP PO SCH (07:39)
[2017-05-04] MEDS: PANTOPRAZOLE 40 MG TABLET PO SCH (07:40)
--- NOTE | 2017-05-04 07:42 | HP ---
DATE OF ADMISSION: I am covering for Dr. Schwartz. CHIEF COMPLAINT: Chest pain and bilateral arm pain. HISTORY OF PRESENT ILLNESS: This 66-year-old gentleman with a past medical history of multiple medical problems including CAD, history of cancer, history of chest pain, hyperlipidemia, history of DJD, history of pulmonary embolism being followed by Dr. 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 The patient had surgery at [facility]. Currently the patient complaining of neck pain and some bilateral arm pains. The patient also has history of cardiac stents also. The patient also had some intermittent chest pains for the last few months. Because of increasing difficulties the patient came to [facility] and admitted for further evaluation and treatment. There is no history of any fever, rigors. No history of headache, loss of consciousness, seizures. PAST MEDICAL HISTORY: History of chest pain, hypertension, hyperlipidemia, history of pulmonary embolus, history of recently diagnosed metastatic renal carcinoma. Home medications are: 1. Flomax 0.4 q.h.s. 2. Xarelto 20 mg q.h.s. 3. Nitrostat 0.4 sublingual p.r.n. 4. MS Contin 50 mg with lunch, 30 mg with breakfast and 30 mg with supper. 5. Robaxin 750 mg q.8 p.r.n. 6. Biofreeze 1 application daily p.r.n. 7. Mcgee 7.5 q.6 p.r.n. 8. Colace 100 mg p.o. b.i.d. p.r.n. 9. Plavix 75 mg q.a.m. 10. Lipitor 80 mg at bedtime. ALLERGIES: None. FAMILY HISTORY: History of myocardial infarction in the family. SOCIAL HISTORY: Previous history of smoking. No history of current smoking or alcohol intake. REVIEW OF SYSTEMS: ENT: No diminishing hearing. No diminished vision. CARDIOVASCULAR: As mentioned earlier. RESPIRATORY: As mentioned. GI: As mentioned earlier. : As mentioned earlier. NERVOUS SYSTEM: No numbness or weakness. ALLERGY/IMMUNOLOGY: No asthma. MUSCULOSKELETAL: As mentioned earlier. HEMATOLOGY: As mentioned earlier. ENDOCRINE: No history of diabetes. CONSTITUTIONAL: As mentioned earlier. DERMATOLOGY: Negative. RHEUMATOLOGY: Negative. PSYCHIATRY: As mentioned earlier. PHYSICAL EXAMINATION: Alert and oriented x3. Pulse 57, blood pressure 139/68, respirations 16, temperature 98 degrees, pulse ox 96% on room air. HEENT: Conjunctivae normal. Oral mucosa moist. NECK: No jugular venous distention. No carotid bruit. No lymph node enlargement. CARDIOVASCULAR: S1 and S2. No S3, no S4. RESPIRATORY: Breath sounds diminished at the bases. A few scattered rhonchi. No crackles. ABDOMEN: Soft, nontender. No mass palpable. No hepatosplenomegaly. LEGS: No edema, no swelling. NERVOUS SYSTEM: Higher function as mentioned. No focal motor or sensory deficits. LYMPHATIC: No lymphadenopathy in the neck, axillae or groin. SKIN: No ulcer, rash or bleeding. LABS: WBC 4.3, hemoglobin is 9.8 and PT is 15, INR 1.6. Other labs are noted. Albumin is 3. ASSESSMENT: 1. Chest and bilateral arm pain, possibly musculoskeletal, myocardial infarction ruled out. 2. History of metastatic renal cell carcinoma. 3. History of coronary artery disease and stent. 4. History of hypertension. 5. History of hyperlipidemia. 6. History of myocardial infarction. 7. History of pulmonary embolism. 8. History of pneumonia. 9. History of change in mental status. 10. History of peripheral neuropathy both hands. 11. History of skeletal metastases. 12. History of coronary artery disease, coronary artery bypass grafting and stent. 13. History of prostate surgery. 14. History of anxiety and depression, PTSD. 15. Anemia, normocytic. 16. On Xarelto. 17. Hypomagnesemia. 18. FULL CODE. RECOMMENDATIONS AND DISCUSSION: This 66-year-old gentleman presented with multiple complex medical issues. Will monitor the patient closely. Continue the current medications and symptomatic treatment. Otherwise pain medications. Cardiology consultation. Resume the home medications. Guarded prognosis because of multiple complex medical issues. Further recommendations to follow. Dr. Schwartz will follow. See orders for details. MTDD
[2017-05-04 07:56] VITALS: BP 137/60; PULSE 54; RESP 14; TEMP 98.7
== END 2017-05-04 11:20 | disposition home or self-care (01) ==
LOC: EC 21:07 → 3OBS 23:51
PROVIDERS: ADMIT Family Medicine; ATTEND Family Medicine
DX: R07.9 Chest pain, unspecified (principal); M79.602 Pain in left arm; M79.601 Pain in right arm; C64.9 Malignant neoplasm of unspecified kidney, except renal pelvis; I10 Essential (primary) hypertension; E78.5 Hyperlipidemia, unspecified; Z86.711 Personal history of pulmonary embolism; G62.9 Polyneuropathy, unspecified; C79.51 Secondary malignant neoplasm of bone; F41.9 Anxiety disorder, unspecified; F32.9 Major depressive disorder, single episode, unspecified; F43.10 Post-traumatic stress disorder, unspecified; D64.9 Anemia, unspecified; E83.42 Hypomagnesemia; M54.9 Dorsalgia, unspecified; I73.9 Peripheral vascular disease, unspecified; I25.110 Atherosclerotic heart disease of native coronary artery with unstable angina pectoris; I25.2 Old myocardial infarction; N40.0 Benign prostatic hyperplasia without lower urinary tract symptoms; M19.90 Unspecified osteoarthritis, unspecified site; G89.29 Other chronic pain; Z79.899 Other long term (current) drug therapy; Z79.82 Long term (current) use of aspirin; Z79.02 Long term (current) use of antithrombotics/antiplatelets; Z79.01 Long term (current) use of anticoagulants; Z92.3 Personal history of irradiation; Z92.21 Personal history of antineoplastic chemotherapy; Z95.1 Presence of aortocoronary bypass graft; Z87.891 Personal history of nicotine dependence; Z95.5 Presence of coronary angioplasty implant and graft; F45.42 Pain disorder with related psychological factors
CPT/HCPCS: 96374 ×2; 96375 ×2; 99285 ×2; 96376 ×2; 36415; 94760; 93005; 85379; 80061; 80053; 80048; 82550 ×2; 82553 ×2; 83735; 84484 ×2; 85025 ×2; 85610; 85730; 71020; G0378 ×3; J2405; J1170 ×2

== ENCOUNTER → 2017-06-09 | Outpatient (CLI) | payer MEDICARE, BC ==
[2017-06-09 08:45] LABS: Blood Urea Nitrogen 14 mg/dL (9-20); Non-African American GFR(MDRD) >60 (>60 ml/min/1.73 sqM)
--- NOTE | 2017-06-09 10:03 | CT ---
EXAMINATION TYPE: CT ChestAbdPelvis w con DATE OF EXAM: 06/09/2017 COMPARISON: CT angiogram chest 03/20/2017 HISTORY: Renal cancer CT DLP: 858.50 mGycm CONTRAST: CT scan of the chest, abdomen and pelvis is performed with Oral Contrast and with IV Contrast, patien t injected with 100 ml mL of Omnipaque 300. CT Chest: LUNGS: Previously noted pulmonary embolism has resolved. Basilar patchy densities persist and may be related to infiltrate or atelectasis. No pulmonary nodule or mass is detected. No pleural effusion o r CT evidence of interstitial lung disease. MEDIASTINUM: Thoracic aorta is of normal caliber. The heart is mildly enlarged. No evidence for me diastinal mass or adenopathy. HILAR STRUCTURES: No evidence for mass. No hilar adenopathy is appreciated. OTHER: Scattered lytic and blastic lesions of the thoracic spine. Decompressive laminectomy changes u pper thoracic spine. CONTRAST CT ABDOMEN AND PELVIS FINDINGS: LIVER/GB: No calcified gallstones. Small nonspecific 6.2 mm hypoattenuating lesion anterior segment right hepatic lobe image 63. No additional lesions seen. Biliary tree is of normal caliber. PANCREAS: No inflammation. No distinct mass. SPLEEN: No splenic enlargement. No lesion seen. ADRENALS: No nodule. No thickening. KIDNEYS/BLADDER: No hydronephrosis. No nephrolithiasis. Subcentimeter hypoattenuating lesion lower pole left kidney measuring 8.2 mm may reflect a small cyst although is too small to appropriately pavel racterize. No solid renal lesions identified at this time. BOWEL: Normal appendix. Normal bowel caliber. No inflammation. GENITAL ORGANS: No gross abnormality. LYMPH NODES: No greater than 1cm abdominal or pelvic lymph nodes are appreciated. AORTA: No significant abnormality. OSSEOUS STRUCTURES: Lesion at the L4 vertebral body with mild loss of height. Lytic lesions of the le ft femoral neck and left supra-acetabular region small in size. OTHER: No significant additional abnormality is seen. IMPRESSION: 1. No suspicious renal lesion at this time. 2. Bony metastatic disease as discussed. 3. Resolution previously noted pulmonary embolism. 4 patchy basilar densities may reflect atelectasis or infiltrate.
== END | disposition home or self-care (01) ==
LOC: RADCTMAIN 08:02
PROVIDERS: ATTEND Internal Medicine Hematology & Oncology
DX: C79.51 Secondary malignant neoplasm of bone (principal); I26.99 Other pulmonary embolism without acute cor pulmonale; C64.9 Malignant neoplasm of unspecified kidney, except renal pelvis; J98.4 Other disorders of lung
CPT/HCPCS: 82565; 84520; 71260; 74177; 36415; Q9967

== ENCOUNTER → 2017-09-08 | Outpatient (CLI) | payer MEDICARE, BC ==
[2017-09-08 08:29] LABS: Blood Urea Nitrogen 18 mg/dL (9-20); Non-African American GFR(MDRD) >60 (>60 ml/min/1.73 sqM)
--- NOTE | 2017-09-08 10:21 | CT ---
EXAMINATION TYPE: CT ChestAbdPelvis w con DATE OF EXAM: 09/08/2017 COMPARISON: 06/09/2017 HISTORY: Renal cancer CT DLP: 1641 mGycm Automated exposure control for dose reduction was used. CONTRAST: CT scan of the chest, abdomen and pelvis is performed with Oral Contrast and with IV Contrast, patien t injected with 100 ml mL of Omnipaque 300. FINDINGS: LUNGS: Subsegmental consolidation posteriorly most typical of atelectasis. This is noted bilaterally within the upper lobes. Subpleural nodularity measuring 4 mm anteriorly within the right upper lobe i s stable. 4 mm nodule seen in the right upper lobe anterior image 27.3 mm nodule lateral margin left upper lobe. MEDIASTINUM: No pericardial effusion is seen. Atherosclerotic change aorta. Thyroid normal. There is a stable posterior mediastinal lymph node measuring short axis of 1.4 cm. Coronary artery calcificat ion noted. There is a 1.1 cm left cardiophrenic angle lymph node. This also stable. OTHER: No additional significant abnormality is seen. LIVER/GB: Small hypodensity measuring 6 mm anterior segment right hepatic lobe is stable.. PANCREAS: No significant abnormality is seen. SPLEEN: Accessory spleen noted. ADRENALS: No significant abnormality is seen. KIDNEYS: No hydronephrosis or nephrolithiasis. Less than 1 cm hypodensity within the mid left kidney is indeterminate. Tiny mid 2 mm density right renal lesion too small to characterize.. BOWEL: No significant abnormality is seen. REPRODUCTIVE ORGANS: No gross abnormality seen. LYMPH NODES: No greater than 1 cm abdominal or pelvic lymph nodes are appreciated. OSSEOUS STRUCTURES: Extensive sclerosis is seen throughout the vertebral column with compression defo rmity of L4 compatible with widespread bony metastases. Lesions noted within the left femoral neck an d left suprahilar acetabular region are stable. Sternotomy wires noted. Bilateral pars defect L5. Scl erosis now seen involving the right iliac bone, acetabulum also suggestive of metastasis. Pubic rami bilaterally findings suggestive of metastasis is suspected new right sacral lesion and increase in si ze of right iliac lesion axial image 98 and 99. OTHER: Aorta of normal caliber. Suggestion of a right iliac vascular stent IMPRESSION: 1. Diffuse skeletal metastasis appears to progressed from the prior exam particularly within the mid and lower thoracic spine 2. stable adenopathy within the mediastinum unchanged from prior exam. 3. Stable pulmonary nodularity measuring 5 mm or less.
== END | disposition home or self-care (01) ==
LOC: RADCTMAIN 07:45
PROVIDERS: ATTEND Internal Medicine Hematology & Oncology
DX: C79.51 Secondary malignant neoplasm of bone (principal); C64.9 Malignant neoplasm of unspecified kidney, except renal pelvis; R91.8 Other nonspecific abnormal finding of lung field; R59.0 Localized enlarged lymph nodes
CPT/HCPCS: 82565; 84520; 71260; 74177; 36415; Q9967

== ENCOUNTER → 2017-12-04 | Outpatient (CLI) | payer MEDICARE ==
[2017-12-04 10:21] LABS: Blood Urea Nitrogen 12 mg/dL (9-20)
--- NOTE | 2017-12-04 12:04 | CT ---
EXAMINATION TYPE: CT ChestAbdPelvis w con DATE OF EXAM: 12/04/2017 COMPARISON: NONE HISTORY: follow up to renal CA CT DLP: 1745 mGycm Automated exposure control for dose reduction was used. CONTRAST: CT scan of the chest, abdomen and pelvis is performed with Oral Contrast and with IV Contrast, patien t injected with 100 mL of Omnipaque 300. FINDINGS: LUNGS: The lungs are grossly stable, medial scarring present in the lower lobes as on prior exam, the re is no concerning parenchymal mass or nodule identified. There is no pleural effusion or pneumoth orax seen. The tracheobronchial tree is patent. MEDIASTINUM: There is a soft tissue mass at the left hemithorax medially just lateral to the innomina te vein and posterior to the anterior first rib at its junction with the manubrium measuring approxim ately 2.6 x 3 x 3.4 cm with central low attenuation that has developed in the interval. Otherwise sta ble. There are coronary artery calcifications, coronary artery bypass graft noted in the patient is post m edian sternotomy No pericardial effusion is seen. AORTA: No significant abnormality is seen. OTHER: Possible right common iliac artery stent noted. LIVER/GB: No significant abnormality is appreciated. PANCREAS: Some air density present in the head of the pancreas could be related to a small duodenal d iverticulum, correlate for any history of sphincterotomy, no definite calculus identified SPLEEN: Enlarged as on prior exam. ADRENALS: No significant abnormality is seen. KIDNEYS: Stable, small cortical cyst thought present associated with the right kidney REPRODUCTIVE ORGANS: No gross abnormality seen. BOWEL: No significant abnormality is seen. FREE AIR: No Free Air visible. ASCITES: None seen. RETROPERITONEAL ADENOPATHY: No retroperitoneal adenopathy is seen. LYMPH NODES: No greater than 1 cm abdominal or pelvic lymph nodes are appreciated. URINARY BLADDER: No significant abnormality is seen. PELVIC ADENOPATHY: None visualized. OSSEOUS STRUCTURES: Multiple sclerotic foci are scattered throughout the skeleton compatible with me tastasis. Findings within the bones are essentially stable. IMPRESSION: Interval development of soft tissue mass in the lateral aspect of the superior mediastinu m on the left metastatic disease. Findings in the head of the pancreas as described. Splenomegaly. Co ronary arterial disease.
--- NOTE | 2017-12-04 14:04 | NM ---
EXAMINATION TYPE: NM bone scan whole body DATE OF EXAM: 12/04/2017 COMPARISON: CT scan 12/04/2017 HISTORY: Renal cancer Delayed whole-body scanning was performed following the injection of 26.2 mCi Tc 99m MDP. Images acq uired 3 hours post injection. FINDINGS: Abnormal uptake is seen in multiple locations of the right femur, left femoral neck, right sacrum and iliac bone. Abnormal uptake in the left iliac bone and bilateral pubic rami. Left acetabulum. Scattered throughout the mid and lower thoracic and throughout the lumbar spine. Abnormal uptake involving the left humerus. Abnormal uptake involving the anterior margin of the rib cage is somewhat heterogeneous. Early metastases not excluded. IMPRESSION: Numerous areas of abnormal uptake correspond to the CT findings and are suspicious for metastases.
== END | disposition home or self-care (01) ==
LOC: RADNMMAIN 09:30
PROVIDERS: ATTEND Internal Medicine Hematology & Oncology
DX: C78.1 Secondary malignant neoplasm of mediastinum (principal); C64.9 Malignant neoplasm of unspecified kidney, except renal pelvis; R16.1 Splenomegaly, not elsewhere classified; I25.10 Atherosclerotic heart disease of native coronary artery without angina pectoris
CPT/HCPCS: 82565; 84520; 71260; 74177; 36415; 78306; A9503; Q9967

== ENCOUNTER → 2018-03-22 | Outpatient (CLI) | payer MEDICARE ==
[2018-03-22 08:19] LABS: Blood Urea Nitrogen 15 mg/dL (9-20)
--- NOTE | 2018-03-22 10:03 | CT ---
EXAMINATION TYPE: CT ChestAbdPelvis w con DATE OF EXAM: 03/22/2018 COMPARISON: CT chest abdomen and pelvis December 04, 2017 and older studies. PET/CT February 14, 2017 HISTORY: Metastatic Malignant neoplasm of unspecified kidney CT DLP: 662.4 mGycm. Automated Exposure Control for Dose Reduction was Utilized. CONTRAST: CT scan of the thorax, abdomen and pelvis is performed with oral and with IV Contrast, patient inject ed with 100 mL of Isovue 300. FINDINGS: LUNGS: There is underlying emphysematous change with posterior bilateral lower lobe linear scarring a nd/or atelectasis redemonstrated. There is no suspicious parenchymal nodule or mass identified. No pl eural effusion or pneumothorax is seen bilaterally. MEDIASTINUM: There are no new greater than 1 cm hilar or mediastinal lymph nodes. There is interval i mprovement in soft tissue mass anterior superior mediastinum prevascular space axial image 13 abuttin g left brachiocephalic vein measuring 2.2 x 1.4 cm current study versus 3.0 x 2.7 cm prior. No card iomegaly or pericardial effusion is seen. Post CABG changes with mediastinal clips and sternal wires is redemonstrated OTHER: No additional significant abnormality is seen. LIVER/GB: No significant abnormality is appreciated. PANCREAS: No significant abnormality is seen. SPLEEN: 2 small splenule in splenic hilum near axial image 53 are again seen. Heterogeneous mildly pr ominent spleen is stable. ADRENALS: No significant abnormality is seen. KIDNEYS: Subcentimeter central lesion right kidney axial image 29 series 5 is stable presumed benign. A 1 cm low dense lesion anteriorly mid to lower pole level left kidney image 34 series 5 is fairly s table presumed benign. There is symmetric cortical medullary uptake and excretion from both kidneys w ithout hydronephrosis bilaterally. A few scattered pelvic phleboliths are redemonstrated. BOWEL: The oral contrast reaches level proximal ileal bowel making evaluation of distal bowel slightl y suboptimal. There is no suspicious small or large bowel dilatation. There is mild to moderate wall thickening in the right colon. GENITAL ORGANS: No gross abnormality seen. LYMPH NODES: No greater than 1cm abdominal or pelvic lymph nodes are appreciated. OSSEOUS STRUCTURES: There is redemonstration of innumerable sclerotic osseous metastatic lesions with diffuse sternal involvement and prominent involvement throughout the visualized thoracolumbar spine. There are multiple pelvic lesions involving bilateral iliac bones sacrum, and visualized left proxim al femur. Sclerotic lesions in left humeral head are better seen on current study versus prior. No de finitive new lesions are seen. OTHER: There is fairly moderate to severe plaque of the mid to distal abdominal aorta extending into bilateral common iliac arteries redemonstrated. IMPRESSION: Stable osseous metastatic disease. Interval improvement in thoracic mediastinal lesion. N o obvious new suspicious lesions seen.
--- NOTE | 2018-03-22 14:58 | NM ---
EXAMINATION TYPE: NM bone scan whole body DATE OF EXAM: 03/22/2018 COMPARISON: 12/04/2017 HISTORY: Renal cell cancer Delayed whole-body scanning was performed following the injection of 22.8 mCi Tc 99m MDP. Images acq uired 5.25 hours post injection. FINDINGS: There is abnormal uptake involving the proximal femora bilaterally which is fairly stable. Abnormal u ptake involving the diaphysis of the right femur is less impressive on today's exam. Abnormal uptake involving the thoracic and lumbar spine is similar in appearance to the prior study . Abnormal uptake involving the lower lumbar spine also appears stable. Abnormal uptake involving the pelvis is similar in appearance. Abnormal stable Abnormal uptake involving the shoulders likely is degenerative or post arthritic. IMPRESSION: Pattern of uptake is predominantly similar with some improvement involving the diaphysis right femur . Otherwise no interval change in the diffuse bony metastases.
== END ==
LOC: RADCTMAIN 07:31
PROVIDERS: ATTEND Internal Medicine Hematology & Oncology
DX: C79.51 Secondary malignant neoplasm of bone (principal); C64.9 Malignant neoplasm of unspecified kidney, except renal pelvis
CPT/HCPCS: 82565; 84520; 71260; 74177; 36415; 78306; A9503; Q9967

== ENCOUNTER → 2018-04-06 | Outpatient (CLI) | payer MEDICARE ==
[2018-04-06 16:23] LABS: T4, Free (Free Thyroxine) 4.44 ng/dL (0.78-2.19)
[2018-04-07 02:00] LABS: ACTH 5.72 pg/mL (0.00-45.99)
== END | disposition home or self-care (01) ==
LOC: LABWHC1 14:36
PROVIDERS: ATTEND Internal Medicine Endocrinology, Diabetes & Metabolism
DX: E05.90 Thyrotoxicosis, unspecified without thyrotoxic crisis or storm (principal)
CPT/HCPCS: 36415; 82024; 82533; 84439; 84443; 84445; 84480

== ENCOUNTER → 2018-06-16 | Outpatient (CLI) | payer MEDICARE ==
[2018-06-16 12:32] LABS: T4, Free (Free Thyroxine) 0.19 ng/dL (0.78-2.19)
== END | disposition home or self-care (01) ==
LOC: LABWHC1 11:24
PROVIDERS: ATTEND Internal Medicine Endocrinology, Diabetes & Metabolism
DX: E05.90 Thyrotoxicosis, unspecified without thyrotoxic crisis or storm (principal)
CPT/HCPCS: 36415; 84439; 84443; 84480

== ENCOUNTER → 2018-07-05 | Outpatient (CLI) | payer MEDICARE ==
[2018-07-05 15:36] LABS: T4, Free (Free Thyroxine) 0.46 ng/dL (0.78-2.19)
== END | disposition home or self-care (01) ==
LOC: LABWHC1 13:53
PROVIDERS: ATTEND Internal Medicine Endocrinology, Diabetes & Metabolism
DX: E05.90 Thyrotoxicosis, unspecified without thyrotoxic crisis or storm (principal)
CPT/HCPCS: 36415; 84439; 84443; 84480

== ENCOUNTER → 2018-07-09 | Outpatient (CLI) | payer MEDICARE ==
[2018-07-09 15:11] LABS: Blood Urea Nitrogen 19 mg/dL (9-20)
--- NOTE | 2018-07-12 06:20 | CT ---
EXAMINATION TYPE: CT ChestAbdPelvis w con DATE OF EXAM: 07/09/2018 COMPARISON: CT chest abdomen and pelvis March 22, 2018 and older studies. Nuclear medicine bone scan March 22, 2018. PET/CT February 14, 2017 HISTORY: f/u renal ca diagnosed 2 years earlier with history of radiation treatment 2017, suspected m ets CT DLP: 981.2 mGycm. Automated Exposure Control for Dose Reduction was Utilized. CONTRAST: CT scan of the thorax, abdomen and pelvis is performed with oral and with IV Contrast, patient inject ed with 100 mL of Isovue 300. FINDINGS: LUNGS: There is central dependent atelectasis and/or scarring in both lungs most prominent near basis more prominent versus prior. No suspicious nodule or mass is present bilaterally. Tiny left pleural fluid component is identified. No pneumothorax is seen bilaterally. MEDIASTINUM: There are no new greater than 1 cm hilar or mediastinal lymph nodes. Continued slight in terval improvement in soft tissue mass anterior superior mediastinum prevascular space axial image 20 measuring 2.3 x 1.0 cm current study . No pericardial effusion is seen. Post-CABG changes with med iastinal clips and sternal wires is identified. Mild cardiomegaly is seen. OTHER: Small degree of bilateral gynecomastia is noted. LIVER/GB: No significant abnormality is appreciated. PANCREAS: Mild generalized fat replaced atrophy of head and body is noted. SPLEEN: A few small splenules in the anterior splenic hilum are redemonstrated. Splenic size is stabl e. ADRENALS: No significant abnormality is seen. KIDNEYS: Mild perinephric fluid is noted bilaterally. Occasional subcentimeter low dense lesions thro ughout both kidneys is too small to further characterize. For reference near 1.0 cm mid pole lesion c entrally axial image 33 series 5 right kidney is stable. There is symmetric cortical medullary medull brock uptake and excretion without hydronephrosis bilaterally. BOWEL: Oral contrast has not reached terminal ileum. There is no suspicious small or large bowel dila tation. There is some redundancy of the sigmoid colon GENITAL ORGANS: No gross abnormality seen. LYMPH NODES: No greater than 1cm abdominal or pelvic lymph nodes are appreciated. OSSEOUS STRUCTURES: Diffuse osseous metastatic disease is redemonstrated with innumerable sclerotic l esions scattered throughout the sternum and visualized spine as well as scattered throughout the pelv is with large left acetabular lesion are all redemonstrated. OTHER: There is moderate to severe mixed plaque in the infrarenal abdominal aorta. IMPRESSION: Stable diffuse osseous metastatic disease. Interval slight improvement in thoracic medias tinal lesion. No new suspicious masses are identified..
== END | disposition home or self-care (01) ==
LOC: RADCTMAIN 14:30
PROVIDERS: ATTEND Internal Medicine Hematology & Oncology
DX: C64.9 Malignant neoplasm of unspecified kidney, except renal pelvis (principal); C79.51 Secondary malignant neoplasm of bone; J98.59 Other diseases of mediastinum, not elsewhere classified
CPT/HCPCS: 82565; 84520; 71260; 74177; 36415; Q9967

== ENCOUNTER 2018-07-20 11:51 | Emergency (ER) | payer MEDICARE ==
[2018-07-20 12:09] VITALS: RESP 18
[2018-07-20 12:43] LABS: Anisocytosis Slight; Basophils % (A) 0 %; Eosinophils # (A) 0.1 k/uL (0-0.7); Eosinophils % (A) 1 %; HCT 30.1 % (39.0-53.0); HGB 9.7 gm/dL (13.0-17.5); Hypochromasia Slight; Lymphocytes # (A) 0.6 k/uL (1.0-4.8); Lymphocytes % (A) 14 %; MCH 34.1 pg (25.0-35.0); MCHC 32.1 g/dL (31.0-37.0); MCV 106.2 fL (80.0-100.0); Macrocytosis Marked; Mean Platelet Volume 7.8; Monocytes # (A) 0.3 k/uL (0-1.0); Monocytes % (A) 7 %; Neutrophils # (A) 3.2 k/uL (1.3-7.7); Neutrophils % (A) 76 %; Platelet Count 189 k/uL (150-450); Poikilocytosis Slight; RBC 2.83 m/uL (4.30-5.90); RDW 18.4 % (11.5-15.5); WBC 4.3 k/uL (3.8-10.6)
--- NOTE | 2018-07-20 12:48 | ED ---
Recheck HPI - General Chief Complaint: Recheck/Abnormal Lab/Rx Stated Complaint: LOW HEMOGLOBIN Time Seen by Provider: 07/20/18 12:10 Source: patient, RN notes reviewed Mode of arrival: ambulatory Limitations: no limitations - History of Present Illness Initial Comments: This is a 67-year-old male who was sent in from the [facility] clinic for evaluation of anemia. Patient denies any hematemesis, any blood per rectum, any melena. He states he was told he has low hemoglobin and needs to be rechecked. Lab work that was done yesterday which showed a hemoglobin 9.7. This is apparently a drop from when he had previously. No other complaints no chest pain. Sugars breath fevers chills sweats or other symptoms MD Complaint: abnormal lab - Related Data Home Medications Medication Instructions Recorded Confirmed Aspirin EC [Ecotrin Low Dose] 81 mg PO DAILY 04/20/17 07/20/18 Morphine Sulfate ER [Ms Contin 30 mg PO TID 04/20/17 07/20/18 30Mg] Cabozantinib S-Malate [Cabometyx] 60 mg PO DAILY 07/20/18 07/20/18 Cyanocobalamin (Vitamin B-12) 1,000 mcg PO DAILY 07/20/18 07/20/18 [Vitamin B-12] Hydrocortisone [Cortef] 10 mg PO DAILY@1500 07/20/18 07/20/18 Hydrocortisone [Cortef] 20 mg PO QAM 07/20/18 07/20/18 Megestrol [Megace] 800 mg PO DAILY 07/20/18 07/20/18 Methimazole 10 mg PO DAILY 07/20/18 07/20/18 Morphine Sulfate Ir [MSIR] 15 - 30 mg PO Q4H PRN 07/20/18 07/20/18 Allergies Allergy/AdvReac Type Severity Reaction Status Date / Time No Known Allergies Allergy Verified 07/20/18 12:09 Review of Systems ROS Statement: Those systems with pertinent positive or pertinent negative responses have been documented in the HPI. ROS Other: All systems not noted in ROS Statement are negative. Past Medical History Past Medical History: Coronary Artery Disease (CAD), Cancer, Chest Pain / Angina , Hyperlipidemia, Hypertension, Myocardial Infarction (CA), Osteoarthritis (OA) , Prostate Disorder, Pulmonary Embolus (PE) Additional Past Medical History / Comment(s): Pt recently admitted to [facility] on with AMS/fever/hypotension, beginning of pneumonia, SOB and bilateral PEs. 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, BPH, the patient also has severe peripheral vascular disease Last Myocardial Infarction Date:: 09/2014 History of Any Multi-Drug Resistant Organisms: None Reported Past Surgical History: Coronary Bypass/CABG, Heart Catheterization With Stent, Orthopedic Surgery, Prostate Surgery Additional Past Surgical History / Comment(s): Coronary artery bypass surgery- 3 vessel in 1994, catheterization and multiple stent insertion, carotid endarterectomy bilateral in 2008 and 2014, laser prostate surgery with testicular surgery, angiogram with arch study, left shoulder surgery-removed bone in shoulder blade d/t metastasis, laminectomy, bilateral knee arthroscopic surgeries and insertion of femoral stents for severe peripheral vascular disease Past Anesthesia/Blood Transfusion Reactions: No Reported Reaction Date of Last Stent Placement:: 2015 Past Psychological History: Anxiety, Depression, PTSD Smoking Status: Former smoker Past Alcohol Use History: None Reported Past Drug Use History: None Reported - Past Family History Mother Additional Family Medical History / Comment(s): AT AGE 91-NATURAL CAUSES Father Family Medical History: Myocardial Infarction (CA) Additional Family Medical History / Comment(s): AT AGE 64 General Exam - General Exam Comments Initial Comments: This is a well-developed well-nourished awake alert oriented times 3 male Limitations: no limitations General appearance: alert, in no apparent distress Head exam: Present: atraumatic, normocephalic, normal inspection Eye exam: Present: normal appearance, PERRL, EOMI. Absent: scleral icterus, conjunctival injection, periorbital swelling ENT exam: Present: mucous membranes dry Neck exam: Present: normal inspection. Absent: tenderness, meningismus, lymphadenopathy Respiratory exam: Present: normal lung sounds bilaterally. Absent: respiratory distress, wheezes, rales, rhonchi, stridor Cardiovascular Exam: Present: regular rate, normal rhythm, normal heart sounds. Absent: systolic murmur, diastolic murmur, rubs, gallop, clicks GI/Abdominal exam: Present: soft, normal bowel sounds. Absent: distended, tenderness, guarding, rebound, rigid Extremities exam: Present: normal inspection, full ROM, normal capillary refill. Absent: tenderness, pedal edema, joint swelling, calf tenderness Back exam: Present: normal inspection Neurological exam: Present: alert, oriented X3, CN II-XII intact Psychiatric exam: Present: normal affect, normal mood Skin exam: Present: warm, dry, intact, pallor. Absent: normal color, rash Course Vital Signs 07/20/18 12:08 Temperature 99.3 F Pulse Rate 57 L Respiratory 18 Rate Blood Pressure 147/76 O2 Sat by Pulse 96 Oximetry Medical Decision Making - Medical Decision Making I did discuss findings with the patient. He is asymptomatic. [facility]. Patient has volunteered that he has iron tablets at home and he will start taking them again. - Lab Data Result diagrams: 07/20/18 12:35 07/20/18 12:35 Lab Results 07/20/18 07/20/18 07/20/18 Range/Units 12:35 12:35 12:35 WBC 4.3 (3.8-10.6) k/uL RBC 2.83 L (4.30-5.90) m/uL Hgb 9.7 L (13.0-17.5) gm/dL Hct 30.1 L (39.0-53.0) % MCV 106.2 H (80.0-100.0) fL MCH 34.1 (25.0-35.0) pg MCHC 32.1 (31.0-37.0) g/dL RDW 18.4 H (11.5-15.5) % Plt Count 189 (150-450) k/uL Neutrophils % 76 % Lymphocytes % 14 % Monocytes % 7 % Eosinophils % 1 % Basophils % 0 % Neutrophils # 3.2 (1.3-7.7) k/uL Lymphocytes # 0.6 L (1.0-4.8) k/uL Monocytes # 0.3 (0-1.0) k/uL Eosinophils # 0.1 (0-0.7) k/uL Basophils # 0.0 (0-0.2) k/uL Manual Slide Review Performed Polychromasia Present Hypochromasia Slight Poikilocytosis Slight Poikilocytosis (manual Present Anisocytosis Slight Macrocytosis Marked PT 11.3 (9.0-12.0) sec INR 1.2 H (<1.2) APTT 26.2 (22.0-30.0) sec Sodium 141 (137-145) mmol/L Potassium 4.6 (3.5-5.1) mmol/L Chloride 106 (98-107) mmol/L Carbon Dioxide 28 (22-30) mmol/L Anion Gap 7 mmol/L BUN 15 (9-20) mg/dL Creatinine 0.73 (0.66-1.25) mg/dL Est GFR (CKD-EPI)AfAm >90 (>60 ml/min/1.73 sqM) Est GFR (CKD-EPI)NonAf >90 (>60 ml/min/1.73 sqM) Glucose 94 (74-99) mg/dL Calcium 8.9 (8.4-10.2) mg/dL Total Bilirubin 0.8 (0.2-1.3) mg/dL AST 34 (17-59) U/L ALT 44 (21-72) U/L Alkaline Phosphatase 154 H (38-126) U/L Total Protein 5.8 L (6.3-8.2) g/dL Albumin 3.3 L (3.5-5.0) g/dL Disposition Clinical Impression: Anemia, Condition not found Disposition: HOME SELF-CARE Condition: Good Instructions: Anemia (ED) Is patient prescribed a controlled substance at d/c from ED?: No Referrals: [facility],Clinic [Primary Care Provider] - 1-2 days
[2018-07-20 12:53] LABS: INR 1.2 (<1.2); Partial Thromboplastin Time 26.2 sec (22.0-30.0); Prothrombin Time 11.3 sec (9.0-12.0)
[2018-07-20 12:58] LABS: Polychromasia Present
[2018-07-20 12:59] LABS: Poikilocytosis (M) Present
[2018-07-20 13:06] LABS: ALT 44 U/L (21-72); AST 34 U/L (17-59); Albumin 3.3 g/dL (3.5-5.0); Alkaline Phosphatase 154 U/L (38-126); Anion Gap 7 mmol/L; Blood Urea Nitrogen 15 mg/dL (9-20); Calcium 8.9 mg/dL (8.4-10.2); Carbon Dioxide 28 mmol/L (22-30); Chloride 106 mmol/L (98-107); Glucose 94 mg/dL (74-99); Potassium 4.6 mmol/L (3.5-5.1); Sodium 141 mmol/L (137-145); Total Bilirubin 0.8 mg/dL (0.2-1.3); Total Protein 5.8 g/dL (6.3-8.2)
[2018-07-20 13:25] VITALS: BP 126/68; PULSE 78; TEMP 98.9
== END 2018-07-20 13:34 | disposition home or self-care (01) ==
LOC: EC 11:51
DX: D64.9 Anemia, unspecified (principal); M19.90 Unspecified osteoarthritis, unspecified site; I25.2 Old myocardial infarction; Z87.891 Personal history of nicotine dependence; Z79.52 Long term (current) use of systemic steroids; Z79.82 Long term (current) use of aspirin; Z79.891 Long term (current) use of opiate analgesic; Z79.899 Other long term (current) drug therapy; Z92.21 Personal history of antineoplastic chemotherapy; Z92.3 Personal history of irradiation; Z85.528 Personal history of other malignant neoplasm of kidney; Z85.830 Personal history of malignant neoplasm of bone; Z98.890 Other specified postprocedural states
CPT/HCPCS: 36415; 80053; 85025; 85610; 85730; 99284